=== PATIENT | female | born 1950 | race Caucasian/White ===

== ENCOUNTER 2017-03-23 01:57 | Emergency (ER) | payer MEDICARE ==
[2017-03-23] MEDS ORDERED: solu-MEDROL 125 MG IV ONE (02:04)
[2017-03-23] MEDS ORDERED: DUONEB 0.5-3 MG/3 ml Neb IH ONE ×2 (02:04→02:13)
--- NOTE | 2017-03-23 02:09 | ERPHSYRPT ---
- History of Present Illness Time Seen by Provider: 03/23/17 02:04 Source: patient Exam Limitations: no limitations Physician History: The patient is a 66-year-old female who complains of a cough since Monday or for 5 days. Tonight she had a coughing spell and developed shortness of breath and chest pain. Emotionally she is not feeling well because she recently lost her . She has a past medical history of pneumonia last year. Her past medical history is also significant for A. fib, coronary artery disease, CABG, high cholesterol, GERD, hypertension, and thyroidectomy. Timing/Duration: day(s) (5) Activities at Onset: none Severity of Dyspnea-Max: moderate Severity of Dyspnea-Current: mild Possible Cause: occasional episodes Modifying Factors: Improves With: activity, coughing Associated Symptoms: cough, wheezing Allergies/Adverse Reactions: No Known Drug Allergies Allergy (Unverified 08/20/13 13:27) Hx Tetanus, Diphtheria Vaccination/Date Given: No (PT UNSURE) Hx Influenza Vaccination/Date Given: No Hx Pneumococcal Vaccination/Date Given: No - Review of Systems Constitutional: No Fever, No Chills Eyes: No Symptoms Ears, Nose, & Throat: No Symptoms Respiratory: Cough, Dyspnea, Wheezing Cardiac: Chest Pain, No Edema, No Syncope Abdominal/Gastrointestinal: No Abdominal Pain, No Nausea, No Vomiting, No Diarrhea Genitourinary Symptoms: No Dysuria Musculoskeletal: No Back Pain, No Neck Pain Skin: No Rash Neurological: No Dizziness, No Focal Weakness, No Sensory Changes Psychological: No Symptoms Endocrine: No Symptoms Hematologic/Lymphatic: No Symptoms Immunological/Allergic: No Symptoms All Other Systems: Reviewed and Negative - Past Medical History Pertinent Past Medical History: Yes Cardiac History: Myocardial Infarction ([place]), Other Endocrine Medical History: Hyperthyroidism Musculoskeletal History: Osteoarthritis Psycho-Social History: Anxiety, Depression - Past Surgical History Past Surgical History: Yes Cardiac: CABG, Cardiac Catheterization, Cardiac Stent Gastrointestinal: Cholecystectomy Musculoskeletal: Orthopedic Surgery Female Surgical History: Hysterectomy Other Surgical History: THYROIDECTOMY, BACK SURGERY 2010 - Social History Smoking Status: Former smoker Exposure to second hand smoke: No Drug Use: none Patient Lives Alone: No - Female History Hx Now: No - Nursing Vital Signs Nursing Vital Signs: Initial Vital Signs Pulse Rate 77 03/23/17 02:17 Respiratory Rate 22 03/23/17 02:17 O2 Sat by Pulse Oximetry 94 L 03/23/17 02:17 Pain Scale Pain Intensity 3 - Physical Exam General Appearance: mild distress Eye Exam: PERRL/EOMI Ears, Nose, Throat Exam: hearing grossly normal Neck Exam: normal inspection, supple Respiratory Exam: wheezing Cardiovascular/Chest Exam: normal heart sounds, regular rate/rhythm Abdominal/Gastrointestinal Exam: soft, No tenderness, No distention, No mass Rectal Exam: not done Extremity Exam: non-tender, normal range of motion, normal inspection, no calf tenderness, no pedal edema Neurologic Exam: alert, oriented x 3, cooperative, 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 tested, sensation nml, No motor deficits Skin Exam: normal color, warm, No dry SpO2 Interpretation: normal - Course EKG Interpreted by Me: RATE, Sinus Rhythm, NORMAL AXIS, NORMAL QRS, Other (no change compared to EKG 08/20/13.) - Radiology Exams Chest X-ray Interpretation: Interpreted by me, Other (mild pulmonary congestion.) Ordered Tests: Active Orders 24 hr Category Date Time Status Neon Glass Bender STAT Care 03/23/17 02:05 Active EKG-ER Only STAT Care 03/23/17 02:04 Active IV Insertion STAT Care 03/23/17 02:04 Active CHEST 2 VIEWS (PA AND LAT) Stat Exams 03/23/17 02:04 Taken CBC W DIFF Stat Lab 03/23/17 02:15 Completed CMP Stat Lab 03/23/17 02:15 Completed MAGNESIUM Stat Lab 03/23/17 02:15 Completed NT PRO BNP Stat Lab 03/23/17 02:15 Completed TROPONIN Q3H Lab 03/23/17 02:15 Completed TROPONIN Q3H Lab 03/23/17 05:15 Ordered TROPONIN Q3H Lab 03/23/17 08:15 Ordered TROPONIN Q3H Lab 03/23/17 11:15 Ordered TROPONIN Q3H Lab 03/23/17 14:15 Ordered Respiratory Nebulizer STAT RT 03/23/17 02:05 Completed Medication Summary Discontinued Medications Generic Name Dose Route Start Last Admin Trade Name Freq PRN Reason Stop Dose Admin Albuterol/Ipratropium 3 ml 03/23/17 02:04 03/23/17 02:16 Duoneb 0.5-3 Mg/3 Ml Neb IH 03/23/17 02:05 3 ml STAT ONE Administration Albuterol/Ipratropium Confirm 03/23/17 02:13 Duoneb 0.5-3 Mg/3 Ml Neb Administered 03/23/17 02:14 Dose 3 ml IH .STK-MED ONE Methylprednisolone Sodium Succinate 125 mg 03/23/17 02:04 03/23/17 02:22 Solu-Medrol 125 Mg IV 03/23/17 02:05 125 mg STAT ONE Administration Methylprednisolone Sodium Succinate Confirm 03/23/17 02:20 Solu-Medrol 125 Mg Administered 03/23/17 02:21 Dose 125 mg .ROUTE .STK-MED ONE Lab/Rad Data: Laboratory Result Diagrams 03/23/17 02:15 03/23/17 02:15 Laboratory Results 03/23/17 03/23/17 03/23/17 Range/Units 02:15 02:15 02:15 WBC 8.9 (4.0-10.5) K/mm3 RBC 4.73 (4.1-5.4) M/mm3 Hgb 13.9 (12.0-16.0) gm/dl Hct 41.8 (35-47) % MCV 88.4 (78-100) fl MCH 29.4 (26-32) pg MCHC 33.3 (32-36) g/dl RDW 13.3 (11.5-14.0) % Plt Count 244 (150-450) K/mm3 MPV 11.0 H (6-9.5) fl Gran % 57.3 (36.0-66.0) % Lymphocytes % 31.3 (24.0-44.0) % Monocytes % 10.6 (0.0-12.0) % Eosinophils % 0.5 (0.00-5.0) % Basophils % 0.3 (0.0-0.4) % Basophils # 0.03 (0-0.4) Sodium 139 (136-145) mEq/L Potassium 3.7 (3.5-5.1) mEq/L Chloride 103 (98-107) mEq/L Carbon Dioxide 24.0 (21-32) mEq/L Anion Gap 15.4 H (5-15) MEQ/L BUN 14 (9-20) mg/dL Creatinine 1.50 H (0.55-1.30) mg/dl Estimated GFR 37 ML/MIN Glucose 101 (70-110) MG/DL Calcium 9.1 (8.5-10.1) mg/dL Magnesium 1.7 L (1.8-2.4) mg/dL Total Bilirubin 0.40 (0.2-1.0) mg/dL AST 19 (15-37) U/L ALT 28 (12-78) U/L Alkaline Phosphatase 118 H (46-116) U/L Troponin I < 0.017 (0.000-0.056) ng/ml NT-Pro-B Natriuret Pep 3985 H (0-125) pg/ml Serum Total Protein 6.8 (6.4-8.2) gm/dL Albumin 3.5 (3.4-5.0) g/dL - Progress Progress: improved Air Movement: good Blood Culture(s) Obtained: No Antibiotics given: No Counseled pt/family regarding: lab results, diagnosis, need for follow-up, rad results - Departure Time of Disposition: 03:40 Departure Disposition: Home Clinical Impression: Cough, Pulmonary congestion, Insomnia Condition: Stable Critical Care Time: No Referrals: JAMIE RODRIGUEZ [Primary Care Provider] - Additional Instructions: You have a cough with wheezing, mild pulmonary congestion, and insomnia. You were given a DuoNeb treatment and Solu-Medrol 125 mg by IV in the ER. Take your water pill when you get home to help relieve the pulmonary congestion. Take Ambien 10 mg before bedtime to help with the insomnia. Take the Z-Navid as directed for 5 days. Follow-up in 2-3 days. Prescriptions: Zolpidem Tartrate [Ambien] 10 mg PO QHS PRN #5 tablet PRN Reason: Insomnia Azithromycin 250 mg [Zithromax 250 MG TABLET] 250 mg PO ZPACK #6 tablet
[2017-03-23] MEDS ORDERED: solu-MEDROL 125 MG ONE (02:20)
[2017-03-23 02:21] LABS: BASOPHIL % 0.3 % (0.0-0.4); Eosinophil % 0.5 % (0.00-5.0); Granulocytes % 57.3 % (36.0-66.0); Lymphocytes % 31.3 % (24.0-44.0); Mean Cell Volume 88.4 fl (78-100); Mean Corpuscular Hemoglobin 29.4 pg (26-32); Monocytes % 10.6 % (0.0-12.0); Platelet Count 244 K/mm3 (150-450); Red Blood Count 4.73 M/mm3 (4.1-5.4); Red Cell Distribution Width 13.3 % (11.5-14.0); White Blood Count 8.9 K/mm3 (4.0-10.5)
[2017-03-23 02:49] VITALS: O2SAT 97
[2017-03-23 02:53] LABS: ALBUMIN 3.5 g/dL (3.4-5.0); ANION GAP 15.4 MEQ/L (5-15); BILIRUBIN,TOTAL 0.4 mg/dL (0.2-1.0); MAGNESIUM 1.7 mg/dL (1.8-2.4); Potassium 3.7 mEq/L (3.5-5.1); Total Protein 6.8 gm/dL (6.4-8.2)
[2017-03-23] MEDS ORDERED: Ambien 10 MG PO ONE (03:46)
[2017-03-23 04:29] VITALS: BP 148/78; PULSE 80
--- NOTE | 2017-03-23 08:52 | XRAY ---
Indication: Cough. Short of breath. Comparison: August 20, 2013. PA/lateral chest again hyperinflated and clear with previous CABG surgery and a few calcified granulomas. Heart is not enlarged. Vascularity normal. Bony thorax intact again with mild osteopenia and degenerative changes. Impression: Stable nonacute hyperinflated chest with chronic features.
== END 2017-03-23 04:20 | disposition home or self-care (01) ==
LOC: ED 01:57
DX: R05 Cough (principal); R09.89 Other specified symptoms and signs involving the circulatory and respiratory systems; G47.00 Insomnia, unspecified
CPT/HCPCS: 36000; 36415; 71020; 80053; 83735; 83880; 84484; 85025; 93005; 93041; 94640; 96374; 99284; J2930; A9270-GY

== ENCOUNTER 2018-03-26 08:29 | Emergency (ER) | payer MEDICARE ==
[2018-03-26] MEDS ORDERED: Zofran 4 MG/2 ML VIAL IV ONE (08:33)
[2018-03-26] MEDS ORDERED: MORPHINE SULFATE 10 MG/ML IV ONE (08:33)
--- NOTE | 2018-03-26 08:37 | ERPHSYRPT ---
- History of Present Illness Time Seen by Provider: 03/26/18 08:31 Source: patient, family Exam Limitations: no limitations Physician History: The patient is a right-handed 67-year-old female with her friend complaining that she tripped on a step and caught herself with her left hand, causing immediate pain to her left wrist. She did not hit her head nor did she lose consciousness. She denies numbness or tingling. Her past medical history is significant for CABG, CAD, A. fib, hypertension, and high cholesterol. Occurred: just prior to arrival Reason for Fall: tripped, fell from standing pos Injuries/Pain Location: upper extremity (left wrist) Loss of Consciousness: no loss of consciousness Quality: sharpness Severity of Pain-Max: severe Severity of Pain-Current: severe Modifying Factors: Improves With: nothing Associated Symptoms (Fall): extremity injury Allergies/Adverse Reactions: No Known Drug Allergies Allergy (Verified 03/26/18 08:40) Home Medications: Apixaban [Eliquis] 1 tab BID 03/23/17 [History] Atorvastatin Calcium [Lipitor] 1 tab DAILY 03/23/17 [History] Bumetanide 1 tab DAILY 03/23/17 [History] Clopidogrel Bisulfate 75 mg [PLAVIX 75 MG Tablet] 1 tab DAILY 03/23/17 [ History] Levothyroxine Sodium [Synthroid] 1 tab DAILY 03/23/17 [History] Metoprolol Succinate [Toprol Xl] 1 tab BID 03/23/17 [History] Oxycodone HCl/Acetaminophen [Percocet 5-325 mg Tablet] 1 tab QID 03/23/17 [ History] Hx Tetanus, Diphtheria Vaccination/Date Given: No (PT UNSURE) Hx Influenza Vaccination/Date Given: No Hx Pneumococcal Vaccination/Date Given: No - Review of Systems Constitutional: No Fever, No Chills Eyes: No Symptoms Ears, Nose, & Throat: No Symptoms Respiratory: No Cough, No Dyspnea Cardiac: No Chest Pain, No Edema, No Syncope Abdominal/Gastrointestinal: No Abdominal Pain, No Nausea, No Vomiting, No Diarrhea Genitourinary Symptoms: No Dysuria Musculoskeletal: Fall, Injury, Joint Pain, Joint Swelling Skin: No Rash Neurological: No Dizziness, No Focal Weakness, No Sensory Changes Psychological: No Symptoms Endocrine: No Symptoms Hematologic/Lymphatic: No Symptoms Immunological/Allergic: No Symptoms All Other Systems: Reviewed and Negative - Past Medical History Pertinent Past Medical History: Yes Cardiac History: Myocardial Infarction ([place]), Other Respiratory History: Pneumonia Endocrine Medical History: Hyperthyroidism Musculoskeletal History: Osteoarthritis Psycho-Social History: Anxiety, Depression Other Medical History: atrial fibrillation - Past Surgical History Past Surgical History: Yes Cardiac: CABG, Cardiac Catheterization, Cardiac Stent Gastrointestinal: Cholecystectomy Musculoskeletal: Orthopedic Surgery Female Surgical History: Hysterectomy Other Surgical History: THYROIDECTOMY, BACK SURGERY 2010 - Social History Smoking Status: Former smoker Exposure to second hand smoke: No Drug Use: none Patient Lives Alone: No - Nursing Vital Signs Nursing Vital Signs: Initial Vital Signs Temperature 99.1 F 03/26/18 08:30 Pulse Rate 60 03/26/18 08:30 Respiratory Rate 18 03/26/18 08:30 Blood Pressure 121/59 03/26/18 08:30 O2 Sat by Pulse Oximetry 99 03/26/18 08:30 Pain Scale Pain Intensity 8 - Outing Coma Score Best Eye Response (Lázaro): (4) open spontaneously Best Verbal Response (Lázaro): (5) oriented Best Motor Response (Outing): (6) obeys commands Outing Total: 15 - Physical Exam General Appearance: moderate distress, anxiety Head Injury: no evidence of injury Eye Exam: PERRL/EOMI ENT Exam: airway nml Respiratory/Chest Exam: normal breath sounds, No chest tenderness, No respiratory distress Cardiovascular Exam: normal heart sounds, regular rate/rhythm Gastrointestinal Exam: soft, No tenderness, No distention, No guarding, No ecchymosis Rectal Exam: not done Back Exam: normal inspection, No vertebral tenderness Extremity Exam: normal range of motion, pelvis stable, joint swelling, limited range of motion, pain with movement, swelling, tenderness, other (Left wrist: tenderness, limited ROM, deformity, pain with movement, swelling.), No deformities Neurologic Exam: alert, oriented x 3, cooperative, sensation nml, No motor deficits Skin Exam: normal color, warm, dry SpO2 Interpretation: normal Oxygen Delivery: Room Air - Radiology Exams Left Wrist X-ray Interpretation: Reviewed by me, Teleradiologist Report (per Dr Kemp), Displaced Fracture (acute transverse fracture with angulation of radius and distal ulnar shaft fracture) Ordered Tests: Active Orders 24 hr Category Date Time Status Cold Application STAT Care 03/26/18 08:33 Active WRIST (MIN 3 VIEWS) Stat Exams 03/26/18 08:34 Completed Medication Summary Discontinued Medications Generic Name Dose Route Start Last Admin Trade Name Liu PRN Reason Stop Dose Admin Morphine Sulfate 8 mg 03/26/18 08:33 03/26/18 08:42 Morphine Sulfate 10 Mg/Ml IV 03/26/18 08:34 8 mg STAT ONE Administration Morphine Sulfate Confirm 03/26/18 08:40 Morphine Sulfate 10 Mg/Ml Administered 03/26/18 08:41 Dose 10 mg .ROUTE .STK-MED ONE Ondansetron HCl 4 mg 03/26/18 08:33 03/26/18 08:41 Zofran 4 Mg/2 Ml Vial IV 03/26/18 08:34 4 mg STAT ONE Administration Ondansetron HCl Confirm 03/26/18 08:40 Zofran 4 Mg/2 Ml Vial Administered 03/26/18 08:41 Dose 4 mg .ROUTE .STK-MED ONE - Progress Progress: improved Counseled pt/family regarding: diagnosis, rad results - Departure Time of Disposition: 09:38 Departure Disposition: Home Clinical Impression: Distal radius fracture, left, Fracture of distal end of left ulna Condition: Stable Critical Care Time: No Referrals: JAMIE RODRIGUEZ [Primary Care Provider] - Additional Instructions: You have a fracture of your left wrist that involves your radius and ulna bones. You were given morphine 12 mg and Zofran 4 mg by IV in the ER. You may continue to take your normal pain medicines at home. Wear the Velcro splint for protection until you see either your orthopedic surgeon or the cast clinic. The cast clinic is located at [address] [place] [address]. Keep your wrist elevated and iced as much as possible.
[2018-03-26] MEDS ORDERED: Zofran 4 MG/2 ML VIAL ONE (08:40)
[2018-03-26] MEDS ORDERED: MORPHINE SULFATE 10 MG/ML ONE (08:40)
--- NOTE | 2018-03-26 09:18 | XRAY ---
Indication: Pain following fall. Comparison: None 3 views of the left wrist demonstrates complete acute transverse fracture involving the distal shaft of the radius with mild angulation, nondisplaced acute distal ulnar shaft fracture, soft tissue swelling, mild osteopenia, and mild degenerative changes of the 1st metacarpal multangular articulation. No other bony, articular, or soft tissue abnormalities.
[2018-03-26] MEDS ORDERED: MORPHINE SULFATE 4 MG INJ IV ONE (09:39)
[2018-03-26] MEDS ORDERED: MORPHINE SULFATE 4 MG INJ ONE (09:45)
[2018-03-26 10:19] VITALS: BP 124/62; PULSE 67; O2SAT 98
== END 2018-03-26 10:18 | disposition home or self-care (01) ==
LOC: ED 08:29
DX: S52.502A Unspecified fracture of the lower end of left radius, initial encounter for closed fracture (principal); S52.602A Unspecified fracture of lower end of left ulna, initial encounter for closed fracture; W01.0XXA Fall on same level from slipping, tripping and stumbling without subsequent striking against object, initial encounter; Z79.899 Other long term (current) drug therapy
CPT/HCPCS: 73110; 96374; 96375; 96376; 99284; J2270; J2405; L3908

== ENCOUNTER 2018-11-18 13:26 | Emergency (ER) | payer MEDICARE ==
[2018-11-18] MEDS ORDERED: DUONEB 0.5-3 MG/3 ml Neb IH ONE ×2 (13:39→14:00)
[2018-11-18] MEDS ORDERED: Sodium Chloride 0.9% 1000 ML 1,000 ML IV SCH (13:45)
--- NOTE | 2018-11-18 13:59 | ERPHSYRPT ---
- History of Present Illness Time Seen by Provider: 11/18/18 13:57 Source: patient Exam Limitations: no limitations Patient Subjective Stated Complaint: Pt states "I am not sure if I have pneumonia or what, I hurt, I cannot breath, I just feel like crap." Triage Nursing Assessment: Pt alert and oriented X 3, skin pwd. PT ambuales with an upright steady gait, able to speak in clear full sentences. PT in slightly tachypneic. Pt moaning. Physician History: Ms Lakisha Szymanski is a 67 years old female came to ER with c/o worsening shortness of breath. Pt states "I am not sure if I have pneumonia or what, I hurt, I cannot breath, I just feel like crap." Timing/Duration: day(s) Severity of Dyspnea-Max: moderate Severity of Dyspnea-Current: moderate Modifying Factors: Improves With: activity Associated Symptoms: productive cough International travel in last 2 weeks: No Allergies/Adverse Reactions: No Known Drug Allergies Allergy (Verified 03/26/18 08:40) Home Medications: Apixaban [Eliquis] 1 tab PO BID 03/23/17 [History] Atorvastatin Calcium [Lipitor] 1 tab PO DAILY 03/23/17 [History] Bumetanide 1 tab PO DAILY 03/23/17 [History] Levothyroxine Sodium [Synthroid] 1 tab DAILY 03/23/17 [History] Metoprolol Succinate [Toprol Xl] 1 tab BID 03/23/17 [History] Amiodarone HCl [Pacerone] 200 mg PO DAILY 11/18/18 [History] Amlodipine Besylate 5 mg [Norvasc 5 mg] 5 mg PO BID 11/18/18 [History] Buprenorphine HCl [Belbuca] 150 mcg BC BID 11/18/18 [History] Doxepin HCl 10 mg PO HS 11/18/18 [History] Isosorbide Mononitrate 30 mg [Imdur 30 MG] 30 mg PO DAILY 11/18/18 [History ] Lisinopril 20 mg [Zestril 20 MG] 20 mg PO BID 11/18/18 [History] Tizanidine HCl 4 mg [Zanaflex 4 MG] 4 mg PO HS 11/18/18 [History] Venlafaxine HCl ER 75 mg [Effexor XR 75 MG] 75 mg PO DAILY 11/18/18 [ History] Hx Tetanus, Diphtheria Vaccination/Date Given: No Hx Influenza Vaccination/Date Given: Yes Hx Pneumococcal Vaccination/Date Given: Yes Immunizations Up to Date: Yes - Review of Systems Constitutional: No Fever, No Chills Eyes: No Symptoms Ears, Nose, & Throat: No Symptoms Respiratory: Cough, Dyspnea, Dyspnea on Exertion (KYLE), Wheezing Cardiac: No Chest Pain, No Edema, No Syncope Abdominal/Gastrointestinal: No Abdominal Pain, No Nausea, No Vomiting, No Diarrhea Genitourinary Symptoms: No Dysuria Musculoskeletal: No Back Pain, No Neck Pain Skin: No Rash Neurological: No Dizziness, No Focal Weakness, No Sensory Changes Psychological: No Symptoms Endocrine: No Symptoms All Other Systems: Reviewed and Negative - Past Medical History Pertinent Past Medical History: Yes Cardiac History: Myocardial Infarction ([place]), Other Respiratory History: Pneumonia Endocrine Medical History: Hyperthyroidism Musculoskeletal History: Osteoarthritis Psycho-Social History: Anxiety, Depression Other Medical History: atrial fibrillation - Past Surgical History Past Surgical History: Yes Cardiac: CABG, Cardiac Catheterization, Cardiac Stent Gastrointestinal: Cholecystectomy Musculoskeletal: Orthopedic Surgery Female Surgical History: Hysterectomy Other Surgical History: THYROIDECTOMY, BACK SURGERY 2010 - Social History Smoking Status: Former smoker Exposure to second hand smoke: Yes Drug Use: none Patient Lives Alone: Yes - Nursing Vital Signs Nursing Vital Signs: Initial Vital Signs Temperature 98.6 F 11/18/18 13:27 Pulse Rate 70 11/18/18 13:27 Respiratory Rate 24 11/18/18 13:27 Blood Pressure 158/64 11/18/18 13:27 O2 Sat by Pulse Oximetry 91 L 11/18/18 13:27 Pain Scale Pain Intensity 9 - Physical Exam General Appearance: no apparent distress, alert Eye Exam: PERRL/EOMI Neck Exam: normal inspection, supple Respiratory Exam: diminished breath sounds, crackles/rales, rhonchi, wheezing Cardiovascular/Chest Exam: normal heart sounds, regular rate/rhythm Abdominal/Gastrointestinal Exam: soft, No tenderness, No distention, No mass Extremity Exam: non-tender, normal range of motion, normal inspection, no calf tenderness, no pedal edema Neurologic Exam: alert, oriented x 3, cooperative, 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-XII nml as tested, sensation nml, No motor deficits Skin Exam: normal color, warm, No dry SpO2 Interpretation: borderline oxygenation SpO2: 91 O2 Delivery: Room Air - Course Nursing assessment & vital signs reviewed: Yes EKG Interpreted by Me: Sinus Rhythm - Radiology Exams Chest X-ray Interpretation: Reviewed by me, Infiltrates (bibasilar pulmonary congestion) Ordered Tests: Active Orders 24 hr Category Date Time Status EKG-ER Only STAT Care 11/18/18 13:39 Active Oxygen-ED Only Nasal Cannula 2 lpm Care 11/18/18 13:39 Active CHEST 2 VIEWS (PA AND LAT) Stat Exams 11/18/18 13:40 Taken CBC W DIFF Stat Lab 11/18/18 14:22 Completed CMP Stat Lab 11/18/18 14:22 Completed Lactic Acid Stat Lab 11/18/18 13:39 Completed NT PRO BNP Stat Lab 11/18/18 14:22 Completed TROPONIN Q3H Lab 11/18/18 14:22 Completed TROPONIN Q3H Lab 11/18/18 16:45 Ordered TROPONIN Q3H Lab 11/18/18 19:45 Ordered TROPONIN Q3H Lab 11/18/18 22:45 Ordered TROPONIN Q3H Lab 11/19/18 01:45 Ordered Peak Expiratory Flow Rate ONCE RT 11/18/18 14:18 Active Respiratory Therapy Assessment DAILY RT 11/18/18 14:18 Active Medication Summary Generic Name Dose Route Start Last Admin Trade Name Freq PRN Reason Stop Dose Admin Sodium Chloride 1,000 mls @ 100 mls/hr 11/18/18 13:45 11/18/18 14:24 Sodium Chloride 0.9% 1000 Ml IV 12/18/18 13:44 100 mls/hr .Q10H EFE Administration Ceftriaxone Sodium/Dextrose 1 g in 50 mls @ 100 mls/hr 11/18/18 15:15 Rocephin 1 Gm-D5w 50 Ml Bag IV 11/18/18 15:44 STAT STA Discontinued Medications Generic Name Dose Route Start Last Admin Trade Name Freq PRN Reason Stop Dose Admin Albuterol/Ipratropium 3 ml 11/18/18 13:39 11/18/18 14:19 Duoneb 0.5-3 Mg/3 Ml Neb IH 11/18/18 13:40 3 ml STAT ONE Administration Albuterol/Ipratropium Confirm 11/18/18 14:00 Duoneb 0.5-3 Mg/3 Ml Neb Administered 11/18/18 14:01 Dose 3 ml IH .STK-MED ONE Ceftriaxone Sodium 1,000 mg 11/18/18 14:54 11/18/18 15:13 Rocephin 1000 Mg Inj IV 11/18/18 14:55 Not Given STAT ONE Lab/Rad Data: Laboratory Result Diagrams 11/18/18 14:22 11/18/18 14:22 Laboratory Results 11/18/18 11/18/18 11/18/18 Range/Units 14:22 14:22 14:22 WBC 12.6 H (4.0-10.5) K/mm3 RBC 4.57 (4.1-5.4) M/mm3 Hgb 13.8 (12.0-16.0) gm/dl Hct 42.3 (35-47) % MCV 92.6 (78-100) fl MCH 30.2 (26-32) pg MCHC 32.6 (32-36) g/dl RDW 14.4 H (11.5-14.0) % Plt Count 207 (150-450) K/mm3 MPV 11.4 H (6-9.5) fl Gran % 82.1 H (36.0-66.0) % Eos # (Auto) 0.04 (0-0.5) Absolute Lymphs (auto) 1.00 (1.0-4.6) Absolute Monos (auto) 1.19 (0.0-1.3) Lymphocytes % 7.9 L (24.0-44.0) % Monocytes % 9.5 (0.0-12.0) % Eosinophils % 0.3 (0.00-5.0) % Basophils % 0.2 (0.0-0.4) % Absolute Granulocytes 10.33 H (1.4-6.9) Basophils # 0.02 (0-0.4) Sodium 139 (137-145) mmol/L Potassium 4.3 (3.5-5.1) mmol/L Chloride 100 (98-107) mmol/L Carbon Dioxide 28 (22-30) mmol/L Anion Gap 15.3 H (5-15) MEQ/L BUN 26 H (7-17) mg/dL Creatinine 1.44 H (0.52-1.04) mg/dL Estimated GFR 38.6 ML/MIN Glucose 107 H (74-106) mg/dL Lactic Acid (0.4-2.0) Calcium 9.7 (8.4-10.2) mg/dL Total Bilirubin 0.90 (0.2-1.3) mg/dL AST 27 (14-36) U/L ALT 18 (0-35) U/L Alkaline Phosphatase 101 (38-126) U/L Troponin I < 0.012 (0.000-0.034) ng/mL NT-Pro-B Natriuret Pep 1810 H (0-900) pg/mL Serum Total Protein 7.9 (6.3-8.2) g/dL Albumin 4.5 (3.5-5.0) g/dL 11/18/18 Range/Units 13:39 WBC (4.0-10.5) K/mm3 RBC (4.1-5.4) M/mm3 Hgb (12.0-16.0) gm/dl Hct (35-47) % MCV (78-100) fl MCH (26-32) pg MCHC (32-36) g/dl RDW (11.5-14.0) % Plt Count (150-450) K/mm3 MPV (6-9.5) fl Gran % (36.0-66.0) % Eos # (Auto) (0-0.5) Absolute Lymphs (auto) (1.0-4.6) Absolute Monos (auto) (0.0-1.3) Lymphocytes % (24.0-44.0) % Monocytes % (0.0-12.0) % Eosinophils % (0.00-5.0) % Basophils % (0.0-0.4) % Absolute Granulocytes (1.4-6.9) Basophils # (0-0.4) Sodium (137-145) mmol/L Potassium (3.5-5.1) mmol/L Chloride (98-107) mmol/L Carbon Dioxide (22-30) mmol/L Anion Gap (5-15) MEQ/L BUN (7-17) mg/dL Creatinine (0.52-1.04) mg/dL Estimated GFR ML/MIN Glucose (74-106) mg/dL Lactic Acid 1.1 (0.4-2.0) Calcium (8.4-10.2) mg/dL Total Bilirubin (0.2-1.3) mg/dL AST (14-36) U/L ALT (0-35) U/L Alkaline Phosphatase (38-126) U/L Troponin I (0.000-0.034) ng/mL NT-Pro-B Natriuret Pep (0-900) pg/mL Serum Total Protein (6.3-8.2) g/dL Albumin (3.5-5.0) g/dL - Progress Progress: improved Air Movement: good Blood Culture(s) Obtained: No Antibiotics given: Yes Counseled pt/family regarding: lab results, diagnosis, need for follow-up, rad results - Departure Departure Disposition: Home Clinical Impression: Pulmonary congestion, Acute diastolic heart failure Right lower lobe pneumonia Qualifiers: Pneumonia type: due to unspecified organism Qualified Code(s): J18.1 - Lobar pneumonia, unspecified organism Condition: Stable Critical Care Time: Yes Critical Care Time(excluding separately billable procedures): 30-74 minutes Referrals: JAMIE RODRIGUEZ [Primary Care Provider] - Instructions: Heart Failure, Adult (DC), Pneumonia, Adult (DC), Cough, Adult ( DC) Additional Instructions: LAKISHA SZYMANSKI was seen on 11/18/18 n the Emergency Room. At that time you were treated for an emergent condition, during your visit Laboratory, Radiology and/ or other procedures may have been ordered. It is very important that you follow- up with your Primary Care Physician JAMIE RODRIGUEZ within the next 24-48 hours to review your Emergency Room visit and the final results of testing that was ordered. Some test results such as Urine Cultures, Blood Cultures, and other cultures if ordered will not be finalized for 24-48 hours. If you do not have a Primary Care Provider please call the medical records department at [phone] to obtain a copy of your results or you may sign into our patient portal to obtain these results by visiting us @ [email or web address] and completing the following steps: 1. Click on the Patient Portal link 2. Click the Patient Self Enrollment Link to complete the enrollment form and entering your 3. Once the enrollment form is completed you will receive an email with a temporary ID and password at the email address you provided. 4. Next choose a user name and password. Your user name must be at least 4 characters long and your password must be at least 4 characters long. 5. Choose a security question from the list and provide your answer to the question. If you already have signed into the Health Portal you may access your Health Care Information 06/02 by the following steps: 1. Login to our website @ [email or web address] 2. Enter your original user name and password. FAQS [facility] Health Portal is an online tool that contains your Lab Results, Radiology Reports, Visit History, Discharge Instructions and Health Summary Lab and Radiology Results will not be available for 72 hours on the portal. The Portal is a secure site, passwords are encryted and URLs are re-written so they cannot be copied and pasted. You and authorized family members are the only ones who can access your Portal. Also there is a timeout feature that protects your information if you leave the Portal page open. If you have technical difficulty please use the Contact Us link on the page this will allow you to submit any questions you have regarding the Portal or you may contact the Medical Record Department at [phone] ext [phone]. Prescriptions: Amoxicillin 500 mg Cap [Amoxil 500 mg] 500 mg PO TID #30 capsule
[2018-11-18] MEDS ORDERED: Sodium Chloride 0.9% 1000 ML 1,000 ML ONE (14:21)
[2018-11-18 14:24] LABS: BASOPHIL % 0.2 % (0.0-0.4); Basophil (Absolute #) 0.02 (0-0.4); Eosinophil % 0.3 % (0.00-5.0); Eosinophil (Absolute #) 0.04 (0-0.5); Granulocyte Absolute (ANC) 10.33 (1.4-6.9); Granulocytes % 82.1 % (36.0-66.0); Hematocrit 42.3 % (35-47); Hemoglobin 13.8 gm/dl (12.0-16.0); Lymphocytes % 7.9 % (24.0-44.0); Mean Cell Volume 92.6 fl (78-100); Mean Corpuscular Hemoglobin 30.2 pg (26-32); Mean Corpuscular Hgb Concent. 32.6 g/dl (32-36); Mean Platelet Volume 11.4 fl (6-9.5); Monocyte (Absolute #) 1.19 (0.0-1.3); Monocytes % 9.5 % (0.0-12.0); Platelet Count 207 K/mm3 (150-450); Red Blood Count 4.57 M/mm3 (4.1-5.4); Red Cell Distribution Width 14.4 % (11.5-14.0); White Blood Count 12.6 K/mm3 (4.0-10.5)
[2018-11-18 14:45] LABS: ALBUMIN 4.5 g/dL (3.5-5.0); ANION GAP 15.3 MEQ/L (5-15); BILIRUBIN,TOTAL 0.9 mg/dL (0.2-1.3); Calcium 9.7 mg/dL (8.4-10.2); Creatinine 1 1.44 mg/dL (0.52-1.04); Potassium 4.3 mmol/L (3.5-5.1); Total Protein 7.9 g/dL (6.3-8.2)
[2018-11-18] MEDS ORDERED: Rocephin 1000 MG INJ IV ONE (14:54)
[2018-11-18] MEDS ORDERED: ROCEPHIN 1 Gm-D5w 50 ml Bag** 1 G/50 ML IVPB IV STA (15:15)
[2018-11-18] MEDS ORDERED: ROCEPHIN 1 Gm-D5w 50 ml Bag** 1 G/50 ML IVPB IV ONE (15:16)
[2018-11-18 15:22] VITALS: BP 164/64; O2SAT 98
[2018-11-18] MEDS ORDERED: TORAdol 30 mg Injection IV ONE (15:22)
[2018-11-18] MEDS ORDERED: TORAdol 30 mg Injection ONE (15:44)
[2018-11-18 16:23] VITALS: PULSE 70
--- NOTE | 2018-11-18 21:05 | XRAY ---
Indication: Short of breath. Comparison: March 23, 2017. PA/lateral chest again hyperinflated with new lingula interstitial alveolar opacities. Remaining heart and lungs unremarkable again with CABG surgery. Bony thorax intact again with mild osteopenia and degenerative changes. Impression: New lingula interstitial alveolar opacities.
== END 2018-11-18 16:33 | disposition home or self-care (01) ==
LOC: ED 13:26
DX: R09.89 Other specified symptoms and signs involving the circulatory and respiratory systems (principal); J18.1 Lobar pneumonia, unspecified organism; I48.91 Unspecified atrial fibrillation; E05.90 Thyrotoxicosis, unspecified without thyrotoxic crisis or storm; M19.90 Unspecified osteoarthritis, unspecified site; F41.9 Anxiety disorder, unspecified; F32.9 Major depressive disorder, single episode, unspecified; Z79.01 Long term (current) use of anticoagulants; Z79.899 Other long term (current) drug therapy; I25.2 Old myocardial infarction
CPT/HCPCS: 36000; 36415; 71046; 80053; 83605; 83880; 84484; 85025; 93005; 94150; 94640; 96360; 96365; 96374; 96375; 99285; J0696; J1885; A9270-GY

== ENCOUNTER 2019-05-05 21:48 | Emergency (ER) | payer MEDICARE ==
--- NOTE | 2019-05-05 22:04 | ERPHSYRPT ---
- History of Present Illness Time Seen by Provider: 05/05/19 22:03 Source: patient Exam Limitations: no limitations Physician History: Has had problems regulating BP - has been high; recently changed BP meds. Monday changed med dosage and has had no lowering of BP until this afternoon - took the same dosage as on Monday thru this morning - now is in the 70s/50s ...symptomatic. Called EMS to come to ER with low BP. On arrival her 77/39; patient alert and interactive. Activities at Onset: none (daily activities) Quality: other (light headed only - no chest pain) Chest Pain Radiation: no radiation Severity of Pain-Max: none Severity of Pain-Current: none Modifying Factors: Improves With: nothing Nitro Today/Relief: no nitro taken today Aspirin Treatment Today: no aspirin today Associated Symptoms: other (light headed) Allergies/Adverse Reactions: No Known Drug Allergies Allergy (Verified 05/05/19 22:11) Home Medications: Apixaban [Eliquis] 1 tab PO BID 03/23/17 [History] Atorvastatin Calcium [Lipitor] 1 tab PO HS 03/23/17 [History] Bumetanide 1 tab PO DAILY 03/23/17 [History] Levothyroxine Sodium [Synthroid] 112 mcg DAILY 03/23/17 [History] Amiodarone HCl [Pacerone] 200 mg PO DAILY 11/18/18 [History] Amlodipine Besylate 5 mg [Norvasc 5 mg] 2.5 mg PO DAILY 11/18/18 [History] Buprenorphine HCl [Belbuca] 150 mcg BC BID PRN 11/18/18 [History] Doxepin HCl 10 mg PO HS 11/18/18 [History] Lisinopril 20 mg [Zestril 20 MG] 20 mg PO BID 11/18/18 [History] Tizanidine HCl 4 mg [Zanaflex 4 MG] 4 mg PO HS 11/18/18 [History] Venlafaxine HCl ER 75 mg [Effexor XR 75 MG] 75 mg PO DAILY 11/18/18 [ History] Isosorbide Mononitrate [Isosorbide Mononitrate ER] 60 mg PO DAILY 05/05/19 [ History] Metoprolol Tartrate 25 mg [Lopressor 25MG Tab] 25 mg PO BID 05/05/19 [ History] Hx Tetanus, Diphtheria Vaccination/Date Given: No Hx Influenza Vaccination/Date Given: Yes Hx Pneumococcal Vaccination/Date Given: Yes - Review of Systems Constitutional: Lethargy Respiratory: No Symptoms Cardiac: No Symptoms All Other Systems: Reviewed and Negative - Past Medical History Pertinent Past Medical History: Yes Cardiac History: Myocardial Infarction ([place]), Other Respiratory History: Pneumonia Endocrine Medical History: Hyperthyroidism Musculoskeletal History: Osteoarthritis Psycho-Social History: Anxiety, Depression Other Medical History: atrial fibrillation - Past Surgical History Past Surgical History: Yes Cardiac: CABG, Cardiac Catheterization, Cardiac Stent Gastrointestinal: Cholecystectomy Musculoskeletal: Orthopedic Surgery Female Surgical History: Hysterectomy Other Surgical History: THYROIDECTOMY, BACK SURGERY 2010 - Social History Smoking Status: Former smoker Exposure to second hand smoke: Yes Drug Use: none Patient Lives Alone: Yes - Nursing Vital Signs Nursing Vital Signs: Initial Vital Signs Pulse Rate 48 L 05/05/19 22:02 Respiratory Rate 18 05/05/19 22:02 Blood Pressure 77/39 05/05/19 22:02 O2 Sat by Pulse Oximetry 96 05/05/19 22:02 Pain Scale Pain Intensity 0 - Physical Exam General Appearance: no apparent distress Eye Exam: PERRL/EOMI Ears, Nose, Throat Exam: normal ENT inspection, pharynx normal, moist mucous membranes Neck Exam: normal inspection, non-tender, supple Respiratory Exam: normal breath sounds, lungs clear, airway intact Cardiovascular Exam: regular rate/rhythm, normal heart sounds, normal peripheral pulses, bradycardia Gastrointestinal/Abdomen Exam: soft, normal bowel sounds, No tenderness Extremity Exam: normal inspection Neurologic Exam: alert, oriented x 3, cooperative, normal mood/affect Skin Exam: normal color, warm, dry SpO2 Interpretation: normal O2 Delivery: Room Air - Course Nursing assessment & vital signs reviewed: Yes Ordered Tests: Active Orders 24 hr Category Date Time Status CHEST 1 VIEW (PORTABLE) Stat Exams 05/05/19 22:18 Taken CBC W DIFF Stat Lab 05/05/19 22:22 Completed CMP Stat Lab 05/05/19 22:22 Completed MAGNESIUM Stat Lab 05/05/19 22:22 Completed TROPONIN Q3H Lab 05/05/19 22:22 Completed Medication Summary Discontinued Medications Generic Name Dose Route Start Last Admin Trade Name Freq PRN Reason Stop Dose Admin Sodium Chloride 1,000 mls @ 999 mls/hr 05/05/19 22:17 05/05/19 22:27 Sodium Chloride 0.9% 1000 Ml IV 05/05/19 23:17 999 mls/hr .Q1H1M STA Administration Sodium Chloride Confirm 05/05/19 22:25 Sodium Chloride 0.9% 1000 Ml Administered 05/05/19 22:26 Dose 1,000 mls @ ud .ROUTE .STK-MED ONE Sodium Chloride Confirm 05/05/19 23:09 Sodium Chloride 0.9% 1000 Ml Administered 05/05/19 23:10 Dose 1,000 mls @ ud .ROUTE .STK-MED ONE Sodium Chloride 1,000 mls @ 999 mls/hr 05/06/19 01:02 05/05/19 23:10 Sodium Chloride 0.9% 1000 Ml IV 05/06/19 02:02 999 mls/hr .Q1H1M STA Administration Lab/Rad Data: Laboratory Result Diagrams 05/05/19 22:22 05/05/19 22:22 Laboratory Results 05/05/19 05/05/19 05/05/19 Range/Units 22:22 22:22 22:22 WBC 8.1 (4.0-10.5) K/mm3 RBC 4.14 (4.1-5.4) M/mm3 Hgb 13.0 (12.0-16.0) gm/dl Hct 39.2 (35-47) % MCV 94.7 (78-100) fl MCH 31.4 (26-32) pg MCHC 33.2 (32-36) g/dl RDW 13.9 (11.5-14.0) % Plt Count 221 (150-450) K/mm3 MPV 11.0 H (6-9.5) fl Gran % 61.7 (36.0-66.0) % Eos # (Auto) 0.26 (0-0.5) Absolute Lymphs (auto) 1.99 (1.0-4.6) Absolute Monos (auto) 0.83 (0.0-1.3) Lymphocytes % 24.5 (24.0-44.0) % Monocytes % 10.2 (0.0-12.0) % Eosinophils % 3.2 (0.00-5.0) % Basophils % 0.4 (0.0-0.4) % Absolute Granulocytes 5.02 (1.4-6.9) Basophils # 0.03 (0-0.4) Sodium 139 (137-145) mmol/L Potassium 3.8 (3.5-5.1) mmol/L Chloride 102 (98-107) mmol/L Carbon Dioxide 26 (22-30) mmol/L Anion Gap 14.5 (5-15) MEQ/L BUN 35 H (7-17) mg/dL Creatinine 1.99 H (0.52-1.04) mg/dL Estimated GFR 26.5 ML/MIN Glucose 161 H (74-106) mg/dL Calcium 9.0 (8.4-10.2) mg/dL Magnesium 2.1 (1.6-2.3) mg/dL Total Bilirubin 0.20 (0.2-1.3) mg/dL AST 23 (14-36) U/L ALT 15 (0-35) U/L Alkaline Phosphatase 87 (38-126) U/L Troponin I < 0.012 (0.000-0.034) ng/mL Serum Total Protein 6.5 (6.3-8.2) g/dL Albumin 3.8 (3.5-5.0) g/dL - Progress Progress: improved Air Movement: good Progress Note: 05/06/19 00:38 Discussed with patient and decision to transfer to [place] where her document management analyst/[facility] is available; BP has been hovering around 103/60s; khalida remains in the high 40s; pt is stble for transfer. - Departure Departure Disposition: Transfer Clinical Impression: Bradycardia Hypotension Qualifiers: Hypotension type: unspecified hypotension type Qualified Code(s): I95.9 - Hypotension, unspecified Condition: Stable Critical Care Time: Yes Critical Care Time(excluding separately billable procedures): Critical 30-74 mins (Eval of clinical picture/pt cardiac hx/recent medication addition; labs, EKG, CXR and discussion [facility] patient/accepting physician) Referrals: JAMIE RODRIGUEZ [Primary Care Provider] -
[2019-05-05] MEDS ORDERED: Sodium Chloride 0.9% 1000 ML 1,000 ML IV STA (22:17)
[2019-05-05 22:24] LABS: Absolute Neutrophil Ct (ANC) 5.02 (1.4-6.9); BASOPHIL % 0.4 % (0.0-0.4); Basophil (Absolute #) 0.03 (0-0.4); Eosinophil % 3.2 % (0.00-5.0); Eosinophil (Absolute #) 0.26 (0-0.5); Hematocrit 39.2 % (35-47); Lymphocyte (Absolute #) 1.99 (1.0-4.6); Lymphocytes % 24.5 % (24.0-44.0); Mean Cell Volume 94.7 fl (78-100); Mean Corpuscular Hemoglobin 31.4 pg (26-32); Mean Corpuscular Hgb Concent. 33.2 g/dl (32-36); Monocyte (Absolute #) 0.83 (0.0-1.3); Monocytes % 10.2 % (0.0-12.0); Neutrophil % 61.7 % (36.0-66.0); Platelet Count 221 K/mm3 (150-450); Red Blood Count 4.14 M/mm3 (4.1-5.4); Red Cell Distribution Width 13.9 % (11.5-14.0); White Blood Count 8.1 K/mm3 (4.0-10.5)
[2019-05-05] MEDS ORDERED: Sodium Chloride 0.9% 1000 ML 1,000 ML ONE ×2 (22:25→23:09)
[2019-05-05 22:34] LABS: ALBUMIN 3.8 g/dL (3.5-5.0); ANION GAP 14.5 MEQ/L (5-15); BILIRUBIN,TOTAL 0.2 mg/dL (0.2-1.3); Creatinine 1 1.99 mg/dL (0.52-1.04); MAGNESIUM 2.1 mg/dL (1.6-2.3); Potassium 3.8 mmol/L (3.5-5.1); Total Protein 6.5 g/dL (6.3-8.2)
[2019-05-06] MEDS ORDERED: Sodium Chloride 0.9% 1000 ML 1,000 ML IV STA (01:02)
[2019-05-06 01:29] VITALS: O2SAT 98
[2019-05-06 01:30] VITALS: BP 113/59; PULSE 46
--- NOTE | 2019-05-06 09:03 | XRAY ---
Indication: Hypotension. Comparison: November 18, 2018. Portable chest demonstrates minimal lingula fibrosis/scarring. No focal infiltrate, consolidation, or large effusion. Heart is not enlarged again demonstrating CABG surgery. Bony thorax intact again with mild osteopenia and degenerative changes. Impression: Nonacute chest with chronic features.
== END 2019-05-06 01:22 | disposition short-term general hospital (02) ==
LOC: ED 21:48
DX: R00.1 Bradycardia, unspecified (principal); I95.9 Hypotension, unspecified
CPT/HCPCS: 36415; 71045; 80053; 83735; 84484; 85025; 99285; 99291

== ENCOUNTER 2019-12-31 08:49 | Observation (INO) | payer MEDICARE ==
--- NOTE | 2019-12-31 09:14 | XRAY ---
Indication: Short of breath and swelling feet. Comparison: May 05, 2019. Portable chest demonstrates new cardiomegaly, diffuse pulmonary edema, and small bibasilar effusions favoring cardiac decompensation. Superimposed pneumonia not completely excluded. Again incidental lingula fibrosis/scarring, CABG, and osteopenia.
[2019-12-31] MEDS ORDERED: Lasix 40 MG/4 ML IV ONE ×3 (09:17→20:17)
[2019-12-31 09:21] LABS: BASOPHIL % 0.1 % (0.0-0.4); Basophil (Absolute #) 0.01 (0-0.4); Eosinophil (Absolute #) 0.22 (0-0.5); Hematocrit 39.9 % (35-47); Hemoglobin 12.9 gm/dl (12.0-16.0); Lymphocyte (Absolute #) 1.26 (1.0-4.6); Lymphocytes % 16.9 % (24.0-44.0); Mean Cell Volume 95.2 fl (78-100); Mean Corpuscular Hemoglobin 30.8 pg (26-32); Mean Corpuscular Hgb Concent. 32.3 g/dl (32-36); Mean Platelet Volume 11.4 fl (7.5-11.0); Monocyte (Absolute #) 0.66 (0.0-1.3); Monocytes % 8.9 % (0.0-12.0); Neutrophil % 71.1 % (36.0-66.0); Platelet Count 202 K/mm3 (150-450); Red Blood Count 4.19 M/mm3 (4.1-5.4); Red Cell Distribution Width 14.1 % (11.5-14.0); White Blood Count 7.5 K/mm3 (4.0-10.5)
--- NOTE | 2019-12-31 09:21 | ERPHSYRPT ---
- History of Present Illness Time Seen by Provider: 12/31/19 08:55 Source: patient Exam Limitations: no limitations Patient Subjective Stated Complaint: pt to ER with complaints of SOB and swelling. pt states she has been short of breath and gaining weight over the past few months. pt states she has been this short of breath since last night. pt states her kidney function is low. Triage Nursing Assessment: pt with labored breathing. pt ambulatory and A&Ox4. pt skin pwd. Physician History: Patient is a 69-year-old female presents to our ED with complaints of shortness of breath and leg swelling. Patient has been experiencing shortness of breath and leg swelling intermittently for the past several months. However symptoms progressively worsen and became acutely worse last night. Patient feels shortness of breath with short distances. She feels like she cannot catch her breath. Patient of breath is labored at this time. However she is speaking in full sentences. No active chest pain at this time. No associated nausea vomiting or diaphoresis. No trauma. No fevers. Symptoms are moderate in intensity. Exertion does worsen symptomology. Patient admits to history of congestive heart failure./CABG. She voices no other complaints at this time. Timing/Duration: day(s) (2 days) Activities at Onset: activity Severity of Dyspnea-Max: moderate Severity of Dyspnea-Current: mild Possible Cause: occasional episodes Modifying Factors: Improves With: activity Associated Symptoms: cough, edema, ankle swelling, leg swelling, No fever, No loss of appetite, No muscle spasms feet, No muscle spasms hands Allergies/Adverse Reactions: No Known Drug Allergies Allergy (Verified 12/31/19 08:59) Home Medications: Apixaban [Eliquis] 1 tab PO BID 03/23/17 [History] Atorvastatin Calcium [Lipitor] 1 tab PO HS 03/23/17 [History] Bumetanide 1 tab PO DAILY 03/23/17 [History] Levothyroxine Sodium [Synthroid] 112 mcg DAILY 03/23/17 [History] Isosorbide Mononitrate [Isosorbide Mononitrate ER] 60 mg PO DAILY 05/05/19 [ History] Aspirin 81 gm Chew [Baby Aspirin 81 mg Chew] 81 mg PO DAILY 12/31/19 [ History] Clonidine HCl 0.1 mg [Catapres 0.1 MG] 0.1 mg PO TID 12/31/19 [History] Clopidogrel Bisulfate [Clopidogrel] 75 mg PO DAILY 12/31/19 [History] Losartan Potassium 50 mg [Cozaar 50 MG] 50 mg PO DAILY 12/31/19 [History] Hx Tetanus, Diphtheria Vaccination/Date Given: No Hx Influenza Vaccination/Date Given: Yes Hx Pneumococcal Vaccination/Date Given: Yes Immunizations Up to Date: Yes Travel Risk - International Travel Have you traveled outside of the country in past 3 weeks: No - Coronavirus Screening Are you exhibiting any of the following symptoms?: Yes Symptoms: Shortness of Breath Close contact with a COVID-19 positive Pt in past 14-21 Days: No - Review of Systems Constitutional: No Symptoms, No Fever, No Chills Eyes: No Symptoms Ears, Nose, & Throat: No Symptoms Respiratory: No Symptoms, No Cough, No Dyspnea Cardiac: No Symptoms, No Chest Pain, No Edema, No Syncope Abdominal/Gastrointestinal: No Symptoms, No Abdominal Pain, No Nausea, No Vomiting, No Diarrhea Genitourinary Symptoms: No Symptoms, No Dysuria Musculoskeletal: No Symptoms, No Back Pain, No Neck Pain Skin: No Symptoms, No Rash Neurological: No Symptoms, No Dizziness, No Focal Weakness, No Sensory Changes Psychological: No Symptoms Endocrine: No Symptoms Hematologic/Lymphatic: No Symptoms Immunological/Allergic: No Symptoms All Other Systems: Reviewed and Negative - Past Medical History Pertinent Past Medical History: Yes Neurological History: No Pertinent History ENT History: No Pertinent History Cardiac History: Myocardial Infarction (CT), Other Respiratory History: Pneumonia Endocrine Medical History: Hyperthyroidism Musculoskeletal History: Osteoarthritis GI Medical History: No Pertinent History History: Other Psycho-Social History: Anxiety, Depression Female Reproductive Disorders: No Pertinent History Other Medical History: atrial fibrillation, low kidney functions - Past Surgical History Past Surgical History: Yes Cardiac: CABG, Cardiac Catheterization, Cardiac Stent Gastrointestinal: Cholecystectomy Genitourinary: No Pertinent History Musculoskeletal: Orthopedic Surgery Female Surgical History: Hysterectomy Other Surgical History: THYROIDECTOMY, BACK SURGERY 2010 - Social History Smoking Status: Former smoker Exposure to second hand smoke: Yes Drug Use: none Patient Lives Alone: Yes - Nursing Vital Signs Nursing Vital Signs: Initial Vital Signs Pulse Rate 102 H 12/31/19 08:50 Respiratory Rate 22 12/31/19 08:50 Blood Pressure 129/85 12/31/19 08:50 O2 Sat by Pulse Oximetry 95 12/31/19 08:50 - Physical Exam General Appearance: no apparent distress, alert Eye Exam: PERRL/EOMI Ears, Nose, Throat Exam: hearing grossly normal, normal ENT inspection, normal pharynx, abnormal TM (R), abnormal TM (L) Neck Exam: normal inspection, supple Respiratory Exam: normal breath sounds, crackles/rales (Crackles at bilateral bases. 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 Osteopenia superimposed pneumonia not completely excluded. Process/scarring) Ordered Tests: Active Orders 24 hr Category Date Time Status Roll Icer STAT Care 12/31/19 08:55 Active EKG-ER Only STAT Care 12/31/19 08:54 Active IV Insertion STAT Care 12/31/19 08:54 Active Pulse Oximetry (ED) STAT Care 12/31/19 08:54 Active CHEST 1 VIEW (PORTABLE) Stat Exams 12/31/19 09:07 Completed CBC W DIFF Stat Lab 12/31/19 09:14 Completed CMP Stat Lab 12/31/19 09:14 Completed MAGNESIUM Stat Lab 12/31/19 09:14 Completed NT PRO BNP Stat Lab 12/31/19 09:14 Completed TROPONIN Q3H Lab 12/31/19 09:14 Received TROPONIN Q3H Lab 12/31/19 12:00 Ordered TROPONIN Q3H Lab 12/31/19 15:00 Ordered TROPONIN Q3H Lab 12/31/19 18:00 Ordered TROPONIN Q3H Lab 12/31/19 21:00 Ordered UA W/RFX UR CULTURE Stat Lab 12/31/19 09:35 Completed Transfer Order Routine Transfer 12/31/19 Ordered Medication Summary Discontinued Medications Generic Name Dose Route Start Last Admin Trade Name Liu PRN Reason Stop Dose Admin Furosemide 40 mg 12/31/19 09:17 12/31/19 09:43 Lasix 40 Mg/4 Ml IV 12/31/19 09:18 40 mg STAT ONE Administration Furosemide Confirm 12/31/19 09:41 Lasix 40 Mg/4 Ml Administered 12/31/19 09:42 Dose 40 mg .ROUTE .STK-MED ONE Nitroglycerin 1 gm 12/31/19 09:38 12/31/19 09:42 Nitro-Bid 2% Ud Packets TOP 12/31/19 09:39 1 gm STAT ONE Administration Nitroglycerin Confirm 12/31/19 09:41 Nitro-Bid 2% Ud Packets Administered 12/31/19 09:42 Dose 1 gm .ROUTE .STK-MED ONE Lab/Rad Data: Laboratory Result Diagrams 12/31/19 09:14 12/31/19 09:14 Laboratory Results 12/31/19 12/31/19 12/31/19 Range/Units 09:35 09:14 09:14 WBC 7.5 (4.0-10.5) K/mm3 RBC 4.19 (4.1-5.4) M/mm3 Hgb 12.9 (12.0-16.0) gm/dl Hct 39.9 (35-47) % MCV 95.2 (78-100) fl MCH 30.8 (26-32) pg MCHC 32.3 (32-36) g/dl RDW 14.1 H (11.5-14.0) % Plt Count 202 (150-450) K/mm3 MPV 11.4 H (7.5-11.0) fl Gran % 71.1 H (36.0-66.0) % Eos # (Auto) 0.22 (0-0.5) Absolute Lymphs (auto) 1.26 (1.0-4.6) Absolute Monos (auto) 0.66 (0.0-1.3) Lymphocytes % 16.9 L (24.0-44.0) % Monocytes % 8.9 (0.0-12.0) % Eosinophils % 3.0 (0.00-5.0) % Basophils % 0.1 (0.0-0.4) % Absolute Granulocytes 5.30 (1.4-6.9) Basophils # 0.01 (0-0.4) Sodium 140 (137-145) mmol/L Potassium 4.4 (3.5-5.1) mmol/L Chloride 109 H (98-107) mmol/L Carbon Dioxide 25 (22-30) mmol/L Anion Gap 10.8 (5-15) MEQ/L BUN 22 H (7-17) mg/dL Creatinine 1.54 H (0.52-1.04) mg/dL Estimated GFR 35.5 ML/MIN Glucose 97 (74-106) mg/dL Calcium 9.5 (8.4-10.2) mg/dL Magnesium 2.2 (1.6-2.3) mg/dL Total Bilirubin 0.80 (0.2-1.3) mg/dL AST 29 (14-36) U/L ALT 23 (0-35) U/L Alkaline Phosphatase 63 (38-126) U/L NT-Pro-B Natriuret Pep 1220 H (0-900) pg/mL Serum Total Protein 7.2 (6.3-8.2) g/dL Albumin 4.3 (3.5-5.0) g/dL Urine Color STRAW (YELLOW) Urine Appearance CLEAR (CLEAR) Urine pH 5.0 (5-6) Ur Specific [place] 1.005 (1.005-1.025) Urine Protein NEGATIVE (Negative) Urine Ketones NEGATIVE (NEGATIVE) Urine Blood SMALL (0-5) Javier/ul Urine Nitrite NEGATIVE (NEGATIVE) Urine Bilirubin NEGATIVE (NEGATIVE) Urine Urobilinogen NEGATIVE (0-1) mg/dL Ur Leukocyte Esterase NEGATIVE (NEGATIVE) Urine WBC (Auto) NONE (0-5) /HPF Urine RBC (Auto) NONE (0-2) /HPF U Epithel Cells (Auto) NONE (FEW) /HPF Urine Bacteria (Auto) NONE (NEGATIVE) /HPF Urine Mucus (Auto) SLIGHT (NEGATIVE) /HPF Urine Culture Reflexed NO (NO) Urine Glucose NEGATIVE (NEGATIVE) mg/dL - Progress Progress: improved Air Movement: fair Progress Note: 12/31/19 09:55 Patient reassessed. Shortness of breath improved. Case discussed with Dr. Orlando who accepts admission to observation. Plan of care discussed with patient. She agrees to admission to [facility] for further evaluation and treatment. Blood Culture(s) Obtained: No Antibiotics given: No Discussed with : Ed Will see patient in: hospital (observation) Counseled pt/family regarding: lab results, diagnosis, rad results - Departure Departure Disposition: Home, In-patient Admission, Release to OR/[facility] [place] Clinical Impression: CHF (congestive heart failure), Pulmonary edema, Pleural effusion, Osteopenia, Chronic renal insufficiency, Elevated brain natriuretic peptide (BNP) level Condition: Stable Critical Care Time: Yes Critical Care Time(excluding separately billable procedures): Critical 75-104 mins Referrals: JAMIE RODRIGUEZ [Primary Care Provider] - Instructions: Heart Failure
[2019-12-31] MEDS ORDERED: NITRO-BID 2% UD PACKETS TOP ONE ×2 (09:38→10:29)
[2019-12-31 09:40] LABS: ALBUMIN 4.3 g/dL (3.5-5.0); ANION GAP 10.8 MEQ/L (5-15); BILIRUBIN,TOTAL 0.8 mg/dL (0.2-1.3); Calcium 9.5 mg/dL (8.4-10.2); Creatinine 1 1.54 mg/dL (0.52-1.04); MAGNESIUM 2.2 mg/dL (1.6-2.3); Potassium 4.4 mmol/L (3.5-5.1); Total Protein 7.2 g/dL (6.3-8.2)
[2019-12-31] MEDS ORDERED: Lasix 40 MG/4 ML ONE (09:41)
[2019-12-31] MEDS ORDERED: NITRO-BID 2% UD PACKETS ONE (09:41)
[2019-12-31 09:47] LABS: Appearance CLEAR (CLEAR); Bilirubin NEGATIVE (NEGATIVE); Blood SMALL Ery/ul (0-5); Glucose NEGATIVE (NEGATIVE); Ketones NEGATIVE (NEGATIVE); Leukocyte Esterase NEGATIVE (NEGATIVE); Mucus SLIGHT /HPF (NEGATIVE); Nitrite NEGATIVE (NEGATIVE); Protein,Urine Dip NEGATIVE (Negative); Specific Gravity 1.005 (1.005-1.025); Urobilinogen NEGATIVE mg/dL (0-1)
[2019-12-31] MEDS ORDERED: Imdur 60MG PO ONE ×2 (11:41→12:02)
[2019-12-31] MEDS ORDERED: ECOTRIN 81 MG PO ONE (11:41)
[2019-12-31] MEDS ORDERED: BUMEX 1 MG ONE (11:41)
[2019-12-31] MEDS ORDERED: Catapres 0.1 MG ONE (11:41)
[2019-12-31] MEDS ORDERED: ELIQUIS 2.5 MG TABLET ONE (11:41)
[2019-12-31] MEDS ORDERED: Cozaar 50 MG ONE (11:41)
[2019-12-31] MEDS ORDERED: PLAVIX 75 MG Tablet ONE (11:42)
[2019-12-31] MEDS ORDERED: TYLENOL 325 MG ONE (11:53)
[2019-12-31] MEDS ORDERED: TYLENOL 325 MG PO PRN (14:34)
[2019-12-31] MEDS ORDERED: Phenergan 25 MG INJ IV PRN (14:35)
--- NOTE | 2019-12-31 15:17 | XRAY ---
Indication: Pain and swelling. Two-dimensional sonogram and color Doppler imaging of the major venous vessels of the left leg was performed. Comparison: None No thrombus seen in the examined deep venous vessels of the left leg including greater saphenous vein. Veins demonstrate normal compressibility. Venous waveforms are normal with and without augmentation. Impression: Left leg negative for DVT.
[2019-12-31] MEDS: Protonix 40MG Tablet PO SCH (16:46)
[2019-12-31] MEDS: Catapres 0.1 MG PO SCH ×2 (16:46→21:30)
[2019-12-31] MEDS ORDERED: Ambien 10 MG PO PRN (20:16)
--- NOTE | 2019-12-31 20:25 | PCM.HP ---
History of Present Illness - Chief Complaint Chief Complaint: CHF History of Present Illness: is a 69 year old female pt of Dr. Santillan in [place], [place] who c/o feeling bloated x 2 mo, with 2d of increased LE edema and shortness of breath. She has a hx CAD (s/p CABG - sees Dr. Flores) and CRF (sees Dr. Carvajal). She notes that in Jun her synthroid was decreased from 112 mcg/d to 100mcg/d. By Aug she noticed she had gained weight. Recently she has noticed her weight fluctuating as much as 5 lb in 1.5 hrs. Pt has occasional cough. notes KYLE. In the ER her CXR showed pulmonarey edema and initial bp was 175/100. - Review of Systems Respiratory: Cough, Short Of Breath Cardiac: Edema Neurological: Dizziness Psychological: Depression, No Suicidal Ideations All Other Systems: Reviewed and Negative Medications & Allergies Home Medications: Home Medication List Apixaban [Eliquis] 5 mg PO BID 03/23/17 [History Confirmed 12/31/19] Bumetanide 1 mg PO DAILY 03/23/17 [History Confirmed 12/31/19] Levothyroxine Sodium [Synthroid] 112 mcg DAILY 03/23/17 [History Confirmed 12/31/19] Isosorbide Mononitrate [Isosorbide Mononitrate ER] 120 mg PO DAILY 05/05/19 [History Confirmed 12/31/19] Aspirin 81 gm Chew [Baby Aspirin 81 mg Chew] 81 mg PO DAILY 12/31/19 [History Confirmed 12/31/19] Atorvastatin Calcium [Lipitor] 80 mg PO HS 12/31/19 [History Confirmed 12/31/19] Clonidine HCl 0.1 mg [Catapres 0.1 MG] 0.1 mg PO TID 12/31/19 [History Confirmed 12/31/19] Clopidogrel Bisulfate [Clopidogrel] 75 mg PO DAILY 12/31/19 [History Confirmed 12/31/19] Losartan Potassium 50 mg [Cozaar 50 MG] 50 mg PO DAILY 12/31/19 [History Confirmed 12/31/19] Allergies/Adverse Reactions: Allergies Allergy/AdvReac Type Severity Reaction Status Date / Time No Known Drug Allergies Allergy Verified 12/31/19 08:59 - Past Medical History Past Medical History: Yes Neurological History: No Pertinent History ENT History: No Pertinent History Cardiac History: Myocardial Infarction ([place]), Other Respiratory History: Pneumonia Endocrine Medical History: Hyperthyroidism Musculoskelatal History: Osteoarthritis GI Medical History: No Pertinent History History: Other Pyscho-Social History: Anxiety, Depression Reproductive Disorders: No Pertinent History Comment: atrial fibrillation, low kidney functions - Past Surgical History Past Surgical History: Yes Cardiac History: CABG, Cardiac Catheterization, Cardiac Stent GI Surgical History: Cholecystectomy Genitourinary Surgical Hx: No Pertinent History Musculskeletal Surgical Hx: Orthopedic Surgery Female Surgical History: Hysterectomy Other Surgical History: THYROIDECTOMY, BACK SURGERY 2010 - Social History Smoking Status: Former smoker Exposure to second hand smoke: Yes Alcohol: Occasionally Drug Use: none - Physical Exam Vital Signs: Vital Signs - 24 hr Temp Pulse Resp BP Pulse Ox 12/31/19 16:00 98.2 F 66 20 118/72 96 12/31/19 12:00 97.7 F 84 20 118/60 94 L 12/31/19 10:00 98.3 F 24 L 24 141/78 93 L 12/31/19 09:57 95 12/31/19 09:54 98.0 F 74 18 175/100 96 12/31/19 09:13 95 12/31/19 08:50 102 H 22 129/85 97 General Appearance: no apparent distress, alert, obese Neurologic Exam: oriented x 3, cooperative Eye Exam: eyes nml inspection Ears, Nose, Throat Exam: moist mucous membranes Neck Exam: normal inspection, non-tender, No lymphadenopathy Respiratory Exam: normal breath sounds, lungs clear, No crackles/rales, No rhonchi, No wheezing Cardiovascular Exam: regular rate/rhythm, normal heart sounds, No murmur Gastrointestinal/Abdomen Exam: soft, normal bowel sounds, distention (mild), No tenderness, No mass, No guarding, No rebound Back Exam: normal inspection, No rash Extremity Exam: swelling (trace pretibial edema bilat) Skin Exam: normal color, warm, dry, No rash Results - Labs Lab/Micro Results: Lab Results-Last 24 Hours 12/31/19 12/31/19 12/31/19 Range/Units 09:14 09:14 09:14 WBC 7.5 (4.0-10.5) K/mm3 RBC 4.19 (4.1-5.4) M/mm3 Hgb 12.9 (12.0-16.0) gm/dl Hct 39.9 (35-47) % MCV 95.2 (78-100) fl MCH 30.8 (26-32) pg MCHC 32.3 (32-36) g/dl RDW 14.1 H (11.5-14.0) % Plt Count 202 (150-450) K/mm3 MPV 11.4 H (7.5-11.0) fl Gran % 71.1 H (36.0-66.0) % Eos # (Auto) 0.22 (0-0.5) Absolute Lymphs (auto) 1.26 (1.0-4.6) Absolute Monos (auto) 0.66 (0.0-1.3) Lymphocytes % 16.9 L (24.0-44.0) % Monocytes % 8.9 (0.0-12.0) % Eosinophils % 3.0 (0.00-5.0) % Basophils % 0.1 (0.0-0.4) % Absolute Granulocytes 5.30 (1.4-6.9) Basophils # 0.01 (0-0.4) Sodium 140 (137-145) mmol/L Potassium 4.4 (3.5-5.1) mmol/L Chloride 109 H (98-107) mmol/L Carbon Dioxide 25 (22-30) mmol/L Anion Gap 10.8 (5-15) MEQ/L BUN 22 H (7-17) mg/dL Creatinine 1.54 H (0.52-1.04) mg/dL Estimated GFR 35.5 ML/MIN Glucose 97 (74-106) mg/dL Calcium 9.5 (8.4-10.2) mg/dL Magnesium 2.2 (1.6-2.3) mg/dL Total Bilirubin 0.80 (0.2-1.3) mg/dL AST 29 (14-36) U/L ALT 23 (0-35) U/L Alkaline Phosphatase 63 (38-126) U/L Troponin I < 0.012 (0.000-0.034) ng/mL NT-Pro-B Natriuret Pep 1220 H (0-900) pg/mL Serum Total Protein 7.2 (6.3-8.2) g/dL Albumin 4.3 (3.5-5.0) g/dL Urine Color (YELLOW) Urine Appearance (CLEAR) Urine pH (5-6) Ur Specific [place] (1.005-1.025) Urine Protein (Negative) Urine Ketones (NEGATIVE) Urine Blood (0-5) Javier/ul Urine Nitrite (NEGATIVE) Urine Bilirubin (NEGATIVE) Urine Urobilinogen (0-1) mg/dL Ur Leukocyte Esterase (NEGATIVE) Urine WBC (Auto) (0-5) /HPF Urine RBC (Auto) (0-2) /HPF U Epithel Cells (Auto) (FEW) /HPF Urine Bacteria (Auto) (NEGATIVE) /HPF Urine Mucus (Auto) (NEGATIVE) /HPF Urine Culture Reflexed (NO) Urine Glucose (NEGATIVE) mg/dL 12/31/19 12/31/19 12/31/19 Range/Units 09:35 16:20 18:13 WBC (4.0-10.5) K/mm3 RBC (4.1-5.4) M/mm3 Hgb (12.0-16.0) gm/dl Hct (35-47) % MCV (78-100) fl MCH (26-32) pg MCHC (32-36) g/dl RDW (11.5-14.0) % Plt Count (150-450) K/mm3 MPV (7.5-11.0) fl Gran % (36.0-66.0) % Eos # (Auto) (0-0.5) Absolute Lymphs (auto) (1.0-4.6) Absolute Monos (auto) (0.0-1.3) Lymphocytes % (24.0-44.0) % Monocytes % (0.0-12.0) % Eosinophils % (0.00-5.0) % Basophils % (0.0-0.4) % Absolute Granulocytes (1.4-6.9) Basophils # (0-0.4) Sodium (137-145) mmol/L Potassium (3.5-5.1) mmol/L Chloride (98-107) mmol/L Carbon Dioxide (22-30) mmol/L Anion Gap (5-15) MEQ/L BUN (7-17) mg/dL Creatinine (0.52-1.04) mg/dL Estimated GFR ML/MIN Glucose (74-106) mg/dL Calcium (8.4-10.2) mg/dL Magnesium (1.6-2.3) mg/dL Total Bilirubin (0.2-1.3) mg/dL AST (14-36) U/L ALT (0-35) U/L Alkaline Phosphatase (38-126) U/L Troponin I < 0.012 < 0.012 (0.000-0.034) ng/mL NT-Pro-B Natriuret Pep (0-900) pg/mL Serum Total Protein (6.3-8.2) g/dL Albumin (3.5-5.0) g/dL Urine Color STRAW (YELLOW) Urine Appearance CLEAR (CLEAR) Urine pH 5.0 (5-6) Ur Specific [place] 1.005 (1.005-1.025) Urine Protein NEGATIVE (Negative) Urine Ketones NEGATIVE (NEGATIVE) Urine Blood SMALL (0-5) Javier/ul Urine Nitrite NEGATIVE (NEGATIVE) Urine Bilirubin NEGATIVE (NEGATIVE) Urine Urobilinogen NEGATIVE (0-1) mg/dL Ur Leukocyte Esterase NEGATIVE (NEGATIVE) Urine WBC (Auto) NONE (0-5) /HPF Urine RBC (Auto) NONE (0-2) /HPF U Epithel Cells (Auto) NONE (FEW) /HPF Urine Bacteria (Auto) NONE (NEGATIVE) /HPF Urine Mucus (Auto) SLIGHT (NEGATIVE) /HPF Urine Culture Reflexed NO (NO) Urine Glucose NEGATIVE (NEGATIVE) mg/dL 12/31/19 Range/Units Unknown WBC (4.0-10.5) K/mm3 RBC (4.1-5.4) M/mm3 Hgb (12.0-16.0) gm/dl Hct (35-47) % MCV (78-100) fl MCH (26-32) pg MCHC (32-36) g/dl RDW (11.5-14.0) % Plt Count (150-450) K/mm3 MPV (7.5-11.0) fl Gran % (36.0-66.0) % Eos # (Auto) (0-0.5) Absolute Lymphs (auto) (1.0-4.6) Absolute Monos (auto) (0.0-1.3) Lymphocytes % (24.0-44.0) % Monocytes % (0.0-12.0) % Eosinophils % (0.00-5.0) % Basophils % (0.0-0.4) % Absolute Granulocytes (1.4-6.9) Basophils # (0-0.4) Sodium (137-145) mmol/L Potassium (3.5-5.1) mmol/L Chloride (98-107) mmol/L Carbon Dioxide (22-30) mmol/L Anion Gap (5-15) MEQ/L BUN (7-17) mg/dL Creatinine (0.52-1.04) mg/dL Estimated GFR ML/MIN Glucose (74-106) mg/dL Calcium (8.4-10.2) mg/dL Magnesium (1.6-2.3) mg/dL Total Bilirubin (0.2-1.3) mg/dL AST (14-36) U/L ALT (0-35) U/L Alkaline Phosphatase (38-126) U/L Troponin I < 0.012 (0.000-0.034) ng/mL NT-Pro-B Natriuret Pep (0-900) pg/mL Serum Total Protein (6.3-8.2) g/dL Albumin (3.5-5.0) g/dL Urine Color (YELLOW) Urine Appearance (CLEAR) Urine pH (5-6) Ur Specific [place] (1.005-1.025) Urine Protein (Negative) Urine Ketones (NEGATIVE) Urine Blood (0-5) Javier/ul Urine Nitrite (NEGATIVE) Urine Bilirubin (NEGATIVE) Urine Urobilinogen (0-1) mg/dL Ur Leukocyte Esterase (NEGATIVE) Urine WBC (Auto) (0-5) /HPF Urine RBC (Auto) (0-2) /HPF U Epithel Cells (Auto) (FEW) /HPF Urine Bacteria (Auto) (NEGATIVE) /HPF Urine Mucus (Auto) (NEGATIVE) /HPF Urine Culture Reflexed (NO) Urine Glucose (NEGATIVE) mg/dL - Radiology Impressions Radiology Exams & Impressions: Radiology Procedures Category Date Time Status CHEST 1 VIEW (PORTABLE) Stat Exams 12/31/19 09:07 Completed VENOUS UNILAT/LIMITED EXTREMIT [US] Stat Exams 12/31/19 15:09 Completed - Other Procedures and Tests Respiratory Therapy 12/31/19 14:37 Oxygen NASAL CANNULA 2 lpm Assessment/Plan (1) CHF (congestive heart failure) Current Visit: Yes Status: Acute Qualifiers: Heart failure type: unspecified Heart failure chronicity: unspecified Qualified Code(s): I50.9 - Heart failure, unspecified Assessment & Plan: Will do echo tomorrow if it has been at least 6 mo since her last one. Recheck TSH, free T4, and total T3. Code(s): I50.9 - HEART FAILURE, UNSPECIFIED (2) Chronic renal insufficiency Current Visit: Yes Status: Chronic Qualifiers: Chronic kidney disease stage: stage 4 (severe) Qualified Code(s): N18.4 - Chronic kidney disease, stage 4 (severe) Assessment & Plan: Appears to be near her recent baseline (past 2 yrs or so) Code(s): N18.9 - CHRONIC KIDNEY DISEASE, UNSPECIFIED (3) Pulmonary edema Current Visit: Yes Status: Acute Qualifiers: Chronicity: acute Qualified Code(s): J81.0 - Acute pulmonary edema Assessment & Plan: increase lasix to 80mg IV daily Code(s): J81.1 - CHRONIC PULMONARY EDEMA (4) Left leg pain Current Visit: Yes Status: Acute Assessment & Plan: U/s neg for DVT Code(s): M79.605 - PAIN IN LEFT LEG
[2019-12-31] MEDS: ELIQUIS 2.5 MG TABLET PO SCH (21:30)
[2019-12-31 21:49] LABS: T4 (Thyroxine) 12.9 ug/dL (5.53-10.96); TSH, 3RD Generation 3.09 mIU/L (0.47-4.68)
[2019-12-31] MEDS ORDERED: ZOCOR 20MG PO SCH (22:00)
[2019-12-31] MEDS ORDERED: NON-FORMULARY ITEM (Apixaban*** [Eliquis 5 Mg Tablet***] 5 MG) PO SCH (22:00)
[2019-12-31] MEDS ORDERED: NON-FORMULARY ITEM (Atorvastatin Calcium [Lipitor] 80 MG) PO SCH (22:00)
[2020-01-01] MEDS ORDERED: SYNTHROID 125 MCG PO SCH (06:00)
[2020-01-01 06:02] LABS: Hematocrit 39.2 % (35-47); Hemoglobin 12.6 gm/dl (12.0-16.0); Mean Cell Volume 95.4 fl (78-100); Mean Corpuscular Hemoglobin 30.7 pg (26-32); Mean Corpuscular Hgb Concent. 32.1 g/dl (32-36); Mean Platelet Volume 11.6 fl (7.5-11.0); Platelet Count 195 K/mm3 (150-450); Red Blood Count 4.11 M/mm3 (4.1-5.4); Red Cell Distribution Width 13.9 % (11.5-14.0); White Blood Count 6.1 K/mm3 (4.0-10.5)
[2020-01-01 06:22] LABS: ALBUMIN 4.4 g/dL (3.5-5.0); ANION GAP 9.7 MEQ/L (5-15); BILIRUBIN,TOTAL 0.7 mg/dL (0.2-1.3); Calcium 9.5 mg/dL (8.4-10.2); Creatinine 1 1.4 mg/dL (0.52-1.04); Potassium 3.6 mmol/L (3.5-5.1); Total Protein 7.1 g/dL (6.3-8.2)
[2020-01-01] MEDS ORDERED: SYNTHROID 112 MCG PO SCH (06:45)
[2020-01-01] MEDS: ELIQUIS 2.5 MG TABLET PO SCH (09:34)
[2020-01-01] MEDS: Protonix 40MG Tablet PO SCH (09:34)
[2020-01-01] MEDS: Catapres 0.1 MG PO SCH (09:35)
[2020-01-01 09:56] LABS: Slide Review YES
[2020-01-01] MEDS ORDERED: ECOTRIN 81 MG PO SCH (10:00)
[2020-01-01] MEDS ORDERED: PLAVIX 75 MG Tablet PO SCH (10:00)
[2020-01-01] MEDS ORDERED: BUMEX 1 MG PO SCH (10:00)
[2020-01-01] MEDS ORDERED: Lasix 40 MG/4 ML IV SCH (10:00)
[2020-01-01] MEDS ORDERED: Cozaar 50 MG PO SCH (10:00)
[2020-01-01] MEDS ORDERED: BABY ASPIRIN 81 MG CHEW PO SCH (10:00)
[2020-01-01] MEDS ORDERED: Imdur 60MG PO SCH (10:00)
[2020-01-01 13:12] VITALS: BP 159/70; PULSE 73; O2SAT 95
--- NOTE | 2020-01-01 14:28 | PCM.NOTE ---
Date and Time: 01/01/20 1423 Subjective Assessment: Pt is 69 yo female pt of Dr. Jacque Sellers who was admitted through ER yesterday with CHF, HTN, and chronic renal insufficiency. She was given IV lasix 40mg in ER with some relief; that dose was repeated in the evening. This morning she had 80mg IV x 1. She is feeling much better and would like to be discharged to home. She is interested in follow up with Dr. Black. Her troponins were negative x 6. TSH 3.09. T4 mildly elevated at 12.9. Total T3 is pending. eGFR was 35.5 yesterday, and 39.6 today - these are apparently average numbers for her over the past 2 years or so. She has an appointment with nephrology tomorrow. Pt would like a small amount of sleeping pill at home - has used restoril in the past with success. We discussed ambien but she prefers restoril due to Ambien's side effect profile. - Review of Systems Constitutional: No Fever Abdominal/Gastrointestinal: No Vomiting Objective Exam General Appearance: no apparent distress, obese Neurologic Exam: alert, oriented x 3, cooperative Skin Exam: normal color, warm, dry, No rash Eye Exam: eyes nml inspection Ears, Nose, Throat Exam: moist mucous membranes Neck Exam: normal inspection Respiratory Exam: normal breath sounds, lungs clear, No crackles/rales, No rhonchi, No wheezing Cardiovascular Exam: regular rate/rhythm, normal heart sounds, No murmur Extremity Exam: normal inspection, swelling (trace pretibial edema bilat), No pedal edema Back Exam: normal inspection, No rash OBJECTIVE DATA Vital Signs: Vital Signs - 24 hr Temp Pulse Resp BP Pulse Ox 01/01/20 12:00 97.9 F 73 18 159/70 95 01/01/20 09:10 96 01/01/20 07:42 97.7 F 70 18 131/65 94 L 01/01/20 04:00 98.1 F 66 18 144/66 92 L 01/01/20 00:00 97.8 F 67 24 150/68 92 L 12/31/19 20:00 98.5 F 62 22 117/59 95 12/31/19 19:54 94 L 12/31/19 16:00 98.2 F 66 20 118/72 96 Pain Assessment - Last Documented Pain Intensity 0 Pain Scale Used FLACC Intake and Output: Intake & Output 12/30/19 12/31/19 01/01/20 01/02/20 11:59 11:59 11:59 11:59 Intake Total 1360 240 Output Total 8100 1500 Balance -6740 -1260 Weight 108.465 kg 103.3 kg Lab Results: Lab Results-Last 24 Hours 12/31/19 12/31/19 12/31/19 Range/Units 09:14 16:20 18:13 WBC (4.0-10.5) K/mm3 RBC (4.1-5.4) M/mm3 Hgb (12.0-16.0) gm/dl Hct (35-47) % MCV (78-100) fl MCH (26-32) pg MCHC (32-36) g/dl RDW (11.5-14.0) % Plt Count (150-450) K/mm3 MPV (7.5-11.0) fl Sodium (137-145) mmol/L Potassium (3.5-5.1) mmol/L Chloride (98-107) mmol/L Carbon Dioxide (22-30) mmol/L Anion Gap (5-15) MEQ/L BUN (7-17) mg/dL Creatinine (0.52-1.04) mg/dL Estimated GFR ML/MIN Glucose (74-106) mg/dL Calcium (8.4-10.2) mg/dL Total Bilirubin (0.2-1.3) mg/dL AST (14-36) U/L ALT (0-35) U/L Alkaline Phosphatase (38-126) U/L Troponin I < 0.012 < 0.012 < 0.012 (0.000-0.034) ng/mL NT-Pro-B Natriuret Pep (0-900) pg/mL Serum Total Protein (6.3-8.2) g/dL Albumin (3.5-5.0) g/dL Thyroxine (T4) (5.53-10.96) ug/dL TSH 3rd Generation (0.47-4.68) mIU/L Slides for Path Review 12/31/19 12/31/19 12/31/19 Range/Units 20:58 20:58 Unknown WBC (4.0-10.5) K/mm3 RBC (4.1-5.4) M/mm3 Hgb (12.0-16.0) gm/dl Hct (35-47) % MCV (78-100) fl MCH (26-32) pg MCHC (32-36) g/dl RDW (11.5-14.0) % Plt Count (150-450) K/mm3 MPV (7.5-11.0) fl Sodium (137-145) mmol/L Potassium (3.5-5.1) mmol/L Chloride (98-107) mmol/L Carbon Dioxide (22-30) mmol/L Anion Gap (5-15) MEQ/L BUN (7-17) mg/dL Creatinine (0.52-1.04) mg/dL Estimated GFR ML/MIN Glucose (74-106) mg/dL Calcium (8.4-10.2) mg/dL Total Bilirubin (0.2-1.3) mg/dL AST (14-36) U/L ALT (0-35) U/L Alkaline Phosphatase (38-126) U/L Troponin I < 0.012 < 0.012 (0.000-0.034) ng/mL NT-Pro-B Natriuret Pep (0-900) pg/mL Serum Total Protein (6.3-8.2) g/dL Albumin (3.5-5.0) g/dL Thyroxine (T4) 12.9 H (5.53-10.96) ug/dL TSH 3rd Generation 3.090 (0.47-4.68) mIU/L Slides for Path Review 01/01/20 01/01/20 01/01/20 Range/Units 04:15 04:15 04:15 WBC 6.1 (4.0-10.5) K/mm3 RBC 4.11 (4.1-5.4) M/mm3 Hgb 12.6 (12.0-16.0) gm/dl Hct 39.2 (35-47) % MCV 95.4 (78-100) fl MCH 30.7 (26-32) pg MCHC 32.1 (32-36) g/dl RDW 13.9 (11.5-14.0) % Plt Count 195 (150-450) K/mm3 MPV 11.6 H (7.5-11.0) fl Sodium 139 (137-145) mmol/L Potassium 3.6 (3.5-5.1) mmol/L Chloride 102 (98-107) mmol/L Carbon Dioxide 31 H (22-30) mmol/L Anion Gap 9.7 (5-15) MEQ/L BUN 27 H (7-17) mg/dL Creatinine 1.40 H (0.52-1.04) mg/dL Estimated GFR 39.6 ML/MIN Glucose 91 (74-106) mg/dL Calcium 9.5 (8.4-10.2) mg/dL Total Bilirubin 0.70 (0.2-1.3) mg/dL AST 27 (14-36) U/L ALT 22 (0-35) U/L Alkaline Phosphatase 65 (38-126) U/L Troponin I < 0.012 (0.000-0.034) ng/mL NT-Pro-B Natriuret Pep 1280 H (0-900) pg/mL Serum Total Protein 7.1 (6.3-8.2) g/dL Albumin 4.4 (3.5-5.0) g/dL Thyroxine (T4) (5.53-10.96) ug/dL TSH 3rd Generation (0.47-4.68) mIU/L Slides for Path Review YES Radiology Exams: Radiology Procedures Category Date Time Status CHEST 1 VIEW (PORTABLE) Stat Exams 12/31/19 09:07 Completed ECHO W/2D AND DOPPLER [US] Routine Exams 01/01/20 07:30 Taken VENOUS UNILAT/LIMITED EXTREMIT [US] Stat Exams 12/31/19 15:09 Completed Assessment/Plan (1) CHF (congestive heart failure) Current Visit: Yes Status: Acute Qualifiers: Heart failure type: unspecified Heart failure chronicity: unspecified Qualified Code(s): I50.9 - Heart failure, unspecified Assessment & Plan: exam is good. Pt was to have echo if none done in the past 6 mo. F/u with Dr. Black in 1 week. Code(s): I50.9 - HEART FAILURE, UNSPECIFIED (2) Chronic renal insufficiency Current Visit: Yes Status: Chronic Qualifiers: Chronic kidney disease stage: stage 4 (severe) Qualified Code(s): N18.4 - Chronic kidney disease, stage 4 (severe) Code(s): N18.9 - CHRONIC KIDNEY DISEASE, UNSPECIFIED (3) Pulmonary edema Current Visit: Yes Status: Resolved Qualifiers: Chronicity: acute Qualified Code(s): J81.0 - Acute pulmonary edema Code(s): J81.1 - CHRONIC PULMONARY EDEMA (4) Left leg pain Current Visit: Yes Status: Acute Assessment & Plan: no complaint currently. Code(s): M79.605 - PAIN IN LEFT LEG
--- NOTE | 2020-01-01 14:36 | PCM.DS ---
Discharge Summary Date of Admission: 12/31/19 10:28 Admitting Physician: EITAN REEVES Primary Care Provider: JAMIE SELLERS Allergies Allergies No Known Drug Allergies Allergy (Verified 12/31/19 08:59) Hospital Summary - Hospital Course Hospital Course: Pt is 69 yo female pt of Dr. Jamie Sellers who was admitted through ER yesterday with CHF, HTN, and chronic renal insufficiency. She was given IV lasix 40mg in ER with some relief; that dose was repeated in the evening. This morning she had 80mg IV x 1. She is feeling much better and would like to be discharged to home. She is interested in follow up with Dr. Black. Her troponins were negative x 6. TSH 3.09. T4 mildly elevated at 12.9. Total T3 is pending. eGFR was 35.5 yesterday, and 39.6 today - these are apparently average numbers for her over the past 2 years or so. She has an appointment with nephrology tomorrow. Pt would like a small amount of sleeping pill at home - has used restoril in the past with success. We discussed ambien but she prefers restoril due to Ambien's side effect profile. - Vitals & Intake/Output Vital Signs: Vital Signs Temperature 97.9 F 01/01/20 12:00 Pulse Rate 73 01/01/20 12:00 Respiratory Rate 18 01/01/20 12:00 Blood Pressure 159/70 01/01/20 12:00 O2 Sat by Pulse Oximetry 95 01/01/20 12:00 Intake & Output: Intake & Output 12/30/19 12/31/19 01/01/20 01/02/20 11:59 11:59 11:59 11:59 Intake Total 1360 240 Output Total 8100 1500 Balance -6740 -1260 Weight 108.465 kg 103.3 kg - Lab Result Diagrams: 01/01/20 04:15 01/01/20 04:15 Lab Results-Last 24 Hrs: Lab Results-Last 24 Hours 12/31/19 12/31/19 12/31/19 Range/Units 09:14 16:20 18:13 WBC (4.0-10.5) K/mm3 RBC (4.1-5.4) M/mm3 Hgb (12.0-16.0) gm/dl Hct (35-47) % MCV (78-100) fl MCH (26-32) pg MCHC (32-36) g/dl RDW (11.5-14.0) % Plt Count (150-450) K/mm3 MPV (7.5-11.0) fl Sodium (137-145) mmol/L Potassium (3.5-5.1) mmol/L Chloride (98-107) mmol/L Carbon Dioxide (22-30) mmol/L Anion Gap (5-15) MEQ/L BUN (7-17) mg/dL Creatinine (0.52-1.04) mg/dL Estimated GFR ML/MIN Glucose (74-106) mg/dL Calcium (8.4-10.2) mg/dL Total Bilirubin (0.2-1.3) mg/dL AST (14-36) U/L ALT (0-35) U/L Alkaline Phosphatase (38-126) U/L Troponin I < 0.012 < 0.012 < 0.012 (0.000-0.034) ng/mL NT-Pro-B Natriuret Pep (0-900) pg/mL Serum Total Protein (6.3-8.2) g/dL Albumin (3.5-5.0) g/dL Thyroxine (T4) (5.53-10.96) ug/dL TSH 3rd Generation (0.47-4.68) mIU/L Slides for Path Review 12/31/19 12/31/19 12/31/19 Range/Units 20:58 20:58 Unknown WBC (4.0-10.5) K/mm3 RBC (4.1-5.4) M/mm3 Hgb (12.0-16.0) gm/dl Hct (35-47) % MCV (78-100) fl MCH (26-32) pg MCHC (32-36) g/dl RDW (11.5-14.0) % Plt Count (150-450) K/mm3 MPV (7.5-11.0) fl Sodium (137-145) mmol/L Potassium (3.5-5.1) mmol/L Chloride (98-107) mmol/L Carbon Dioxide (22-30) mmol/L Anion Gap (5-15) MEQ/L BUN (7-17) mg/dL Creatinine (0.52-1.04) mg/dL Estimated GFR ML/MIN Glucose (74-106) mg/dL Calcium (8.4-10.2) mg/dL Total Bilirubin (0.2-1.3) mg/dL AST (14-36) U/L ALT (0-35) U/L Alkaline Phosphatase (38-126) U/L Troponin I < 0.012 < 0.012 (0.000-0.034) ng/mL NT-Pro-B Natriuret Pep (0-900) pg/mL Serum Total Protein (6.3-8.2) g/dL Albumin (3.5-5.0) g/dL Thyroxine (T4) 12.9 H (5.53-10.96) ug/dL TSH 3rd Generation 3.090 (0.47-4.68) mIU/L Slides for Path Review 01/01/20 01/01/20 01/01/20 Range/Units 04:15 04:15 04:15 WBC 6.1 (4.0-10.5) K/mm3 RBC 4.11 (4.1-5.4) M/mm3 Hgb 12.6 (12.0-16.0) gm/dl Hct 39.2 (35-47) % MCV 95.4 (78-100) fl MCH 30.7 (26-32) pg MCHC 32.1 (32-36) g/dl RDW 13.9 (11.5-14.0) % Plt Count 195 (150-450) K/mm3 MPV 11.6 H (7.5-11.0) fl Sodium 139 (137-145) mmol/L Potassium 3.6 (3.5-5.1) mmol/L Chloride 102 (98-107) mmol/L Carbon Dioxide 31 H (22-30) mmol/L Anion Gap 9.7 (5-15) MEQ/L BUN 27 H (7-17) mg/dL Creatinine 1.40 H (0.52-1.04) mg/dL Estimated GFR 39.6 ML/MIN Glucose 91 (74-106) mg/dL Calcium 9.5 (8.4-10.2) mg/dL Total Bilirubin 0.70 (0.2-1.3) mg/dL AST 27 (14-36) U/L ALT 22 (0-35) U/L Alkaline Phosphatase 65 (38-126) U/L Troponin I < 0.012 (0.000-0.034) ng/mL NT-Pro-B Natriuret Pep 1280 H (0-900) pg/mL Serum Total Protein 7.1 (6.3-8.2) g/dL Albumin 4.4 (3.5-5.0) g/dL Thyroxine (T4) (5.53-10.96) ug/dL TSH 3rd Generation (0.47-4.68) mIU/L Slides for Path Review YES - Radiology Exams Ordered Rad Exams-Entire Visit: Radiology Procedures Category Date Time Status CHEST 1 VIEW (PORTABLE) Stat Exams 12/31/19 09:07 Completed ECHO W/2D AND DOPPLER [US] Routine Exams 01/01/20 07:30 Taken VENOUS UNILAT/LIMITED EXTREMIT [US] Stat Exams 12/31/19 15:09 Completed - Procedures and Test Procedures and Tests throughout Hospitalization: Therapy Orders & Screens 12/31/19 14:37 Oxygen NASAL CANNULA 2 lpm Comment: Diagnosis: CHF Discharge Exam General Appearance: no apparent distress, obese Neurologic Exam: alert, oriented x 3, cooperative Eye Exam: eyes nml inspection Ears, Nose, Throat Exam: moist mucous membranes Neck Exam: normal inspection Respiratory Exam: normal breath sounds, lungs clear, No crackles/rales, No rhonchi, No wheezing Cardiovascular Exam: regular rate/rhythm, normal heart sounds, No murmur Gastrointestinal/Abdomen Exam: soft, normal bowel sounds, No tenderness, No distention, No mass, No guarding, No rebound Back Exam: normal inspection, No rash Extremity Exam: normal inspection, swelling (trace pretibial edema) Skin Exam: normal color, warm, dry, No rash Final Diagnosis/Problem List - Final Discharge Diagnosis/Problem (1) CHF (congestive heart failure) Current Visit: Yes Status: Acute Assessment & Plan: feeling much better. Was to have echo today if none done in the past 6 mo. Can increase bumex to 1 po BID for the next 1 week. repeat BMP in 1 week. Code(s): I50.9 - HEART FAILURE, UNSPECIFIED (2) Chronic renal insufficiency Current Visit: Yes Status: Chronic Code(s): N18.9 - CHRONIC KIDNEY DISEASE, UNSPECIFIED (3) Pulmonary edema Current Visit: Yes Status: Resolved Code(s): J81.1 - CHRONIC PULMONARY EDEMA (4) Left leg pain Current Visit: Yes Status: Acute Code(s): M79.605 - PAIN IN LEFT LEG (5) Hypothyroid Current Visit: Yes Status: Acute Assessment & Plan: TSH is nl, T4 slightly elevated. T3 pending. F/u with Dr. Black. Code(s): E03.9 - HYPOTHYROIDISM, UNSPECIFIED (6) Insomnia Current Visit: No Status: Acute Assessment & Plan: If INSPECT is appropriate, will give #4 restoril for use over the next 1 week until she sees Dr. Black. INSPECT done today; pt was on opiates previously with Dr. Belcher but stated she was done getting those, and in fact her last fill was Jun 2019. Code(s): G47.00 - INSOMNIA, UNSPECIFIED - Discharge Disposition: Home, Self-Care Condition: Good Prescriptions: New Bumetanide 1 mg [Bumex 1 mg] 1 mg PO BID #14 tablet Temazepam 15 mg [Restoril 15 MG] 15 mg PO QHS PRN #4 capsule PRN Reason: Insomnia Continue Apixaban [Eliquis 5 mg Tablet] 5 mg PO BID Bumetanide 1 mg PO DAILY Isosorbide Mononitrate [Isosorbide Mononitrate ER] 120 mg PO DAILY Aspirin 81 gm Chew [Baby Aspirin 81 mg Chew] 81 mg PO DAILY Losartan Potassium 50 mg [Cozaar 50 MG] 50 mg PO DAILY Clopidogrel Bisulfate [Clopidogrel] 75 mg PO DAILY Clonidine HCl 0.1 mg [Catapres 0.1 MG] 0.1 mg PO TID Atorvastatin Calcium [Lipitor] 80 mg PO HS Levothyroxine Sodium 112 mcg PO DAILY Follow up with: CHANDRAKANT BLACK DO [ACTIVE STAFF] - 1 Week JAMIE SELLERS [Primary Care Provider] -
== END 2020-01-01 15:49 | disposition home or self-care (01) ==
LOC: ED 08:49 → MED SURG 10:28
PROVIDERS: ADMIT Family Medicine; ATTEND Family Medicine
DX: I13.0 Hypertensive heart and chronic kidney disease with heart failure and stage 1 through stage 4 chronic kidney disease, or unspecified chronic kidney disease (principal); I50.1 Left ventricular failure, unspecified; N18.9 Chronic kidney disease, unspecified; M79.605 Pain in left leg; E03.9 Hypothyroidism, unspecified; G47.00 Insomnia, unspecified; Z79.01 Long term (current) use of anticoagulants; Z79.899 Other long term (current) drug therapy; Z86.79 Personal history of other diseases of the circulatory system; Z95.1 Presence of aortocoronary bypass graft
CPT/HCPCS: 36000; 36415; 71045; 80053; 81001; 83735; 83880; 84436; 84443; 84480; 84484; 85025; 85027; 93005; 93041; 93268; 93306; 93971; 94760; 96374; 99285; 99291; 99292; J1940; A9270-GY; G0378

== ENCOUNTER 2020-01-09 21:19 | Emergency (ER) | payer MEDICARE ==
[2020-01-09] MEDS ORDERED: NEOSYNEPHRINE 0.5% NASAL SPRAY/DROPS NS ONE (22:00)
[2020-01-09] MEDS ORDERED: APRESOLINE 20 MG/ML INJ IV ONE (22:01)
[2020-01-09] MEDS ORDERED: NEOSYNEPHRINE 0.5% NASAL SPRAY/DROPS ONE (22:06)
[2020-01-09] MEDS ORDERED: APRESOLINE 20 MG/ML INJ ONE (22:06)
--- NOTE | 2020-01-09 22:08 | ERPHSYRPT ---
- History of Present Illness Time Seen by Provider: 01/09/20 21:55 Source: patient, family Exam Limitations: no limitations Patient Subjective Stated Complaint: Patient states " I have been having nose bleeds for about a week now". Patient states " I usually can get them to stop but tonight i haven't been able to stop it". Triage Nursing Assessment: p Physician History: This is a 69-year-old white female who is on Eliquis, Plavix and a baby aspirin each day for atrial fibrillation. She presents with nosebleed that she is unable to stop. Patient states she has had intermittent nosebleeds for the last week. There has been adjustments made in her blood pressure medicine. Patient was started on hydralazine yesterday and and took her dose today as well. Patient states she has no visual changes but she does have a headache associated with a nosebleed. Is primarily coming out of the right nostril per her report. Patient denies trauma. Timing/Duration: week(s), intermittent, worse Severity: moderate (Worse today in terms of the nosebleed) Associated Symptoms: headaches Allergies/Adverse Reactions: No Known Drug Allergies Allergy (Verified 01/09/20 22:01) Home Medications: Apixaban [Eliquis 5 mg Tablet] 5 mg PO BID 03/23/17 [History] Bumetanide 1 mg PO DAILY 03/23/17 [History] Isosorbide Mononitrate [Isosorbide Mononitrate ER] 120 mg PO DAILY 05/05/19 [History] Aspirin 81 gm Chew [Baby Aspirin 81 mg Chew] 81 mg PO DAILY 12/31/19 [History] Atorvastatin Calcium [Lipitor] 80 mg PO HS 12/31/19 [History] Clonidine HCl 0.1 mg [Catapres 0.1 MG] 0.1 mg PO TID 12/31/19 [History] Clopidogrel Bisulfate [Clopidogrel] 75 mg PO DAILY 12/31/19 [History] Losartan Potassium 50 mg [Cozaar 50 MG] 50 mg PO DAILY 12/31/19 [History] Levothyroxine Sodium 112 mcg PO DAILY 01/01/20 [History] HydrALAzine HCL 25 MG TAB [Apresoline 25 MG TABLET] 25 mg PO TID 01/09/20 [History] Hx Tetanus, Diphtheria Vaccination/Date Given: Yes Hx Influenza Vaccination/Date Given: Yes Hx Pneumococcal Vaccination/Date Given: Yes Immunizations Up to Date: Yes Travel Risk - International Travel Have you traveled outside of the country in past 3 weeks: No - Coronavirus Screening Are you exhibiting any of the following symptoms?: No Close contact with a COVID-19 positive Pt in past 14-21 Days: No - Review of Systems Constitutional: No Symptoms Eyes: No Symptoms Ears, Nose, & Throat: Epistaxis Respiratory: No Symptoms Cardiac: No Symptoms Abdominal/Gastrointestinal: No Symptoms Genitourinary Symptoms: No Symptoms Musculoskeletal: No Symptoms Skin: No Symptoms Neurological: Headache Psychological: No Symptoms Endocrine: No Symptoms Hematologic/Lymphatic: No Symptoms Immunological/Allergic: No Symptoms All Other Systems: Reviewed and Negative - Past Medical History Pertinent Past Medical History: Yes Neurological History: No Pertinent History ENT History: No Pertinent History Cardiac History: Congenital Heart Disease, Myocardial Infarction ([place]), Other Respiratory History: Pneumonia Endocrine Medical History: Hyperthyroidism Musculoskeletal History: Osteoarthritis GI Medical History: No Pertinent History History: Other Psycho-Social History: Anxiety, Depression Female Reproductive Disorders: No Pertinent History Other Medical History: atrial fibrillation, low kidney functions - Past Surgical History Past Surgical History: Yes Neuro Surgical History: No Pertinent History Cardiac: CABG, Cardiac Catheterization, Cardiac Stent Respiratory: No Pertinent History Gastrointestinal: Cholecystectomy Genitourinary: No Pertinent History Musculoskeletal: Orthopedic Surgery Female Surgical History: Hysterectomy Other Surgical History: THYROIDECTOMY, BACK SURGERY 2010 - Social History Smoking Status: Current every day smoker How long have you smoked: 40 years Exposure to second hand smoke: Yes Drug Use: none Patient Lives Alone: No - Female History Hx Last Menstrual Period: POST Hx Now: No - Nursing Vital Signs Nursing Vital Signs: Initial Vital Signs Temperature 98.4 F 01/09/20 21:47 Pulse Rate 108 H 01/09/20 21:47 Respiratory Rate 20 01/09/20 21:47 Blood Pressure 194/126 01/09/20 21:47 O2 Sat by Pulse Oximetry 98 01/09/20 21:47 Pain Scale Pain Intensity 8 - Physical Exam General Appearance: mild distress, alert, anxiety Eye Exam: PERRL/EOMI, eyes nml inspection Ears, Nose, Throat Exam: moist mucous membranes, other (Patient has slow active bleeding from primarily the right nostril. There is some small clots in the back of her throat.) Neck Exam: normal inspection, non-tender, supple, full range of motion Respiratory Exam: normal breath sounds, lungs clear, airway intact, No chest tenderness, No respiratory distress Cardiovascular Exam: normal peripheral pulses, tachycardia Gastrointestinal/Abdomen Exam: No tenderness Pelvic Exam: not done Rectal Exam: not done Back Exam: normal inspection, normal range of motion, No CVA tenderness, No vertebral tenderness Extremity Exam: normal inspection, normal range of motion, pelvis stable Neurologic Exam: alert, oriented x 3, cooperative, proposition player II-XII nml as tested, normal mood/affect, nml cerebellar function, nml station & gait, sensation nml, No facial droop Skin Exam: normal color, warm, dry Lymphatic Exam: No adenopathy SpO2 Interpretation: normal SpO2: 98 O2 Delivery: Room Air - Course Nursing assessment & vital signs reviewed: Yes EKG Interpreted by Me: RATE (87), A-fib, NORMAL INTERVALS, NORMAL QRS, Other (No acute ischemic changes. The comparison EKG on 12/31/2019 shows persistent rate controlled atrial fibrillation.) Ordered Tests: Active Orders 24 hr Category Date Time Status Apply Nose Clip STAT Care 01/09/20 22:00 Active EKG-ER Only STAT Care 01/09/20 22:00 Active IV Insertion STAT Care 01/09/20 22:00 Active HEAD WITHOUT CONTRAST [CT] Stat Exams 01/09/20 22:01 Taken CBC W DIFF Stat Lab 01/09/20 22:10 Completed CMP Stat Lab 01/09/20 22:10 Completed PROTIME WITH INR Stat Lab 01/09/20 22:10 Completed Medication Summary Discontinued Medications Generic Name Dose Route Start Last Admin Trade Name Freq PRN Reason Stop Dose Admin Hydralazine HCl 10 mg 01/09/20 22:01 01/09/20 22:10 Apresoline 20 Mg/Ml Inj IV 01/09/20 22:02 10 mg STAT ONE Administration Hydralazine HCl Confirm 01/09/20 22:06 Apresoline 20 Mg/Ml Inj Administered 01/09/20 22:07 Dose 20 mg .ROUTE .STK-MED ONE Ceftriaxone Sodium/Dextrose 1 g in 50 mls @ 100 mls/hr 01/10/20 00:03 01/10/20 00:14 Rocephin 1 Gm-D5w 50 Ml Bag IV 01/10/20 00:32 100 mls/hr STAT STA 100 mls/hr Administration Ceftriaxone Sodium/Dextrose Confirm 01/10/20 00:09 Rocephin 1 Gm-D5w 50 Ml Bag Administered 01/10/20 00:10 Dose 1 g in 50 mls @ ud IV .STK-MED ONE Lorazepam 1 mg 01/10/20 00:03 01/10/20 00:14 Ativan 2 Mg/1 Ml Vial IV 01/10/20 00:04 1 mg STAT ONE Administration Lorazepam Confirm 01/10/20 00:08 Ativan 2 Mg/1 Ml Vial Administered 01/10/20 00:09 Dose 2 mg .ROUTE .STK-MED ONE Morphine Sulfate 4 mg 01/09/20 22:18 01/09/20 22:21 Morphine Sulfate 4 Mg Inj IV 01/09/20 22:19 4 mg STAT ONE Administration Morphine Sulfate Confirm 01/09/20 22:20 Morphine Sulfate 4 Mg Inj Administered 01/09/20 22:21 Dose 4 mg .ROUTE .STK-MED ONE Morphine Sulfate 4 mg 01/09/20 23:17 01/09/20 23:23 Morphine Sulfate 4 Mg Inj IV 01/09/20 23:18 4 mg STAT ONE Administration Morphine Sulfate Confirm 01/09/20 23:22 Morphine Sulfate 4 Mg Inj Administered 01/09/20 23:23 Dose 4 mg .ROUTE .STK-MED ONE Ondansetron HCl 4 mg 01/09/20 22:18 01/09/20 22:21 Zofran 4 Mg/2 Ml Vial IV 01/09/20 22:19 4 mg STAT ONE Administration Ondansetron HCl Confirm 01/09/20 22:19 Zofran 4 Mg/2 Ml Vial Administered 01/09/20 22:20 Dose 4 mg .ROUTE .STK-MED ONE Phenylephrine HCl 15 ml 01/09/20 22:00 01/09/20 22:11 Neosynephrine 0.5% Nasal [place]/Drops NS 01/09/20 22:01 15 ml STAT ONE Administration Phenylephrine HCl Confirm 01/09/20 22:06 Neosynephrine 0.5% Nasal [place]/Drops Administered 01/09/20 22:07 Dose 15 ml .ROUTE .STK-MED ONE Lab/Rad Data: Laboratory Result Diagrams 01/09/20 22:10 01/09/20 22:10 Laboratory Results 01/09/20 01/09/20 01/09/20 Range/Units 22:10 22:10 22:10 WBC 9.9 (4.0-10.5) K/mm3 RBC 4.69 (4.1-5.4) M/mm3 Hgb 14.3 (12.0-16.0) gm/dl Hct 43.9 (35-47) % MCV 93.6 (78-100) fl MCH 30.5 (26-32) pg MCHC 32.6 (32-36) g/dl RDW 13.6 (11.5-14.0) % Plt Count 245 (150-450) K/mm3 MPV 11.4 H (7.5-11.0) fl Gran % 52.8 (36.0-66.0) % Eos # (Auto) 0.44 (0-0.5) Absolute Lymphs (auto) 3.21 (1.0-4.6) Absolute Monos (auto) 1.01 (0.0-1.3) Lymphocytes % 32.3 (24.0-44.0) % Monocytes % 10.2 (0.0-12.0) % Eosinophils % 4.4 (0.00-5.0) % Basophils % 0.3 (0.0-0.4) % Absolute Granulocytes 5.25 (1.4-6.9) Basophils # 0.03 (0-0.4) PT 14.3 H (9.95-12.35) SECONDS INR 1.26 (0.8-3.0) Sodium 135 L (137-145) mmol/L Potassium 3.8 (3.5-5.1) mmol/L Chloride 101 (98-107) mmol/L Carbon Dioxide 24 (22-30) mmol/L Anion Gap 14.3 (5-15) MEQ/L BUN 36 H (7-17) mg/dL Creatinine 1.58 H (0.52-1.04) mg/dL Estimated GFR 34.5 ML/MIN Glucose 91 (74-106) mg/dL Calcium 9.5 (8.4-10.2) mg/dL Total Bilirubin 0.60 (0.2-1.3) mg/dL AST 38 H (14-36) U/L ALT 25 (0-35) U/L Alkaline Phosphatase 99 (38-126) U/L Serum Total Protein 7.9 (6.3-8.2) g/dL Albumin 4.8 (3.5-5.0) g/dL - Progress Progress: improved, re-examined Progress Note: 01/09/20 23:19 CAT scan of the head reveals no acute intracranial pathology 01/10/20 00:04 Medical decision making: This patient is on 3 different anticoagulation medications. She is been having worsening issues with nosebleeds in the last week. We attempted lowering her blood pressure, Henry-Synephrine intranasally, pressure with a nasal clip, and finally had to place a rapid Rhino rocket into both nostrils. The patient will need an evaluation by ENT. We will provide the patient with pain medicine and antibiotics. Once the bleeding has sufficiently stopped, we will discharge the patient to home and the emergency department here will attempt to obtain a ENT appointment for the patient. Patient and her realized that the patient may have these Rhino Rocket in place over the weekend. They are also aware that the patient needs to stop her Eliquis, Plavix and baby aspirin. She is also to contact her rehabilitation services manager to let them know that she is having a significant nosebleed and she was told to stop her Eliquis, Plavix and baby aspirin. 01/10/20 00:12 Procedure note: In the left nostril we placed a 7.5 anteriorposterior rapid Rhino rocket without difficulty. We inflated the balloon with approximately 5 to 7 cc of air. We then placed a right nostril 5.5 anterior rapid Rhino rocket without difficulty. We inflated the balloon to approximate 5 cc of air. The left nostril shows no further bleeding. The right nostril bleeding significantly decreased. There is a small amount of oozing present and we increase the amount of air into the balloon to 7 cc of air. 01/10/20 00:41 Blood pressure significantly improved. No further bleeding from the nostrils with the rapid Rhino Rocket is in place. Counseled pt/family regarding: lab results, diagnosis, need for follow-up, rad results - Departure Departure Disposition: Home Clinical Impression: Hypertensive urgency, Epistaxis Condition: Stable Critical Care Time: Yes Critical Care Time(excluding separately billable procedures): Critical 30-74 mins Referrals: JAMIE RODRIGUEZ [Primary Care Provider] - Additional Instructions: Stop your Plavix, Eliquis and aspirin. Call your rehabilitation services manager this morning to make them aware of your nosebleed and that you were told to stop all your blood thinning medications. If you do not hear from us in the emergency department by 9:30 in the morning regarding an ENT appointment, call us in the emergency department. Prescriptions: Hydrocodone/APAP 5-325 Tab^^^ [[place] 5-325 Tablet^^^] 1 tab PO Q8H PRN PRN #10 tablet MDD 3 PRN Reason: Pain Cephalexin Mh 500 mg [Keflex 500 mg] 500 mg PO TID #21 capsule
[2020-01-09] MEDS ORDERED: Zofran 4 MG/2 ML VIAL IV ONE (22:18)
[2020-01-09] MEDS ORDERED: MORPHINE SULFATE 4 MG INJ IV ONE ×2 (22:18→23:17)
[2020-01-09 22:19] LABS: Absolute Neutrophil Ct (ANC) 5.25 (1.4-6.9); BASOPHIL % 0.3 % (0.0-0.4); Basophil (Absolute #) 0.03 (0-0.4); Eosinophil % 4.4 % (0.00-5.0); Eosinophil (Absolute #) 0.44 (0-0.5); Hematocrit 43.9 % (35-47); Hemoglobin 14.3 gm/dl (12.0-16.0); Lymphocyte (Absolute #) 3.21 (1.0-4.6); Lymphocytes % 32.3 % (24.0-44.0); Mean Cell Volume 93.6 fl (78-100); Mean Corpuscular Hemoglobin 30.5 pg (26-32); Mean Corpuscular Hgb Concent. 32.6 g/dl (32-36); Mean Platelet Volume 11.4 fl (7.5-11.0); Monocyte (Absolute #) 1.01 (0.0-1.3); Monocytes % 10.2 % (0.0-12.0); Neutrophil % 52.8 % (36.0-66.0); Platelet Count 245 K/mm3 (150-450); Red Blood Count 4.69 M/mm3 (4.1-5.4); Red Cell Distribution Width 13.6 % (11.5-14.0); White Blood Count 9.9 K/mm3 (4.0-10.5)
[2020-01-09] MEDS ORDERED: Zofran 4 MG/2 ML VIAL ONE (22:19)
[2020-01-09] MEDS ORDERED: MORPHINE SULFATE 4 MG INJ ONE ×2 (22:20→23:22)
[2020-01-09 22:28] LABS: INR 1.26 (0.8-3.0); PROTIME 14.3 SECONDS (9.95-12.35)
[2020-01-09 22:41] LABS: ALBUMIN 4.8 g/dL (3.5-5.0); ANION GAP 14.3 MEQ/L (5-15); BILIRUBIN,TOTAL 0.6 mg/dL (0.2-1.3); Calcium 9.5 mg/dL (8.4-10.2); Creatinine 1 1.58 mg/dL (0.52-1.04); Potassium 3.8 mmol/L (3.5-5.1); Total Protein 7.9 g/dL (6.3-8.2)
[2020-01-09 23:21] VITALS: O2SAT 98
[2020-01-10] MEDS ORDERED: ROCEPHIN 1 Gm-D5w 50 ml Bag** 1 G/50 ML IVPB IV STA (00:03)
[2020-01-10] MEDS ORDERED: Ativan 2 MG/1 ML VIAL IV ONE (00:03)
[2020-01-10] MEDS ORDERED: Ativan 2 MG/1 ML VIAL ONE (00:08)
[2020-01-10] MEDS ORDERED: ROCEPHIN 1 Gm-D5w 50 ml Bag** 1 G/50 ML IVPB IV ONE (00:09)
[2020-01-10] MEDS ORDERED: NORCO 5/325 MG PO ONE (00:43)
[2020-01-10] MEDS ORDERED: NORCO 5/325 MG ONE (00:50)
[2020-01-10] MEDS ORDERED: Hydromorphone 1 mg/ml Ampule IV ONE (00:55)
[2020-01-10] MEDS ORDERED: Hydromorphone 1 mg/ml Ampule ONE (00:59)
[2020-01-10 01:56] VITALS: BP 140/80; PULSE 78
--- NOTE | 2020-01-10 08:57 | XRAY ---
Indication: Right headache and epistaxis. I retention. Multiple contiguous axial images obtained through the head without contrast. Comparison: None Age-appropriate global atrophy. Left cerebellum demonstrates 5 mm remote appearing infarct. No acute intracranial hemorrhage, abnormal extra-axial fluid collection, or mass effect. Fourth ventricle is midline without hydrocephalus. Yuan-white matter differentiation preserved. Bony calvarium intact. Visualized paranasal sinuses are clear. Partial opacification of both mastoid air cells presumed inflammatory. Impression: 1. Atrophy within normal limits for patient's age. Tiny remote appearing infarct left cerebellum. 2. No acute intracranial abnormalities. 3. Incidental partial opacification both mastoid air cells presumed inflammatory. Comment: Preliminary interpretation was made by [facility]. No critical discrepancy.
== END 2020-01-10 01:56 | disposition home or self-care (01) ==
LOC: ED 21:19
DX: I16.0 Hypertensive urgency (principal); R04.0 Epistaxis; Z79.01 Long term (current) use of anticoagulants; Z79.82 Long term (current) use of aspirin; Z79.899 Other long term (current) drug therapy; I51.9 Heart disease, unspecified; I25.2 Old myocardial infarction; E05.90 Thyrotoxicosis, unspecified without thyrotoxic crisis or storm; Z86.79 Personal history of other diseases of the circulatory system; Z72.0 Tobacco use
CPT/HCPCS: 36000; 36415; 70450; 80053; 85025; 85610; 93005; 96365; 96374; 96375; 96376; 99285; 99291; J0360; J0696; J1170; J2060; J2270; J2405; A9270-GY

== ENCOUNTER 2020-04-26 10:49 | Emergency (ER) | payer MEDICARE ==
[2020-04-26] MEDS ORDERED: BABY ASPIRIN 81 MG CHEW PO ONE (11:13)
[2020-04-26] MEDS ORDERED: Lasix 40 MG/4 ML IV ONE (11:14)
[2020-04-26] MEDS ORDERED: DUONEB 0.5-3 MG/3 ml Neb IH ONE ×2 (11:14→11:17)
--- NOTE | 2020-04-26 11:19 | ERPHSYRPT ---
- History of Present Illness Time Seen by Provider: 04/26/20 11:00 Source: patient Exam Limitations: no limitations Physician History: 69 years old female with history of coronary artery disease status post stenting, congestive heart failure, atrial fibrillation rate controlled on Eliquis/amiodarone, hypertension, hyperlipidemia, tobacco abuse/COPD presented in the ER with chief complaint of progressively increasing chest pressure/tightness and shortness of breath especially with activity. Patient reports generalized soreness in the chest with congestion and mild productive cough which is brought warning worse than usual smoker's cough. Patient report almost 10 pound weight gain in the last 1 week. She is scheduled to have electrical cardioversion tomorrow at [facility]. Denies any fever or chills. Timing/Duration: week(s) (1), gradual onset, worse Activities at Onset: activity Severity of Dyspnea-Max: moderate Severity of Dyspnea-Current: moderate Possible Cause: occasional episodes Modifying Factors: Improves With: rest. Worsens With: activity, coughing, exertion Associated Symptoms: cough, chest pain/discomfort, edema, wheezing, productive cough Allergies/Adverse Reactions: No Known Drug Allergies Allergy (Verified 01/09/20 22:01) Home Medications: Apixaban [Eliquis 5 mg Tablet] 5 mg PO BID 03/23/17 [History] Bumetanide 1 mg PO DAILY 03/23/17 [History] Isosorbide Mononitrate [Isosorbide Mononitrate ER] 120 mg PO DAILY 05/05/19 [History] Aspirin 81 gm Chew [Baby Aspirin 81 mg Chew] 81 mg PO DAILY 12/31/19 [History] Atorvastatin Calcium [Lipitor] 80 mg PO HS 12/31/19 [History] Clonidine HCl 0.1 mg [Catapres 0.1 MG] 0.1 mg PO TID 12/31/19 [History] Clopidogrel Bisulfate [Clopidogrel] 75 mg PO DAILY 12/31/19 [History] Losartan Potassium 50 mg [Cozaar 50 MG] 50 mg PO DAILY 12/31/19 [History] Levothyroxine Sodium 112 mcg PO DAILY 01/01/20 [History] HydrALAzine HCL 25 MG TAB [Apresoline 25 MG TABLET] 25 mg PO TID 01/09/20 [History] Hx Tetanus, Diphtheria Vaccination/Date Given: Yes Hx Influenza Vaccination/Date Given: Yes Hx Pneumococcal Vaccination/Date Given: Yes - Review of Systems Constitutional: No Symptoms Eyes: No Symptoms Ears, Nose, & Throat: No Symptoms Respiratory: Cough, Dyspnea, Dyspnea on Exertion (KYLE), Wheezing Cardiac: Chest Pain, Edema Abdominal/Gastrointestinal: No Symptoms Genitourinary Symptoms: No Symptoms Musculoskeletal: No Symptoms Skin: No Symptoms Neurological: No Symptoms Psychological: No Symptoms Endocrine: No Symptoms Hematologic/Lymphatic: No Symptoms Immunological/Allergic: No Symptoms - Past Medical History Pertinent Past Medical History: Yes Neurological History: No Pertinent History ENT History: No Pertinent History Cardiac History: Congenital Heart Disease, Myocardial Infarction ([place]), Other Respiratory History: Pneumonia Endocrine Medical History: Hyperthyroidism Musculoskeletal History: Osteoarthritis GI Medical History: No Pertinent History History: Other Psycho-Social History: Anxiety, Depression Female Reproductive Disorders: No Pertinent History Other Medical History: atrial fibrillation, low kidney functions - Past Surgical History Past Surgical History: Yes Neuro Surgical History: No Pertinent History Cardiac: CABG, Cardiac Catheterization, Cardiac Stent Respiratory: No Pertinent History Gastrointestinal: Cholecystectomy Genitourinary: No Pertinent History Musculoskeletal: Orthopedic Surgery Female Surgical History: Hysterectomy Other Surgical History: THYROIDECTOMY, BACK SURGERY 2010 - Social History Smoking Status: Current every day smoker How long have you smoked: 40 years Exposure to second hand smoke: Yes Drug Use: none Patient Lives Alone: No - Nursing Vital Signs Nursing Vital Signs: Initial Vital Signs Temperature 98.0 F 04/26/20 11:07 Pulse Rate 73 04/26/20 11:07 Respiratory Rate 25 H 04/26/20 11:07 Blood Pressure 136/67 04/26/20 11:07 O2 Sat by Pulse Oximetry 94 L 04/26/20 11:07 Pain Scale Pain Intensity 0 - Physical Exam General Appearance: no apparent distress, alert Eye Exam: eyes nml inspection Ears, Nose, Throat Exam: hearing grossly normal, normal ENT inspection Neck Exam: normal inspection, non-tender, supple, full range of motion Respiratory Exam: rhonchi, wheezing Cardiovascular/Chest Exam: normal heart sounds, irregular Abdominal/Gastrointestinal Exam: soft, normal bowel sounds, No tenderness Extremity Exam: non-tender, normal range of motion Neurologic Exam: alert, oriented x 3, cooperative Skin Exam: normal color SpO2 Interpretation: normal SpO2: 95 O2 Delivery: Room Air - Course EKG Interpreted by Me: RATE (66), A-fib, NORMAL AXIS, NORMAL INTERVALS, Left Bundle Branch Block Ordered Tests: Active Orders 24 hr Category Date Time Status Evaporator Supervisor STAT Care 04/26/20 11:14 Active EKG-ER Only STAT Care 04/26/20 11:13 Active IV Insertion STAT Care 04/26/20 11:13 Active Pulse Oximetry (ED) STAT Care 04/26/20 11:13 Active CHEST 1 VIEW (PORTABLE) Stat Exams 04/26/20 11:13 Taken CBC W DIFF Stat Lab 04/26/20 11:25 Completed CMP Stat Lab 04/26/20 11:25 Completed NT PRO BNP Stat Lab 04/26/20 11:25 Completed TROPONIN Q3H Lab 04/26/20 11:25 Completed TROPONIN Q3H Lab 04/26/20 13:30 Completed TROPONIN Q3H Lab 04/26/20 17:15 Ordered TROPONIN Q3H Lab 04/26/20 20:15 Ordered TROPONIN Q3H Lab 04/26/20 23:15 Ordered Peak Expiratory Flow Rate ONCE RT 04/26/20 11:32 Completed Respiratory Therapy Assessment DAILY RT 04/26/20 11:32 Completed Medication Summary Discontinued Medications Generic Name Dose Route Start Last Admin Trade Name Freq PRN Reason Stop Dose Admin Albuterol/Ipratropium 3 ml 04/26/20 11:14 04/26/20 11:20 Duoneb 0.5-3 Mg/3 Ml Neb IH 04/26/20 11:15 3 ml STAT ONE Administration Albuterol/Ipratropium Confirm 04/26/20 11:17 Duoneb 0.5-3 Mg/3 Ml Neb Administered 04/26/20 11:18 Dose 3 ml IH .STK-MED ONE Aspirin 324 mg 04/26/20 11:13 04/26/20 11:38 Baby Aspirin 81 Mg Chew PO 04/26/20 11:14 324 mg STAT ONE Administration Aspirin Confirm 04/26/20 11:36 Baby Aspirin 81 Mg Chew Administered 04/26/20 11:37 Dose 324 mg .ROUTE .STK-MED ONE Doxycycline Hyclate 100 mg 04/26/20 13:12 04/26/20 13:17 Vibramycin 100 Mg PO 04/26/20 13:13 100 mg STAT ONE Administration Doxycycline Hyclate Confirm 04/26/20 13:15 Vibramycin 100 Mg Administered 04/26/20 13:16 Dose 100 mg .ROUTE .STK-MED ONE Furosemide 40 mg 04/26/20 11:14 04/26/20 11:38 Lasix 40 Mg/4 Ml IV 04/26/20 11:15 40 mg STAT ONE Administration Furosemide Confirm 04/26/20 11:36 Lasix 40 Mg/4 Ml Administered 04/26/20 11:37 Dose 40 mg .ROUTE .STK-MED ONE Methylprednisolone Sodium Succinate 125 mg 04/26/20 13:12 04/26/20 13:17 Solu-Medrol 125 Mg IV 04/26/20 13:13 125 mg STAT ONE Administration Methylprednisolone Sodium Succinate Confirm 04/26/20 13:15 Solu-Medrol 125 Mg Administered 04/26/20 13:16 Dose 125 mg .ROUTE .STK-MED ONE Lab/Rad Data: Laboratory Result Diagrams 04/26/20 11:25 04/26/20 11:25 Laboratory Results 04/26/20 04/26/20 04/26/20 Range/Units 13:30 11:25 11:25 WBC (4.0-10.5) K/mm3 RBC (4.1-5.4) M/mm3 Hgb (12.0-16.0) gm/dl Hct (35-47) % MCV (78-100) fl MCH (26-32) pg MCHC (32-36) g/dl RDW (11.5-14.0) % Plt Count (150-450) K/mm3 MPV (7.5-11.0) fl Gran % (36.0-66.0) % Eos # (Auto) (0-0.5) Absolute Lymphs (auto) (1.0-4.6) Absolute Monos (auto) (0.0-1.3) Lymphocytes % (24.0-44.0) % Monocytes % (0.0-12.0) % Eosinophils % (0.00-5.0) % Basophils % (0.0-0.4) % Absolute Granulocytes (1.4-6.9) Basophils # (0-0.4) Sodium 136 L (137-145) mmol/L Potassium 3.8 (3.5-5.1) mmol/L Chloride 103 (98-107) mmol/L Carbon Dioxide 26 (22-30) mmol/L Anion Gap 11.3 (5-15) MEQ/L BUN 29 H (7-17) mg/dL Creatinine 1.47 H (0.52-1.04) mg/dL Estimated GFR 37.5 ML/MIN Glucose 113 H (74-106) mg/dL Calcium 8.9 (8.4-10.2) mg/dL Total Bilirubin 1.00 (0.2-1.3) mg/dL AST 29 (14-36) U/L ALT 14 (0-35) U/L Alkaline Phosphatase 69 (38-126) U/L Troponin I < 0.012 < 0.012 (0.000-0.034) ng/mL NT-Pro-B Natriuret Pep 1070 H (0-900) pg/mL Serum Total Protein 6.9 (6.3-8.2) g/dL Albumin 4.3 (3.5-5.0) g/dL 04/26/20 Range/Units 11:25 WBC 9.2 (4.0-10.5) K/mm3 RBC 4.17 (4.1-5.4) M/mm3 Hgb 12.6 (12.0-16.0) gm/dl Hct 38.6 (35-47) % MCV 92.6 (78-100) fl MCH 30.2 (26-32) pg MCHC 32.6 (32-36) g/dl RDW 15.0 H (11.5-14.0) % Plt Count 170 (150-450) K/mm3 MPV 12.1 H (7.5-11.0) fl Gran % 83.0 H (36.0-66.0) % Eos # (Auto) 0.12 (0-0.5) Absolute Lymphs (auto) 0.71 L (1.0-4.6) Absolute Monos (auto) 0.72 (0.0-1.3) Lymphocytes % 7.8 L (24.0-44.0) % Monocytes % 7.9 (0.0-12.0) % Eosinophils % 1.3 (0.00-5.0) % Basophils % 0.0 (0.0-0.4) % Absolute Granulocytes 7.61 H (1.4-6.9) Basophils # 0 (0-0.4) Sodium (137-145) mmol/L Potassium (3.5-5.1) mmol/L Chloride (98-107) mmol/L Carbon Dioxide (22-30) mmol/L Anion Gap (5-15) MEQ/L BUN (7-17) mg/dL Creatinine (0.52-1.04) mg/dL Estimated GFR ML/MIN Glucose (74-106) mg/dL Calcium (8.4-10.2) mg/dL Total Bilirubin (0.2-1.3) mg/dL AST (14-36) U/L ALT (0-35) U/L Alkaline Phosphatase (38-126) U/L Troponin I (0.000-0.034) ng/mL NT-Pro-B Natriuret Pep (0-900) pg/mL Serum Total Protein (6.3-8.2) g/dL Albumin (3.5-5.0) g/dL - Progress Progress: improved, re-examined Air Movement: good Progress Note: 04/26/20 14:24 69 years old is evaluated for chest congestion/cough/pressure and some shortness of breath. EKG showed atrial fibrillation rate controlled with no acute ST elevations. Has negative troponins x2. She is given a dose of Lasix along with breathing treatment and steroid, on reevaluation feeling much better. Her wheezing is almost gone. Chest x-ray did not show focal consolidations. Patient has been taking Eliquis regularly, do not think patient needs PE work- up. I believe her symptoms are more of a COPD bronchitis related and have given a dose of doxy as well and will continue to go home. Do not think patient needs to be admitted at this point. She has an appointment with cardiology in the morning which she is going to keep. Discussed signs symptoms of worsening needing return to ER which he seems understanding. She is also given a prescription of albuterol inhaler to take as needed. Blood Culture(s) Obtained: No Antibiotics given: Yes Counseled pt/family regarding: lab results, diagnosis, need for follow-up, rad results, smoking cessation - Departure Departure Disposition: Home Clinical Impression: COPD with acute bronchitis Condition: Stable Critical Care Time: No Referrals: JAMIE RODRIGUEZ [Primary Care Provider] - (1-2 days for reevaluation.) MALCOM OJEDA [ACTIVE STAFF] - (1-2 days for reevaluation) Instructions: Chronic Obstructive Pulmonary Disease, Angina ([place]), Exacerbation of COPD (DC) Additional Instructions: Do not smoke. Follow-up with your primary care and cardiology for reevaluation. Return to ER for worsening cough shortness of breath or chest pressure. Prescriptions: Prednisone 20 mg [Deltasone 20 mg] 60 mg PO DAILY 5 Days #15 tablet Albuterol 8 gm Mdi Hfa [Ventolin Hfa MDI] 8 gm IH Q4H #1 [email or web address] Doxycycline Hyclate 100 mg [Vibramycin 100 MG] 100 mg PO BID #14 tab
[2020-04-26 11:28] LABS: Absolute Neutrophil Ct (ANC) 7.61 (1.4-6.9); Basophil (Absolute #) 0 (0-0.4); Eosinophil % 1.3 % (0.00-5.0); Eosinophil (Absolute #) 0.12 (0-0.5); Hematocrit 38.6 % (35-47); Hemoglobin 12.6 gm/dl (12.0-16.0); Lymphocyte (Absolute #) 0.71 (1.0-4.6); Lymphocytes % 7.8 % (24.0-44.0); Mean Cell Volume 92.6 fl (78-100); Mean Corpuscular Hemoglobin 30.2 pg (26-32); Mean Corpuscular Hgb Concent. 32.6 g/dl (32-36); Mean Platelet Volume 12.1 fl (7.5-11.0); Monocyte (Absolute #) 0.72 (0.0-1.3); Monocytes % 7.9 % (0.0-12.0); Platelet Count 170 K/mm3 (150-450); Red Blood Count 4.17 M/mm3 (4.1-5.4); White Blood Count 9.2 K/mm3 (4.0-10.5)
[2020-04-26] MEDS ORDERED: BABY ASPIRIN 81 MG CHEW ONE (11:36)
[2020-04-26] MEDS ORDERED: Lasix 40 MG/4 ML ONE (11:36)
[2020-04-26 11:49] LABS: ALBUMIN 4.3 g/dL (3.5-5.0); ANION GAP 11.3 MEQ/L (5-15); Calcium 8.9 mg/dL (8.4-10.2); Creatinine 1 1.47 mg/dL (0.52-1.04); EST GLOMERULAR FILTRATION RATE 37.5 ML/MIN; Potassium 3.8 mmol/L (3.5-5.1); Total Protein 6.9 g/dL (6.3-8.2)
[2020-04-26] MEDS ORDERED: solu-MEDROL 125 MG IV ONE (13:12)
[2020-04-26] MEDS ORDERED: Vibramycin 100 MG PO ONE (13:12)
[2020-04-26] MEDS ORDERED: Vibramycin 100 MG ONE (13:15)
[2020-04-26] MEDS ORDERED: solu-MEDROL 125 MG ONE (13:15)
[2020-04-26 14:26] VITALS: O2SAT 95
[2020-04-26 15:02] VITALS: BP 164/79; PULSE 76
--- NOTE | 2020-04-26 19:39 | XRAY ---
Indication: Short of breath. Comparison: December 31, 2019. Portable chest is now clear. Heart is not enlarged for AP portable technique again with CABG surgery. Bony thorax intact again with mild osteopenia and degenerative changes. Impression: Nonacute chest with chronic findings.
== END 2020-04-26 15:00 | disposition home or self-care (01) ==
LOC: ED 10:49
DX: J20.9 Acute bronchitis, unspecified (principal); J44.0 Chronic obstructive pulmonary disease with (acute) lower respiratory infection; I25.10 Atherosclerotic heart disease of native coronary artery without angina pectoris; I50.9 Heart failure, unspecified; I48.91 Unspecified atrial fibrillation; Z79.01 Long term (current) use of anticoagulants; I10 Essential (primary) hypertension; E78.5 Hyperlipidemia, unspecified; Z79.899 Other long term (current) drug therapy; E05.90 Thyrotoxicosis, unspecified without thyrotoxic crisis or storm
CPT/HCPCS: 36000; 36415; 71045; 80053; 83880; 84484; 85025; 93005; 93041; 94150; 94640; 94760; 96374; 96375; 99284; J1940; J2930; A9270-GY

== ENCOUNTER 2020-05-20 10:51 | Emergency (ER) | payer MEDICARE ==
[2020-05-20] MEDS ORDERED: ARZOL Silver Nitrate Applicator TP ONE ×2 (10:55→11:01)
[2020-05-20 11:07] VITALS: BP 142/74
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
[2020-05-20] MEDS ORDERED: XYLOCAINE 1%/Epi 1:100000 MDV 20 ML ONE (12:18)
[2020-05-20] MEDS ORDERED: XYLOCAINE 1%/Epi 1:100000 MDV 20 ML IJ ONE (12:24)
[2020-05-20 12:43] VITALS: PULSE 74
[2020-05-20 13:41] VITALS: O2SAT 95
== END 2020-05-20 13:55 | disposition home or self-care (01) ==
LOC: ED 10:51
DX: S62.352A Nondisplaced fracture of shaft of third metacarpal bone, right hand, initial encounter for closed fracture (principal); S61.431A Puncture wound without foreign body of right hand, initial encounter; S40.011A Contusion of right shoulder, initial encounter; M54.2 Cervicalgia; M25.511 Pain in right shoulder; V47.0XXA Car driver injured in collision with fixed or stationary object in nontraffic accident, initial encounter; Z79.899 Other long term (current) drug therapy; Z79.01 Long term (current) use of anticoagulants; I10 Essential (primary) hypertension
CPT/HCPCS: 12011; 72040; 73030; 73110; 73130; 96372; 99284; A4570; A9270-GY

== ENCOUNTER 2020-07-11 09:49 | Inpatient (IN) | payer MEDICARE ==
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
[2020-07-11] MEDS ORDERED: MORPHINE SULFATE 4 MG INJ IV ONE (10:14)
[2020-07-11] MEDS ORDERED: Zofran 4 MG/2 ML VIAL IV ONE (10:14)
[2020-07-11] MEDS ORDERED: Sodium Chloride 0.9% 1000 ML 1,000 ML IV SCH (10:15)
[2020-07-11] MEDS ORDERED: ROCEPHIN 1 Gm-D5w 50 ml Bag** 1 G/50 ML IVPB IV STA (10:15)
[2020-07-11] MEDS ORDERED: MORPHINE SULFATE 4 MG INJ ONE (10:25)
[2020-07-11] MEDS ORDERED: Zofran 4 MG/2 ML VIAL ONE (10:25)
[2020-07-11] MEDS ORDERED: Sodium Chloride 0.9% 1000 ML 1,000 ML ONE (10:25)
[2020-07-11] MEDS ORDERED: ROCEPHIN 1 Gm-D5w 50 ml Bag** 1 G/50 ML IVPB IV ONE (10:25)
[2020-07-11 10:39] LABS: Absolute Neutrophil Ct (ANC) 4.14 (1.4-6.9); BASOPHIL % 0.2 % (0.0-0.4); Basophil (Absolute #) 0.01 (0-0.4); Eosinophil % 1.8 % (0.00-5.0); Eosinophil (Absolute #) 0.11 (0-0.5); Hematocrit 37.7 % (35-47); Hemoglobin 11.9 gm/dl (12.0-16.0); Lymphocyte (Absolute #) 1.32 (1.0-4.6); Lymphocytes % 21.5 % (24.0-44.0); Mean Cell Volume 95.4 fl (78-100); Mean Corpuscular Hemoglobin 30.1 pg (26-32); Mean Corpuscular Hgb Concent. 31.6 g/dl (32-36); Mean Platelet Volume 11.4 fl (7.5-11.0); Monocyte (Absolute #) 0.56 (0.0-1.3); Monocytes % 9.1 % (0.0-12.0); Neutrophil % 67.4 % (36.0-66.0); Platelet Count 214 K/mm3 (150-450); Red Blood Count 3.95 M/mm3 (4.1-5.4); Red Cell Distribution Width 13.8 % (11.5-14.0); White Blood Count 6.1 K/mm3 (4.0-10.5)
[2020-07-11 10:48] LABS: ALBUMIN 4.1 g/dL (3.5-5.0); BILIRUBIN,TOTAL 0.5 mg/dL (0.2-1.3); Creatinine 1 1.41 mg/dL (0.52-1.04); EST GLOMERULAR FILTRATION RATE 39.3 ML/MIN; Potassium 3.9 mmol/L (3.5-5.1)
[2020-07-11] MEDS ORDERED: HUMULIN R SQ PRN (12:23)
[2020-07-11] MEDS ORDERED: VANCOCIN 1 GM VIAL*** 1 GM in Sodium Chloride 0.9% 250 ML 250 ML IV SCH (12:23)
[2020-07-11] MEDS ORDERED: Zofran 4 MG/2 ML VIAL IV PRN (12:23)
[2020-07-11] MEDS ORDERED: PLAVIX 75 MG Tablet PO SCH (13:00)
[2020-07-11] MEDS ORDERED: Cozaar 50 MG PO SCH (13:00)
[2020-07-11] MEDS ORDERED: SYNTHROID 112 MCG PO SCH (13:00)
[2020-07-11] MEDS: MORPHINE SULFATE 4 MG INJ IV PRN ×4 (13:05→22:47)
[2020-07-11] MEDS ORDERED: OXYCODONE HCL PO PRN (14:34)
[2020-07-11] MEDS ORDERED: ACETAMINOPHEN PO PRN (14:34)
[2020-07-11] MEDS ORDERED: Catapres 0.1 MG PO SCH (15:00)
[2020-07-11] MEDS: DEMADEX 20 MG PO SCH (15:41)
[2020-07-11] MEDS: Apresoline 25 MG TABLET PO SCH ×2 (15:41→22:40)
[2020-07-11] MEDS: VANCOMYCIN 1.25 GM/250 ML BAG 1.25 GM/250 ML PIGGYBACK IV SCH (15:43)
[2020-07-11] MEDS: ELIQUIS 2.5 MG TABLET PO SCH ×2 (16:22→22:39)
[2020-07-11] MEDS: Imdur 60MG PO SCH (16:22)
[2020-07-11] MEDS: Cordarone 200 MG PO SCH (16:22)
[2020-07-11] MEDS: SYNTHROID 125 MCG PO SCH (16:24)
[2020-07-11] MEDS ORDERED: BUMEX 1 MG PO SCH (17:00)
[2020-07-11] MEDS: MAXIPIME 1 GM** 1 G in Dextrose 5%/Water IV Soln. 100ML PLUS BAG 100 ML IV SCH (17:33)
--- NOTE | 2020-07-11 18:47 | XRAY ---
Indication: Pain, swelling, and erythema. Status post injury one week. Multiple contiguous axial images obtained through the entire right lower leg without contrast. Sagittal and coronal reformatted images obtained. Comparison: None. Distal third lower leg demonstrates anterior cutaneous/subcutaneous induration either inflammatory or posttraumatic. A more focal 3.6 x 1.4 x 0.9 cm increased attenuation seen in the distal leg, possible soft tissue contusion or phlegmon. Minimal calcifications seen popliteal artery, anterior tibial artery, and tibial peroneal trunk. Remaining noncontrasted soft tissues unremarkable. No acute fracture, dislocation, or osseous destructive process. Incidental small posterior heel spur. Impression: 1. Distal anterior lower leg soft tissue changes as detailed either inflammatory versus posttraumatic. 2. Incidental small heel spur and minimal arteriosclerotic disease. 3. Remaining CT right lower leg without contrast exam is negative. Comment: Preliminary interpretation was made by [facility]. No critical discrepancy.
[2020-07-11] MEDS ORDERED: NON-FORMULARY ITEM (Atorvastatin Calcium [Lipitor] 80 MG) PO SCH (22:00)
[2020-07-11] MEDS: ZOCOR 20MG PO SCH (22:39)
[2020-07-11] MEDS: Cozaar 50 MG PO SCH (22:41)
[2020-07-11] MEDS: PLAVIX 75 MG Tablet PO SCH (22:41)
[2020-07-11] MEDS: Coreg 6.25 MG PO SCH (22:41)
[2020-07-11] MEDS ORDERED: BENADRYL 25 MG CAPSULE PO PRN (23:31)
[2020-07-12] MEDS: MORPHINE SULFATE 4 MG INJ IV PRN ×7 (01:54→22:50)
[2020-07-12] MEDS: MAXIPIME 1 GM** 1 G in Dextrose 5%/Water IV Soln. 100ML PLUS BAG 100 ML IV SCH ×2 (05:39→17:04)
[2020-07-12] MEDS: PERCOCET TABLET 5/325MG PO PRN ×2 (05:40→21:56)
[2020-07-12] MEDS: SYNTHROID 125 MCG PO SCH (05:58)
[2020-07-12 06:40] LABS: Absolute Neutrophil Ct (ANC) 4.26 (1.4-6.9); BASOPHIL % 0.3 % (0.0-0.4); Basophil (Absolute #) 0.02 (0-0.4); Eosinophil (Absolute #) 0.13 (0-0.5); Hematocrit 34.4 % (35-47); Hemoglobin 10.6 gm/dl (12.0-16.0); Lymphocyte (Absolute #) 1.33 (1.0-4.6); Lymphocytes % 20.8 % (24.0-44.0); Mean Cell Volume 97.7 fl (78-100); Mean Corpuscular Hemoglobin 30.1 pg (26-32); Mean Corpuscular Hgb Concent. 30.8 g/dl (32-36); Mean Platelet Volume 11.8 fl (7.5-11.0); Monocyte (Absolute #) 0.66 (0.0-1.3); Monocytes % 10.3 % (0.0-12.0); Neutrophil % 66.6 % (36.0-66.0); Platelet Count 183 K/mm3 (150-450); Red Blood Count 3.52 M/mm3 (4.1-5.4); Red Cell Distribution Width 14.1 % (11.5-14.0); White Blood Count 6.4 K/mm3 (4.0-10.5)
[2020-07-12 07:04] LABS: ALBUMIN 3.5 g/dL (3.5-5.0); ANION GAP 8.8 MEQ/L (5-15); BILIRUBIN,TOTAL 0.4 mg/dL (0.2-1.3); Calcium 8.6 mg/dL (8.4-10.2); Creatinine 1 1.58 mg/dL (0.52-1.04); EST GLOMERULAR FILTRATION RATE 34.5 ML/MIN; Potassium 3.6 mmol/L (3.5-5.1); Total Protein 6.1 g/dL (6.3-8.2)
[2020-07-12] MEDS: Cordarone 200 MG PO SCH (09:08)
[2020-07-12] MEDS: Cozaar 50 MG PO SCH ×2 (09:08→21:56)
[2020-07-12] MEDS: Coreg 6.25 MG PO SCH ×2 (09:08→21:56)
[2020-07-12] MEDS: Apresoline 25 MG TABLET PO SCH ×3 (09:08→21:56)
[2020-07-12] MEDS: PLAVIX 75 MG Tablet PO SCH ×2 (09:08→21:57)
[2020-07-12] MEDS: Imdur 60MG PO SCH (09:09)
[2020-07-12] MEDS: ELIQUIS 2.5 MG TABLET PO SCH ×2 (09:09→21:56)
[2020-07-12] MEDS: DEMADEX 20 MG PO SCH (09:09)
[2020-07-12] MEDS: VANCOMYCIN 1.25 GM/250 ML BAG 1.25 GM/250 ML PIGGYBACK IV SCH (14:38)
--- NOTE | 2020-07-12 16:43 | PCM.HP ---
History of Present Illness - Chief Complaint Chief Complaint: Cellulitis Right Leg History of Present Illness: is a 69 year old female who was admitted through ER with cellulitis RLE following trauma. PMHx includes HTN,CAD,S/P CABG and stent()new Clerical Aide is Dr Ziegler. CKD (DR Carvajal)Afib cardioversion (Dr Munoz MAY 2020), Sleep apnea, Hypothyroid (S/P Thyroidectomy benign tumors),DDD cervical and lumbar.Patient developed severe pain in right chin area where she has hit it in the bed rail a week ago. Medications & Allergies Home Medications: Home Medication List Apixaban [Eliquis 5 mg Tablet] 5 mg PO BID 03/23/17 [History Confirmed 07/11/20] Atorvastatin Calcium [Lipitor] 80 mg PO HS 12/31/19 [History Confirmed 07/11/20] Clopidogrel Bisulfate [Clopidogrel] 75 mg PO BID 12/31/19 [History Confirmed 07/11/20] Losartan Potassium 50 mg [Cozaar 50 MG] 50 mg PO BID 12/31/19 [History Confirmed 07/11/20] HydrALAzine HCL 25 MG TAB [Apresoline 25 MG TABLET] 25 mg PO TID 01/09/20 [History Confirmed 07/11/20] Amiodarone HCl 200 mg PO DAILY 07/11/20 [History Confirmed 07/11/20] Carvedilol 6.25 mg [Coreg 6.25 MG] 6.25 mg PO BID 07/11/20 [History Confirmed 07/11/20] Isosorbide Mononitrate 60 mg [Imdur 60MG] 60 mg PO DAILY 07/11/20 [History Confirmed 07/11/20] Levothyroxine Sodium 125 mcg PO DAILY 07/11/20 [History Confirmed 07/11/20] Oxycodone HCl/Acetaminophen [Oxycodon-Acetaminophen 7.5-325] 1 tab PO QIDPRN PRN 07/11/20 [History Confirmed 07/11/20] Torsemide 20 mg [Demadex 20 mg] 20 mg PO QID 07/11/20 [History Confirmed 07/11/20] Allergies/Adverse Reactions: Allergies Allergy/AdvReac Type Severity Reaction Status Date / Time No Known Drug Allergies Allergy Verified 07/11/20 12:51 - Past Medical History Past Medical History: Yes Neurological History: No Pertinent History ENT History: No Pertinent History Cardiac History: Congenital Heart Disease, Other Respiratory History: No Pertinent History Endocrine Medical History: Hypothyroidism Musculoskelatal History: Osteoarthritis GI Medical History: No Pertinent History History: Other Pyscho-Social History: No Pertinent History Reproductive Disorders: No Pertinent History Comment: atrial fibrillation, low kidney functions - Female History Are you now?: No - Past Surgical History Past Surgical History: Yes Neuro Surgical History: No Pertinent History Cardiac History: CABG, Cardiac Stent, Cardiac Catheterization Respiratory Surgery: No Pertinent History GI Surgical History: Cholecystectomy Genitourinary Surgical Hx: No Pertinent History Musculskeletal Surgical Hx: Orthopedic Surgery Female Surgical History: Hysterectomy Other Surgical History: THYROIDECTOMY, BACK SURGERY 2010, bladder, hysterectomy, foot surgery, hand surgery - Social History Smoking Status: Current every day smoker How long have you smoked: 5 cig/day Exposure to second hand smoke: No Alcohol: Rarely Drug Use: none - Physical Exam Vital Signs: Vital Signs - 24 hr Temp Pulse Resp BP Pulse Ox 07/12/20 12:00 97.9 F 88 18 145/79 99 07/12/20 08:00 98.0 F 64 20 124/56 96 07/12/20 04:00 98 F 74 19 134/58 96 07/11/20 23:49 98.8 F 62 20 122/56 94 L 07/11/20 19:51 99.0 F 60 23 164/66 94 L General Appearance: moderate distress (RLE pain states 10+/10 due for pain med) Neurologic Exam: alert, oriented x 3, cooperative, normal mood/affect Eye Exam: eyes nml inspection Ears, Nose, Throat Exam: normal ENT inspection, moist mucous membranes Neck Exam: other (scar anterior midline S/P thyroidectomy,no mass,no JVD) Respiratory Exam: normal breath sounds (no dyspnea) Cardiovascular Exam: regular rate/rhythm Gastrointestinal/Abdomen Exam: soft (nontender) Pelvic Exam: not done Rectal Exam: not done Back Exam: normal inspection Extremity Exam: other (foot purple green dorsum of foot to toea and around to ankle medially and laterally-lines marked by ER,red/hot skin over distal tibia with central fluctuant 2x3 cm raised area-abrasion/dried heme at the center of the abraision.) Skin Exam: warm, dry Wound Assessment: Skin/Wound Assessment Wound/Incision Assessment Start: 07/11/20 12:25 Text: Status: Active Freq: Q6H Protocol: Document 07/12/20 14:00 RN (Rec: 07/12/20 15:11 RN [id number]) Wound/Incision Assessment Anterior Right Lower Leg Wound Assessment Shift Assessment Wound Type Abrasion Drainage Amount None General Appearance Open to air Surrounding Tissue Dark Red,Shiny Wound Photo Photo Taken No Results - Labs Lab/Micro Results: Lab Results-Last 24 Hours 07/12/20 07/12/20 07/12/20 Range/Units 05:25 05:25 05:25 WBC 6.4 (4.0-10.5) K/mm3 RBC 3.52 L (4.1-5.4) M/mm3 Hgb 10.6 L (12.0-16.0) gm/dl Hct 34.4 L (35-47) % MCV 97.7 (78-100) fl MCH 30.1 (26-32) pg MCHC 30.8 L (32-36) g/dl RDW 14.1 H (11.5-14.0) % Plt Count 183 (150-450) K/mm3 MPV 11.8 H (7.5-11.0) fl Gran % 66.6 H (36.0-66.0) % Eos # (Auto) 0.13 (0-0.5) Absolute Lymphs (auto) 1.33 (1.0-4.6) Absolute Monos (auto) 0.66 (0.0-1.3) Lymphocytes % 20.8 L (24.0-44.0) % Monocytes % 10.3 (0.0-12.0) % Eosinophils % 2.0 (0.00-5.0) % Basophils % 0.3 (0.0-0.4) % Absolute Granulocytes 4.26 (1.4-6.9) Basophils # 0.02 (0-0.4) Sodium 135 L (137-145) mmol/L Potassium 3.6 (3.5-5.1) mmol/L Chloride 102 (98-107) mmol/L Carbon Dioxide 28 (22-30) mmol/L Anion Gap 8.8 (5-15) MEQ/L BUN 28 H (7-17) mg/dL Creatinine 1.58 H (0.52-1.04) mg/dL Estimated GFR 34.5 ML/MIN Glucose 89 (74-106) mg/dL Calcium 8.6 (8.4-10.2) mg/dL Total Bilirubin 0.40 (0.2-1.3) mg/dL AST 19 (14-36) U/L ALT 10 (0-35) U/L Alkaline Phosphatase 59 (38-126) U/L Serum Total Protein 6.1 L (6.3-8.2) g/dL Albumin 3.5 (3.5-5.0) g/dL Vitamin B12 (239-931) pg/mL TSH 3rd Generation 6.790 H (0.47-4.68) mIU/L 07/12/20 Range/Units 05:25 WBC (4.0-10.5) K/mm3 RBC (4.1-5.4) M/mm3 Hgb (12.0-16.0) gm/dl Hct (35-47) % MCV (78-100) fl MCH (26-32) pg MCHC (32-36) g/dl RDW (11.5-14.0) % Plt Count (150-450) K/mm3 MPV (7.5-11.0) fl Gran % (36.0-66.0) % Eos # (Auto) (0-0.5) Absolute Lymphs (auto) (1.0-4.6) Absolute Monos (auto) (0.0-1.3) Lymphocytes % (24.0-44.0) % Monocytes % (0.0-12.0) % Eosinophils % (0.00-5.0) % Basophils % (0.0-0.4) % Absolute Granulocytes (1.4-6.9) Basophils # (0-0.4) Sodium (137-145) mmol/L Potassium (3.5-5.1) mmol/L Chloride (98-107) mmol/L Carbon Dioxide (22-30) mmol/L Anion Gap (5-15) MEQ/L BUN (7-17) mg/dL Creatinine (0.52-1.04) mg/dL Estimated GFR ML/MIN Glucose (74-106) mg/dL Calcium (8.4-10.2) mg/dL Total Bilirubin (0.2-1.3) mg/dL AST (14-36) U/L ALT (0-35) U/L Alkaline Phosphatase (38-126) U/L Serum Total Protein (6.3-8.2) g/dL Albumin (3.5-5.0) g/dL Vitamin B12 270 (239-931) pg/mL TSH 3rd Generation (0.47-4.68) mIU/L - Radiology Impressions Radiology Exams & Impressions: Radiology Procedures Category Date Time Status LOWER EXTREMITY WO CONTRAST [CT] Stat Exams 07/11/20 10:13 Completed Assessment/Plan (1) Cellulitis and abscess of right leg Current Visit: Yes Status: Acute Assessment & Plan: Is on Vancomycin dosed by pharmacist and Cefepime-no culture pending. Consult requested Podiatry hopefully will open abscess for C & S Code(s): L03.115 - CELLULITIS OF RIGHT LOWER LIMB; L02.415 - CUTANEOUS ABSCESS OF RIGHT LOWER LIMB (2) HTN (hypertension) Current Visit: Yes Status: Chronic Qualifiers: Hypertension type: essential hypertension Qualified Code(s): I10 - Essential (primary) hypertension Assessment & Plan: monitor Code(s): I10 - ESSENTIAL (PRIMARY) HYPERTENSION (3) CKD (chronic kidney disease) stage 3, GFR 30-59 ml/min Current Visit: Yes Status: Chronic Qualifiers: Chronic kidney disease stage 3 subtype: stage 3b (GFR 30-44) Qualified Code(s): N18.32 - Chronic kidney disease, stage 3b Assessment & Plan: followed by Dr Carvajal-request consult re meds. Code(s): N18.30 - CHRONIC KIDNEY DISEASE, STAGE 3 UNSPECIFIED (4) Sleep apnea Current Visit: Yes Status: Chronic Qualifiers: Sleep apnea type: unspecified type Qualified Code(s): G47.30 - Sleep apnea, unspecified Assessment & Plan: Continue CPap at current setting [id number] setting this up Code(s): G47.30 - SLEEP APNEA, UNSPECIFIED (5) Paroxysmal A-fib Current Visit: Yes Status: Chronic Assessment & Plan: Hx cardioversion. Is on Eliquis. Code(s): I48.0 - PAROXYSMAL ATRIAL FIBRILLATION
[2020-07-12] MEDS: Neurontin 100 MG PO SCH (21:55)
[2020-07-12] MEDS: ZOCOR 20MG PO SCH (21:56)
[2020-07-13] MEDS: MORPHINE SULFATE 4 MG INJ IV PRN ×6 (02:31→22:07)
[2020-07-13 04:56] LABS: Absolute Neutrophil Ct (ANC) 2.83 (1.4-6.9); BASOPHIL % 0.2 % (0.0-0.4); Basophil (Absolute #) 0.01 (0-0.4); Eosinophil % 3.4 % (0.00-5.0); Eosinophil (Absolute #) 0.16 (0-0.5); Hematocrit 34.9 % (35-47); Hemoglobin 10.9 gm/dl (12.0-16.0); Lymphocyte (Absolute #) 1.29 (1.0-4.6); Lymphocytes % 27.2 % (24.0-44.0); Mean Cell Volume 96.9 fl (78-100); Mean Corpuscular Hemoglobin 30.3 pg (26-32); Mean Corpuscular Hgb Concent. 31.2 g/dl (32-36); Mean Platelet Volume 11.1 fl (7.5-11.0); Monocyte (Absolute #) 0.46 (0.0-1.3); Monocytes % 9.7 % (0.0-12.0); Neutrophil % 59.5 % (36.0-66.0); Platelet Count 185 K/mm3 (150-450); Red Cell Distribution Width 13.9 % (11.5-14.0); White Blood Count 4.8 K/mm3 (4.0-10.5)
[2020-07-13 05:07] LABS: ALBUMIN 3.5 g/dL (3.5-5.0); ANION GAP 7.1 MEQ/L (5-15); BILIRUBIN,TOTAL 0.3 mg/dL (0.2-1.3); Calcium 8.8 mg/dL (8.4-10.2); Creatinine 1 1.45 mg/dL (0.52-1.04); EST GLOMERULAR FILTRATION RATE 38.1 ML/MIN; Potassium 3.7 mmol/L (3.5-5.1); Total Protein 6.2 g/dL (6.3-8.2)
[2020-07-13] MEDS: MAXIPIME 1 GM** 1 G in Dextrose 5%/Water IV Soln. 100ML PLUS BAG 100 ML IV SCH ×2 (06:33→18:26)
[2020-07-13] MEDS ORDERED: SYNTHROID 25 MCG PO ONE (07:45)
[2020-07-13] MEDS: PERCOCET TABLET 5/325MG PO PRN (09:51)
[2020-07-13] MEDS: PLAVIX 75 MG Tablet PO SCH ×2 (09:51→22:06)
[2020-07-13] MEDS: Cordarone 200 MG PO SCH (09:51)
[2020-07-13] MEDS: ELIQUIS 2.5 MG TABLET PO SCH ×2 (09:51→22:06)
[2020-07-13] MEDS: Cozaar 50 MG PO SCH ×2 (09:52→22:06)
[2020-07-13] MEDS: Imdur 60MG PO SCH (09:52)
[2020-07-13] MEDS: DEMADEX 20 MG PO SCH (09:52)
[2020-07-13] MEDS: Apresoline 25 MG TABLET PO SCH ×3 (09:52→22:06)
[2020-07-13] MEDS: Coreg 6.25 MG PO SCH ×2 (09:52→22:06)
[2020-07-13] MEDS ORDERED: Cyanocobalamin B-12 1000 MCG/ML SQ ONE (12:35)
--- NOTE | 2020-07-13 12:36 | PCM.NOTE ---
Date and Time: 07/13/20 1226 Subjective Assessment: Patient still C/O intense pain right chin /cellulitis and abscess area and right lateral ankle (old injury area) is also very painful with weight bearing. States pain level 10+ when up to the bathroom and fades to a 5 when laying still and this is with Morphine and Percocet. Uric acid is elevated,not on meds for gout. Objective Exam General Appearance: mild distress Neurologic Exam: alert, oriented x 3, cooperative, normal mood/affect Skin Exam: warm, dry, other (face flushed) Wound Assessment: Skin/Wound Assessment Wound/Incision Assessment Start: 07/11/20 12:25 Text: Status: Active Freq: Q6H Protocol: Document 07/13/20 08:00 RN (Rec: 07/13/20 08:25 RN [id number]) Wound/Incision Assessment Anterior Right Lower Leg Wound Assessment Shift Assessment Wound Type Abrasion Drainage Amount None General Appearance Open to air Surrounding Tissue Purple,Shiny Wound Photo Photo Taken No Ears, Nose, Throat Exam: normal ENT inspection Respiratory Exam: normal breath sounds Cardiovascular Exam: tachycardia (regular,just got back from the bathroom) Extremity Exam: other (RLE improved red/tender area is smaller,abcess is more localized) OBJECTIVE DATA Vital Signs: Vital Signs - 24 hr Temp Pulse Resp BP Pulse Ox 07/13/20 08:00 97.8 F 61 16 150/69 97 07/13/20 04:00 96.6 F 77 20 125/58 97 07/13/20 00:00 97.4 F 70 20 114/53 95 07/12/20 20:00 98.6 F 63 16 140/65 92 L 07/12/20 16:00 98.9 F 76 20 157/69 97 Pain Assessment - Last Documented Pain Intensity 3 Pain Scale Used 0-10 Pain Scale Intake and Output: Intake & Output 07/11/20 07/12/20 07/13/20 07/14/20 11:59 11:59 11:59 11:59 Intake Total 2688 1340 Output Total 2750 3600 Balance -62 -2260 Weight 108.4 kg 113.8 kg 113 kg Lab Results: Lab Results-Last 24 Hours 07/12/20 07/12/20 07/12/20 Range/Units 05:25 05:25 05:25 WBC (4.0-10.5) K/mm3 RBC (4.1-5.4) M/mm3 Hgb (12.0-16.0) gm/dl Hct (35-47) % MCV (78-100) fl MCH (26-32) pg MCHC (32-36) g/dl RDW (11.5-14.0) % Plt Count (150-450) K/mm3 MPV (7.5-11.0) fl Gran % (36.0-66.0) % Eos # (Auto) (0-0.5) Absolute Lymphs (auto) (1.0-4.6) Absolute Monos (auto) (0.0-1.3) Lymphocytes % (24.0-44.0) % Monocytes % (0.0-12.0) % Eosinophils % (0.00-5.0) % Basophils % (0.0-0.4) % Absolute Granulocytes (1.4-6.9) Basophils # (0-0.4) Sodium (137-145) mmol/L Potassium (3.5-5.1) mmol/L Chloride (98-107) mmol/L Carbon Dioxide (22-30) mmol/L Anion Gap (5-15) MEQ/L BUN (7-17) mg/dL Creatinine (0.52-1.04) mg/dL Estimated GFR ML/MIN Glucose (74-106) mg/dL Hemoglobin A1c 5.10 (4.5-6.0) % Uric Acid 9.6 H (2.6-6.0) mg/dL Calcium (8.4-10.2) mg/dL Total Bilirubin (0.2-1.3) mg/dL AST (14-36) U/L ALT (0-35) U/L Alkaline Phosphatase (38-126) U/L NT-Pro-B Natriuret Pep 1610 H (0-900) pg/mL Serum Total Protein (6.3-8.2) g/dL Albumin (3.5-5.0) g/dL 07/13/20 07/13/20 Range/Units 04:20 04:20 WBC 4.8 (4.0-10.5) K/mm3 RBC 3.60 L (4.1-5.4) M/mm3 Hgb 10.9 L (12.0-16.0) gm/dl Hct 34.9 L (35-47) % MCV 96.9 (78-100) fl MCH 30.3 (26-32) pg MCHC 31.2 L (32-36) g/dl RDW 13.9 (11.5-14.0) % Plt Count 185 (150-450) K/mm3 MPV 11.1 H (7.5-11.0) fl Gran % 59.5 (36.0-66.0) % Eos # (Auto) 0.16 (0-0.5) Absolute Lymphs (auto) 1.29 (1.0-4.6) Absolute Monos (auto) 0.46 (0.0-1.3) Lymphocytes % 27.2 (24.0-44.0) % Monocytes % 9.7 (0.0-12.0) % Eosinophils % 3.4 (0.00-5.0) % Basophils % 0.2 (0.0-0.4) % Absolute Granulocytes 2.83 (1.4-6.9) Basophils # 0.01 (0-0.4) Sodium 135 L (137-145) mmol/L Potassium 3.7 (3.5-5.1) mmol/L Chloride 102 (98-107) mmol/L Carbon Dioxide 30 (22-30) mmol/L Anion Gap 7.1 (5-15) MEQ/L BUN 28 H (7-17) mg/dL Creatinine 1.45 H (0.52-1.04) mg/dL Estimated GFR 38.1 ML/MIN Glucose 87 (74-106) mg/dL Hemoglobin A1c (4.5-6.0) % Uric Acid (2.6-6.0) mg/dL Calcium 8.8 (8.4-10.2) mg/dL Total Bilirubin 0.30 (0.2-1.3) mg/dL AST 18 (14-36) U/L ALT 10 (0-35) U/L Alkaline Phosphatase 56 (38-126) U/L NT-Pro-B Natriuret Pep (0-900) pg/mL Serum Total Protein 6.2 L (6.3-8.2) g/dL Albumin 3.5 (3.5-5.0) g/dL Assessment/Plan (1) Cellulitis and abscess of right leg Current Visit: Yes Status: Acute Assessment & Plan: improved on current meds Code(s): L03.115 - CELLULITIS OF RIGHT LOWER LIMB; L02.415 - CUTANEOUS ABSCESS OF RIGHT LOWER LIMB (2) HTN (hypertension) Current Visit: Yes Status: Chronic Qualifiers: Hypertension type: essential hypertension Qualified Code(s): I10 - Essential (primary) hypertension Code(s): I10 - ESSENTIAL (PRIMARY) HYPERTENSION (3) CKD (chronic kidney disease) stage 3, GFR 30-59 ml/min Current Visit: Yes Status: Chronic Qualifiers: Chronic kidney disease stage 3 subtype: stage 3b (GFR 30-44) Qualified Code(s): N18.32 - Chronic kidney disease, stage 3b Assessment & Plan: Dr Hoffman is covering for Dr Jung and was agreeable to antibiotic choice re renal status/Pharmacist to follow Vanc levels and Shells Inspector. Code(s): N18.30 - CHRONIC KIDNEY DISEASE, STAGE 3 UNSPECIFIED (4) Sleep apnea Current Visit: Yes Status: Chronic Qualifiers: Sleep apnea type: unspecified type Qualified Code(s): G47.30 - Sleep apnea, unspecified Code(s): G47.30 - SLEEP APNEA, UNSPECIFIED (5) Gout attack Current Visit: Yes Status: Acute Assessment & Plan: start IV solumedrol ,cannot use Toradol since on Eliquis. Code(s): M10.9 - GOUT, UNSPECIFIED (6) B12 deficiency Current Visit: Yes Status: Acute Assessment & Plan: start B12 injections Code(s): E53.8 - DEFICIENCY OF OTHER SPECIFIED B GROUP VITAMINS
[2020-07-13] MEDS: solu-MEDROL 125 MG IV SCH ×2 (13:29→22:06)
[2020-07-13] MEDS: VANCOMYCIN 1.25 GM/250 ML BAG 1.25 GM/250 ML PIGGYBACK IV SCH (14:55)
[2020-07-13] MEDS: Neurontin 100 MG PO SCH (22:06)
[2020-07-13] MEDS: ZOCOR 20MG PO SCH (22:06)
[2020-07-14] MEDS: PERCOCET TABLET 5/325MG PO PRN ×5 (00:43→22:26)
[2020-07-14] MEDS: MORPHINE SULFATE 4 MG INJ IV PRN ×3 (03:57→11:51)
[2020-07-14 05:36] LABS: Absolute Neutrophil Ct (ANC) 5.17 (1.4-6.9); BASOPHIL % 0.2 % (0.0-0.4); Basophil (Absolute #) 0.01 (0-0.4); Eosinophil (Absolute #) 0 (0-0.5); Hematocrit 38.5 % (35-47); Hemoglobin 12.4 gm/dl (12.0-16.0); Lymphocyte (Absolute #) 0.75 (1.0-4.6); Lymphocytes % 12.6 % (24.0-44.0); Mean Cell Volume 93.4 fl (78-100); Mean Corpuscular Hemoglobin 30.1 pg (26-32); Mean Corpuscular Hgb Concent. 32.2 g/dl (32-36); Mean Platelet Volume 11.5 fl (7.5-11.0); Monocyte (Absolute #) 0.03 (0.0-1.3); Monocytes % 0.5 % (0.0-12.0); Neutrophil % 86.7 % (36.0-66.0); Platelet Count 218 K/mm3 (150-450); Red Blood Count 4.12 M/mm3 (4.1-5.4); Red Cell Distribution Width 13.1 % (11.5-14.0)
[2020-07-14 05:56] LABS: ALBUMIN 4.2 g/dL (3.5-5.0); ANION GAP 14.6 MEQ/L (5-15); BILIRUBIN,TOTAL 0.4 mg/dL (0.2-1.3); Calcium 9.8 mg/dL (8.4-10.2); Creatinine 1 1.27 mg/dL (0.52-1.04); EST GLOMERULAR FILTRATION RATE 44.3 ML/MIN; Potassium 4.1 mmol/L (3.5-5.1)
[2020-07-14] MEDS: SYNTHROID 112 MCG PO SCH (06:43)
[2020-07-14] MEDS: MAXIPIME 1 GM** 1 G in Dextrose 5%/Water IV Soln. 100ML PLUS BAG 100 ML IV SCH ×2 (06:44→20:01)
[2020-07-14] MEDS: solu-MEDROL 125 MG IV SCH ×2 (06:44→13:57)
[2020-07-14] MEDS: SYNTHROID 25 MCG PO SCH (06:44)
[2020-07-14] MEDS: DEMADEX 20 MG PO SCH (09:02)
[2020-07-14] MEDS: PLAVIX 75 MG Tablet PO SCH ×3 (09:02→22:28)
[2020-07-14] MEDS: Coreg 6.25 MG PO SCH ×2 (09:02→09:05)
[2020-07-14] MEDS: ELIQUIS 2.5 MG TABLET PO SCH ×2 (09:04→22:25)
[2020-07-14] MEDS: Cordarone 200 MG PO SCH (09:04)
[2020-07-14] MEDS: Apresoline 25 MG TABLET PO SCH ×3 (09:04→22:25)
[2020-07-14] MEDS: Imdur 60MG PO SCH (09:06)
[2020-07-14] MEDS: Cozaar 50 MG PO SCH ×2 (09:06→22:25)
--- NOTE | 2020-07-14 11:29 | XRAY ---
Indication: Right leg pain. Two-dimensional sonogram and color Doppler imaging of the major venous vessels of the right leg was performed. Comparison: None No thrombus seen in the examined deep venous vessels of the right leg including greater saphenous vein. Veins demonstrate normal compressibility. Venous waveforms are normal with and without augmentation. Impression: Right leg negative for DVT.
--- NOTE | 2020-07-14 12:15 | PCM.CONS ---
Podiatry HPI - Consult Date of Consultation Date: 07/14/20 Reason for Consult: cellulitis right lower extremity, contusion Consulting Provider: MASON STEIN DPM - [facility] History of Present Illness: Lakisha is a very pleasant 69-year-old female who presented to the emergency room on July 11 for concerns over a wound that she sustained falling from her bed post onto a wood railing a few days prior to presentation. She states that the pain became worse and worse and when he became extremely painful to touch she decided to present to the emergency room. Patient indicates that the pain at the time of the injury was aching stabbing and a throbbing type pain that was moderate in severity. Patient was find to have normal vital signs and a CT scan was ordered demonstrating some soft tissue changes secondary to the post traumatic nature of the injury she was given 2 g of ceftriaxone and morphine for the pain at that time Dr. Santos agreed to place the patient on observation for chronic renal insufficiency cellulitis and an abscess of the right leg. At this time patient is seen by myself at bedside late this morning. Patient is in good spirits and states that her pain has significantly improved since her initi al encounter. She indicates that there is still some acute pain to the right lower extremity however the cellulitis has diminished significantly. She currently denies any constitutional symptoms of infection. She denies any other pedal complaints at this time . Medications & Allergies Home Medications: Home Medication List Apixaban [Eliquis 5 mg Tablet] 5 mg PO BID 03/23/17 [History Confirmed 07/11/20] Atorvastatin Calcium [Lipitor] 80 mg PO HS 12/31/19 [History Confirmed 07/11/20] Clopidogrel Bisulfate [Clopidogrel] 75 mg PO BID 12/31/19 [History Confirmed 07/11/20] Losartan Potassium 50 mg [Cozaar 50 MG] 50 mg PO BID 12/31/19 [History Confirmed 07/11/20] HydrALAzine HCL 25 MG TAB [Apresoline 25 MG TABLET] 25 mg PO TID 01/09/20 [History Confirmed 07/11/20] Amiodarone HCl 200 mg PO DAILY 07/11/20 [History Confirmed 07/11/20] Carvedilol 6.25 mg [Coreg 6.25 MG] 6.25 mg PO BID 07/11/20 [History Confirmed 07/11/20] Isosorbide Mononitrate 60 mg [Imdur 60MG] 60 mg PO DAILY 07/11/20 [History Confirmed 07/11/20] Levothyroxine Sodium 125 mcg PO DAILY 07/11/20 [History Confirmed 07/11/20] Oxycodone HCl/Acetaminophen [Oxycodon-Acetaminophen 7.5-325] 1 tab PO QIDPRN PRN 07/11/20 [History Confirmed 07/11/20] Torsemide 20 mg [Demadex 20 mg] 20 mg PO QID 07/11/20 [History Confirmed 07/11/20] Allergies/Adverse Reactions: Allergies Allergy/AdvReac Type Severity Reaction Status Date / Time No Known Drug Allergies Allergy Verified 07/11/20 12:51 - Past Medical History Past Medical History: Yes Neurological History: No Pertinent History ENT History: No Pertinent History Cardiac History: Congenital Heart Disease, Other Respiratory History: No Pertinent History Endocrine Medical History: Hypothyroidism Musculoskelatal History: Osteoarthritis GI Medical History: No Pertinent History History: Other Pyscho-Social History: No Pertinent History Reproductive Disorders: No Pertinent History Comment: atrial fibrillation, low kidney functions - Female History Are you now?: No - Past Surgical History Past Surgical History: Yes Neuro Surgical History: No Pertinent History Cardiac History: CABG, Cardiac Stent, Cardiac Catheterization Respiratory Surgery: No Pertinent History GI Surgical History: Cholecystectomy Genitourinary Surgical Hx: No Pertinent History Musculskeletal Surgical Hx: Orthopedic Surgery Female Surgical History: Hysterectomy Other Surgical History: THYROIDECTOMY, BACK SURGERY 2010, bladder, hysterectomy, foot surgery, hand surgery - Social History Smoking Status: Current every day smoker How long have you smoked: 5 cig/day Exposure to second hand smoke: No Alcohol: Rarely Drug Use: none Physical Exam - Narrative Narrative Physical Exam: Podiatry Physical Exam: Vascular: DP and PT pulses alpable b/l. CFT <5 seconds b/l. Skin temperature warm to cool from the proximal tibial tuberosity to distal toes b/l. Absent/Diminished pedal hair growth b/l. Varicosities noted to lower legs b/l. No noted proximal streaking or lymphangitis.2+ edema noted to the right lower extremity.. No lymphadenopathy on palpation of the popliteal and inguinal lymph nodes b/l. Neurological: Protective sensation diminished /10 on the right and /10 on the left as indicated with Chappell-Gabriela 5.07 monofilament b/l. Vibratory sensation is diminished at /20. Patellar and achilles reflexes are brisk. Lower extremity temperature sensation diminished b/l. Dermatological: Trophic changes to the skin. There is decreasing cellulitis as evidenced by the limitation markings at the distal and proximal aspects of the right foot. There is significant ecchymosis more so than cellulitic changes to the dorsal aspect and the lateral and medial aspects of the right calcaneus. Anterior aspect of the right krishnamurthy with multiple lesions with stable ecchymosis a small lesion is painful and raised however there is no fluctuance to the site. No active drainage no increased warmth and no increased cellulitis as compared to the surrounding areas Webspaces are clean, dry and intact b/l. Musculoskeletal: Strength intact for all muscle groups b/l. Rectus foot archi tecture noted. Evidence of intrinsic muscle atrophy. Normal ROM noted to all pedal joints b/l. Pain on palpation Of the anterior aspect of the right krishnamurthy and to the medial and lateral aspects of the right calcaneus.. No weightbearing exam was performed. Imaging CT reviewed demonstrating no significant soft tissue or osseous pathology other than some soft tissue swelling at the anterior aspect of the distal tibia consistent with contusion to soft tissue. No other osseous or soft tissue abnormalities appreciated Results - Labs Lab/Micro Results: Lab Results-Last 24 Hours 07/14/20 07/14/20 Range/Units 04:29 04:29 WBC 6.0 (4.0-10.5) K/mm3 RBC 4.12 (4.1-5.4) M/mm3 Hgb 12.4 (12.0-16.0) gm/dl Hct 38.5 (35-47) % MCV 93.4 (78-100) fl MCH 30.1 (26-32) pg MCHC 32.2 (32-36) g/dl RDW 13.1 (11.5-14.0) % Plt Count 218 (150-450) K/mm3 MPV 11.5 H (7.5-11.0) fl Gran % 86.7 H (36.0-66.0) % Eos # (Auto) 0 (0-0.5) Absolute Lymphs (auto) 0.75 L (1.0-4.6) Absolute Monos (auto) 0.03 (0.0-1.3) Lymphocytes % 12.6 L (24.0-44.0) % Monocytes % 0.5 (0.0-12.0) % Eosinophils % 0.0 (0.00-5.0) % Basophils % 0.2 (0.0-0.4) % Absolute Granulocytes 5.17 (1.4-6.9) Basophils # 0.01 (0-0.4) Sodium 135 L (137-145) mmol/L Potassium 4.1 (3.5-5.1) mmol/L Chloride 100 (98-107) mmol/L Carbon Dioxide 25 (22-30) mmol/L Anion Gap 14.6 (5-15) MEQ/L BUN 32 H (7-17) mg/dL Creatinine 1.27 H (0.52-1.04) mg/dL Estimated GFR 44.3 ML/MIN Glucose 164 H (74-106) mg/dL Calcium 9.8 (8.4-10.2) mg/dL Total Bilirubin 0.40 (0.2-1.3) mg/dL AST 20 (14-36) U/L ALT 15 (0-35) U/L Alkaline Phosphatase 69 (38-126) U/L Serum Total Protein 7.0 (6.3-8.2) g/dL Albumin 4.2 (3.5-5.0) g/dL - Radiology Impressions Radiology Exams & Impressions: Radiology Procedures Category Date Time Status VENOUS UNILAT/LIMITED EXTREMIT [US] Urgent Exams 07/14/20 10:41 Completed Assessment/Plan (1) Right leg pain Current Visit: Yes Status: Acute Code(s): M79.604 - PAIN IN RIGHT LEG (2) Chronic renal insufficiency Current Visit: Yes Status: Chronic Qualifiers: Code(s): N18.9 - CHRONIC KIDNEY DISEASE, UNSPECIFIED (3) Cellulitis and abscess of right leg Current Visit: Yes Status: Acute Assessment & Plan: Initial patient examination and evaluation. Patient's clinical exam as well as subjective complaints are consistent cellulitis to the right lower extremity secondary to soft tissue disruption due to the contusion she sustained to the right lower extremity. Cellulitis has been improving with IV antibiotics at this time however there is still some residual swelling and pain to the right lower extremity. At this time I recommend no surgical intervention however I do recommend compression therapy. Going forward with compression therapy and due to the patient's risk factors I would like to perform an ultrasound of the right lower extremity. The results of this of which are negative. At this time we will proceed with application of a compression dressing to the right lower extremity consisting of an Unna boot cast padding and Coban. Patient may benefit from long-term compression therapy however at this time she is to have the dressing changed on a Monday basis until cellulitis has resolved. Will defer to PCP for antibiotic management outpatient We will continue to follow while in-house. Okay for discharge from my standpoint if okay with primary and ancillary team. Thank you for the consult Code(s): L03.115 - CELLULITIS OF RIGHT LOWER LIMB; L02.415 - CUTANEOUS ABSCESS OF RIGHT LOWER LIMB (4) Venous insufficiency Current Visit: Yes Status: Acute Code(s): I87.2 - VENOUS INSUFFICIENCY (C HRONIC) (PERIPHERAL) (5) Local edema Current Visit: Yes Status: Acute Code(s): R60.0 - LOCALIZED EDEMA
--- NOTE | 2020-07-14 13:56 | PCM.NOTE ---
Date and Time: 07/14/20 1354 Subjective Assessment: Patient states she has had less intense pain with ambulation since IV solumedrol. Dr Malone just consulted and ordered a venous doppler. Objective Exam General Appearance: no apparent distress Neurologic Exam: alert, oriented x 3 Skin Exam: normal color, warm, dry Wound Assessment: Skin/Wound Assessment Wound/Incision Assessment Start: 07/11/20 12:25 Text: Status: Active Freq: Q6H Protocol: Document 07/14/20 08:00 RDUHNE (Rec: 07/14/20 10:11 RDUHNE [id number]) Wound/Incision Assessment Anterior Right Lower Leg Wound Assessment Shift Assessment Wound Type Abrasion Drainage Amount None General Appearance Open to air Surrounding Tissue Purple,Shiny Comment elevated on pillows at this time Wound Photo Comment: previously taken Respiratory Exam: normal breath sounds Cardiovascular Exam: regular rate/rhythm Gastrointestinal/Abdomen Exam: soft Extremity Exam: other (RLE continues to improve-less redness and more localized) OBJECTIVE DATA Vital Signs: Vital Signs - 24 hr Temp Pulse Resp BP Pulse Ox 07/14/20 11:48 98.4 F 75 16 168/74 97 07/14/20 07:33 98.1 F 87 16 183/98 94 L 07/14/20 05:00 97.8 F 95 H 21 147/88 94 L 07/14/20 00:45 98.1 F 97 H 14 161/87 95 07/13/20 21:00 98.1 F 93 H 16 143/81 94 L 07/13/20 17:00 98.2 F 71 15 132/80 93 L Pain Assessment - Last Documented Pain Intensity 9 Pain Scale Used 0-10 Pain Scale Intake and Output: Intake & Output 07/12/20 07/13/20 07/14/20 07/15/20 11:59 11:59 11:59 11:59 Intake Total 2688 1340 1440 480 Output Total 2750 3600 2400 900 Balance -62 -2260 -960 -420 Weight 113.8 kg 113 kg 112.6 kg Lab Results: Lab Results-Last 24 Hours 07/14/20 07/14/20 Range/Units 04:29 04:29 WBC 6.0 (4.0-10.5) K/mm3 RBC 4.12 (4.1-5.4) M/mm3 Hgb 12.4 (12.0-16.0) gm/dl Hct 38.5 (35-47) % MCV 93.4 (78-100) fl MCH 30.1 (26-32) pg MCHC 32.2 (32-36) g/dl RDW 13.1 (11.5-14.0) % Plt Count 218 (150-450) K/mm3 MPV 11.5 H (7.5-11.0) fl Gran % 86.7 H (36.0-66.0) % Eos # (Auto) 0 (0-0.5) Absolute Lymphs (auto) 0.75 L (1.0-4.6) Absolute Monos (auto) 0.03 (0.0-1.3) Lymphocytes % 12.6 L (24.0-44.0) % Monocytes % 0.5 (0.0-12.0) % Eosinophils % 0.0 (0.00-5.0) % Basophils % 0.2 (0.0-0.4) % Absolute Granulocytes 5.17 (1.4-6.9) Basophils # 0.01 (0-0.4) Sodium 135 L (137-145) mmol/L Potassium 4.1 (3.5-5.1) mmol/L Chloride 100 (98-107) mmol/L Carbon Dioxide 25 (22-30) mmol/L Anion Gap 14.6 (5-15) MEQ/L BUN 32 H (7-17) mg/dL Creatinine 1.27 H (0.52-1.04) mg/dL Estimated GFR 44.3 ML/MIN Glucose 164 H (74-106) mg/dL Calcium 9.8 (8.4-10.2) mg/dL Total Bilirubin 0.40 (0.2-1.3) mg/dL AST 20 (14-36) U/L ALT 15 (0-35) U/L Alkaline Phosphatase 69 (38-126) U/L Serum Total Protein 7.0 (6.3-8.2) g/dL Albumin 4.2 (3.5-5.0) g/dL Radiology Exams: Radiology Procedures Category Date Time Status VENOUS UNILAT/LIMITED EXTREMIT [US] Urgent Exams 07/14/20 10:41 Completed Assessment/Plan (1) Cellulitis and abscess of right leg Current Visit: Yes Status: Acute Assessment & Plan: improving,continue present atb Code(s): L03.115 - CELLULITIS OF RIGHT LOWER LIMB; L02.415 - CUTANEOUS ABSCESS OF RIGHT LOWER LIMB (2) HTN (hypertension) Current Visit: Yes Status: Chronic Qualifiers: Hypertension type: essential hypertension Qualified Code(s): I10 - Essential (primary) hypertension Code(s): I10 - ESSENTIAL (PRIMARY) HYPERTENSION (3) CKD (chronic kidney disease) stage 3, GFR 30-59 ml/min Current Visit: Yes Status: Chronic Qualifiers: Chronic kidney disease stage 3 subtype: stage 3b (GFR 30-44) Qualified Code(s): N18.32 - Chronic kidney disease, stage 3b Assessment & Plan: following daily,stable Code(s): N18.30 - CHRONIC KIDNEY DISEASE, STAGE 3 UNSPECIFIED (4) Sleep apnea Current Visit: Yes Status: Chronic Qualifiers: Sleep apnea type: unspecified type Qualified Code(s): G47.30 - Sleep apnea, unspecified Code(s): G47.30 - SLEEP APNEA, UNSPECIFIED (5) Paroxysmal A-fib Current Visit: Yes Status: Chronic Code(s): I48.0 - PAROXYSMAL ATRIAL FIBRILLATION
[2020-07-14] MEDS ORDERED: TROUGH DRUG LEVELS IJ ONE (14:30)
[2020-07-14] MEDS: VANCOMYCIN 1.25 GM/250 ML BAG 1.25 GM/250 ML PIGGYBACK IV SCH (16:22)
[2020-07-14] MEDS: ZOCOR 20MG PO SCH (22:25)
[2020-07-14] MEDS: solu-MEDROL 40 MG IV SCH (22:25)
[2020-07-14] MEDS: Neurontin 100 MG PO SCH (22:26)
[2020-07-15] MEDS: PERCOCET TABLET 5/325MG PO PRN ×3 (04:02→12:45)
[2020-07-15 05:54] LABS: Absolute Neutrophil Ct (ANC) 11.39 (1.4-6.9); BASOPHIL % 0.1 % (0.0-0.4); Basophil (Absolute #) 0.01 (0-0.4); Eosinophil (Absolute #) 0 (0-0.5); Hematocrit 36.6 % (35-47); Lymphocyte (Absolute #) 0.74 (1.0-4.6); Lymphocytes % 5.9 % (24.0-44.0); Mean Cell Volume 93.8 fl (78-100); Mean Corpuscular Hemoglobin 30.8 pg (26-32); Mean Corpuscular Hgb Concent. 32.8 g/dl (32-36); Mean Platelet Volume 11.9 fl (7.5-11.0); Monocyte (Absolute #) 0.34 (0.0-1.3); Monocytes % 2.7 % (0.0-12.0); Neutrophil % 91.3 % (36.0-66.0); Platelet Count 228 K/mm3 (150-450); Red Cell Distribution Width 13.5 % (11.5-14.0); White Blood Count 12.5 K/mm3 (4.0-10.5)
[2020-07-15 06:28] LABS: ALBUMIN 4.2 g/dL (3.5-5.0); ANION GAP 12.8 MEQ/L (5-15); BILIRUBIN,TOTAL 0.4 mg/dL (0.2-1.3); Calcium 9.6 mg/dL (8.4-10.2); Creatinine 1 1.24 mg/dL (0.52-1.04); EST GLOMERULAR FILTRATION RATE 45.6 ML/MIN; Potassium 3.8 mmol/L (3.5-5.1); Total Protein 7.1 g/dL (6.3-8.2)
[2020-07-15] MEDS: SYNTHROID 25 MCG PO SCH (06:31)
[2020-07-15] MEDS: SYNTHROID 112 MCG PO SCH (06:31)
[2020-07-15] MEDS: solu-MEDROL 40 MG IV SCH (06:31)
[2020-07-15] MEDS: MAXIPIME 1 GM** 1 G in Dextrose 5%/Water IV Soln. 100ML PLUS BAG 100 ML IV SCH (06:31)
[2020-07-15] MEDS: Apresoline 25 MG TABLET PO SCH (08:19)
[2020-07-15] MEDS: ELIQUIS 2.5 MG TABLET PO SCH (08:19)
[2020-07-15] MEDS: Coreg 6.25 MG PO SCH (08:19)
[2020-07-15] MEDS: Cordarone 200 MG PO SCH (08:20)
[2020-07-15] MEDS: Imdur 60MG PO SCH (08:20)
[2020-07-15] MEDS: DEMADEX 20 MG PO SCH (08:20)
[2020-07-15] MEDS: PLAVIX 75 MG Tablet PO SCH (08:20)
[2020-07-15] MEDS: Cozaar 50 MG PO SCH (08:20)
[2020-07-15 11:45] VITALS: BP 134/70; PULSE 67; O2SAT 95
--- NOTE | 2020-07-15 13:12 | PCM.NOTE ---
Podiatry Narrative Note Podiatry Narrative Note: Subjective examination: Lakisha is a very pleasant 69-year-old female who was seen initially for a contusion to the right ankle with diffuse ecchymosis and cellulitis to the extremity. She has since improved and shown no signs of DVT so compression therapy was initiated. She presents today with new complaints of pain in the same area which she describes as "a knife being stabbed into her leg for 5 minutes" patient feels as though there is something still in the anterior aspect of the ankle at this time which cause her significant amount of pain. She currently denies any constitutional symptoms of infection. She endorses pain. She denies any other pedal complaints at this time Physical exam Vascular: DP and PT pulses alpable b/l. CFT <5 seconds b/l. Skin temperature warm to cool from the proximal tibial tuberosity to distal toes b/l. Absent/Diminished pedal hair growth b/l. Varicosities noted to lower legs b/l. No noted proximal streaking or lymphangitis.2+ edema noted to the right lower extremity.. No lymphadenopathy on palpation of the popliteal and inguinal lymph nodes b/l. Neurological: Protective sensation diminished Lower extremity temperature sensation diminished b/l. Dermatological: Trophic changes to the skin. There is decreasing cellulitis as evidenced by the limitation markings at the distal and proximal aspects of the right foot. There is significant ecchymosis more so than cellulitic changes to the dorsal aspect and the lateral and medial aspects of the right calcaneus. Anterior aspect of the right krishnamurthy with multiple lesions with stable ecchymosis a small lesion is painful and raised however there is no fluctuance to the site. No active drainage no increased warmth and no increased cellulitis as compared to the surrounding areas Webspaces are clean, dry and intact b/l. Musculoskeletal: Strength intact for all muscle groups b/l. Rectus foot a rchitecture noted. Evidence of intrinsic muscle atrophy. Normal ROM noted to all pedal joints b/l. Pain on palpation Of the anterior aspect of the right krishnamurthy and to the medial and lateral aspects of the right calcaneus.. No weightbearing exam was performed. Imaging CT reviewed demonstrating no significant soft tissue or osseous pathology other than some soft tissue swelling at the anterior aspect of the distal tibia consistent with contusion to soft tissue. No other osseous or soft tissue abnormalities appreciated Assessment: 1) cellulitis of right lower [id number] at this time. Remainder of discoloration to the right lower extremity is likely secondary to ecchymosis as when the leg is placed in a dependent position there is significant darkening of the right lower extremity 2) venous stasis [id number] with Unna boot 3) contusion to right ankle-likely soft tissue injury with some swelling and scar tissue secondary to the contusion. There may be some bone bruising and edema that may be causing some pain in the deep compartment of the anterior aspect of the leg. 4) cutaneous abscess-POA -no indications of drainage or fluctuance at this point and pain in isolated area where contusion occurred to the right anterior ankle makes this not a likely diagnosis at this time. 5) chronic kidney disease-POA - being managed by PCP Plan: Patient examination and evaluation. Physical exam shows no signs of fluctuance or drainage indicated at any time in the patient's subjective or clinical course. Likelihood of intervention at this time in a surgical setting is very low. I will continue to monitor this patient on an outpatient setting in order to evaluate if this requires intervention at a later time. Patient's venous stasis likely the cause of some of the pain that she is currently experiencing again we will apply an Unna boot to the right lower extremity in order to alleviate some of the edema that she has been experiencing. Patient has been advised that it has been 2 weeks after a traumatic injury to the soft tissue of the right ankle which has decreased over time however will likely need some time to continue to heal. At this time recommend continuous compression therapy, elevation and limited weightbearing to the right lower extremity. Antibiotics being managed by medicine team She will follow-up with us outpatient on July 20
--- NOTE | 2020-07-15 14:23 | PCM.DS ---
Discharge Summary Date of Admission: 07/12/20 16:37 Admitting Physician: CHANDRAKANT MCFARLANE DO Consults: Consults on Case 07/12/20 15:44 Consult Podiatry ROUTINE 07/12/20 16:15 Consult Nephrology ROUTINE Primary Care Provider: JAMIE RODRIGUEZ Allergies Allergies No Known Drug Allergies Allergy (Verified 07/11/20 12:51) Hospital Summary - Hospital Course Hospital Course: Patient was admitted through ER with Dg RLE cellulitis and abscess . She has responded to Vancomycin and Cefepime with Phamacist following Vanc levels / Creatinine. Right ankle pain also was an issue and felt to be due to old trauma with gouty flare up. IV solumedrol was effective. She is on Eliquis for paroxysmal Afib but Doppler of RLE was done by Podiatry and DVT was ruled out. Podiatry will continue to follow with patient and PCP appt was also scheduled. She will be discharged on current home meds and Prednisone step down for 9 days, Doxycycline 100mg and Florastor plus Align, Allopurinol 100mg - continue to follow with Computer Systems Security Analyst and Brass Pickler and Pain Management as prior to admission. Patient can reach me through the [facility] if needed over the Holiday. - Vitals & Intake/Output Vital Signs: Vital Signs Temperature 97.9 F 07/15/20 11:45 Pulse Rate 67 07/15/20 11:45 Respiratory Rate 18 07/15/20 11:45 Blood Pressure 134/70 07/15/20 11:45 O2 Sat by Pulse Oximetry 95 07/15/20 11:45 Intake & Output: Intake & Output 07/13/20 07/14/20 07/15/20 07/16/20 11:59 11:59 11:59 11:59 Intake Total 1340 1440 2971 240 Output Total 3600 2400 4650 Balance -4687 -646 -5877 240 Weight 113 kg 112.6 kg 113.7 kg - Lab Result Diagrams: 07/15/20 04:29 07/15/20 04:29 Lab Results-Last 24 Hrs: Lab Results-Last 24 Hours 07/14/20 07/15/20 07/15/20 Range/Units 14:42 04:29 04:29 WBC 12.5 H (4.0-10.5) K/mm3 RBC 3.90 L (4.1-5.4) M/mm3 Hgb 12.0 (12.0-16.0) gm/dl Hct 36.6 (35-47) % MCV 93.8 (78-100) fl MCH 30.8 (26-32) pg MCHC 32.8 (32-36) g/dl RDW 13.5 (11.5-14.0) % Plt Count 228 (150-450) K/mm3 MPV 11.9 H (7.5-11.0) fl Gran % 91.3 H (36.0-66.0) % Eos # (Auto) 0 (0-0.5) Absolute Lymphs (auto) 0.74 L (1.0-4.6) Absolute Monos (auto) 0.34 (0.0-1.3) Lymphocytes % 5.9 L (24.0-44.0) % Monocytes % 2.7 (0.0-12.0) % Eosinophils % 0.0 (0.00-5.0) % Basophils % 0.1 (0.0-0.4) % Absolute Granulocytes 11.39 H (1.4-6.9) Basophils # 0.01 (0-0.4) Sodium 135 L (137-145) mmol/L Potassium 3.8 (3.5-5.1) mmol/L Chloride 102 (98-107) mmol/L Carbon Dioxide 23 (22-30) mmol/L Anion Gap 12.8 (5-15) MEQ/L BUN 35 H (7-17) mg/dL Creatinine 1.24 H (0.52-1.04) mg/dL Estimated GFR 45.6 ML/MIN Glucose 151 H (74-106) mg/dL Calcium 9.6 (8.4-10.2) mg/dL Total Bilirubin 0.40 (0.2-1.3) mg/dL AST 20 (14-36) U/L ALT 15 (0-35) U/L Alkaline Phosphatase 73 (38-126) U/L Serum Total Protein 7.1 (6.3-8.2) g/dL Albumin 4.2 (3.5-5.0) g/dL Vancomycin Trough 11.56 (10-20) ug/mL - Radiology Exams Ordered Rad Exams-Entire Visit: Radiology Procedures Category Date Time Status VENOUS UNILAT/LIMITED EXTREMIT [US] Urgent Exams 07/14/20 10:41 Completed - Procedures and Test Procedures and Tests throughout Hospitalization: Therapy Orders & Screens 07/12/20 16:47 BiPap/CPAP ROUTINE Comment: Diagnosis: Cellulitis Right Leg Discharge Exam General Appearance: mild distress (Dr Martell just aspirated abscess but fluid obtained.) Neurologic Exam: alert, oriented x 3, cooperative Ears, Nose, Throat Exam: normal ENT inspection Respiratory Exam: normal breath sounds Cardiovascular Exam: regular rate/rhythm Gastrointestinal/Abdomen Exam: soft (nontender) Extremity Exam: other (RLE with compression dressing clean and dry toes warm,no edema) Wound Assessment: Skin/Wound Assessment Wound/Incision Assessment Start: 07/11/20 12:25 Text: Status: Active Freq: Q6H Protocol: Document 07/15/20 08:00 BSANTUS (Rec: 07/15/20 08:40 BSANTUS [id number]) Wound/Incision Assessment Anterior Right Lower Leg Wound Assessment Shift Assessment Wound Type cellulitis Wound Stage Non Pressure Wound Dressing Status Dry & Intact Drainage Amount None Surrounding Tissue Purple,Shiny Primary Dressing Gauze Roll/Wrap Secondary Dressing coban Comment dressing placed by Dr. Malone. not removed for assessment Wound Photo Photo Taken No Comment: previously taken Final Diagnosis/Problem List - Final Discharge Diagnosis/Problem (1) Cellulitis and abscess of right leg Current Visit: Yes Status: Acute Assessment & Plan: no culture but clinically improved with IV Cefepime and Vancomycin,will follow with Podiatry . Home on Doxycycline. Code(s): L03.115 - CELLULITIS OF RIGHT LOWER LIMB; L02.415 - CUTANEOUS ABSCESS OF RIGHT LOWER LIMB (2) HTN (hypertension) Current Visit: Yes Status: Chronic Assessment & Plan: stable Code(s): I10 - ESSENTIAL (PRIMARY) HYPERTENSION (3) CKD (chronic kidney disease) stage 3, GFR 30-59 ml/min Current Visit: Yes Status: Chronic Assessment & Plan: continue to follow with her Computer Systems Security Analyst Code(s): N18.30 - CHRONIC KIDNEY DISEASE, STAGE 3 UNSPECIFIED (4) Sleep apnea Current Visit: Yes Status: Chronic Assessment & Plan: continue home CPap Code(s): G47.30 - SLEEP APNEA, UNSPECIFIED (5) Paroxysmal A-fib Current Visit: Yes Status: Chronic Assessment & Plan: continue home meds Code(s): I48.0 - PAROXYSMAL ATRIAL FIBRILLATION (6) Gout attack Current Visit: Yes Status: Acute Assessment & Plan: was treated with IV Solumedrol and home on Rx Prednisone 10 mg bid x 3 days 10mg daily x 3 days then 1/2 tab daily x 3 days then off.Start Allopurinol 100 mg daily,diet discussed. Code(s): M10.9 - GOUT, UNSPECIFIED (7) Acquired hypothyroidism Current Visit: Yes Status: Acute Assessment & Plan: Levothyroxine dose increased from 125 mcg to 137 mcg daily Code(s): E03.9 - HYPOTHYROIDISM, UNSPECIFIED (8) B12 deficiency Current Visit: Yes Status: Acute Assessment & Plan: Injection Cyanocobalimin 1 cc given x 1 should continue on outpatient q 3 weeks. Code(s): E53.8 - DEFICIENCY OF OTHER SPECIFIED B GROUP VITAMINS - Discharge Disposition: Home, Self-Care Condition: Good Prescriptions: New Prednisone 10 mg [Deltasone 10 mg] 10 mg PO DAILY #10 tablet Doxycycline Hyclate 100 mg [Vibramycin 100 MG] 100 mg PO BID #14 tab Levothyroxine Sodium [Levothyroxine] 137 mcg PO DAILY 90 Days #90 capsule Saccharomyces Boulardii [Florastor] 250 mg PO BID #20 capsule Continue Apixaban [Eliquis 5 mg Tablet] 5 mg PO BID Losartan Potassium 50 mg [Cozaar 50 MG] 50 mg PO BID Clopidogrel Bisulfate [Clopidogrel] 75 mg PO BID Atorvastatin Calcium [Lipitor] 80 mg PO HS HydrALAzine HCL 25 MG TAB [Apresoline 25 MG TABLET] 25 mg PO TID Isosorbide Mononitrate 60 mg [Imdur 60MG] 60 mg PO DAILY Torsemide 20 mg [Demadex 20 mg] 20 mg PO QID Oxycodone HCl/Acetaminophen [Oxycodon-Acetaminophen 7.5-325] 1 tab PO QIDPRN PRN PRN Reason: Pain Carvedilol 6.25 mg [Coreg 6.25 MG] 6.25 mg PO BID Amiodarone HCl 200 mg PO DAILY Discontinued Levothyroxine Sodium 125 mcg PO DAILY Additional Instructions: KEEP DRESSING CLEAN, DRY AND INTACT UNTIL YOU SEE DR. MARTELL ON MONDAY Follow up with: MASON STEIN DPM [ACTIVE STAFF] - 07/20/20 1:00 pm JHONATAN RANDHAWA [CONSULTING PHYSICIAN] - JAMIE RODRIGUEZ [Primary Care Provider] - 07/27/20 10:20 am
== END 2020-07-15 16:48 | disposition home or self-care (01) | DRG 603 ==
LOC: ED 09:49 → MED SURG 12:18 → OBSVTOIN 07-12 16:37
PROVIDERS: ADMIT Family Medicine; ATTEND Family Medicine
DX: L03.115 Cellulitis of right lower limb (principal); L02.415 Cutaneous abscess of right lower limb; S80.11XA Contusion of right lower leg, initial encounter; Z79.899 Other long term (current) drug therapy; Z79.01 Long term (current) use of anticoagulants; E03.9 Hypothyroidism, unspecified; I12.9 Hypertensive chronic kidney disease with stage 1 through stage 4 chronic kidney disease, or unspecified chronic kidney disease; N18.30 Chronic kidney disease, stage 3 unspecified; G47.30 Sleep apnea, unspecified; I48.0 Paroxysmal atrial fibrillation; M10.9 Gout, unspecified; E53.8 Deficiency of other specified B group vitamins; R51.9 Headache, unspecified
CPT/HCPCS: 36415; 73700; 80053; 80202; 82607; 83036; 83880; 84443; 84550; 85025; 93268; 93971; 94660; 96365; 96374; 96375; 99285; G0378; 29580; 99234; J0692; J0696; J2270; J2405; J2920; J2930; J3420; A9270-GY; J3370

== ENCOUNTER 2020-07-28 09:52 | Emergency (ER) | payer MEDICARE ==
[2020-07-28] MEDS ORDERED: DUONEB 0.5-3 MG/3 ml Neb IH ONE ×2 (10:27→10:59)
[2020-07-28] MEDS ORDERED: solu-MEDROL 125 MG IV ONE (10:29)
[2020-07-28] MEDS ORDERED: solu-MEDROL 125 MG ONE (10:40)
[2020-07-28 10:51] LABS: VBG CARBOXYHEMOGLOBIN 5.5 % T HGB (0.0-6.9); VBG HCO3- 29.1 meq/L (22-28); VBG HEMOGLOBIN 12.8; VBG O2 SATURATION 98.7 (95-100); VBG POTASSIUM 4.5 (3.5-5.1); VBG pH 7.47 (7.32-7.42)
[2020-07-28 10:56] LABS: Absolute Neutrophil Ct (ANC) 10.56 (1.4-6.9); BASOPHIL % 0.4 % (0.0-0.4); Basophil (Absolute #) 0.05 (0-0.4); Eosinophil % 0.6 % (0.00-5.0); Eosinophil (Absolute #) 0.08 (0-0.5); Hematocrit 38.6 % (35-47); Hemoglobin 12.2 gm/dl (12.0-16.0); Lymphocyte (Absolute #) 0.99 (1.0-4.6); Lymphocytes % 7.9 % (24.0-44.0); Mean Cell Volume 96.5 fl (78-100); Mean Corpuscular Hemoglobin 30.5 pg (26-32); Mean Corpuscular Hgb Concent. 31.6 g/dl (32-36); Monocyte (Absolute #) 0.93 (0.0-1.3); Monocytes % 7.4 % (0.0-12.0); Neutrophil % 83.7 % (36.0-66.0); Platelet Count 167 K/mm3 (150-450); White Blood Count 12.6 K/mm3 (4.0-10.5)
[2020-07-28 10:57] LABS: PROTIME 22.8 SECONDS (9.95-12.35)
--- NOTE | 2020-07-28 11:09 | ERPHSYRPT ---
- History of Present Illness Time Seen by Provider: 07/28/20 10:05 Source: patient Exam Limitations: no limitations Patient Subjective Stated Complaint: SOB Triage Nursing Assessment: Patient brought back to ED via w/c and transferred self to bed. Patient A+O X3. Patient's skin pink, warm and dry. Patient complains of increasing SOB for the past two days. Patient denies fever or couch. Patient she has been having dark, loose stools for the past two days. Lungs noted to be wheezy throughout. Patient denies pain or discomfort. O2 at 2 liters placed on patient due to O2 89%. Physician History: This is a 69-year-old obese white female who has a history of hypertension, obesity, chronic renal insufficiency, and paroxysmal atrial fibrillation on both Eliquis and Plavix. She has been diagnosed with congestive heart failure. She was recently started on Farxiga after recent hospitalization (07/12 through 07/15). She was admitted for treatment of cellulitis of her right lower extremity. That has cleared up well with the antibiotic treatment that she received. Since her discharge she has noted that her weight has been up. Normal for her is approximately 202 pounds. She is at 236 pounds as of yesterday. The physicians have been changing her diuretics around.. She is taking less diuretics than earlier because of her chronic renal insufficiency. Patient arrives to the emergency department with a room air oxygen level of 89%. She was placed on 2 L of oxygen via nasal cannula which improved her symptoms and increased her pulse oximeter to 96%. Patient denies chest pain. Timing/Duration: day(s) (Last 2 days) Activities at Onset: activity Severity of Dyspnea-Max: moderate Severity of Dyspnea-Current: moderate Possible Cause: occasional episodes Modifying Factors: Improves With: activity (Worse), exertion (Worsen), oxygen (Improves), rest (Improves) Associated Symptoms: No chest pain/discomfort, No weakness Allergies/Adverse Reactions: No Known Drug Allergies Allergy (Verified 07/28/20 10:00) Home Medications: Atorvastatin Calcium [Lipitor] 80 mg PO HS 12/31/19 [History] Clopidogrel Bisulfate [Clopidogrel] 75 mg PO DAILY 12/31/19 [History] Losartan Potassium 50 mg [Cozaar 50 MG] 50 mg PO BID 12/31/19 [History] Amiodarone HCl 200 mg PO DAILY 07/11/20 [History] Carvedilol 6.25 mg [Coreg 6.25 MG] 6.25 mg PO BID 07/11/20 [History] Isosorbide Mononitrate 60 mg [Imdur 60MG] 60 mg PO DAILY 07/11/20 [History] Oxycodone HCl/Acetaminophen [Oxycodon-Acetaminophen 7.5-325] 1 tab PO QIDPRN PRN 07/11/20 [History] Torsemide 20 mg [Demadex 20 mg] 40 mg PO DAILY 07/11/20 [History] Apixaban [Eliquis] 5 mg PO BID 07/28/20 [History] Dapagliflozin Propanediol [Farxiga] 10 mg PO DAILY 07/28/20 [History] Hx Tetanus, Diphtheria Vaccination/Date Given: Yes Hx Influenza Vaccination/Date Given: Yes Hx Pneumococcal Vaccination/Date Given: Yes Immunizations Up to Date: Yes Travel Risk - International Travel Have you traveled outside of the country in past 3 weeks: No - Coronavirus Screening Are you exhibiting any of the following symptoms?: Yes Symptoms: Shortness of Breath, Vomiting/Diarrhea Close contact with a COVID-19 positive Pt in past 14-21 Days: No - Review of Systems Constitutional: Weakness Eyes: No Symptoms Ears, Nose, & Throat: No Symptoms Respiratory: Dyspnea, Wheezing Cardiac: No Symptoms Abdominal/Gastrointestinal: No Symptoms Genitourinary Symptoms: No Symptoms Musculoskeletal: Other (Bilateral feet and ankle edema) Skin: No Symptoms Neurological: No Symptoms Psychological: No Symptoms Endocrine: No Symptoms Hematologic/Lymphatic: No Symptoms Immunological/Allergic: No Symptoms All Other Systems: Reviewed and Negative - Past Medical History Pertinent Past Medical History: Yes Neurological History: No Pertinent History ENT History: No Pertinent History Cardiac History: Congenital Heart Disease, Other Respiratory History: No Pertinent History Endocrine Medical History: Hypothyroidism Musculoskeletal History: Osteoarthritis GI Medical History: No Pertinent History History: Other Psycho-Social History: No Pertinent History Female Reproductive Disorders: No Pertinent History Other Medical History: atrial fibrillation, low kidney functions - Past Surgical History Past Surgical History: Yes Neuro Surgical History: No Pertinent History Cardiac: CABG, Cardiac Stent, Cardiac Catheterization Respiratory: No Pertinent History Gastrointestinal: Cholecystectomy Genitourinary: No Pertinent History Musculoskeletal: Orthopedic Surgery Female Surgical History: Hysterectomy Other Surgical History: THYROIDECTOMY, BACK SURGERY 2010, bladder, hysterectomy, foot surgery, hand surgery - Social History Smoking Status: Former smoker How long have you smoked: 5 cig/day Exposure to second hand smoke: No Drug Use: none Patient Lives Alone: No - Female History Hx Now: No - Nursing Vital Signs Nursing Vital Signs: Initial Vital Signs Temperature 99.9 F 07/28/20 10:00 Pulse Rate 67 07/28/20 10:00 Respiratory Rate 25 H 07/28/20 10:00 Blood Pressure 191/88 07/28/20 10:00 O2 Sat by Pulse Oximetry 89 L 07/28/20 10:00 Pain Scale Pain Intensity 0 - Physical Exam General Appearance: no apparent distress, alert, anxiety, obese Eye Exam: PERRL/EOMI, eyes nml inspection Ears, Nose, Throat Exam: hearing grossly normal, normal ENT inspection, normal pharynx Neck Exam: normal inspection, non-tender, supple, full range of motion Respiratory Exam: respiratory distress (Mild), wheezing (Mild bilateral and diffuse), No chest tenderness, No stridor Cardiovascular/Chest Exam: normal heart sounds, regular rate/rhythm, normal peripheral pulses Abdominal/Gastrointestinal Exam: soft, normal bowel sounds, No tenderness Extremity Exam: pedal edema (Bilateral feet and ankles) Neurologic Exam: alert, oriented x 3, cooperative, 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 On today's EKG there is a left bundle branch block. W hen compared to EKG dated 06/18/2020, there was a new left bundle branch block. There is persistent prolonged KS interval.) Ordered Tests: Active Orders 24 hr Category Date Time Status Fish Farmer STAT Care 07/28/20 10:30 Active EKG-ER Only STAT Care 07/28/20 10:29 Active IV Insertion STAT Care 07/28/20 10:29 Active Pulse Oximetry (ED) STAT Care 07/28/20 10:29 Active CHEST 1 VIEW (PORTABLE) Stat Exams 07/28/20 10:30 Completed BLOOD CULTURE Stat Lab 07/28/20 10:45 Received CBC W DIFF Stat Lab 07/28/20 10:00 Completed CMP Stat Lab 07/28/20 10:00 Completed D-DIMER QUANTITATIVE Stat Lab 07/28/20 10:00 Completed Lactic Acid Stat Lab 07/28/20 10:49 Completed MAGNESIUM Stat Lab 07/28/20 10:00 Completed NT PRO BNP Stat Lab 07/28/20 10:00 Completed PROTIME WITH INR Stat Lab 07/28/20 10:00 Completed TROPONIN Q3H Lab 07/28/20 10:30 Completed TROPONIN Q3H Lab 07/28/20 13:30 Ordered TROPONIN Q3H Lab 07/28/20 16:30 Ordered TROPONIN Q3H Lab 07/28/20 19:30 Ordered TROPONIN Q3H Lab 07/28/20 22:30 Ordered VENOUS BLOOD GAS Stat Lab 07/28/20 10:49 Completed Respiratory Therapy Assessment DAILY RT 07/28/20 10:59 Active Transfer Order Routine Transfer 07/28/20 Ordered Medication Summary Discontinued Medications Generic Name Dose Route Start Last Admin Trade Name Freq PRN Reason Stop Dose Admin Albuterol/Ipratropium Confirm 07/28/20 10:27 Duoneb 0.5-3 Mg/3 Ml Neb Administered 07/28/20 10:28 Dose 3 ml IH .STK-MED ONE Albuterol/Ipratropium 3 ml 07/28/20 10:59 07/28/20 11:00 Duoneb 0.5-3 Mg/3 Ml Neb IH 07/28/20 11:00 3 ml STAT ONE Administration Bumetanide 2 mg 07/28/20 11:39 07/28/20 11:48 Bumex 1 Mg IV 07/28/20 11:40 2 mg STAT STA Administration Bumetanide Confirm 07/28/20 11:46 Bumex 1 Mg Administered 07/28/20 11:47 Dose 2 mg .ROUTE .STK-MED ONE Methylprednisolone Sodium Succinate 125 mg 07/28/20 10:29 07/28/20 10:41 Solu-Medrol 125 Mg IV 07/28/20 10:30 125 mg STAT ONE Administration Methylprednisolone Sodium Succinate Confirm 07/28/20 10:40 Solu-Medrol 125 Mg Administered 07/28/20 10:41 Dose 125 mg .ROUTE .STK-MED ONE Lab/Rad Data: Laboratory Result Diagrams 07/28/20 10:00 07/28/20 10:00 Laboratory Results 07/28/20 07/28/20 07/28/20 Range/Units 11:40 10:49 10:49 WBC (4.0-10.5) K/mm3 RBC (4.1-5.4) M/mm3 Hgb (12.0-16.0) gm/dl Hct (35-47) % MCV (78-100) fl MCH (26-32) pg MCHC (32-36) g/dl RDW (11.5-14.0) % Plt Count (150-450) K/mm3 MPV (7.5-11.0) fl Gran % (36.0-66.0) % Eos # (Auto) (0-0.5) Absolute Lymphs (auto) (1.0-4.6) Absolute Monos (auto) (0.0-1.3) Lymphocytes % (24.0-44.0) % Monocytes % (0.0-12.0) % Eosinophils % (0.00-5.0) % Basophils % (0.0-0.4) % Absolute Granulocytes (1.4-6.9) Basophils # (0-0.4) PT (9.95-12.35) SECONDS INR (0.8-3.0) D-Dimer (215-500) ng/mL pO2/FiO2 Ratio 21.0 % VBG pH 7.47 H (7.32-7.42) VBG pCO2 at Pat Temp 40 L (42-55) mm/Hg VBG pO2 at Pat Temp 118 H (25-40) mm/Hg VBG HCO3 29.1 H* (22-28) meq/L VBG O2 Sat (Brett) 98.7 (95-100) VBG Base Excess 5.0 H (-2.0-2.0) VBG Hemoglobin 12.8 VBG Carboxyhemoglobin 5.5 (0.0-6.9) % T HGB POC Potassium 4.5 (3.5-5.1) Sodium (137-145) mmol/L Potassium (3.5-5.1) mmol/L Chloride (98-107) mmol/L Carbon Dioxide (22-30) mmol/L Anion Gap (5-15) MEQ/L BUN (7-17) mg/dL Creatinine (0.52-1.04) mg/dL Estimated GFR ML/MIN Glucose (74-106) mg/dL Lactic Acid 1.1 (0.4-2.0) Calcium (8.4-10.2) mg/dL Magnesium (1.6-2.3) mg/dL Total Bilirubin (0.2-1.3) mg/dL AST (14-36) U/L ALT (0-35) U/L Alkaline Phosphatase (38-126) U/L Troponin I (0.000-0.034) ng/mL NT-Pro-B Natriuret Pep (0-900) pg/mL Serum Total Protein (6.3-8.2) g/dL Albumin (3.5-5.0) g/dL SARS-CoV-2 (PCR) NEGATIVE (NEGATIVE) 07/28/20 07/28/20 07/28/20 Range/Units 10:30 10:00 10:00 WBC (4.0-10.5) K/mm3 RBC (4.1-5.4) M/mm3 Hgb (12.0-16.0) gm/dl Hct (35-47) % MCV (78-100) fl MCH (26-32) pg MCHC (32-36) g/dl RDW (11.5-14.0) % Plt Count (150-450) K/mm3 MPV (7.5-11.0) fl Gran % (36.0-66.0) % Eos # (Auto) (0-0.5) Absolute Lymphs (auto) (1.0-4.6) Absolute Monos (auto) (0.0-1.3) Lymphocytes % (24.0-44.0) % Monocytes % (0.0-12.0) % Eosinophils % (0.00-5.0) % Basophils % (0.0-0.4) % Absolute Granulocytes (1.4-6.9) Basophils # (0-0.4) PT 22.8 H (9.95-12.35) SECONDS INR 2.00 (0.8-3.0) D-Dimer 689 H* (215-500) ng/mL pO2/FiO2 Ratio % VBG pH (7.32-7.42) VBG pCO2 at Pat Temp (42-55) mm/Hg VBG pO2 at Pat Temp (25-40) mm/Hg VBG HCO3 (22-28) meq/L VBG O2 Sat (Brett) (95-100) VBG Base Excess (-2.0-2.0) VBG Hemoglobin VBG Carboxyhemoglobin (0.0-6.9) % T HGB POC Potassium (3.5-5.1) Sodium 137 (137-145) mmol/L Potassium 4.4 (3.5-5.1) mmol/L Chloride 101 (98-107) mmol/L Carbon Dioxide 29 (22-30) mmol/L Anion Gap 11.5 (5-15) MEQ/L BUN 28 H (7-17) mg/dL Creatinine 1.56 H (0.52-1.04) mg/dL Estimated GFR 35.0 ML/MIN Glucose 108 H (74-106) mg/dL Lactic Acid (0.4-2.0) Calcium 9.5 (8.4-10.2) mg/dL Magnesium 2.2 (1.6-2.3) mg/dL Total Bilirubin 0.90 (0.2-1.3) mg/dL AST 26 (14-36) U/L ALT 23 (0-35) U/L Alkaline Phosphatase 72 (38-126) U/L Troponin I < 0.012 (0.000-0.034) ng/mL NT-Pro-B Natriuret Pep 1920 H (0-900) pg/mL Serum Total Protein 7.1 (6.3-8.2) g/dL Albumin 4.3 (3.5-5.0) g/dL SARS-CoV-2 (PCR) (NEGATIVE) 07/28/20 Range/Units 10:00 WBC 12.6 H (4.0-10.5) K/mm3 RBC 4.00 L (4.1-5.4) M/mm3 Hgb 12.2 (12.0-16.0) gm/dl Hct 38.6 (35-47) % MCV 96.5 (78-100) fl MCH 30.5 (26-32) pg MCHC 31.6 L (32-36) g/dl RDW 14.0 (11.5-14.0) % Plt Count 167 (150-450) K/mm3 MPV 12.0 H (7.5-11.0) fl Gran % 83.7 H (36.0-66.0) % Eos # (Auto) 0.08 (0-0.5) Absolute Lymphs (auto) 0.99 L (1.0-4.6) Absolute Monos (auto) 0.93 (0.0-1.3) Lymphocytes % 7.9 L (24.0-44.0) % Monocytes % 7.4 (0.0-12.0) % Eosinophils % 0.6 (0.00-5.0) % Basophils % 0.4 (0.0-0.4) % Absolute Granulocytes 10.56 H (1.4-6.9) Basophils # 0.05 (0-0.4) PT (9.95-12.35) SECONDS INR (0.8-3.0) D-Dimer (215-500) ng/mL pO2/FiO2 Ratio % VBG pH (7.32-7.42) VBG pCO2 at Pat Temp (42-55) mm/Hg VBG pO2 at Pat Temp (25-40) mm/Hg VBG HCO3 (22-28) meq/L VBG O2 Sat (Brett) (95-100) VBG Base Excess (-2.0-2.0) VBG Hemoglobin VBG Carboxyhemoglobin (0.0-6.9) % T HGB POC Potassium (3.5-5.1) Sodium (137-145) mmol/L Potassium (3.5-5.1) mmol/L Chloride (98-107) mmol/L Carbon Dioxide (22-30) mmol/L Anion Gap (5-15) MEQ/L BUN (7-17) mg/dL Creatinine (0.52-1.04) mg/dL Estimated GFR ML/MIN Glucose (74-106) mg/dL Lactic Acid (0.4-2.0) Calcium (8.4-10.2) mg/dL Magnesium (1.6-2.3) mg/dL Total Bilirubin (0.2-1.3) mg/dL AST (14-36) U/L ALT (0-35) U/L Alkaline Phosphatase (38-126) U/L Troponin I (0.000-0.034) ng/mL NT-Pro-B Natriuret Pep (0-900) pg/mL Serum Total Protein (6.3-8.2) g/dL Albumin (3.5-5.0) g/dL SARS-CoV-2 (PCR) (NEGATIVE) - Progress Progress: improved, re-examined Air Movement: fair Progress Note: 07/28/20 11:38 Chest x-ray shows new, mild bilateral interstitial alveolar opacities without evidence of consolidation or effusions 07/28/20 14:04 Medical screening exam: This patient is COVID-19 negative. There is suspicion that she has bilateral lower lobe pneumonias on chest x-ray. She has a low- grade fever of 99.9 F and a mild leukocytosis. Patient has been taking Plavix and Eliquis and I doubt that she has pulmonary emboli. However, her D-dimer was elevated slightly and we will bring her in the hospital with a diagnosis of CHF and provide diuresis, pneumonia and provide intravenous antibiotics and will obtain a VQ scan as her renal function is not sufficient enough to perform a CTA of the chest. I did discuss this with Dr. Palm. I also discussed with radiology department and they may be able to perform the VQ scan at 4:00 this afternoon and no later than if it is not done today. Blood Culture(s) Obtained: Yes Antibiotics given: No Counseled pt/family regarding: lab results, diagnosis, need for follow-up, rad results - Departure Departure Disposition: Observation Clinical Impression: CHF (congestive heart failure), Pneumonia, Elevated d-dimer Condition: Stable Critical Care Time: No Referrals: JAMIE RODRIGUEZ [Primary Care Provider] - Instructions: Heart Failure
--- NOTE | 2020-07-28 11:25 | XRAY ---
Indication: Short of breath. Suspect Covid 19. Comparison: April 26, 2020. Portable chest demonstrates new mild diffuse bilateral interstitial alveolar opacities without consolidation/large effusion. Heart not enlarged again with CABG surgery. Bony thorax intact again with osteopenia and degenerative changes.
[2020-07-28 11:26] LABS: ALBUMIN 4.3 g/dL (3.5-5.0); ANION GAP 11.5 MEQ/L (5-15); BILIRUBIN,TOTAL 0.9 mg/dL (0.2-1.3); Calcium 9.5 mg/dL (8.4-10.2); Creatinine 1 1.56 mg/dL (0.52-1.04); MAGNESIUM 2.2 mg/dL (1.6-2.3); Potassium 4.4 mmol/L (3.5-5.1); Total Protein 7.1 g/dL (6.3-8.2)
[2020-07-28] MEDS ORDERED: BUMEX 1 MG IV STA (11:39)
[2020-07-28] MEDS ORDERED: BUMEX 1 MG ONE (11:46)
[2020-07-28] MEDS ORDERED: TYLENOL 325 MG PO PRN (16:09)
[2020-07-28] MEDS: ROCEPHIN 1 Gm-D5w 50 ml Bag** 1 G/50 ML IVPB IV SCH (17:06)
[2020-07-28] MEDS ORDERED: ACETAMINOPHEN PO PRN (17:24)
[2020-07-28] MEDS ORDERED: OXYCODONE HCL PO PRN (17:24)
[2020-07-28] MEDS ORDERED: Zithromax 500 MG/ 250 ML NaCl Premix 500 MG/250 ML IVPB IV ONE (17:36)
[2020-07-28] MEDS: ZITHROMAX IV 500 MG*** 500 MG in Sodium Chloride 0.9% 250 ML 250 ML IV SCH ×2 (17:41→21:14)
[2020-07-28] MEDS ORDERED: MEDICATION INTERVENTION MC SCH (17:45)
[2020-07-28] MEDS: PERCOCET TABLET 5/325MG PO PRN ×2 (18:41→23:04)
[2020-07-28] MEDS: COREG 12.5 MG PO SCH (21:30)
[2020-07-28] MEDS: Cozaar 50 MG PO SCH (21:30)
[2020-07-28] MEDS: ELIQUIS 2.5 MG TABLET PO SCH (21:31)
[2020-07-28] MEDS: BUMEX 1 MG IV SCH (21:31)
[2020-07-28] MEDS ORDERED: Coreg 6.25 MG PO SCH (22:00)
[2020-07-28] MEDS ORDERED: LIPITOR 40MG PO SCH (22:00)
[2020-07-28] MEDS ORDERED: NON-FORMULARY ITEM (Apixaban [Eliquis] 5 MG) PO SCH (22:00)
[2020-07-28] MEDS ORDERED: NON-FORMULARY ITEM (Atorvastatin Calcium [Lipitor] 80 MG) PO SCH (22:00)
[2020-07-29 05:25] LABS: Absolute Neutrophil Ct (ANC) 7.18 (1.4-6.9); BASOPHIL % 0.3 % (0.0-0.4); Basophil (Absolute #) 0.02 (0-0.4); Eosinophil (Absolute #) 0 (0-0.5); Hematocrit 37.2 % (35-47); Hemoglobin 11.7 gm/dl (12.0-16.0); Lymphocytes % 6.4 % (24.0-44.0); Mean Cell Volume 96.1 fl (78-100); Mean Corpuscular Hemoglobin 30.2 pg (26-32); Mean Corpuscular Hgb Concent. 31.5 g/dl (32-36); Monocyte (Absolute #) 0.11 (0.0-1.3); Monocytes % 1.4 % (0.0-12.0); Neutrophil % 91.9 % (36.0-66.0); Platelet Count 147 K/mm3 (150-450); Red Blood Count 3.87 M/mm3 (4.1-5.4); Red Cell Distribution Width 13.5 % (11.5-14.0); White Blood Count 7.8 K/mm3 (4.0-10.5)
[2020-07-29 05:42] LABS: ALBUMIN 4.3 g/dL (3.5-5.0); ANION GAP 11.8 MEQ/L (5-15); BILIRUBIN,TOTAL 0.7 mg/dL (0.2-1.3); Calcium 9.2 mg/dL (8.4-10.2); Creatinine 1 1.6 mg/dL (0.52-1.04); Potassium 3.6 mmol/L (3.5-5.1); Total Protein 7.1 g/dL (6.3-8.2)
[2020-07-29 07:21] LABS: Slide Review 1 YES
[2020-07-29] MEDS ORDERED: Cordarone 200 MG PO SCH (10:00)
[2020-07-29] MEDS ORDERED: Imdur 60MG PO SCH (10:00)
[2020-07-29] MEDS ORDERED: SYNTHROID 25 MCG PO SCH (10:00)
[2020-07-29] MEDS ORDERED: SYNTHROID 112 MCG PO SCH (10:00)
[2020-07-29] MEDS ORDERED: DEMADEX 20 MG PO SCH (10:00)
[2020-07-29] MEDS ORDERED: LEVOTHYROXINE SODIUM 137 MCG PO SCH (10:00)
[2020-07-29] MEDS ORDERED: NON-FORMULARY ITEM (Dapagliflozin Propanediol [Farxiga] 10 MG) PO SCH (10:00)
[2020-07-29] MEDS ORDERED: PATIENT OWN MEDICATION PO SCH (10:00)
[2020-07-29] MEDS ORDERED: PLAVIX 75 MG Tablet PO SCH (10:00)
[2020-07-29] MEDS: ROCEPHIN 1 Gm-D5w 50 ml Bag** 1 G/50 ML IVPB IV SCH (10:33)
[2020-07-29] MEDS: BUMEX 1 MG IV SCH (10:38)
[2020-07-29] MEDS: Cozaar 50 MG PO SCH (10:46)
[2020-07-29] MEDS: ELIQUIS 2.5 MG TABLET PO SCH (10:47)
[2020-07-29] MEDS: COREG 12.5 MG PO SCH (10:47)
[2020-07-29] MEDS: PERCOCET TABLET 5/325MG PO PRN (10:52)
[2020-07-29 11:25] VITALS: BP 150/61; PULSE 57; O2SAT 93
--- NOTE | 2020-07-29 15:15 | SSS ---
DISCHARGE DIAGNOSES: 1) CONGESTIVE HEART FAILURE. 2) SHORTNESS OF BREATH. CHIEF COMPLAINT: Shortness of breath. HISTORY OF PRESENT ILLNESS: The patient is a 69 year old white female with history of congestive heart failure, noted that she has been having increasing weight and increasing shortness of breath and increasing abdominal girth over the past several days getting to the point where she was feeling nauseated and having dry heaves. She was seen in the emergency room and was noted to be having some wheezing and O2 saturations 89%. She was checked for COVID and was negative. She was given IV Lasix in the emergency room and felt better afterwards. She was admitted with the diagnosis of congestive heart failure. She reportedly was admitted to me because I am covering for Alaina Beck but she has actually seen most recently Dr. Black for an episode of cellulitis in her right leg and wishes to see Dr. Black. She sees a physician in [place] routinely otherwise for her usual care although she lives [place] miles south of the [facility]. She had also recently seen another freelance photographer as she had been seen by Dr. Flores who had diagnosed her with a maker and had actually given her a stent but she reported she felt all the pain during the stenting and dissatisfied with his care because she was in such pain during the episode and he did not listen to her. She is therefore seeking a new freelance photographer. She started with [facility] in [place]. PAST MEDICAL HISTORY: Otherwise significant for coronary artery bypass graft with fairly recent stent placement. Congestive heart failure. She does have left bundle branch block pattern but does not know what her most recent echo showed other than she said part of her heart is not moving right. She has also been recently placed on Farxiga in order to help her with heart failure issues as the freelance photographer felt that this may be helpful for her overall heart issues. PAST SURGICAL HISTORY: Otherwise significant for thyroidectomy. Back surgery 2010. Hysterectomy. Foot surgery. Hand surgery. HOME MEDICATIONS: Currently atorvastatin 80 mg at night. She takes Plavix 75 mg a day, losartan 50 mg b.i.d., amiodarone 200 mg a day, Coreg 6.25 mg b.i.d., isosorbide 60 mg daily. She takes [place] 7.5 four times a day PRN for pain, torsemide 40 mg a day at times more than once a day, Eliquis 5 mg b.i.d., Farxiga 10 mg a day which is new for her. ALLERGIES: NKDA. PHYSICAL EXAMINATION: Vital signs on admission showed her temperature to be slightly elevated at 99.9, pulse 67, respiratory rate 25 and blood pressure 191/88. O2 saturation 89%. HEENT: Normocephalic, atraumatic. Pupils equal round reactive to light. Extraocular movements intact. Oropharynx is pink and moist. NECK: Supple without lymphadenopathy, thyromegaly or JVD. CHEST: Clear to auscultation. HEART: Regular rate and rhythm without significant murmurs, rubs or gallops heard. EXTREMITIES: Currently without cyanosis, clubbing or edema. SOCIAL HISTORY: The patient does still smoke five cigarettes a day. LAB DATA AND TESTS: The patient's laboratory studies had shown a white count of 7,800, hemoglobin 11.7, PLT count slightly low at 147,000. Her troponins have been negative with an overnight stay all less than 0.012. Her sugar on admission was 149 fasting. BUN 34, creatinine 1.6. Electrolytes were normal. ProBNP was elevated at 2,830. The patient did also have a slight elevation in D-dimer at 689 but due to elevation of creatinine could not have VQ scan done and in fact the patient cannot have a VQ scan until 07/30/2020 at our facility. The chest x-ray showed new mild diffuse bilateral interstitial and alveolar opacities, the heart was not enlarged. Previous evidence of coronary artery bypass graft surgery was present. The patient's ABG showed a pH of 7.47, pCO2 of 40 and pO2 of 118. Lactic acid was 1.1. She had a COVID test which was negative on the rapid test. The patient's EKG showed sinus rhythm with left bundle branch block pattern and no obvious acute changes otherwise. HOSPITAL COURSE: The patient was receiving IV Bumex with some resolution of the fluid and the patient was feeling better after having diuresed. This morning she had a full breakfast and was feeling better and we felt she was ready for discharge home again. DISCHARGE PLAN: The patient has been taking torsemide. She was given IV Bumex but reports that she responds best to Lasix but had been changed previously due to her change in kidney function. We will give the patient back her Lasix per her request at 40 mg up to three times a day depending on her fluid balance. If she continues weight gain she will take second pill during the day six hours after the first. She had seen Dr. Black previously for her leg problem and wishes to see her as an outpatient. We will make arrangements for her to see Dr. Black in the next week or so for follow up. The patient is also in contact with her freelance photographer and has daily checkups from her insurance company with Bluetooth on her vital signs and weight checks. The nurse follows her daily with this and apparently calls her freelance photographer for any concern. The patient verbalized her understanding and will return to the emergency room if she has any further problems with her breathing in the interim.
[2020-07-29] MEDS ORDERED: ZITHROMAX IV 500 MG*** 500 MG in Sodium Chloride 0.9% 250 ML 250 ML IV SCH (18:00)
== END 2020-07-29 12:20 | disposition home or self-care (01) ==
LOC: ED 09:52 → MED SURG 15:26
PROVIDERS: ADMIT Family Medicine; ATTEND Family Medicine
DX: I50.9 Heart failure, unspecified (principal); J18.9 Pneumonia, unspecified organism; R79.1 Abnormal coagulation profile; I10 Essential (primary) hypertension; E66.9 Obesity, unspecified; Z79.891 Long term (current) use of opiate analgesic; Z79.899 Other long term (current) drug therapy; N18.9 Chronic kidney disease, unspecified; I48.0 Paroxysmal atrial fibrillation; R11.10 Vomiting, unspecified; R06.02 Shortness of breath
CPT/HCPCS: 36000; 36415; 71045; 80053; 82805; 83605; 83735; 83880; 84484; 85025; 85379; 85610; 87040; 93005; 93041; 94640; 94660; 94760; 96374; 99284; U0003; 93268; J0456; J0696; J2930; A9270-GY; G0378

== ENCOUNTER 2020-09-30 11:57 | Day surgery (SDC) | payer MEDICARE ==
[2012-06-07 21:30] VITALS: BP 145/76
[2020-09-30] MEDS ORDERED: Xylocaine 1% Vial 30 ML PF IJ ONE (11:58)
[2020-09-30] MEDS ORDERED: Decadron 4 MG INJ IV ONE (11:58)
--- NOTE | 2020-09-30 15:18 | XRAY ---
Indication: Left piriformis injection. Intraoperative fluoroscopy provided for 16 seconds. Single digital spot image obtained prone demonstrates needle tip projecting over the expected left piriformis muscle. Small amount of contrast injected for needle tip placement. Correlate with intraoperative findings/report.
--- NOTE | 2020-09-30 15:30 | XRAY ---
16 seconds fluoroscopy time in surgery for left piriformis muscle injection.
== END 2020-09-30 14:01 | disposition home or self-care (01) ==
LOC: SDC-PAIN 11:57
PROVIDERS: ATTEND Psychiatry & Neurology Pain Medicine
DX: M79.18 Myalgia, other site (principal); G47.30 Sleep apnea, unspecified; I48.91 Unspecified atrial fibrillation; I25.10 Atherosclerotic heart disease of native coronary artery without angina pectoris; I11.0 Hypertensive heart disease with heart failure; I50.9 Heart failure, unspecified; Z79.899 Other long term (current) drug therapy; Z79.01 Long term (current) use of anticoagulants
CPT/HCPCS: 20552; 72020; 77002; J1100; J2001; Q9966

== ENCOUNTER 2020-10-02 14:38 | Emergency (ER) | payer MEDICARE ==
[2020-10-02] MEDS ORDERED: Zofran 4 MG/2 ML VIAL IV ONE (14:52)
[2020-10-02] MEDS ORDERED: MORPHINE SULFATE 4 MG INJ IV ONE ×2 (14:52→21:01)
[2020-10-02] MEDS ORDERED: Zofran 4 MG/2 ML VIAL ONE (14:55)
[2020-10-02] MEDS ORDERED: MORPHINE SULFATE 4 MG INJ ONE ×2 (14:56→21:05)
--- NOTE | 2020-10-02 15:09 | ERPHSYRPT ---
- History of Present Illness Time Seen by Provider: 10/02/20 14:52 Historian: patient Exam Limitations: no limitations Patient Subjective Stated Complaint: Pt c/o of chest pain for the past couple of days that feels like an "air bubble", reports her blood pressure dropping many times over the past couple of days at various times Triage Nursing Assessment: Pt was brought to the ER by her significant other, vitals wnl, rates chest pain as 8/10, pain radiates under left arm pit and around her breast, states that it feels like "an air bubble", hx of afib, skin n/w/d, pulses normal Physician History: 69 years old female with history of atrial fibrillation rate controlled on Eliquis, coronary artery disease status post stenting, hypertension presented in the ER with chief complaint of left-sided chest pain intermittently for the last couple of days. Patient described this as a air bubble or pressure sensation that travels from left lateral underneath her left breast to the substernal area and to the right, moderate intensity, last for few minutes to hours and improves. Today it was lasting longer and she had took 1 nitro which seemed to help her. Denies any associated shortness of breath or palpitations. Patient also noticed that her blood pressure is dropping in lower 80s but this happened almost an hour after taking antihypertensive which she is normally on. Denies any fever chills cough or shortness of breath. Timing/Duration: day(s) (2), intermittent, sudden Activities at Onset: rest Quality: aching, dullness, fullness Location: substernal Severity of Pain-Max: moderate Severity of Pain-Current: moderate Modifying Factors: Improves With: nothing Associated Symptoms: denies symptoms Prior Chest Pain/Cardiac Workup: cardiac cath, heart attack Nitro Today/Relief: 0.4 mg x 1 Aspirin Treatment Today: no aspirin today Allergies/Adverse Reactions: No Known Drug Allergies Allergy (Verified 10/02/20 14:50) Home Medications: Atorvastatin Calcium [Lipitor] 80 mg PO HS 12/31/19 [History] Clopidogrel Bisulfate [Clopidogrel] 75 mg PO DAILY 12/31/19 [History] Losartan Potassium 50 mg [Cozaar 50 MG] 50 mg PO BID 12/31/19 [History] Amiodarone HCl 100 mg PO DAILY 07/11/20 [History] Carvedilol 6.25 mg [Coreg 6.25 MG] 12.5 mg PO BID 07/11/20 [History] Oxycodone HCl/Acetaminophen [Oxycodon-Acetaminophen 7.5-325] 1 tab PO QIDPRN PRN 07/11/20 [History] Torsemide 20 mg [Demadex 20 mg] 20 mg PO DAILY 07/11/20 [History] Apixaban [Eliquis] 5 mg PO BID 07/28/20 [History] Levothyroxine Sodium [Levothyroxine] 125 mcg PO DAILY 10/02/20 [History] Liothyronine Sodium 1 ea DAILY 10/02/20 [History] Hx Tetanus, Diphtheria Vaccination/Date Given: Yes Hx Influenza Vaccination/Date Given: Yes Hx Pneumococcal Vaccination/Date Given: Yes Travel Risk - International Travel Have you traveled outside of the country in past 3 weeks: No - Coronavirus Screening Are you exhibiting any of the following symptoms?: No - Review of Systems Constitutional: No Symptoms Eyes: No Symptoms Ears, Nose, & Throat: No Symptoms Respiratory: No Symptoms Cardiac: Chest Pain Abdominal/Gastrointestinal: No Symptoms Genitourinary Symptoms: No Symptoms Musculoskeletal: No Symptoms Skin: No Symptoms Neurological: No Symptoms Psychological: No Symptoms Endocrine: No Symptoms Hematologic/Lymphatic: No Symptoms Immunological/Allergic: No Symptoms - Past Medical History Pertinent Past Medical History: Yes Neurological History: No Pertinent History ENT History: No Pertinent History Cardiac History: Congenital Heart Disease, Other Respiratory History: No Pertinent History Endocrine Medical History: Hypothyroidism Musculoskeletal History: Osteoarthritis GI Medical History: No Pertinent History History: Other Psycho-Social History: No Pertinent History Female Reproductive Disorders: No Pertinent History Other Medical History: atrial fibrillation, low kidney functions - Past Surgical History Past Surgical History: Yes Neuro Surgical History: No Pertinent History Cardiac: CABG, Cardiac Stent, Cardiac Catheterization Respiratory: No Pertinent History Gastrointestinal: Cholecystectomy Genitourinary: No Pertinent History Musculoskeletal: Orthopedic Surgery Female Surgical History: Hysterectomy Other Surgical History: THYROIDECTOMY, BACK SURGERY 2010, bladder, hysterectomy, foot surgery, hand surgery - Social History Smoking Status: Former smoker How long have you smoked: 5 cig/day Exposure to second hand smoke: No Drug Use: none Patient Lives Alone: No - Female History Hx Now: No - Nursing Vital Signs Nursing Vital Signs: Initial Vital Signs Temperature 98.5 F 10/02/20 14:39 Pulse Rate 70 10/02/20 14:39 Respiratory Rate 12 10/02/20 14:39 Blood Pressure 122/83 10/02/20 14:39 O2 Sat by Pulse Oximetry 96 10/02/20 14:39 Pain Scale Pain Intensity 8 - Physical Exam General Appearance: no apparent distress, alert, anxiety Eye Exam: PERRL/EOMI, eyes nml inspection Ears, Nose, Throat Exam: normal ENT inspection, pharynx normal Neck Exam: normal inspection, non-tender, supple, full range of motion Respiratory Exam: normal breath sounds, lungs clear, No chest tenderness Cardiovascular Exam: normal heart sounds, irregular Gastrointestinal/Abdomen Exam: soft, normal bowel sounds, No tenderness Back Exam: normal inspection, normal range of motion Extremity Exam: normal inspection, normal range of motion Neurologic Exam: alert, oriented x 3, cooperative Skin Exam: normal color SpO2 Interpretation: normal SpO2: 96 O2 Delivery: Room Air - Course EKG Interpreted by Me: RATE (69), A-fib, NORMAL AXIS, NORMAL INTERVALS, Left Bundle Branch Block, Q-wave Ordered Tests: Active Orders 24 hr Category Date Time Status Shoe Cementer STAT Care 10/02/20 14:53 Active EKG-ER Only STAT Care 10/02/20 14:52 Active IV Insertion STAT Care 10/02/20 14:52 Active CHEST 1 VIEW (PORTABLE) Stat Exams 10/02/20 14:53 Completed CBC W DIFF Stat Lab 10/02/20 14:51 Completed CMP Stat Lab 10/02/20 14:51 Completed NT PRO BNP Stat Lab 10/02/20 14:51 Completed TROPONIN Q3H Lab 10/02/20 14:51 Completed TROPONIN Q3H Lab 10/02/20 18:03 Completed TROPONIN Q3H Lab 10/02/20 21:00 Ordered TROPONIN Q3H Lab 10/03/20 00:00 Ordered TROPONIN Q3H Lab 10/03/20 03:00 Ordered Medication Summary Discontinued Medications Generic Name Dose Route Start Last Admin Trade Name Freq PRN Reason Stop Dose Admin Morphine Sulfate 4 mg 10/02/20 14:52 10/02/20 14:57 Morphine Sulfate 4 Mg Inj IV 10/02/20 14:53 4 mg STAT ONE Administration Morphine Sulfate Confirm 10/02/20 14:56 Morphine Sulfate 4 Mg Inj Administered 10/02/20 14:57 Dose 4 mg .ROUTE .STK-MED ONE Nitroglycerin Confirm 10/02/20 17:40 Nitro-Bid 2% Ud Packets Administered 10/02/20 17:41 Dose 1 gm .ROUTE .STK-MED ONE Ondansetron HCl 4 mg 10/02/20 14:52 10/02/20 14:57 Zofran 4 Mg/2 Ml Vial IV 10/02/20 14:53 4 mg STAT ONE Administration Ondansetron HCl Confirm 10/02/20 14:55 Zofran 4 Mg/2 Ml Vial Administered 10/02/20 14:56 Dose 4 mg .ROUTE .STK-MED ONE Lab/Rad Data: Laboratory Result Diagrams 10/02/20 14:51 10/02/20 14:51 Laboratory Results 10/02/20 10/02/20 10/02/20 Range/Units 18:03 14:51 14:51 WBC (4.0-10.5) K/mm3 RBC (4.1-5.4) M/mm3 Hgb (12.0-16.0) gm/dl Hct (35-47) % MCV (78-100) fl MCH (26-32) pg MCHC (32-36) g/dl RDW (11.5-14.0) % Plt Count (150-450) K/mm3 MPV (7.5-11.0) fl Gran % (36.0-66.0) % Eos # (Auto) (0-0.5) Absolute Lymphs (auto) (1.0-4.6) Absolute Monos (auto) (0.0-1.3) Lymphocytes % (24.0-44.0) % Monocytes % (0.0-12.0) % Eosinophils % (0.00-5.0) % Basophils % (0.0-0.4) % Absolute Granulocytes (1.4-6.9) Basophils # (0-0.4) Sodium 137 (137-145) mmol/L Potassium 4.1 (3.5-5.1) mmol/L Chloride 96 L (98-107) mmol/L Carbon Dioxide 29 (22-30) mmol/L Anion Gap 16.2 H (5-15) MEQ/L BUN 46 H (7-17) mg/dL Creatinine 2.00 H (0.52-1.04) mg/dL Estimated GFR 26.3 ML/MIN Glucose 77 (74-106) mg/dL Calcium 9.6 (8.4-10.2) mg/dL Total Bilirubin 0.40 (0.2-1.3) mg/dL AST 21 (14-36) U/L ALT 18 (0-35) U/L Alkaline Phosphatase 80 (38-126) U/L Troponin I < 0.012 < 0.012 (0.000-0.034) ng/mL NT-Pro-B Natriuret Pep 1610 H (0-900) pg/mL Serum Total Protein 7.7 (6.3-8.2) g/dL Albumin 4.8 (3.5-5.0) g/dL 10/02/20 Range/Units 14:51 WBC 7.6 (4.0-10.5) K/mm3 RBC 4.73 (4.1-5.4) M/mm3 Hgb 14.0 (12.0-16.0) gm/dl Hct 43.3 (35-47) % MCV 91.5 (78-100) fl MCH 29.6 (26-32) pg MCHC 32.3 (32-36) g/dl RDW 13.4 (11.5-14.0) % Plt Count 216 (150-450) K/mm3 MPV 11.1 H (7.5-11.0) fl Gran % 64.1 (36.0-66.0) % Eos # (Auto) 0.02 (0-0.5) Absolute Lymphs (auto) 1.97 (1.0-4.6) Absolute Monos (auto) 0.72 (0.0-1.3) Lymphocytes % 26.0 (24.0-44.0) % Monocytes % 9.5 (0.0-12.0) % Eosinophils % 0.3 (0.00-5.0) % Basophils % 0.1 (0.0-0.4) % Absolute Granulocytes 4.87 (1.4-6.9) Basophils # 0.01 (0-0.4) Sodium (137-145) mmol/L Potassium (3.5-5.1) mmol/L Chloride (98-107) mmol/L Carbon Dioxide (22-30) mmol/L Anion Gap (5-15) MEQ/L BUN (7-17) mg/dL Creatinine (0.52-1.04) mg/dL Estimated GFR ML/MIN Glucose (74-106) mg/dL Calcium (8.4-10.2) mg/dL Total Bilirubin (0.2-1.3) mg/dL AST (14-36) U/L ALT (0-35) U/L Alkaline Phosphatase (38-126) U/L Troponin I (0.000-0.034) ng/mL NT-Pro-B Natriuret Pep (0-900) pg/mL Serum Total Protein (6.3-8.2) g/dL Albumin (3.5-5.0) g/dL - Progress Progress: re-examined Air Movement: good Progress Note: 10/02/20 16:22 She is given morphine for symptomatic relief but still have some discomfort on reevaluation. EKG showed A. fib with rate controlled but no ST elevations. N egative initial troponin. Patient is on Eliquis. Chest x-ray negative for any acute cardiopulmonary findings. High heart score, patient needs to be observed in the hospital, offered observation admission here but she wants to go where her director cost is at [facility]. I have called the transfer center. She is recommended aspirin which she refused. 10/02/20 16:32 Discussed with [place] cardiology Venus POWELL for director cost, reviewed patient history, work-up and agreed with transfer. 10/02/20 16:[address] Delgado hospitalist. Blood Culture(s) Obtained: No Antibiotics given: No Discussed with DrJarret: Other Counseled pt/family regarding: lab results, diagnosis, rad results - Departure Departure Disposition: Transfer Clinical Impression: Unstable angina Condition: Stable Critical Care Time: No Referrals: CHANDRAKANT MCFARLANE DO [Primary Care Provider] -
[2020-10-02 15:14] LABS: Absolute Neutrophil Ct (ANC) 4.87 (1.4-6.9); BASOPHIL % 0.1 % (0.0-0.4); Basophil (Absolute #) 0.01 (0-0.4); Eosinophil % 0.3 % (0.00-5.0); Eosinophil (Absolute #) 0.02 (0-0.5); Hematocrit 43.3 % (35-47); Lymphocyte (Absolute #) 1.97 (1.0-4.6); Mean Cell Volume 91.5 fl (78-100); Mean Corpuscular Hemoglobin 29.6 pg (26-32); Mean Corpuscular Hgb Concent. 32.3 g/dl (32-36); Mean Platelet Volume 11.1 fl (7.5-11.0); Monocyte (Absolute #) 0.72 (0.0-1.3); Monocytes % 9.5 % (0.0-12.0); Neutrophil % 64.1 % (36.0-66.0); Platelet Count 216 K/mm3 (150-450); Red Blood Count 4.73 M/mm3 (4.1-5.4); Red Cell Distribution Width 13.4 % (11.5-14.0); White Blood Count 7.6 K/mm3 (4.0-10.5)
--- NOTE | 2020-10-02 15:19 | XRAY ---
Indication: Chest pain. Comparison: July 28, 2020. Portable chest is now clear with incidental lingula discoid atelectasis/scarring less than before. Heart is not enlarged again with CABG. Bony thorax intact again with osteopenia and degenerative changes. No new/acute findings.
[2020-10-02 15:36] LABS: ALBUMIN 4.8 g/dL (3.5-5.0); ANION GAP 16.2 MEQ/L (5-15); BILIRUBIN,TOTAL 0.4 mg/dL (0.2-1.3); Calcium 9.6 mg/dL (8.4-10.2); EST GLOMERULAR FILTRATION RATE 26.3 ML/MIN; Potassium 4.1 mmol/L (3.5-5.1); Total Protein 7.7 g/dL (6.3-8.2)
[2020-10-02] MEDS ORDERED: NITRO-BID 2% UD PACKETS ONE (17:40)
[2020-10-02] MEDS ORDERED: LIPITOR 40MG PO STA (21:23)
[2020-10-02] MEDS ORDERED: ELIQUIS 2.5 MG TABLET PO ONE (21:24)
[2020-10-02] MEDS ORDERED: COREG 12.5 MG PO ONE (21:24)
[2020-10-02] MEDS ORDERED: Cozaar 50 MG ONE (21:32)
[2020-10-02] MEDS ORDERED: ZOCOR 20MG ONE (21:33)
[2020-10-02] MEDS ORDERED: ZOCOR 20MG PO SCH (22:00)
[2020-10-03 00:10] VITALS: BP 117/57; PULSE 56; O2SAT 96
[2020-10-03] MEDS ORDERED: Cozaar 50 MG PO SCH (10:00)
== END 2020-10-02 23:35 ==
LOC: ED 14:38
DX: E03.9 Hypothyroidism, unspecified (principal); I51.9 Heart disease, unspecified; I48.91 Unspecified atrial fibrillation; Z86.79 Personal history of other diseases of the circulatory system; Z72.0 Tobacco use
CPT/HCPCS: 36000; 36415; 71045; 80053; 83880; 84484; 85025; 93005; 93041; 96374; 96375; 96376; 99285; J2270; J2405; A9270-GY

== ENCOUNTER 2020-10-14 19:11 | Emergency (ER) | payer MEDICARE ==
[2012-06-07 21:30] VITALS: BP 145/76
== END 2020-10-14 19:20 | disposition home or self-care (01) ==
LOC: ED 19:11
DX: Z53.9 Procedure and treatment not carried out, unspecified reason (principal)

== ENCOUNTER 2020-12-31 17:01 | Observation (INO) | payer MEDICARE ==
[2020-12-31 17:52] LABS: Absolute Neutrophil Ct (ANC) 5.54 (1.4-6.9); BASOPHIL % 0.1 % (0.0-0.4); Basophil (Absolute #) 0.01 (0-0.4); Eosinophil % 1.1 % (0.00-5.0); Eosinophil (Absolute #) 0.09 (0-0.5); Hematocrit 40.9 % (35-47); Hemoglobin 12.6 gm/dl (12.0-16.0); Lymphocyte (Absolute #) 1.43 (1.0-4.6); Lymphocytes % 17.8 % (24.0-44.0); Mean Cell Volume 92.7 fl (78-100); Mean Corpuscular Hemoglobin 28.6 pg (26-32); Mean Corpuscular Hgb Concent. 30.8 g/dl (32-36); Mean Platelet Volume 12.1 fl (7.5-11.0); Monocyte (Absolute #) 0.97 (0.0-1.3); Monocytes % 12.1 % (0.0-12.0); Neutrophil % 68.9 % (36.0-66.0); Platelet Count 196 K/mm3 (150-450); Red Blood Count 4.41 M/mm3 (4.1-5.4); Red Cell Distribution Width 13.9 % (11.5-14.0)
[2020-12-31 18:14] LABS: ALBUMIN 4.7 g/dL (3.5-5.0); ANION GAP 15.7 MEQ/L (5-15); BILIRUBIN,TOTAL 0.9 mg/dL (0.2-1.3); Calcium 9.2 mg/dL (8.4-10.2); Creatinine 1 1.41 mg/dL (0.52-1.04); EST GLOMERULAR FILTRATION RATE 39.2 ML/MIN; Potassium 4.6 mmol/L (3.5-5.1); Total Protein 7.7 g/dL (6.3-8.2)
--- NOTE | 2020-12-31 19:15 | ERPHSYRPT ---
- History of Present Illness Time Seen by Provider: 12/31/20 17:10 Historian: patient Exam Limitations: no limitations Patient Subjective Stated Complaint: pt here for increase sob for a couple days now, she states she has been more sob since she got her pacemaker in october, no cough or fever, she was at pain clinic today and sent to er, she co chronic pain to hips and back Triage Nursing Assessment: pt arrived per wc, alert, resp labored with movement, face mask in place, skin w/d/p. no edema Physician History: Patient is a 70-year-old female with a history of CABG x3 presents to our ED with complaints of shortness of breath that has been present since October. Patient states she had a pacemaker placed in October and since then she has been short of breath. Shortness of breath has gotten worse especially over the past 2 days. No active chest pain. No nausea vomiting or diaphoresis. No cough or fevers. Symptoms appear to be progressive. Symptoms are currently moderate in intensity. Patient admits to history of chronic back and hip pain otherwise has no other complaints. Timing/Duration: day(s) (2 days) Activities at Onset: other (Symptoms present at rest and with activity.) Quality: other Location: other Chest Pain Radiation: no radiation (No active chest pain) Severity of Pain-Max: moderate Severity of Pain-Current: mild Modifying Factors: Improves With: nothing Associated Symptoms: denies symptoms, No nausea, No vomiting Prior Chest Pain/Cardiac Workup: recent hospitalization Nitro Today/Relief: no nitro taken today Aspirin Treatment Today: no aspirin today Allergies/Adverse Reactions: No Known Drug Allergies Allergy (Verified 12/31/20 17:11) Home Medications: Atorvastatin Calcium [Lipitor] 80 mg PO HS 12/31/19 [History] Clopidogrel Bisulfate [Clopidogrel] 75 mg PO DAILY 12/31/19 [History] Losartan Potassium 50 mg [Cozaar 50 MG] 50 mg PO BID 12/31/19 [History] Amiodarone HCl 100 mg PO DAILY 07/11/20 [History] Carvedilol 6.25 mg [Coreg 6.25 MG] 12.5 mg PO BID 07/11/20 [History] Torsemide 20 mg [Demadex 20 mg] 20 mg PO DAILY 12/26/20 [History] Apixaban [Eliquis] 5 mg PO BID 07/28/20 [History] Levothyroxine Sodium [Levothyroxine] 125 mcg PO DAILY 10/02/20 [History] Liothyronine Sodium 1 ea DAILY 10/02/20 [History] Hydrocodone Bit/Acetaminophen [Hydrocodon-Acetaminophn 10-325] 1 ea QID 12/31/20 [History] Hx Tetanus, Diphtheria Vaccination/Date Given: Yes Hx Influenza Vaccination/Date Given: Yes Hx Pneumococcal Vaccination/Date Given: Yes Immunizations Up to Date: No Travel Risk - International Travel Have you traveled outside of the country in past 3 weeks: No - Coronavirus Screening Are you exhibiting any of the following symptoms?: No Close contact with a COVID-19 positive Pt in past 14-21 Days: No - Vaccine Status Have you recieved a Covid-19 vaccination: Yes Side Boss: Moderna - Vaccination Dates Date of 2cond Vaccination (if applicable): ? - Review of Systems Constitutional: No Symptoms, No Fever, No Chills Eyes: No Symptoms Ears, Nose, & Throat: No Symptoms Respiratory: No Symptoms, No Cough, No Dyspnea Cardiac: No Symptoms, No Chest Pain, No Edema, No Syncope Abdominal/Gastrointestinal: No Symptoms, No Abdominal Pain, No Nausea, No Vomiting, No Diarrhea Genitourinary Symptoms: No Symptoms, No Dysuria Musculoskeletal: No Symptoms, No Back Pain, No Neck Pain Skin: No Symptoms, No Rash Neurological: No Symptoms, No Dizziness, No Focal Weakness, No Sensory Changes Psychological: No Symptoms Endocrine: No Symptoms Hematologic/Lymphatic: No Symptoms Immunological/Allergic: No Symptoms All Other Systems: Reviewed and Negative - Past Medical History Pertinent Past Medical History: Yes Neurological History: No Pertinent History ENT History: No Pertinent History Cardiac History: Congenital Heart Disease, Coronary Artery Disease, Other Respiratory History: No Pertinent History Endocrine Medical History: Hypothyroidism Musculoskeletal History: Osteoarthritis GI Medical History: No Pertinent History History: Other Psycho-Social History: No Pertinent History Female Reproductive Disorders: No Pertinent History Other Medical History: atrial fibrillation, low kidney functions - Past Surgical History Past Surgical History: Yes Neuro Surgical History: No Pertinent History Cardiac: CABG, Cardiac Catheterization, Cardiac Stent, Pacemaker Respiratory: No Pertinent History Gastrointestinal: Cholecystectomy Genitourinary: No Pertinent History Musculoskeletal: Orthopedic Surgery Female Surgical History: Hysterectomy Other Surgical History: THYROIDECTOMY, BACK SURGERY 2010, bladder, hysterectomy, foot surgery, hand surgery - Social History Smoking Status: Former smoker How long have you smoked: 5 cig/day Exposure to second hand smoke: No Drug Use: none Patient Lives Alone: No - Female History Hx Last Menstrual Period: psot Hx Now: No - Nursing Vital Signs Nursing Vital Signs: Initial Vital Signs Temperature 97.1 F 12/31/20 17:01 Pulse Rate 76 12/31/20 17:01 Respiratory Rate 24 12/31/20 17:01 Blood Pressure 180/159 12/31/20 17:01 O2 Sat by Pulse Oximetry 96 12/31/20 17:01 Pain Scale Pain Intensity 4 - Physical Exam General Appearance: no apparent distress, alert Eye Exam: PERRL/EOMI, eyes nml inspection Ears, Nose, Throat Exam: normal ENT inspection, moist mucous membranes Neck Exam: normal inspection, non-tender, supple, full range of motion Respiratory Exam: normal breath sounds, lungs clear, No respiratory distress Cardiovascular Exam: regular rate/rhythm, normal heart sounds Gastrointestinal/Abdomen Exam: soft, No tenderness, No mass Back Exam: normal inspection, No CVA tenderness, No vertebral tenderness Extremity Exam: normal inspection, normal range of motion Neurologic Exam: alert, oriented x 3, cooperative, normal mood/affect, sensation nml, No motor deficits Skin Exam: normal color, warm, dry SpO2 Interpretation: normal SpO2: 94 O2 Delivery: Room Air - Course Nursing assessment & vital signs reviewed: Yes EKG Interpreted by Me: RATE (73 rhythm.), NORMAL AXIS, NORMAL INTERVALS - Radiology Exams Chest X-ray Interpretation: Interpreted by me (Jacquie versus scarring at bases. No consolidation infiltrate or effusion. Sternotomy wires intact pacemaker observed borderline cardiomegaly. Osteopenia. Intact bony thorax. No acute cardiopulmonary process observed) Ordered Tests: Active Orders 24 hr Category Date Time Status Rotary Furnace Tender STAT Care 12/31/20 17:29 Active EKG-ER Only STAT Care 12/31/20 17:28 Active IV Insertion STAT Care 12/31/20 17:28 Active Pulse Oximetry (ED) STAT Care 12/31/20 17:28 Active CHEST 1 VIEW (PORTABLE) Stat Exams 12/31/20 17:29 Taken BLOOD CULTURE Stat Lab 12/31/20 20:59 Ordered BNP [NT PRO BNP] Stat Lab 12/31/20 20:59 Completed CBC W DIFF Stat Lab 12/31/20 17:16 Completed CMP Stat Lab 12/31/20 17:16 Completed TROPONIN Q3H Lab 12/31/20 17:16 Completed TROPONIN Q3H Lab 12/31/20 19:48 Completed TROPONIN Q3H Lab 01/01/21 02:30 Ordered TROPONIN Q3H Lab 01/01/21 05:30 Ordered Peak Expiratory Flow Rate ONCE RT 12/31/20 20:16 Completed Respiratory Therapy Assessment DAILY RT 12/31/20 20:43 Active Transfer Order Routine Transfer 01/01/21 Ordered Medication Summary Discontinued Medications Generic Name Dose Route Start Last Admin Trade Name Freq PRN Reason Stop Dose Admin Acetaminophen 975 mg 12/31/20 19:36 12/31/20 19:56 Tylenol 325 Mg PO 12/31/20 19:37 Not Given STAT ONE Acetaminophen Confirm 12/31/20 19:41 Tylenol 325 Mg Administered 12/31/20 19:42 Dose 975 mg .ROUTE .STK-MED ONE Albuterol/Ipratropium 3 ml 12/31/20 20:28 12/31/20 20:40 Duoneb 0.5-3 Mg/3 Ml Neb IH 12/31/20 20:29 3 ml STAT ONE Administration Albuterol/Ipratropium Confirm 12/31/20 20:33 Duoneb 0.5-3 Mg/3 Ml Neb Administered 12/31/20 20:34 Dose 3 ml IH .STK-MED ONE Methylprednisolone Sodium Succinate 125 mg 12/31/20 20:28 12/31/20 20:39 Solu-Medrol 125 Mg IV 12/31/20 20:29 125 mg STAT ONE Administration Methylprednisolone Sodium Succinate Confirm 12/31/20 20:38 Solu-Medrol 125 Mg Administered 12/31/20 20:39 Dose 125 mg .ROUTE .STK-MED ONE Lab/Rad Data: Laboratory Result Diagrams 12/31/20 17:16 12/31/20 17:16 Laboratory Results 01/01/21 12/31/20 12/31/20 Range/Units 01:23 20:59 19:48 WBC (4.0-10.5) K/mm3 RBC (4.1-5.4) M/mm3 Hgb (12.0-16.0) gm/dl Hct (35-47) % MCV (78-100) fl MCH (26-32) pg MCHC (32-36) g/dl RDW (11.5-14.0) % Plt Count (150-450) K/mm3 MPV (7.5-11.0) fl Gran % (36.0-66.0) % Eos # (Auto) (0-0.5) Absolute Lymphs (auto) (1.0-4.6) Absolute Monos (auto) (0.0-1.3) Lymphocytes % (24.0-44.0) % Monocytes % (0.0-12.0) % Eosinophils % (0.00-5.0) % Basophils % (0.0-0.4) % Absolute Granulocytes (1.4-6.9) Basophils # (0-0.4) Sodium (137-145) mmol/L Potassium (3.5-5.1) mmol/L Chloride (98-107) mmol/L Carbon Dioxide (22-30) mmol/L Anion Gap (5-15) MEQ/L BUN (7-17) mg/dL Creatinine (0.52-1.04) mg/dL Estimated GFR ML/MIN Glucose (74-106) mg/dL Calcium (8.4-10.2) mg/dL Total Bilirubin (0.2-1.3) mg/dL AST (14-36) U/L ALT (0-35) U/L Alkaline Phosphatase (38-126) U/L Troponin I < 0.012 (0.000-0.034) ng/mL NT-Pro-B Natriuret Pep 2650 H (0-900) pg/mL Serum Total Protein (6.3-8.2) g/dL Albumin (3.5-5.0) g/dL SARS-CoV-2 (PCR) NEGATIVE (NEGATIVE) 12/31/20 12/31/20 12/31/20 Range/Units 17:16 17:16 17:16 WBC 8.0 (4.0-10.5) K/mm3 RBC 4.41 (4.1-5.4) M/mm3 Hgb 12.6 (12.0-16.0) gm/dl Hct 40.9 (35-47) % MCV 92.7 (78-100) fl MCH 28.6 (26-32) pg MCHC 30.8 L (32-36) g/dl RDW 13.9 (11.5-14.0) % Plt Count 196 (150-450) K/mm3 MPV 12.1 H (7.5-11.0) fl Gran % 68.9 H (36.0-66.0) % Eos # (Auto) 0.09 (0-0.5) Absolute Lymphs (auto) 1.43 (1.0-4.6) Absolute Monos (auto) 0.97 (0.0-1.3) Lymphocytes % 17.8 L (24.0-44.0) % Monocytes % 12.1 H (0.0-12.0) % Eosinophils % 1.1 (0.00-5.0) % Basophils % 0.1 (0.0-0.4) % Absolute Granulocytes 5.54 (1.4-6.9) Basophils # 0.01 (0-0.4) Sodium 140 (137-145) mmol/L Potassium 4.6 (3.5-5.1) mmol/L Chloride 100 (98-107) mmol/L Carbon Dioxide 29 (22-30) mmol/L Anion Gap 15.7 H (5-15) MEQ/L BUN 27 H (7-17) mg/dL Creatinine 1.41 H (0.52-1.04) mg/dL Estimated GFR 39.2 ML/MIN Glucose 86 (74-106) mg/dL Calcium 9.2 (8.4-10.2) mg/dL Total Bilirubin 0.90 (0.2-1.3) mg/dL AST 38 H (14-36) U/L ALT 19 (0-35) U/L Alkaline Phosphatase 91 (38-126) U/L Troponin I < 0.012 (0.000-0.034) ng/mL NT-Pro-B Natriuret Pep (0-900) pg/mL Serum Total Protein 7.7 (6.3-8.2) g/dL Albumin 4.7 (3.5-5.0) g/dL SARS-CoV-2 (PCR) (NEGATIVE) 12/31/20 Range/Units 00:27 WBC (4.0-10.5) K/mm3 RBC (4.1-5.4) M/mm3 Hgb (12.0-16.0) gm/dl Hct (35-47) % MCV (78-100) fl MCH (26-32) pg MCHC (32-36) g/dl RDW (11.5-14.0) % Plt Count (150-450) K/mm3 MPV (7.5-11.0) fl Gran % (36.0-66.0) % Eos # (Auto) (0-0.5) Absolute Lymphs (auto) (1.0-4.6) Absolute Monos (auto) (0.0-1.3) Lymphocytes % (24.0-44.0) % Monocytes % (0.0-12.0) % Eosinophils % (0.00-5.0) % Basophils % (0.0-0.4) % Absolute Granulocytes (1.4-6.9) Basophils # (0-0.4) Sodium (137-145) mmol/L Potassium (3.5-5.1) mmol/L Chloride (98-107) mmol/L Carbon Dioxide (22-30) mmol/L Anion Gap (5-15) MEQ/L BUN (7-17) mg/dL Creatinine (0.52-1.04) mg/dL Estimated GFR ML/MIN Glucose (74-106) mg/dL Calcium (8.4-10.2) mg/dL Total Bilirubin (0.2-1.3) mg/dL AST (14-36) U/L ALT (0-35) U/L Alkaline Phosphatase (38-126) U/L Troponin I 0.012 (0.000-0.034) ng/mL NT-Pro-B Natriuret Pep (0-900) pg/mL Serum Total Protein (6.3-8.2) g/dL Albumin (3.5-5.0) g/dL SARS-CoV-2 (PCR) (NEGATIVE) - Progress Progress: improved Air Movement: good Progress Note: Patient reassessed. She feels well. Supplemental oxygen administered for hypoxia. Case discussed with Dr. Santos. Dr. Santos advised transferring to hospital for treatment by her bone char puller. We contacted [facility]. They accepted. However, they did not immediately have a bed available. We are waiting for to return call. Patient decided that she did not want to wait. Patient her hospital. Case discussed Dr. Santos who accepted a dmission to observation. Dr. Santos requested echocardiogram ordered morning. Plan of care discussed with patient. She agrees to admission at [facility] for further evaluation and treatment. Portions of this note were created with voice recognition technology. There may be grammatical, spelling, punctuation or sound alike errors 01/01/21 02:34 Blood Culture(s) Obtained: Yes Antibiotics given: No Discussed with DrJarret: Holli Will see patient in: hospital (observation) Counseled pt/family regarding: lab results, diagnosis, rad results - Departure Departure Disposition: Observation Clinical Impression: Hypoxia, SOB (shortness of breath), Elevated brain natriuretic peptide (BNP) level, CRI (chronic renal insufficiency) Condition: Stable Critical Care Time: No Referrals: CHANDRAKANT MCFARLANE, [Primary Care Provider] -
[2020-12-31] MEDS ORDERED: TYLENOL 325 MG ONE (19:41)
[2020-12-31] MEDS: TYLENOL 325 MG PO ONE ×2 (19:43→19:56)
[2020-12-31] MEDS ORDERED: DUONEB 0.5-3 MG/3 ml Neb IH ONE ×2 (20:28→20:33)
[2020-12-31] MEDS ORDERED: solu-MEDROL IV ONE (20:28)
[2020-12-31] MEDS ORDERED: solu-MEDROL ONE (20:38)
[2021-01-01] MEDS ORDERED: HYDROCODONE-ACETAMIN 10-325 MG PO PRN (04:04)
[2021-01-01] MEDS: HYDROCODONE-ACETAMIN 10-325 MG PO PRN ×3 (04:20→12:34)
[2021-01-01] MEDS: solu-MEDROL IV SCH ×2 (04:52→12:25)
[2021-01-01 05:28] LABS: Hematocrit 40.7 % (35-47); Hemoglobin 12.6 gm/dl (12.0-16.0); Mean Cell Volume 92.3 fl (78-100); Mean Corpuscular Hemoglobin 28.6 pg (26-32); Mean Platelet Volume 12.2 fl (7.5-11.0); Platelet Count 175 K/mm3 (150-450); Red Blood Count 4.41 M/mm3 (4.1-5.4); Red Cell Distribution Width 13.7 % (11.5-14.0); White Blood Count 6.7 K/mm3 (4.0-10.5)
[2021-01-01 05:54] LABS: ALBUMIN 4.4 g/dL (3.5-5.0); ANION GAP 14.1 MEQ/L (5-15); BILIRUBIN,TOTAL 0.8 mg/dL (0.2-1.3); Calcium 9.5 mg/dL (8.4-10.2); Creatinine 1 1.23 mg/dL (0.52-1.04); EST GLOMERULAR FILTRATION RATE 45.9 ML/MIN; Total Protein 7.1 g/dL (6.3-8.2)
[2021-01-01] MEDS ORDERED: SYNTHROID 125 MCG PO SCH (07:00)
--- NOTE | 2021-01-01 08:43 | XRAY ---
Indication: Short of breath. Comparison: October 02, 2020. Portable chest again hyperinflated with lingula subsegmental atelectasis/scarring. No focal infiltrate, consolidation, or large effusion. Heart not enlarged for AP portable technique again with CABG surgery and new left single lead pacemaker. Bony thorax intact again with osteopenia and degenerative changes. Impression: Nonacute chest with chronic features.
[2021-01-01] MEDS ORDERED: DUONEB 0.5-3 MG/3 ml Neb IH SCH ×2 (10:00→13:00)
[2021-01-01] MEDS ORDERED: Coreg 6.25 MG PO SCH (10:00)
[2021-01-01] MEDS ORDERED: ELIQUIS 2.5 MG TABLET PO SCH (10:00)
[2021-01-01] MEDS ORDERED: Cozaar 50 MG PO SCH (10:00)
[2021-01-01 12:29] VITALS: BP 128/69; PULSE 70; O2SAT 98
[2021-01-01] MEDS ORDERED: TYLENOL EXTRA STRENGTH 500 MG PO PRN (12:29)
[2021-01-01] MEDS ORDERED: LIPITOR 40MG PO SCH (22:00)
--- NOTE | 2021-03-01 13:48 | PCM.SSS ---
History of Present Illness - Chief Complaint History of Present Illness: is a 70 year old female who presented to ER with weakness, low B/P and light headedness. She was discharged from [facility] yesterday after a 4 day stay for tx of CHF, CRF. 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 ER doctor was seeking readmission to [facility] where patient's specialists are but no beds were available. Cardiology team at [facility] accepted admit. Apparently ER had released patient to the floor because she was complaining of the wait but soon after was transferred to [facility] Cardiology team. I did not see the patient as this occured during the night. - Review of Systems Constitutional: Other (See ER doctor notes) Medications & Allergies Home Medications: Home Medication List Atorvastatin Calcium [Lipitor] 80 mg PO HS 12/31/19 [History Confirmed 12/31/20] Clopidogrel Bisulfate [Clopidogrel] 75 mg PO DAILY 12/31/19 [History Confirmed 01/01/21] Losartan Potassium 50 mg [Cozaar 50 MG] mg PO BID 12/31/19 [History Confirmed 01/01/21] Amiodarone HCl 100 mg PO DAILY 07/11/20 [History Confirmed 12/31/20] Carvedilol 6.25 mg [Coreg 6.25 MG] 25 mg PO BID 07/11/20 [History Confirmed 01/01/21] Torsemide 20 mg [Demadex 20 mg] 60 mg PO DAILY 07/11/20 [History Confirmed 01/05/21] Apixaban [Eliquis] 5 mg PO BID 07/28/20 [History Confirmed 01/01/21] Levothyroxine Sodium [Levothyroxine] 125 mcg PO DAILY 10/02/20 [History Confirmed 01/01/21] Liothyronine Sodium 1 ea DAILY 10/02/20 [History Confirmed 01/01/21] Hydrocodone Bit/Acetaminophen [Hydrocodon-Acetaminophn 10-325] 1 ea QID 12/31/20 [History Confirmed 01/01/21] Potassium Chloride 10 Meq Tab* [Klor Con 10 MEQ] 10 meq PO DAILY 01/05/21 [History Confirmed 01/05/21] Spironolactone 25 mg [Aldactone 25 MG] 25 mg PO DAILY 01/05/21 [History Confirmed 01/05/21] Allergies/Adverse Reactions: Allergies Allergy/AdvReac Type Severity Reaction Status Date / Time No Known Drug Allergies Allergy Verified 01/05/21 14:20 - Past Medical History Past Medical History: Yes Neurological History: No Pertinent History ENT History: No Pertinent History Cardiac History: Congenital Heart Disease, Coronary Artery Disease, Other Respiratory History: No Pertinent History Endocrine Medical History: Hypothyroidism Musculoskelatal History: Osteoarthritis GI Medical History: No Pertinent History History: Other Pyscho-Social History: No Pertinent History Reproductive Disorders: No Pertinent History Comment: atrial fibrillation, low kidney functions - Female History Hx Last Menstrual Period: post - Past Surgical History Past Surgical History: Yes Neuro Surgical History: No Pertinent History Cardiac History: CABG, Cardiac Catheterization, Cardiac Stent, Pacemaker Respiratory Surgery: No Pertinent History GI Surgical History: Cholecystectomy Genitourinary Surgical Hx: No Pertinent History Musculskeletal Surgical Hx: Orthopedic Surgery Female Surgical History: Hysterectomy Other Surgical History: THYROIDECTOMY, BACK SURGERY 2010, bladder, hysterectomy, foot surgery, hand surgery - Social History Smoking Status: Former smoker How long have you smoked: 5 cig/day Exposure to second hand smoke: No Alcohol: None Drug Use: none - Physical Exam General Appearance: other (See ER doctor notes) Results - Labs Lab/Micro Results: Microbiology 01/05/21 14:48 Urine Culture - Final Clean Catch Midstream Escherichia Coli Assessment/Plan (1) CHF (congestive heart failure) Status: Chronic Qualifiers: Qualifiers: diastolic Code(s): I50.9 - HEART FAILURE, UNSPECIFIED (2) Acute renal injury Status: Acute Code(s): N17.9 - ACUTE KIDNEY FAILURE, UNSPECIFIED (3) CRF (chronic renal failure) Status: Chronic Qualifiers: Qualifiers: stage 3 (moderate) Assessment & Plan: Dr Randhawa Filter Bed Placer in [place] follows (4) Hypotension Status: Acute Code(s): I95.9 - HYPOTENSION, UNSPECIFIED (5) Tachy-khalida syndrome Status: Chronic Assessment & Plan: follows with Cold Press Loader Dr Stovall in [place]. Code(s): I49.5 - SICK SINUS SYNDROME (6) Hypotension Status: Acute Qualifiers: Qualifiers: hypotension due to hypovolemia Qualifiers: [id number] Qualifiers: [id number] Code(s): I95.9 - HYPOTENSION, UNSPECIFIED Hospital Summary - Hospital Course Hospital Course: See HPI and ER doctor notes - Vitals & Intake/Output Vital Signs: Vital Signs Temperature 98.8 F 01/05/21 14:37 Pulse Rate 80 01/05/21 18:30 Respiratory Rate 16 01/05/21 18:30 Blood Pressure 128/74 01/05/21 18:30 O2 Sat by Pulse Oximetry 94 L 01/05/21 19:34 - Lab Result Diagrams: 01/01/21 04:28 01/01/21 04:28 Micro Results-Entire Visit: Microbiology 01/05/21 14:48 Urine Culture - Final Clean Catch Midstream Escherichia Coli - Discharge Disposition: DC TO OTHER HOSP Condition: Stable Prescriptions: Continue Losartan Potassium 50 mg [Cozaar 50 MG] mg PO BID Clopidogrel Bisulfate [Clopidogrel] 75 mg PO DAILY Atorvastatin Calcium [Lipitor] 80 mg PO HS Torsemide 20 mg [Demadex 20 mg] 60 mg PO DAILY Carvedilol 6.25 mg [Coreg 6.25 MG] 25 mg PO BID Amiodarone HCl 100 mg PO DAILY Apixaban [Eliquis] 5 mg PO BID Levothyroxine Sodium [Levothyroxine] 125 mcg PO DAILY Liothyronine Sodium 1 ea DAILY Hydrocodone Bit/Acetaminophen [Hydrocodon-Acetaminophn 10-325] 1 ea QID No Action Spironolactone 25 mg [Aldactone 25 MG] 25 mg PO DAILY Potassium Chloride 10 Meq Tab* [Klor Con 10 MEQ] 10 meq PO DAILY Instructions: Shortness of Breath (Dyspnea) (DC) Follow up with: CHANDRAKANT MCFARLANE DO [Primary Care Provider] - Forms: Ambulance Transport Record, Transfer Record Inter-Agency
== END 2021-01-01 13:15 ==
LOC: ED 17:01 → MED SURG 01-01 02:41
PROVIDERS: ADMIT Family Medicine; ATTEND Family Medicine
DX: I50.9 Heart failure, unspecified (principal); Z95.0 Presence of cardiac pacemaker; I12.9 Hypertensive chronic kidney disease with stage 1 through stage 4 chronic kidney disease, or unspecified chronic kidney disease; N18.30 Chronic kidney disease, stage 3 unspecified; Z95.1 Presence of aortocoronary bypass graft; Z79.899 Other long term (current) drug therapy; Z79.01 Long term (current) use of anticoagulants; Z86.79 Personal history of other diseases of the circulatory system; E03.9 Hypothyroidism, unspecified; I48.91 Unspecified atrial fibrillation; R09.02 Hypoxemia; Z20.828 Contact with and (suspected) exposure to other viral communicable diseases; R42 Dizziness and giddiness; I95.9 Hypotension, unspecified; I49.5 Sick sinus syndrome
CPT/HCPCS: 36000; 36415; 71045; 80053; 83880; 84484; 85025; 85027; 87040; 93005; 93041; 93268; 94150; 94640; 94660; 94760; 94762; 96374; 99214; 99285; G0378; U0003; J2930; A9270-GY

== ENCOUNTER 2021-01-05 14:10 | Emergency (ER) | payer MEDICARE ==
[2021-01-05 15:07] LABS: ALBUMIN 4.2 g/dL (3.5-5.0); ANION GAP 12.6 MEQ/L (5-15); BILIRUBIN,TOTAL 0.4 mg/dL (0.2-1.3); Calcium 8.9 mg/dL (8.4-10.2); Creatinine 1 2.15 mg/dL (0.52-1.04); EST GLOMERULAR FILTRATION RATE 24.1 ML/MIN; MAGNESIUM 2.2 mg/dL (1.6-2.3); Potassium 4.3 mmol/L (3.5-5.1); Total Protein 6.7 g/dL (6.3-8.2)
[2021-01-05 15:17] VITALS: O2SAT 94
[2021-01-05 15:20] LABS: BASOPHIL % 0.1 % (0.0-0.4); Basophil (Absolute #) 0.01 (0-0.4); Eosinophil % 1.9 % (0.00-5.0); Eosinophil (Absolute #) 0.14 (0-0.5); Hematocrit 42.9 % (35-47); Hemoglobin 13.4 gm/dl (12.0-16.0); Lymphocyte (Absolute #) 1.56 (1.0-4.6); Lymphocytes % 21.3 % (24.0-44.0); Mean Cell Volume 92.1 fl (78-100); Mean Corpuscular Hemoglobin 28.8 pg (26-32); Mean Corpuscular Hgb Concent. 31.2 g/dl (32-36); Mean Platelet Volume 11.4 fl (7.5-11.0); Monocyte (Absolute #) 0.71 (0.0-1.3); Monocytes % 9.7 % (0.0-12.0); Platelet Count 223 K/mm3 (150-450); Red Blood Count 4.66 M/mm3 (4.1-5.4); Red Cell Distribution Width 13.6 % (11.5-14.0); White Blood Count 7.3 K/mm3 (4.0-10.5)
[2021-01-05 15:26] LABS: Appearance CLOUDY (CLEAR); Bacteria MODERATE /HPF (NEGATIVE); Bilirubin NEGATIVE (NEGATIVE); Blood SMALL Ery/ul (0-5); Epithelial Cells MODERATE /HPF (FEW); Glucose NEGATIVE (NEGATIVE); Ketones NEGATIVE (NEGATIVE); Leukocyte Esterase LARGE (NEGATIVE); Mucus SLIGHT /HPF (NEGATIVE); Nitrite NEGATIVE (NEGATIVE); Non-Squamous Epithelial Cells RARE /HPF (FEW); Protein,Urine Dip NEGATIVE (Negative); Specific Gravity 1.012 (1.005-1.025); Urobilinogen NEGATIVE mg/dL (0-1); WBC 51-100 /HPF (0-5)
--- NOTE | 2021-01-05 15:35 | ERPHSYRPT ---
- History of Present Illness Time Seen by Provider: 01/05/21 14:50 Source: patient Exam Limitations: no limitations Patient Subjective Stated Complaint: [facility]20 for shortness of breath/hypertension and transferred to [facility]. Discharged yesterday 01/04/21. This am pt woke up feeling ok, after taking morning meds pt began feeling dizzy. Describes head as feeling blurry as well as vision. Began checking blood pressure and has been running low. Systolic lowest at home was 60 per pt. Triage Nursing Assessment: Pt skin pink, warm, dry. Moves from wheelchair to bed without difficulty. 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 Pupils YONI. No arm drift. Lower extremitiy pulse, motor, sensory intact without deficits. Physician History: Patient is a 70-year-old female presents to our ED for evaluation of dizziness and blurred vision. Patient was in our ED 31 December 2020. At that time patient was seen for shortness of breath and hypertension. Patient was transferred over to [facility]. Patient was treated and discharged yesterday. Patient was doing well up until this morning. Patient awoke feeling well. Patient took her morning meds and later developed her symptoms. Patient checked her blood pressure at that time and her blood pressure was 60 systolic. This may have been the cause of her symptomology. She is currently feeling well and asymptomatic. No associated chest pain. No nausea or vomiting. No shortness of breath. No trauma. No fever. No numbness tingling or weakness at this time. Patient voices no other complaints or concerns at this time. Timing/Duration: today Severity: moderate Modifying Factors: Improves With: medication (Dizziness and blurred vision) Allergies/Adverse Reactions: No Known Drug Allergies Allergy (Verified 01/05/21 14:20) Home Medications: Atorvastatin Calcium [Lipitor] 80 mg PO HS 12/31/19 [History] Clopidogrel Bisulfate [Clopidogrel] 75 mg PO DAILY 12/31/19 [History] Losartan Potassium 50 mg [Cozaar 50 MG] mg PO BID 12/31/19 [History] Amiodarone HCl 100 mg PO DAILY 07/11/20 [History] Carvedilol 6.25 mg [Coreg 6.25 MG] 25 mg PO BID 07/11/20 [History] Torsemide 20 mg [Demadex 20 mg] 60 mg PO DAILY 07/11/20 [History] Apixaban [Eliquis] 5 mg PO BID 07/28/20 [History] Levothyroxine Sodium [Levothyroxine] 125 mcg PO DAILY 10/02/20 [History] Liothyronine Sodium 1 ea DAILY 10/02/20 [History] Hydrocodone Bit/Acetaminophen [Hydrocodon-Acetaminophn 10-325] 1 ea QID 12/31/20 [History] Potassium Chloride 10 Meq Tab* [Klor Con 10 MEQ] 10 meq PO DAILY 01/05/21 [History] Spironolactone 25 mg [Aldactone 25 MG] 25 mg PO DAILY 01/05/21 [History] Hx Tetanus, Diphtheria Vaccination/Date Given: Yes Hx Influenza Vaccination/Date Given: Yes Hx Pneumococcal Vaccination/Date Given: Yes Travel Risk - International Travel Have you traveled outside of the country in past 3 weeks: No - Coronavirus Screening Are you exhibiting any of the following symptoms?: No Close contact with a COVID-19 positive Pt in past 14-21 Days: No - Vaccine Status Have you recieved a Covid-19 vaccination: Yes 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 - Vaccination Dates Date of 2cond Vaccination (if applicable): 10/15/2020 Comment: Unsure of exact dates - Review of Systems Constitutional: No Symptoms, No Fever, No Chills Eyes: No Symptoms Ears, Nose, & Throat: No Symptoms Respiratory: No Cough, No Dyspnea Cardiac: No Symptoms, No Chest Pain, No Edema, No Syncope Abdominal/Gastrointestinal: No Symptoms, No Abdominal Pain, No Nausea, No Vomiting, No Diarrhea Genitourinary Symptoms: No Symptoms, No Dysuria Musculoskeletal: No Symptoms, No Back Pain, No Neck Pain Skin: No Symptoms, No Rash Neurological: No Symptoms, No Dizziness, No Focal Weakness, No Sensory Changes Psychological: No Symptoms Endocrine: No Symptoms Hematologic/Lymphatic: No Symptoms Immunological/Allergic: No Symptoms All Other Systems: Reviewed and Negative - Past Medical History Pertinent Past Medical History: Yes Neurological History: No Pertinent History ENT History: No Pertinent History Cardiac History: Congenital Heart Disease, Coronary Artery Disease, Other Respiratory History: No Pertinent History Endocrine Medical History: Hypothyroidism Musculoskeletal History: Osteoarthritis GI Medical History: No Pertinent History History: Other Psycho-Social History: No Pertinent History Female Reproductive Disorders: No Pertinent History Other Medical History: atrial fibrillation, low kidney functions - Past Surgical History Past Surgical History: Yes Neuro Surgical History: No Pertinent History Cardiac: CABG, Cardiac Catheterization, Cardiac Stent, Pacemaker Respiratory: No Pertinent History Gastrointestinal: Cholecystectomy Genitourinary: No Pertinent History Musculoskeletal: Orthopedic Surgery Female Surgical History: Hysterectomy Other Surgical History: THYROIDECTOMY, BACK SURGERY 2010, bladder, hysterectomy, foot surgery, hand surgery - Social History Smoking Status: Former smoker How long have you smoked: 5 cig/day Exposure to second hand smoke: No Drug Use: none Patient Lives Alone: No - Female History Hx Last Menstrual Period: post - Nursing Vital Signs Nursing Vital Signs: Initial Vital Signs Temperature 98.8 F 01/05/21 14:37 Pulse Rate 64 01/05/21 14:37 Respiratory Rate 16 01/05/21 14:37 Blood Pressure 110/53 01/05/21 14:37 O2 Sat by Pulse Oximetry 96 01/05/21 14:37 Pain Scale Pain Intensity 7 - Physical Exam General Appearance: no apparent distress, alert Eye Exam: PERRL/EOMI, eyes nml inspection Ears, Nose, Throat Exam: normal ENT inspection, TMs normal, pharynx normal, dry mucous membranes Neck Exam: normal inspection, non-tender, supple, full range of motion Respiratory Exam: normal breath sounds, lungs clear, No respiratory distress Cardiovascular Exam: regular rate/rhythm, normal heart sounds, normal peripheral pulses Gastrointestinal/Abdomen Exam: soft, normal bowel sounds, No tenderness, No mass Back Exam: normal inspection, normal range of motion, No CVA tenderness, No vertebral tenderness Extremity Exam: normal inspection, normal range of motion, pelvis stable Neurologic Exam: alert, oriented x 3, cooperative, normal mood/affect, nml cerebellar function, nml station & gait, sensation nml, No motor deficits Skin Exam: normal color, warm, dry, No rash Lymphatic Exam: No adenopathy SpO2 Interpretation: normal SpO2: 94 O2 Delivery: Room Air - Course Nursing assessment & vital signs reviewed: Yes EKG Interpreted by Me: RATE (64 ventricular paced rhythm.) - Radiology Exams Chest X-ray Interpretation: Interpreted by me (. No infiltrate or consolidation. Sternotomy wires. Pacemaker intact bony thorax.) - CT Exams Head CT Interpretation: Tele-radiologist Report (Chronic left cerebellar hemisphere lacunar type infarct ventricular sinuses are unremarkable. Mastoid air cells are aerated. Soft tissue and bones joints are unremarkable. Negative for intracranial hemorrhage or mass-effect.) Ordered Tests: Active Orders 24 hr Category Date Time Status Hr Specialist STAT Care 01/05/21 14:46 Completed EKG-ER Only STAT Care 01/05/21 14:45 Completed IV Insertion STAT Care 01/05/21 14:45 Completed Pulse Oximetry (ED) STAT Care 01/05/21 14:45 Completed CHEST 1 VIEW (PORTABLE) Stat Exams 01/05/21 17:49 Taken HEAD WITHOUT CONTRAST [CT] Stat Exams 01/05/21 17:48 Taken CBC W DIFF Stat Lab 01/05/21 14:49 Completed CMP Stat Lab 01/05/21 14:49 Completed CULTURE,URINE Stat Lab 01/05/21 14:48 Received MAGNESIUM Stat Lab 01/05/21 14:49 Completed TROPONIN Q3H Lab 01/05/21 14:49 Completed TROPONIN Q3H Lab 01/05/21 18:30 Received UA W/RFX UR CULTURE Stat Lab 01/05/21 14:48 Completed Medication Summary Discontinued Medications Generic Name Dose Route Start Last Admin Trade Name Freq PRN Reason Stop Dose Admin Ceftriaxone Sodium/Dextrose 1 g in 50 mls @ 100 mls/hr 01/06/21 10:00 01/05/21 16:48 Rocephin 1 Gm-D5w 50 Ml Bag IV 01/09/21 09:59 Infused Q24H10 EFE Infusion Ceftriaxone Sodium/Dextrose Confirm 01/05/21 16:12 Rocephin 1 Gm-D5w 50 Ml Bag Administered 01/05/21 16:13 Dose 1 g in 50 mls @ IV .STK-MED ONE Lab/Rad Data: Laboratory Result Diagrams 01/05/21 14:49 01/05/21 14:49 Laboratory Results 01/05/21 01/05/21 01/05/21 Range/Units 14:49 14:49 14:49 WBC 7.3 (4.0-10.5) K/mm3 RBC 4.66 (4.1-5.4) M/mm3 Hgb 13.4 (12.0-16.0) gm/dl Hct 42.9 (35-47) % MCV 92.1 (78-100) fl MCH 28.8 (26-32) pg MCHC 31.2 L (32-36) g/dl RDW 13.6 (11.5-14.0) % Plt Count 223 (150-450) K/mm3 MPV 11.4 H (7.5-11.0) fl Gran % 67.0 H (36.0-66.0) % Eos # (Auto) 0.14 (0-0.5) Absolute Lymphs (auto) 1.56 (1.0-4.6) Absolute Monos (auto) 0.71 (0.0-1.3) Lymphocytes % 21.3 L (24.0-44.0) % Monocytes % 9.7 (0.0-12.0) % Eosinophils % 1.9 (0.00-5.0) % Basophils % 0.1 (0.0-0.4) % Absolute Granulocytes 4.90 (1.4-6.9) Basophils # 0.01 (0-0.4) Sodium 135 L (137-145) mmol/L Potassium 4.3 (3.5-5.1) mmol/L Chloride 94 L (98-107) mmol/L Carbon Dioxide 32 H (22-30) mmol/L Anion Gap 12.6 (5-15) MEQ/L BUN 50 H (7-17) mg/dL Creatinine 2.15 H (0.52-1.04) mg/dL Estimated GFR 24.1 ML/MIN Glucose 106 (74-106) mg/dL Calcium 8.9 (8.4-10.2) mg/dL Magnesium 2.2 (1.6-2.3) mg/dL Total Bilirubin 0.40 (0.2-1.3) mg/dL AST 23 (14-36) U/L ALT 19 (0-35) U/L Alkaline Phosphatase 97 (38-126) U/L Troponin I < 0.012 (0.000-0.034) ng/mL Serum Total Protein 6.7 (6.3-8.2) g/dL Albumin 4.2 (3.5-5.0) g/dL Urine Color (YELLOW) Urine Appearance (CLEAR) Urine pH (5-6) Ur Specific Newsoms (1.005-1.025) Urine Protein (Negative) Urine Ketones (NEGATIVE) Urine Blood (0-5) Javier/ul Urine Nitrite (NEGATIVE) Urine Bilirubin (NEGATIVE) Urine Urobilinogen (0-1) mg/dL Ur Leukocyte Esterase (NEGATIVE) Urine WBC (Auto) (0-5) /HPF Urine RBC (Auto) (0-2) /HPF U Hyaline Cast (Auto) (0-2) /LPF U Epithel Cells (Auto) (FEW) /HPF Urine Bacteria (Auto) (NEGATIVE) /HPF U Non-Squamous Epi Cells (FEW) /HPF Urine Mucus (Auto) (NEGATIVE) /HPF Urine Culture Reflexed (NO) Urine Glucose (NEGATIVE) mg/dL 01/05/21 Range/Units 14:48 WBC (4.0-10.5) K/mm3 RBC (4.1-5.4) M/mm3 Hgb (12.0-16.0) gm/dl Hct (35-47) % MCV (78-100) fl MCH (26-32) pg MCHC (32-36) g/dl RDW (11.5-14.0) % Plt Count (150-450) K/mm3 MPV (7.5-11.0) fl Gran % (36.0-66.0) % Eos # (Auto) (0-0.5) Absolute Lymphs (auto) (1.0-4.6) Absolute Monos (auto) (0.0-1.3) Lymphocytes % (24.0-44.0) % Monocytes % (0.0-12.0) % Eosinophils % (0.00-5.0) % Basophils % (0.0-0.4) % Absolute Granulocytes (1.4-6.9) Basophils # (0-0.4) Sodium (137-145) mmol/L Potassium (3.5-5.1) mmol/L Chloride (98-107) mmol/L Carbon Dioxide (22-30) mmol/L Anion Gap (5-15) MEQ/L BUN (7-17) mg/dL Creatinine (0.52-1.04) mg/dL Estimated GFR ML/MIN Glucose (74-106) mg/dL Calcium (8.4-10.2) mg/dL Magnesium (1.6-2.3) mg/dL Total Bilirubin (0.2-1.3) mg/dL AST (14-36) U/L ALT (0-35) U/L Alkaline Phosphatase (38-126) U/L Troponin I (0.000-0.034) ng/mL Serum Total Protein (6.3-8.2) g/dL Albumin (3.5-5.0) g/dL Urine Color YELLOW (YELLOW) Urine Appearance CLOUDY (CLEAR) Urine pH 5.0 (5-6) Ur Specific Newsoms 1.012 (1.005-1.025) Urine Protein NEGATIVE (Negative) Urine Ketones NEGATIVE (NEGATIVE) Urine Blood SMALL (0-5) Javier/ul Urine Nitrite NEGATIVE (NEGATIVE) Urine Bilirubin NEGATIVE (NEGATIVE) Urine Urobilinogen NEGATIVE (0-1) mg/dL Ur Leukocyte Esterase LARGE (NEGATIVE) Urine WBC (Auto) 51-100 (0-5) /HPF Urine RBC (Auto) 3-5 (0-2) /HPF U Hyaline Cast (Auto) 11-25 (0-2) /LPF U Epithel Cells (Auto) MODERATE (FEW) /HPF Urine Bacteria (Auto) MODERATE (NEGATIVE) /HPF U Non-Squamous Epi Cells RARE (FEW) /HPF Urine Mucus (Auto) SLIGHT (NEGATIVE) /HPF Urine Culture Reflexed YES (NO) Urine Glucose NEGATIVE (NEGATIVE) mg/dL - Progress Progress: improved Progress Note: Case discussed Dr. Santos who advised transfer due to complicated cardiac and renal history. We attempted to transfer patient back to [facility] in [place] however there were no beds available. We tried [facility] but there was no beds available. We also tried [facility] but there are no beds available. We contacted [facility] in [place]. Case discussed with Dr. Ibarra who accepts admission. Plan of care discussed with patient. She agrees to transfer to [facility] for further evaluation and treatment. 01/05/21 18:06 Discussed with : Holli Will see patient in: office (Case discussed with Dr. Santos who advised transfer as patient is complicated due to cardiac and renal history.) Counseled pt/family regarding: lab results, diagnosis, rad results - Departure Departure Disposition: Transfer Clinical Impression: Acute renal injury, UTI (urinary tract infection), Dehydration, Dizziness Condition: Stable Critical Care Time: No Referrals: CHANDRAKANT MCFARLANE DO [Primary Care Provider] - Additional Instructions: Discharge/Care Plan MAULIK SZYMANSKI was seen on 01/05/21 in the Emergency Room. The patient was counseled regarding Diagnosis,Lab results, Imaging studies, need for follow up and when to return to the Emergency Room. Prescriptions given: Discharge Note I have spoken with the patient and/or caregivers. I have explained the patient's condition, diagnosis and treatment plan based on the information available to me at this time. I have answered the patient's and/or caregiver's questions and addressed any concerns. The patient and/or caregivers have as good understanding of the patient's diagnosis, condition and treatment plan as can be expected at this point. The vital signs have been stable. The patient's condition is stable and appropriate for discharge from the emergency department. The patient will pursue further outpatient evaluation with the primary care physician or other designated or consulting physician as outlined in the discharge instructions. The patient and/or caregivers are agreeable to this plan of care and follow-up instructions have been explained in detail. The patient and/or caregivers have received these instruction. The patient/and or caregivers are aware that any significant change in condition or worsening of symptoms should prompt an immediate return to this or the closest emergency department or call 911.
[2021-01-05] MEDS ORDERED: ROCEPHIN 1 Gm-D5w 50 ml Bag** 1 G/50 ML IVPB IV ONE (16:12)
[2021-01-05 19:00] VITALS: BP 128/74; PULSE 80
--- NOTE | 2021-01-06 08:23 | XRAY ---
Exam: CT of the head without IV contrast from 01/05/2021. CTDI: 53.92 mGy Comparison: CT of the head without IV contrast from 01/09/2020. Indication: 70-year-old female with dizziness and blurred vision; very low blood pressure earlier today, 64/42. Technique: Non-IV contrast axial images were obtained through the brain. Reconstructed coronal and sagittal images were created and reviewed. Findings: No ventriculomegaly is seen. There is no focal mass effect or midline shift. The right lateral ventricle is slightly larger than the left lateral ventricle representing no change (i.e. chronic). This does not appear to be significant. No acute intracranial bleed or abnormal extra-axial fluid collection is seen. I again see a 5 mm hypodensity within the left cerebellum on axial images #21 and #22 which could possibly represent a chronic lacunar type infarct. This is unchanged. A new low attenuation infarct within a major cerebral or cerebellar artery distribution is not seen. There is some mild prominence of the cortical sulci, not inappropriate for the patient's age. The calvarium of the skull appears intact. Some probable prominent arachnoid granulations are seen within the occipital bone representing no change. The visualized paranasal sinuses appear unremarkable without air-fluid levels. There is a suggestion of some minimal mucosal thickening within the mastoid air cells, no change. The middle ear cavities appear grossly unremarkable. Impression: 1. No acute intracranial bleed or other acute intracranial abnormality is seen, no change from 01/09/2020. 2. Query chronic lacunar infarct within left cerebellar hemisphere representing no change from 01/09/2020.
--- NOTE | 2021-01-06 08:28 | XRAY ---
Exam: AP portable chest film from 01/05/2021. Comparison: AP upright portable chest film from 12/31/2020. Indication: 70-year-old female with congestion. Findings: The patient is status post CABG with midline sternotomy. There is either coronary artery calcification versus coronary stents overlying the left aspect of the heart. I also note a single lead left-sided infraclavicular cardiac pacemaker. The lead appears intact. The film has been obtained in a lordotic projection. The heart size appears towards the upper limits of normal. Mild nonspecific prominence of the upper left lateral cardiac contour is seen, perhaps related to the lordotic projection of the image. I see no vascular congestion or pleural effusion. Inflation of the lung rodgers is adequate. There is some focal scarring or chronic linear atelectasis at the lateral left lung base representing no change. No air space infiltrates or pneumothorax is seen. The bones appear demineralized with mild degenerative changes within the visualized shoulder girdles and thoracic spine. Surgical clips consistent with prior cholecystectomy are partially seen within the right upper quadrant. Impression: 1. AP lordotic portable chest radiograph revealing no acute cardiopulmonary disease. The findings appear similar to 12/31/2020. See above.
[2021-01-06] MEDS ORDERED: ROCEPHIN 1 Gm-D5w 50 ml Bag** 1 G/50 ML IVPB IV SCH (10:00)
== END 2021-01-05 18:30 | disposition short-term general hospital (02) ==
LOC: ED 14:10
DX: N17.9 Acute kidney failure, unspecified (principal); N39.0 Urinary tract infection, site not specified; E86.0 Dehydration; R42 Dizziness and giddiness
CPT/HCPCS: 36000; 36415; 70450; 71045; 80053; 81001; 83735; 84484; 85025; 87077; 87086; 87186; 93005; 93041; 94760; 96365; 99285; J0696

== ENCOUNTER 2022-01-08 20:59 | Emergency (ER) | payer MEDICARE ==
[2022-01-08] MEDS ORDERED: XYLOCAINE 1% HCL 20 ML MDV IJ ONE (21:00)
[2022-01-08] MEDS ORDERED: TORAdol 30 mg Injection IM ONE (21:13)
[2022-01-08] MEDS ORDERED: Rocephin 1000 MG INJ IM ONE (21:13)
[2022-01-08] MEDS ORDERED: Rocephin 1000 MG INJ ONE (21:17)
[2022-01-08] MEDS ORDERED: TORAdol 30 mg Injection ONE (21:17)
--- NOTE | 2022-01-08 21:26 | ERPHSYRPT ---
- History of Present Illness Time Seen by Provider: 01/08/22 21:21 Source: patient Exam Limitations: no limitations Patient Subjective Stated Complaint: pt states "I was on the boat and my foot began to hurt." Triage Nursing Assessment: pt ambulated into the er; pt is axo x4; c/o left foot pain; pt states 10/10 pain to left foot; minimal swelling present to the top of the left foot; strong left pedal pulse; good cap refill to LLE; small scab pr esent to 2nd toe; hypertension Physician History: pt states "I was on the boat and my foot began to hurt." c/o left foot pain; pt states 10/10 pain to left foot; minimal swelling present to the top of the left foot; small scab present to 2nd toe; Occurred: this afternoon Quality: constant, burning Severity of Pain-Max: mild Severity of Pain-Current: moderate Lower Extremities Pain: foot: left Modifying Factors: Improves With: cold therapy Associated Symptoms: none Body Map: 1 - pain and tenderness Allergies/Adverse Reactions: No Known Drug Allergies Allergy (Verified 01/05/21 14:20) Home Medications: Atorvastatin Calcium [Lipitor] 80 mg PO HS 12/31/19 [History] Clopidogrel Bisulfate [Clopidogrel] 75 mg PO DAILY 12/31/19 [History] Losartan Potassium 50 mg [Cozaar 50 MG] mg PO BID 12/31/19 [History] Amiodarone HCl 100 mg PO DAILY 07/11/20 [History] Carvedilol [Coreg ] 25 mg PO BID 07/11/20 [History] Torsemide 20 mg [Demadex 20 mg] 60 mg PO DAILY 07/11/20 [History] Apixaban [Eliquis] 5 mg PO BID 07/28/20 [History] Levothyroxine Sodium [Levothyroxine] 125 mcg PO DAILY 10/02/20 [History] Liothyronine Sodium 1 ea DAILY 10/02/20 [History] Hydrocodone/Acetaminophen [Hydrocodon-Acetaminophn 10-325] 1 ea QID 12/31/20 [History] Potassium Chloride Tab* [Klor Con 10 MEQ] 10 meq PO DAILY 01/05/21 [History] Spironolactone 25 mg [Aldactone 25 MG] 25 mg PO DAILY 01/05/21 [History] Hx Tetanus, Diphtheria Vaccination/Date Given: Yes Hx Influenza Vaccination/Date Given: Yes Hx Pneumococcal Vaccination/Date Given: Yes Travel Risk - International Travel Have you traveled outside of the country in past 3 weeks: No - Coronavirus Screening Are you exhibiting any of the following symptoms?: No Close contact with a COVID-19 positive Pt in past 14-21 Days: No - Vaccine Status Have you recieved a Covid-19 vaccination: Yes Feed Weigher: Moderna - Vaccination Dates Date of 2cond Vaccination (if applicable): 10/15/2020 Comment: Unsure of exact dates - Review of Systems Constitutional: No Fever, No Chills Eyes: No Symptoms Ears, Nose, & Throat: No Symptoms Respiratory: No Cough, No Dyspnea Cardiac: No Chest Pain, No Edema, No Syncope Abdominal/Gastrointestinal: No Abdominal Pain, No Nausea, No Vomiting, No Diarrhea Genitourinary Symptoms: No Dysuria Musculoskeletal: Joint Redness (left foot), No Back Pain, No Neck Pain Skin: No Rash Neurological: No Dizziness, No Focal Weakness, No Sensory Changes Psychological: No Symptoms Endocrine: No Symptoms All Other Systems: Reviewed and Negative - Past Medical History Pertinent Past Medical History: Yes Neurological History: No Pertinent History ENT History: No Pertinent History Cardiac History: Congenital Heart Disease, Coronary Artery Disease, Other Respiratory History: No Pertinent History Endocrine Medical History: Hypothyroidism Musculoskeletal History: Osteoarthritis GI Medical History: No Pertinent History History: Other Psycho-Social History: No Pertinent History Female Reproductive Disorders: No Pertinent History Other Medical History: atrial fibrillation, low kidney functions - Past Surgical History Past Surgical History: Yes Neuro Surgical History: No Pertinent History Cardiac: CABG, Cardiac Catheterization, Cardiac Stent, Pacemaker Respiratory: No Pertinent History Gastrointestinal: Cholecystectomy Genitourinary: No Pertinent History Musculoskeletal: Orthopedic Surgery Female Surgical History: Hysterectomy Other Surgical History: THYROIDECTOMY, BACK SURGERY 2010, bladder, hysterectomy, foot surgery, hand surgery - Social History Smoking Status: Former smoker How long have you smoked: 5 cig/day Exposure to second hand smoke: No Drug Use: none Patient Lives Alone: No - Nursing Vital Signs Nursing Vital Signs: Pain Scale Pain Intensity 10 - Physical Exam General Appearance: alert Eyes, Ears, Nose, Throat Exam: moist mucous membranes Neck Exam: non-tender, supple Cardiovascular/Respiratory Exam: chest non-tender, normal breath sounds, regular rate/rhythm, no respiratory distress Gastrointestinal/Abdominal Exam: non-tender, guarding Back Exam: normal inspection, No vertebral tenderness Hips Exam: bilateral: non-tender Legs Exam: bilateral leg: non-tender Knees Exam: bilateral knee: non-tender Ankle Exam: bilateral ankle: non-tender Foot Exam: left foot: abrasions/lacerations (2nd toe), soft tissue tenderness Neuro/Tendon Exam: normal sensation, normal motor functions Mental Status Exam: alert, oriented x 3, cooperative Skin Exam: normal color, warm, dry - Course Nursing assessment & vital signs reviewed: Yes Ordered Tests: Medication Summary Discontinued Medications Generic Name Dose Route Start Last Admin Trade Name Freq PRN Reason Stop Dose Admin Ceftriaxone Sodium 1,000 mg 01/08/22 21:13 01/08/22 21:18 Ceftriaxone Sodium 1000 Mg Inj Vial IM 01/08/22 21:14 1,000 mg STAT ONE Administration Ceftriaxone Sodium Confirm 01/08/22 21:17 Ceftriaxone Sodium 1000 Mg Inj Vial Administered 01/08/22 21:18 Dose 1,000 mg .ROUTE .STK-MED ONE Ketorolac Tromethamine 60 mg 01/08/22 21:13 01/08/22 21:18 Ketorolac Tromethamine 30 Mg/Ml Inj IM 01/08/22 21:14 60 mg STAT ONE Administration Ketorolac Tromethamine Confirm 01/08/22 21:17 Ketorolac Tromethamine 30 Mg/Ml Inj Administered 01/08/22 21:18 Dose 60 mg .ROUTE .STK-MED ONE - Progress Progress: improved, pain not gone completely Counseled pt/family regarding: diagnosis, need for follow-up - Departure Departure Disposition: Home Clinical Impression: Cellulitis of left foot Condition: Stable Critical Care Time: No Referrals: CHANDRAKANT MCFARLANE DO [Primary Care Provider] - Follow Up with PCP/3 days Instructions: Cellulitis (Skin Infection), Adult ED Additional Instructions: Discharge/Care Plan MAULIK SZYMANSKI was seen on 01/08/22 in the Emergency Room. The patient was counseled regarding Diagnosis,Lab results, Imaging studies, need for follow up and when to return to the Emergency Room. Prescriptions given: Discharge Note I have spoken with the patient and/or caregivers. I have explained the patient's condition, diagnosis and treatment plan based on the information available to me at this time. I have answered the patient's and/or caregiver's questions and addressed any concerns. The patient and/or caregivers have as good understanding of the patient's diagnosis, condition and treatment plan as can be expected at this point. The vital signs have been stable. The patient's condition is stable and appropriate for discharge from the emergency department. The patient will pursue further outpatient evaluation with the primary care physician or other designated or consulting physician as outlined in the discharge instructions. The patient and/or caregivers are agreeable to this plan of care and follow-up instructions have been explained in detail. The patient and/or caregivers have received these instruction. The patient/and or caregivers are aware that any significant change in condition or worsening of symptoms should prompt an immediate return to this or the closest emergency department or call 911. MAULIK SZYMANSKI was seen on 01/08/22 n the Emergency Room. At that time you were treated for an emergent condition, during your visit Laboratory, Radiology and/or other procedures may have been ordered. It is very important that you follow-up with your Primary Care Physician CHANDRAKANT MCFARLANE DO within the next 24-48 hours to review your Emergency Room visit and the final results of testing that was ordered. Some test results such as Urine Cultures, Blood Cultures, and other cultures if ordered will not be finalized for 24-48 hours. If you do not have a Primary Care Provider please call the medical records department at [phone] ext [phone] to obtain a copy of your results or you may sign into our patient portal to obtain these results by visiting us @ [email or web address] and completing the following steps: 1. Click on the Patient Portal link 2. Click the Patient Self Enrollment Link to complete the enrollment form and entering your 3. Once the enrollment form is completed you will receive an email with a temporary ID and password at the email address you provided. 4. Next choose a user name and password. Your user name must be at least 4 characters long and your password must be at least 4 characters long. 5. Choose a security question from the list and provide your answer to the question. If you already have signed into the Health Portal you may access your Health Care Information 06/02 by the following steps: 1. Login to our website @ [email or web address] 2. Enter your original user name and password. FAQS The [facility] Health Portal is an online tool that contains your Lab Results, Radiology Reports, Visit History, Discharge Instructions and Health Summary Lab and Radiology Results will not be available for 72 hours on the portal. The Portal is a secure site, passwords are encryted and URLs are re-written so they cannot be copied and pasted. You and authorized family members are the only ones who can access your Portal. Also there is a timeout feature that protects your information if you leave the Portal page open. If you have technical difficulty please use the Contact Us link on the page this will allow you to submit any questions you have regarding the Portal or you may contact the Medical Record Department at [phone] ext [phone]. Prescriptions: Cephalexin Mh 500 mg [Keflex 500 mg] 500 mg PO Q6H #40 cap
[2022-01-08 21:35] VITALS: BP 168/61; PULSE 62; O2SAT 98
== END 2022-01-08 21:34 | disposition home or self-care (01) ==
LOC: ED 20:59
DX: L03.116 Cellulitis of left lower limb (principal); M79.672 Pain in left foot; I25.10 Atherosclerotic heart disease of native coronary artery without angina pectoris; Z79.01 Long term (current) use of anticoagulants; Z79.02 Long term (current) use of antithrombotics/antiplatelets; Z79.891 Long term (current) use of opiate analgesic; Z79.899 Other long term (current) drug therapy
CPT/HCPCS: 96372; 99284; J0696; J1885

== ENCOUNTER 2022-01-13 16:01 | Observation (INO) | payer MEDICARE ==
--- NOTE | 2022-01-13 16:45 | ERPHSYRPT ---
- History of Present Illness Source: patient Exam Limitations: no limitations Patient Subjective Stated Complaint: PT states I was here on monday and I was diagnosed with cellulitis and I have been taking the antibiotics and jarrett gave me a new one yesterday but the redness is spreading and the pain is just unbearable. " Triage Nursing Assessment: Pt prenetd alert and oriented X 3, skin pwd. pt ambulates iwth an upright steady gait, able to speak in clear full sentences pt left foot red and swollen lateral with tenderness noted to medial side. Physician History: 71 yo WF w L foot pain and erythema x 1wk. Pt seen in ER on 01/08/22 and given Keflex after IM Rocephin. She saw SLIP SEAT COVERER yesterday and started on Clindamycin. Pt complains today of increasing pain and erythema. She hit her L 2nd toe on a baby swing 1 week ago. Pt denies fever/N/V/myalgias/arthralgias. Method of Injury: direct blow (Accidently kicked baby swing) Occurred: other (1week) Quality: aching Severity of Pain-Max: severe Severity of Pain-Current: severe Lower Extremities Pain: foot: left Modifying Factors: Improves With: movement Associated Symptoms: unable to bear weight Allergies/Adverse Reactions: No Known Drug Allergies Allergy (Verified 01/13/22 20:08) Home Medications: Apixaban [Eliquis] 5 mg PO BID 07/28/20 [History] Liothyronine Sodium 5 mcg PO DAILY 10/02/20 [History] Hydrocodone/Acetaminophen [Hydrocodon-Acetaminophn 10-325] 1 tab PO QID PRN 12/31/20 [History] Potassium Chloride Tab* [Klor Con 10 MEQ] 30 meq PO UD 01/05/21 [History] Amiodarone HCl 100 mg PO DAILY 01/13/22 [History] Carvedilol [Coreg] 25 mg PO BID 01/13/22 [History] Levothyroxine Sodium 0.5 tab PO UD 01/13/22 [History] Levothyroxine Sodium 125 mcg PO UD 01/13/22 [History] Potassium Chloride 40 meq PO UD 01/13/22 [History] Torsemide 100 mg PO BID 01/13/22 [History] metOLazone [Metolazone] 2.5 mg PO UD 01/13/22 [History] Hx Tetanus, Diphtheria Vaccination/Date Given: Yes Hx Influenza Vaccination/Date Given: Yes Hx Pneumococcal Vaccination/Date Given: Yes Immunizations Up to Date: Yes Travel Risk - International Travel Have you traveled outside of the country in past 3 weeks: No - Coronavirus Screening Are you exhibiting any of the following symptoms?: No Close contact with a COVID-19 positive Pt in past 14-21 Days: No - Vaccine Status Have you recieved a Covid-19 vaccination: Yes Distribution Coordinator: Moderna - Vaccination Dates Date of 2cond Vaccination (if applicable): 10/15/2020 Comment: Unsure of exact dates - Review of Systems Constitutional: No Symptoms Eyes: No Symptoms Ears, Nose, & Throat: No Symptoms Respiratory: No Symptoms Cardiac: Orthopnea Abdominal/Gastrointestinal: No Symptoms Genitourinary Symptoms: No Symptoms Musculoskeletal: Arthralgias (L foot) Skin: Cellulitis (L dorsal foot) Neurological: No Symptoms Psychological: No Symptoms Endocrine: No Symptoms Hematologic/Lymphatic: No Symptoms Immunological/Allergic: No Symptoms - Past Medical History Pertinent Past Medical History: Yes Neurological History: No Pertinent History ENT History: No Pertinent History Cardiac History: Congenital Heart Disease, Coronary Artery Disease, Other Respiratory History: No Pertinent History Endocrine Medical History: Hypothyroidism Musculoskeletal History: Osteoarthritis GI Medical History: No Pertinent History History: Other Psycho-Social History: No Pertinent History Female Reproductive Disorders: No Pertinent History Other Medical History: atrial fibrillation, low kidney functions - Past Surgical History Past Surgical History: Yes Neuro Surgical History: No Pertinent History Cardiac: CABG, Cardiac Catheterization, Cardiac Stent, Pacemaker Respiratory: No Pertinent History Gastrointestinal: Cholecystectomy Genitourinary: No Pertinent History Musculoskeletal: Orthopedic Surgery Female Surgical History: Hysterectomy Other Surgical History: THYROIDECTOMY, BACK SURGERY 2010, bladder, hysterectomy, foot surgery, hand surgery - Social History Smoking Status: Former smoker How long have you smoked: 5 cig/day Exposure to second hand smoke: No Drug Use: none Patient Lives Alone: No Significant Family History: no pertinent family hx - Nursing Vital Signs Nursing Vital Signs: Initial Vital Signs Temperature 97.4 F 01/13/22 16:08 Pulse Rate 55 L 01/13/22 16:08 Respiratory Rate 01/13/22 16:08 Blood Pressure 164/72 01/13/22 16:08 O2 Sat by Pulse Oximetry 94 L 01/13/22 16:08 Pain Scale Pain Intensity 6 Hypertensive/Bradycardic - Physical Exam General Appearance: no apparent distress Eyes, Ears, Nose, Throat Exam: normal ENT inspection, TMs normal, pharynx normal, moist mucous membranes Neck Exam: normal inspection, non-tender, supple, full range of motion, No Brudzinski, No Kernig's, No meningismus Cardiovascular/Respiratory Exam: normal breath sounds, heart sounds normal, bradycardia (Mild) Gastrointestinal/Abdominal Exam: non-tender, soft Back Exam: normal inspection, normal range of motion, No CVA tenderness, No vertebral tenderness Hips Exam: bilateral: non-tender, normal inspection, normal range of motion, no evidence of injury Legs Exam: bilateral leg: non-tender, normal inspection, normal range of motion, no evidence of injury Knees Exam: bilateral knee: non-tender, normal inspection, normal range of motion, no evidence of injury Ankle Exam: bilateral ankle: non-tender, normal inspection, normal range of motion, no evidence of injury Foot Exam: left foot: other (Mild erythema L dorsal foot/Mod TTP/Minimal edema/Good pedal pulse, distal sensation, and capillary return) Neuro/Tendon Exam: normal sensation, normal motor functions, responds to pain, no evidence tendon injury, No motor deficit, No sensory deficit Mental Status Exam: alert, oriented x 3, cooperative Skin Exam: other (Mild erythema L dorsal foot) SpO2 Interpretation: normal SpO2: 94 O2 Delivery: Room Air - Course Nursing assessment & vital signs reviewed: Yes - Radiology Exams Foot X-ray Interpretation: Interpreted by me (L foot neg per ER read) Ordered Tests: Active Orders 24 hr Category Date Time Status Heart-Healthy Diet Diet 01/13/22 Breakfast Active FOOT (MINIMUM 3 VIEWS) Stat Exams 01/13/22 16:32 Completed BLOOD CULTURE Stat Lab 01/13/22 Ordered CBC W DIFF AM.LAB Lab 01/14/22 04:00 Ordered CBC W DIFF Stat Lab 01/13/22 16:23 Completed CMP AM.LAB Lab 01/14/22 04:00 Ordered CMP Stat Lab 01/13/22 16:50 Completed Lactic Acid Stat Lab 01/13/22 16:23 Completed Transfer Order Routine Transfer 01/13/22 Completed Medication Summary Generic Name Dose Route Start Last Admin Trade Name Freq PRN Reason Stop Dose Admin Device 1 01/16/22 17:30 Therapuetic Drug Level Monitor Each IJ 01/16/22 17:31 1XONLY ONE Hydromorphone HCl 0.5 mg 01/13/22 17:36 01/13/22 18:56 Hydromorphone 1 Mg/1ml Inj 1 Mg/Ml Syringe IV 01/18/22 17:35 0.5 mg Q4H PRN PRN Administration PAIN Sodium Chloride 1,000 mls @ 0 mls/hr 01/13/22 17:45 01/13/22 18:57 Sodium Chloride 0.9% 1000 Ml IV 02/12/22 17:44 50 mls/hr .Q0M EFE Administration KVO Vancomycin HCl 1 gm in 200 mls @ 125 mls/hr 01/13/22 18:00 01/13/22 18:58 Vancomycin 1 Gram/200 Ml Bag IV 02/12/22 17:59 125 mls/hr Q36H EFE 125 mls/hr Administration Ondansetron HCl 4 mg 01/13/22 17:36 01/13/22 18:57 Ondansetron Hcl 4 Mg/2 Ml Vial IV 02/12/22 17:35 4 mg Q6H PRN PRN Administration NAUSEA/VOMITING Discontinued Medications Generic Name Dose Route Start Last Admin Trade Name Freq PRN Reason Stop Dose Admin Vancomycin HCl 1 gm in 200 mls @ 125 mls/hr 01/13/22 18:00 Vancomycin 1 Gram/200 Ml Bag IV 02/12/22 17:59 Q24H EFE Vancomycin HCl Confirm 01/13/22 18:50 Vancomycin 1 Gram/200 Ml Bag Administered 01/13/22 18:51 Dose 1 gm in 200 mls @ ud IV .STK-MED ONE Lab/Rad Data: Laboratory Result Diagrams 01/13/22 16:23 01/13/22 16:50 Laboratory Results 01/13/22 01/13/22 01/13/22 Range/Units 18:29 16:50 16:23 WBC (4.0-10.5) x10^3/uL RBC (4.1-5.4) x10^6/uL Hgb (12.0-16.0) g/dL Hct (35-47) % MCV (78-100) fL MCH (26-32) pg MCHC (32-36) g/dL RDW (11.5-14.0) % Plt Count (150-450) x10^3/uL MPV (7.5-11.0) fL Gran % (36.0-66.0) % Immature Gran % (Auto) (0.00-0.4) % Nucleat RBC Rel Count (0.00-0.1) % Eos # (Auto) (0-0.5) x10^3/uL Immature Gran # (Auto) (0.00-0.03) x10^3u/L Absolute Lymphs (auto) (1.0-4.6) x10^3/uL Absolute Monos (auto) (0.0-1.3) x10^3/uL Absolute Nucleated RBC (0.00-0.01) x10^3u/L Lymphocytes % (24.0-44.0) % Monocytes % (0.0-12.0) % Eosinophils % (0.00-5.0) % Basophils % (0.0-0.4) % Absolute Granulocytes (1.4-6.9) x10^3/uL Basophils # (0-0.4) x10^3/uL Sodium 136 L (137-145) mmol/L Potassium 4.7 (3.5-5.1) mmol/L Chloride 93 L (98-107) mmol/L Carbon Dioxide 35 H (22-30) mmol/L Anion Gap 12.6 (5-15) MEQ/L BUN 59 H (7-17) mg/dL Creatinine 2.35 H (0.52-1.04) mg/dL Estimated GFR 21.7 ML/MIN Glucose 105 (74-106) mg/dL Lactic Acid 1.3 (0.4-2.0) Calcium 8.7 (8.4-10.2) mg/dL Total Bilirubin 0.50 (0.2-1.3) mg/dL AST 36 (14-36) U/L ALT 25 (0-35) U/L Alkaline Phosphatase 124 (38-126) U/L Serum Total Protein 6.7 (6.3-8.2) g/dL Albumin 3.8 (3.5-5.0) g/dL Influenza Type A Ag NEGATIVE (NEGATIVE) Influenza Type B Ag NEGATIVE (NEGATIVE) RSV (PCR) NEGATIVE (Negative) SARS-CoV-2 (PCR) NEGATIVE (NEGATIVE) 01/13/22 Range/Units 16:23 WBC 6.6 (4.0-10.5) x10^3/uL RBC 4.27 (4.1-5.4) x10^6/uL Hgb 12.8 (12.0-16.0) g/dL Hct 39.5 (35-47) % MCV 92.5 (78-100) fL MCH 30.0 (26-32) pg MCHC 32.4 (32-36) g/dL RDW 13.0 (11.5-14.0) % Plt Count 220 (150-450) x10^3/uL MPV 10.5 (7.5-11.0) fL Gran % 59.5 (36.0-66.0) % Immature Gran % (Auto) 0.6 H (0.00-0.4) % Nucleat RBC Rel Count 0.0 (0.00-0.1) % Eos # (Auto) 0.25 (0-0.5) x10^3/uL Immature Gran # (Auto) 0.04 H (0.00-0.03) x10^3u/L Absolute Lymphs (auto) 1.59 (1.0-4.6) x10^3/uL Absolute Monos (auto) 0.73 (0.0-1.3) x10^3/uL Absolute Nucleated RBC 0.00 (0.00-0.01) x10^3u/L Lymphocytes % 24.2 (24.0-44.0) % Monocytes % 11.1 (0.0-12.0) % Eosinophils % 3.8 (0.00-5.0) % Basophils % 0.8 (0.0-0.4) % Absolute Granulocytes 3.90 (1.4-6.9) x10^3/uL Basophils # 0.05 (0-0.4) x10^3/uL Sodium (137-145) mmol/L Potassium (3.5-5.1) mmol/L Chloride (98-107) mmol/L Carbon Dioxide (22-30) mmol/L Anion Gap (5-15) MEQ/L BUN (7-17) mg/dL Creatinine (0.52-1.04) mg/dL Estimated GFR ML/MIN Glucose (74-106) mg/dL Lactic Acid (0.4-2.0) Calcium (8.4-10.2) mg/dL Total Bilirubin (0.2-1.3) mg/dL AST (14-36) U/L ALT (0-35) U/L Alkaline Phosphatase (38-126) U/L Serum Total Protein (6.3-8.2) g/dL Albumin (3.5-5.0) g/dL Influenza Type A Ag (NEGATIVE) Influenza Type B Ag (NEGATIVE) RSV (PCR) (Negative) SARS-CoV-2 (PCR) (NEGATIVE) - Progress Progress Note: 01/13/22 17:[address] Black 01/13/22 20:49 Vancomycin 1gm Q36 hours per pharmacy Bridging orders written Counseled pt/family regarding: lab results, diagnosis, need for follow-up, rad results - Departure Departure Disposition: Observation Clinical Impression: Cellulitis of foot, left Condition: Stable Critical Care Time: No
[2022-01-13 16:49] LABS: Basophil (Absolute #) 0.05 x10^3/uL (0-0.4); Eosinophil % 3.8 % (0.00-5.0); Eosinophil (Absolute #) 0.25 x10^3/uL (0-0.5); Hematocrit 39.5 % (35-47); Hemoglobin 12.8 g/dL (12.0-16.0); Lymphocyte (Absolute #) 1.59 x10^3/uL (1.0-4.6); Lymphocytes % 24.2 % (24.0-44.0); Mean Cell Volume 92.5 fL (78-100); Mean Corpuscular Hgb Concent. 32.4 g/dL (32-36); Mean Platelet Volume 10.5 fL (7.5-11.0); Monocyte (Absolute #) 0.73 x10^3/uL (0.0-1.3); Monocytes % 11.1 % (0.0-12.0); Neutrophil % 59.5 % (36.0-66.0); Platelet Count 220 x10^3/uL (150-450); Red Blood Count 4.27 x10^6/uL (4.1-5.4); White Blood Count 6.6 x10^3/uL (4.0-10.5)
[2022-01-13 17:07] LABS: ALBUMIN 3.8 g/dL (3.5-5.0); ANION GAP 12.6 MEQ/L (5-15); BILIRUBIN,TOTAL 0.5 mg/dL (0.2-1.3); Calcium 8.7 mg/dL (8.4-10.2); Creatinine 1 2.35 mg/dL (0.52-1.04); EST GLOMERULAR FILTRATION RATE 21.7 ML/MIN; Potassium 4.7 mmol/L (3.5-5.1); Total Protein 6.7 g/dL (6.3-8.2)
--- NOTE | 2022-01-13 17:25 | XRAY ---
Exam: 3 view left foot series from 01/13/2022. Comparison: [None.] Indication: 71-year-old female with left foot pain, predominantly along the medial aspect. Findings: AP, oblique, and lateral radiographs of the left foot were obtained. The bones appear demineralized. I see no acute fracture or dislocation. The plantar arch is normal. Mild posterior calcaneal spurring is seen. There is some ossification along the dorsal aspect of the tarsal-metatarsal junction which I believe corresponds to an accessory ossicle. No radiopaque soft tissue foreign body is seen. The base of the left fifth metatarsal appears intact. Impression: 1. No acute fracture or dislocation of the left foot is seen. 2. Demineralization of the bones and mild posterior calcaneal enthesophyte.
[2022-01-13] MEDS ORDERED: Hydromorphone 1 mg/ml Injection IV PRN (17:36)
[2022-01-13] MEDS ORDERED: VANCOMYCIN 1 GRAM/200 ML BAG 1 GM/200 ML PIGGYBACK IV SCH (18:00)
[2022-01-13] MEDS ORDERED: Hydromorphone 1 mg/ml Injection ONE (18:49)
[2022-01-13] MEDS ORDERED: Zofran 4 MG/2 ML VIAL ONE (18:50)
[2022-01-13] MEDS ORDERED: VANCOMYCIN 1 GRAM/200 ML BAG 1 GM/200 ML PIGGYBACK IV ONE (18:50)
[2022-01-13] MEDS: Zofran 4 MG/2 ML VIAL IV PRN (18:57)
[2022-01-13] MEDS: Sodium Chloride 0.9% 1000 ML 1,000 ML IV SCH (18:57)
[2022-01-13] MEDS: VANCOMYCIN 1 GRAM/200 ML BAG 1 GM/200 ML PIGGYBACK IV SCH (18:58)
[2022-01-13 19:08] LABS: INFLUENZA A NEGATIVE (NEGATIVE); INFLUENZA B NEGATIVE (NEGATIVE); RESPIRATORY SYNCTIAL VIRUS NEGATIVE (Negative); SARS-CoV-2 Xpert Express NEGATIVE (NEGATIVE)
[2022-01-13] MEDS: ELIQUIS 2.5 MG TABLET PO SCH (21:44)
[2022-01-13] MEDS: COREG 12.5 MG PO SCH (21:45)
[2022-01-13] MEDS ORDERED: Hydromorphone 1 mg/ml Injection IV ONE (22:00)
[2022-01-13] MEDS ORDERED: DEMADEX 20 MG PO SCH (22:00)
[2022-01-14] MEDS: Hydromorphone 1 mg/ml Injection IV PRN ×7 (01:06→21:02)
[2022-01-14] MEDS: Zofran 4 MG/2 ML VIAL IV PRN ×2 (01:17→09:54)
[2022-01-14 05:07] LABS: Absolute Neutrophil Ct (ANC) 4.61 x10^3/uL (1.4-6.9); Basophil (Absolute #) 0.04 x10^3/uL (0-0.4); Eosinophil (Absolute #) 0.21 x10^3/uL (0-0.5); Hematocrit 36.5 % (35-47); Hemoglobin 11.6 g/dL (12.0-16.0); Lymphocyte (Absolute #) 1.33 x10^3/uL (1.0-4.6); Lymphocytes % 18.7 % (24.0-44.0); Mean Cell Volume 93.4 fL (78-100); Mean Corpuscular Hemoglobin 29.7 pg (26-32); Mean Corpuscular Hgb Concent. 31.8 g/dL (32-36); Mean Platelet Volume 10.7 fL (7.5-11.0); Monocyte (Absolute #) 0.89 x10^3/uL (0.0-1.3); Monocytes % 12.5 % (0.0-12.0); Neutrophil % 64.8 % (36.0-66.0); Platelet Count 196 x10^3/uL (150-450); Red Blood Count 3.91 x10^6/uL (4.1-5.4); Red Cell Distribution Width 12.9 % (11.5-14.0); White Blood Count 7.1 x10^3/uL (4.0-10.5)
[2022-01-14 05:46] LABS: ALBUMIN 3.6 g/dL (3.5-5.0); ANION GAP 9.8 MEQ/L (5-15); BILIRUBIN,TOTAL 0.5 mg/dL (0.2-1.3); Calcium 8.6 mg/dL (8.4-10.2); Creatinine 1 2.14 mg/dL (0.52-1.04); EST GLOMERULAR FILTRATION RATE 24.1 ML/MIN; PREALBUMIN 25.91 mg/dL (17.6-36.0); Potassium 3.2 mmol/L (3.5-5.1); Total Protein 6.6 g/dL (6.3-8.2)
[2022-01-14] MEDS ORDERED: MEDICATION INTERVENTION MC SCH (07:30)
[2022-01-14] MEDS: SYNTHROID 125 MCG PO SCH (08:30)
[2022-01-14] MEDS: COREG 12.5 MG PO SCH ×2 (09:12→20:57)
[2022-01-14] MEDS: Klor Con PO SCH (09:13)
[2022-01-14] MEDS: ELIQUIS 2.5 MG TABLET PO SCH ×2 (09:13→20:56)
[2022-01-14] MEDS: Cordarone 200 MG PO SCH (09:13)
[2022-01-14] MEDS ORDERED: PERCOCET TABLET 5/325MG PO PRN (09:42)
[2022-01-14] MEDS ORDERED: NON-FORMULARY ITEM (Amiodarone Hcl [Amiodarone Hcl] 100 MG Tablet) PO SCH (10:00)
[2022-01-14] MEDS ORDERED: Zaroxolyn 2.5 MG PO SCH (10:00)
[2022-01-14] MEDS ORDERED: NON-FORMULARY ITEM (Liothyronine Sodium [Liothyronine Sodium] 5 MCG Tablet) PO SCH (10:00)
[2022-01-14] MEDS: DEMADEX 20 MG PO SCH ×2 (10:37→16:27)
[2022-01-14] MEDS: NEURONTIN PO PRN ×2 (10:37→20:57)
[2022-01-14] MEDS: solu-MEDROL 80 MG, Sterile H2O 10 ml 2 ML IV SCH ×6 (10:38→20:57)
--- NOTE | 2022-01-14 13:23 | PCM.HP ---
History of Present Illness - Chief Complaint Chief Complaint: L foot cellulitis History of Present Illness: is a 71 year old female with CRF and extensive heart Hx who presented to ER with severe left foot pain.She hit her 2nd toe on an indoor infant swing a few days ago then the foot turned red and painful. Dr Bang at [facility] is her Curb Supervisor ([phone]) Medications & Allergies Home Medications: Home Medication List Apixaban [Eliquis] 5 mg PO BID 07/28/20 [History Confirmed 01/13/22] Liothyronine Sodium 5 mcg PO DAILY 10/02/20 [History Confirmed 01/13/22] Potassium Chloride Tab* [Klor Con 10 MEQ] 30 meq PO UD 01/05/21 [History Confirmed 01/13/22] Amiodarone HCl 100 mg PO DAILY 01/13/22 [History Confirmed 01/13/22] Carvedilol [Coreg] 25 mg PO BID 01/13/22 [History Confirmed 01/13/22] Levothyroxine Sodium 0.5 tab PO UD 01/13/22 [History Confirmed 01/13/22] Levothyroxine Sodium 125 mcg PO UD 01/13/22 [History Confirmed 01/13/22] Potassium Chloride 40 meq PO UD 01/13/22 [History Confirmed 01/13/22] Torsemide 100 mg PO BID 01/13/22 [History Confirmed 01/13/22] metOLazone [Metolazone] 2.5 mg PO UD 01/13/22 [History Confirmed 01/13/22] Ezetimibe 10 mg [Zetia 10 MG] 10 mg PO DAILY 01/14/22 [History Confirmed 01/14/22] Oxycodone HCl/Acetaminophen [Oxycodone-Acetaminophn 7.5-325] 1 tab PO QID PRN PRN 01/14/22 [History Confirmed 01/14/22] Allergies/Adverse Reactions: Allergies Allergy/AdvReac Type Severity Reaction Status Date / Time No Known Drug Allergies Allergy Verified 01/13/22 20:08 - Past Medical History Past Medical History: Yes Neurological History: No Pertinent History ENT History: No Pertinent History Cardiac History: Congenital Heart Disease, Coronary Artery Disease, Other Respiratory History: No Pertinent History Endocrine Medical History: Hypothyroidism Musculoskelatal History: Osteoarthritis GI Medical History: No Pertinent History History: Other Pyscho-Social History: No Pertinent History Reproductive Disorders: No Pertinent History Comment: atrial fibrillation, low kidney functions - Female History Are you now?: No - Past Surgical History Past Surgical History: Yes Neuro Surgical History: No Pertinent History Cardiac History: CABG, Cardiac Catheterization, Cardiac Stent, Pacemaker Respiratory Surgery: No Pertinent History GI Surgical History: Cholecystectomy Genitourinary Surgical Hx: No Pertinent History Musculskeletal Surgical Hx: Orthopedic Surgery Female Surgical History: Hysterectomy Other Surgical History: THYROIDECTOMY, BACK SURGERY 2010, bladder, hysterectomy, foot surgery, hand surgery - Social History Smoking Status: Former smoker How long have you smoked: 5 cig/day Exposure to second hand smoke: No Alcohol: None Drug Use: none Significant Family History: no pertinent family hx - Physical Exam Vital Signs: Vital Signs - 24 hr Temp Pulse Resp BP Pulse Ox 01/14/22 11:00 98.7 F 57 L 15 114/52 95 01/14/22 07:00 97.7 F 57 L 13 102/49 97 01/14/22 04:00 98.4 F 55 L 16 128/59 96 01/14/22 00:00 97.3 F 64 22 134/63 97 01/13/22 20:50 94 L 01/13/22 20:34 97.6 F 62 18 140/65 100 01/13/22 19:40 68 95 01/13/22 19:28 57 L 157/72 97 01/13/22 17:43 97.6 F 59 L 20 153/60 98 01/13/22 17:05 57 L 153/60 93 L 01/13/22 16:08 97.4 F 55 L 22 164/72 94 L Wound Assessment: Skin/Wound Assessment Wound/Incision Assessment Start: 01/13/22 19:00 Text: Status: Active Freq: Q6H Protocol: Document 01/14/22 08:00 BA (Rec: 01/14/22 08:37 BA [id number]) Wound/Incision Assessment Left Second Toe Wound Assessment Shift Assessment Wound Type scab Wound Stage Non Pressure Wound Drainage Amount None General Appearance Open to air Surrounding Tissue [place] Wound Photo Photo Taken No Results - Labs Lab/Micro Results: Lab Results-Last 24 Hours 06/30/22 06/30/22 06/30/22 Range/Units 16:23 16:23 16:50 WBC 6.6 (4.0-10.5) x10^3/uL RBC 4.27 (4.1-5.4) x10^6/uL Hgb 12.8 (12.0-16.0) g/dL Hct 39.5 (35-47) % MCV 92.5 (78-100) fL MCH 30.0 (26-32) pg MCHC 32.4 (32-36) g/dL RDW 13.0 (11.5-14.0) % Plt Count 220 (150-450) x10^3/uL MPV 10.5 (7.5-11.0) fL Gran % 59.5 (36.0-66.0) % Immature Gran % (Auto) 0.6 H (0.00-0.4) % Nucleat RBC Rel Count 0.0 (0.00-0.1) % Eos # (Auto) 0.25 (0-0.5) x10^3/uL Immature Gran # (Auto) 0.04 H (0.00-0.03) x10^3u/L Absolute Lymphs (auto) 1.59 (1.0-4.6) x10^3/uL Absolute Monos (auto) 0.73 (0.0-1.3) x10^3/uL Absolute Nucleated RBC 0.00 (0.00-0.01) x10^3u/L Lymphocytes % 24.2 (24.0-44.0) % Monocytes % 11.1 (0.0-12.0) % Eosinophils % 3.8 (0.00-5.0) % Basophils % 0.8 (0.0-0.4) % Absolute Granulocytes 3.90 (1.4-6.9) x10^3/uL Basophils # 0.05 (0-0.4) x10^3/uL Sodium 136 L (137-145) mmol/L Potassium 4.7 (3.5-5.1) mmol/L Chloride 93 L (98-107) mmol/L Carbon Dioxide 35 H (22-30) mmol/L Anion Gap 12.6 (5-15) MEQ/L BUN 59 H (7-17) mg/dL Creatinine 2.35 H (0.52-1.04) mg/dL Estimated GFR 21.7 ML/MIN Glucose 105 (74-106) mg/dL Lactic Acid 1.3 (0.4-2.0) Uric Acid (2.6-6.0) mg/dL Calcium 8.7 (8.4-10.2) mg/dL Total Bilirubin 0.50 (0.2-1.3) mg/dL AST 36 (14-36) U/L ALT 25 (0-35) U/L Alkaline Phosphatase 124 (38-126) U/L Serum Total Protein 6.7 (6.3-8.2) g/dL Albumin 3.8 (3.5-5.0) g/dL Prealbumin (17.6-36.0) mg/dL Influenza Type A Ag (NEGATIVE) Influenza Type B Ag (NEGATIVE) RSV (PCR) (Negative) SARS-CoV-2 (PCR) (NEGATIVE) 01/13/22 01/14/22 01/14/22 Range/Units 18:29 04:20 04:30 WBC 7.1 (4.0-10.5) x10^3/uL RBC 3.91 L (4.1-5.4) x10^6/uL Hgb 11.6 L (12.0-16.0) g/dL Hct 36.5 (35-47) % MCV 93.4 (78-100) fL MCH 29.7 (26-32) pg MCHC 31.8 L (32-36) g/dL RDW 12.9 (11.5-14.0) % Plt Count 196 (150-450) x10^3/uL MPV 10.7 (7.5-11.0) fL Gran % 64.8 (36.0-66.0) % Immature Gran % (Auto) 0.4 (0.00-0.4) % Nucleat RBC Rel Count 0.0 (0.00-0.1) % Eos # (Auto) 0.21 (0-0.5) x10^3/uL Immature Gran # (Auto) 0.03 (0.00-0.03) x10^3u/L Absolute Lymphs (auto) 1.33 (1.0-4.6) x10^3/uL Absolute Monos (auto) 0.89 (0.0-1.3) x10^3/uL Absolute Nucleated RBC 0.00 (0.00-0.01) x10^3u/L Lymphocytes % 18.7 L (24.0-44.0) % Monocytes % 12.5 H (0.0-12.0) % Eosinophils % 3.0 (0.00-5.0) % Basophils % 0.6 (0.0-0.4) % Absolute Granulocytes 4.61 (1.4-6.9) x10^3/uL Basophils # 0.04 (0-0.4) x10^3/uL Sodium (137-145) mmol/L Potassium (3.5-5.1) mmol/L Chloride (98-107) mmol/L Carbon Dioxide (22-30) mmol/L Anion Gap (5-15) MEQ/L BUN (7-17) mg/dL Creatinine (0.52-1.04) mg/dL Estimated GFR ML/MIN Glucose (74-106) mg/dL Lactic Acid (0.4-2.0) Uric Acid 12.7 H (2.6-6.0) mg/dL Calcium (8.4-10.2) mg/dL Total Bilirubin (0.2-1.3) mg/dL AST (14-36) U/L ALT (0-35) U/L Alkaline Phosphatase (38-126) U/L Serum Total Protein (6.3-8.2) g/dL Albumin (3.5-5.0) g/dL Prealbumin (17.6-36.0) mg/dL Influenza Type A Ag NEGATIVE (NEGATIVE) Influenza Type B Ag NEGATIVE (NEGATIVE) RSV (PCR) NEGATIVE (Negative) SARS-CoV-2 (PCR) NEGATIVE (NEGATIVE) 01/14/22 Range/Units 04:30 WBC (4.0-10.5) x10^3/uL RBC (4.1-5.4) x10^6/uL Hgb (12.0-16.0) g/dL Hct (35-47) % MCV (78-100) fL MCH (26-32) pg MCHC (32-36) g/dL RDW (11.5-14.0) % Plt Count (150-450) x10^3/uL MPV (7.5-11.0) fL Gran % (36.0-66.0) % Immature Gran % (Auto) (0.00-0.4) % Nucleat RBC Rel Count (0.00-0.1) % Eos # (Auto) (0-0.5) x10^3/uL Immature Gran # (Auto) (0.00-0.03) x10^3u/L Absolute Lymphs (auto) (1.0-4.6) x10^3/uL Absolute Monos (auto) (0.0-1.3) x10^3/uL Absolute Nucleated RBC (0.00-0.01) x10^3u/L Lymphocytes % (24.0-44.0) % Monocytes % (0.0-12.0) % Eosinophils % (0.00-5.0) % Basophils % (0.0-0.4) % Absolute Granulocytes (1.4-6.9) x10^3/uL Basophils # (0-0.4) x10^3/uL Sodium 136 L (137-145) mmol/L Potassium 3.2 L D (3.5-5.1) mmol/L Chloride 93 L (98-107) mmol/L Carbon Dioxide 37 H (22-30) mmol/L Anion Gap 9.8 (5-15) MEQ/L BUN 51 H (7-17) mg/dL Creatinine 2.14 H (0.52-1.04) mg/dL Estimated GFR 24.1 ML/MIN Glucose 87 (74-106) mg/dL Lactic Acid (0.4-2.0) Uric Acid (2.6-6.0) mg/dL Calcium 8.6 (8.4-10.2) mg/dL Total Bilirubin 0.50 (0.2-1.3) mg/dL AST 67 H (14-36) U/L ALT 49 H (0-35) U/L Alkaline Phosphatase 134 H (38-126) U/L Serum Total Protein 6.6 (6.3-8.2) g/dL Albumin 3.6 (3.5-5.0) g/dL Prealbumin 25.91 (17.6-36.0) mg/dL Influenza Type A Ag (NEGATIVE) Influenza Type B Ag (NEGATIVE) RSV (PCR) (Negative) SARS-CoV-2 (PCR) (NEGATIVE) - Radiology Impressions Radiology Exams & Impressions: Radiology Procedures Category Date Time Status FOOT (MINIMUM 3 VIEWS) Stat Exams 01/13/22 16:32 Completed - Other Procedures and Tests Respiratory Therapy 01/13/22 21:25 BiPap/CPAP ROUTINE
[2022-01-14] MEDS: PERCOCET TABLET 5/325MG PO PRN (16:29)
--- NOTE | 2022-01-14 22:26 | PCM.CONS ---
Podiatry HPI - Consult Date of Consultation Date: 01/14/22 Reason for Consult: gout, left foot pain, difficulty with ambulation Consulting Provider: MASON STEIN DPM - [facility] History of Present Illness: Lakisha is a very pleasant 71-year-old female who presents to my service for pain to the left foot patient was seen by Dr. Santos who placed a consult for myself. Patient presented to the emergency room with severe left foot pain. She indicates that this started with her toe being hit by a door a few days ago resulting in the foot turning a red and painful patient indicates that since then she has had increasing difficulty in walking and significant pain to the left lower extremity patient subsequently was diagnosed with gout secondary to her hyperuricemia which was significantly elevated patient did have a positive history of gout several years ago however due to her worsening renal function her primary care was unsure of managing her for gout from that standpoint patient since has had Solu-Medrol treatments where she had a significant improvement of her symptoms however she deals still have some symptoms of pain. She currently denies any constitutional symptoms of infection. She denies any other pedal complaints at this time Medications & Allergies Home Medications: Home Medication List Apixaban [Eliquis] 5 mg PO BID 07/28/20 [History Confirmed 01/13/22] Liothyronine Sodium 5 mcg PO DAILY 10/02/20 [History Confirmed 01/13/22] Potassium Chloride Tab* [Klor Con 10 MEQ] 30 meq PO UD 01/05/21 [History Confirmed 01/13/22] Amiodarone HCl 100 mg PO DAILY 01/13/22 [History Confirmed 01/13/22] Carvedilol [Coreg] 25 mg PO BID 01/13/22 [History Confirmed 01/13/22] Levothyroxine Sodium 0.5 tab PO UD 01/13/22 [History Confirmed 01/13/22] Levothyroxine Sodium 125 mcg PO UD 01/13/22 [History Confirmed 01/13/22] Potassium Chloride 40 meq PO UD 01/13/22 [History Confirmed 01/13/22] Torsemide 100 mg PO BID 01/13/22 [History Confirmed 01/13/22] metOLazone [Metolazone] 2.5 mg PO UD 01/13/22 [History Confirmed 01/13/22] Ezetimibe 10 mg [Zetia 10 MG] 10 mg PO DAILY 01/14/22 [History Confirmed 01/14/22] Oxycodone HCl/Acetaminophen [Oxycodone-Acetaminophn 7.5-325] 1 tab PO QID PRN PRN 01/14/22 [History Confirmed 01/14/22] Allergies/Adverse Reactions: Allergies Allergy/AdvReac Type Severity Reaction Status Date / Time No Known Drug Allergies Allergy Verified 01/13/22 20:08 - Past Medical History Past Medical History: Yes Neurological History: No Pertinent History ENT History: No Pertinent History Cardiac History: Congenital Heart Disease, Coronary Artery Disease, Other Respiratory History: No Pertinent History Endocrine Medical History: Hypothyroidism Musculoskelatal History: Osteoarthritis, Other GI Medical History: No Pertinent History History: Other Pyscho-Social History: No Pertinent History Reproductive Disorders: No Pertinent History Comment: atrial fibrillation, low kidney functions. GOUT. - Female History Are you now?: No - Past Surgical History Past Surgical History: Yes Neuro Surgical History: No Pertinent History Cardiac History: CABG, Cardiac Catheterization, Cardiac Stent, Pacemaker Respiratory Surgery: No Pertinent History GI Surgical History: Cholecystectomy Genitourinary Surgical Hx: No Pertinent History Musculskeletal Surgical Hx: Orthopedic Surgery Female Surgical History: Hysterectomy Other Surgical History: THYROIDECTOMY, BACK SURGERY 2010, bladder, hysterectomy, foot surgery, hand surgery - Social History Smoking Status: Former smoker How long have you smoked: 5 cig/day Exposure to second hand smoke: No Alcohol: None Drug Use: none Significant Family History: no pertinent family hx Physical Exam - General General Appearance: no apparent distress - Neuro Neurologic: Epicritic and protopathic - Vascular Peripheral Pulses: Posterior tibialis: 2+, Dorsalis-Pedis: 2+ Capillary Refill Time: < 3 seconds Hair Growth: Symmetrical and Bilateral Varicosities: Positive Edema: Pitting Edema Degree: 2+ Skin: Supple, not atrophic Skin Temperature: Warm to touch - Muscular Foot Type: pes planu Muscle Strength: 5/5 on all 4 quadrants Digital Deformity: hammer toe - Narrative Narrative Physical Exam: Podiatry Physical Exam Significantly tender left foot at the subtalar joint as well as first MPJ. Significantly restricted range of motion to the left first MPJ with extreme pain with plantarflexion. Light touch elicits allodynia to this area. She does have a significant amount amount of pain to the subtalar joint with range of motion. No pain with palpation to the ankle joint with Roopa's test. Negative pain with medial lateral calcaneal squeeze. Negative pain with sural nerve percussion. Posterior tibial nerve with some radiations which is symptomatic for patient likely secondary to her lower back due to L4-L5 disc herniation positive straight leg raise, positive braggart's test, positive Juancarlos sign. Results - Labs Lab/Micro Results: Lab Results-Last 24 Hours 01/14/22 01/14/22 01/14/22 Range/Units 04:20 04:30 04:30 WBC 7.1 (4.0-10.5) x10^3/uL RBC 3.91 L (4.1-5.4) x10^6/uL Hgb 11.6 L (12.0-16.0) g/dL Hct 36.5 (35-47) % MCV 93.4 (78-100) fL MCH 29.7 (26-32) pg MCHC 31.8 L (32-36) g/dL RDW 12.9 (11.5-14.0) % Plt Count 196 (150-450) x10^3/uL MPV 10.7 (7.5-11.0) fL Gran % 64.8 (36.0-66.0) % Immature Gran % (Auto) 0.4 (0.00-0.4) % Nucleat RBC Rel Count 0.0 (0.00-0.1) % Eos # (Auto) 0.21 (0-0.5) x10^3/uL Immature Gran # (Auto) 0.03 (0.00-0.03) x10^3u/L Absolute Lymphs (auto) 1.33 (1.0-4.6) x10^3/uL Absolute Monos (auto) 0.89 (0.0-1.3) x10^3/uL Absolute Nucleated RBC 0.00 (0.00-0.01) x10^3u/L Lymphocytes % 18.7 L (24.0-44.0) % Monocytes % 12.5 H (0.0-12.0) % Eosinophils % 3.0 (0.00-5.0) % Basophils % 0.6 (0.0-0.4) % Absolute Granulocytes 4.61 (1.4-6.9) x10^3/uL Basophils # 0.04 (0-0.4) x10^3/uL Sodium 136 L (137-145) mmol/L Potassium 3.2 L D (3.5-5.1) mmol/L Chloride 93 L (98-107) mmol/L Carbon Dioxide 37 H (22-30) mmol/L Anion Gap 9.8 (5-15) MEQ/L BUN 51 H (7-17) mg/dL Creatinine 2.14 H (0.52-1.04) mg/dL Estimated GFR 24.1 ML/MIN Glucose 87 (74-106) mg/dL Uric Acid 12.7 H (2.6-6.0) mg/dL Calcium 8.6 (8.4-10.2) mg/dL Total Bilirubin 0.50 (0.2-1.3) mg/dL AST 67 H (14-36) U/L ALT 49 H (0-35) U/L Alkaline Phosphatase 134 H (38-126) U/L Serum Total Protein 6.6 (6.3-8.2) g/dL Albumin 3.6 (3.5-5.0) g/dL Prealbumin 25.91 (17.6-36.0) mg/dL - Radiology Impressions Radiology Exams & Impressions: Radiology Procedures Category Date Time Status FOOT (MINIMUM 3 VIEWS) Stat Exams 01/13/22 16:32 Completed - Other Procedures and Tests Respiratory Therapy 01/13/22 21:25 BiPap/CPAP ROUTINE Assessment/Plan (1) Hyperuricemia Current Visit: Yes Status: Acute Assessment & Plan: Patient examination and evaluation. Patient's clinical examination is consistent with a gout attack secondary to the allodynia she is experiencing. Elevated uric acid and a recent history of potential dehydration. Patient claims no medication changes and no long-term management of gout with allopurinol, Uloric, colchicine, indomethacin, or prednisone. Patient has had significant improvements with Solu-Medrol however patient does feel significant amount of pain with weightbearing. At this time patient is willing to proceed with an injection into the subtalar joint as diagnostic and therapeutic as well as the first MPJ. Total of 1 mg of Kenalog was used for both injections. Patient understands all risks complications and benefits of injection and wishes to proceed consent signed and in the patient's paper chart. At this time iodine was utilized to cleanse the injection sites. Following this ethyl chloride was utilized to numb the area and a injection was performed at the subtalar and first MPJ. Patient tolerated these well and immediately after the injection was able to bear weight. Patient was advised that this may not be long-lasting as there is local anesthetic however this is diagnostic that she is able to function without significant complication with the local anesthetic. Patient will follow up on discharge to my office for reassessment at that time we will determine if further intervention is necessitated. 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
[2022-01-15] MEDS: PERCOCET TABLET 5/325MG PO PRN ×3 (00:01→12:03)
[2022-01-15] MEDS: Hydromorphone 1 mg/ml Injection IV PRN ×2 (04:35→08:02)
[2022-01-15] MEDS: Sodium Chloride 0.9% 1000 ML 1,000 ML IV SCH (04:36)
[2022-01-15] MEDS: solu-MEDROL 80 MG, Sterile H2O 10 ml 2 ML IV SCH ×2 (05:43)
[2022-01-15] MEDS: VANCOMYCIN 1 GRAM/200 ML BAG 1 GM/200 ML PIGGYBACK IV SCH (05:43)
[2022-01-15 06:57] LABS: Creatinine 1 2.16 mg/dL (0.52-1.04); EST GLOMERULAR FILTRATION RATE 23.9 ML/MIN
[2022-01-15] MEDS: ELIQUIS 2.5 MG TABLET PO SCH (08:04)
[2022-01-15] MEDS: SYNTHROID 125 MCG PO SCH (08:04)
[2022-01-15] MEDS: Cordarone 200 MG PO SCH (08:04)
[2022-01-15] MEDS: Klor Con PO SCH (08:05)
[2022-01-15] MEDS: COREG 12.5 MG PO SCH (08:05)
[2022-01-15] MEDS ORDERED: Indocin 25 MG PO PRN (09:56)
[2022-01-15] MEDS ORDERED: NON-FORMULARY ITEM PO ONE ×2 (10:00→11:00)
[2022-01-15] MEDS: DEMADEX 20 MG PO SCH (10:21)
[2022-01-15 12:39] VITALS: BP 130/66; PULSE 63; O2SAT 95
[2022-01-15] MEDS ORDERED: XYLOCAINE 1% HCL 20 ML MDV IJ ONE (14:52)
[2022-01-15] MEDS ORDERED: Kenalog-10 MG/1 ML 10 ML VIAL IM ONE (14:52)
[2022-01-15] MEDS ORDERED: BUPIVACAINE 0.75% 10 ML VIAL PF IJ ONE (14:52)
[2022-01-16] MEDS ORDERED: SYNTHROID 125 MCG PO SCH (08:00)
[2022-01-16] MEDS ORDERED: TROUGH DRUG LEVELS IJ ONE (17:30)
== END 2022-01-15 14:53 | disposition home or self-care (01) ==
LOC: ED 16:01 → MED SURG 19:32
PROVIDERS: ADMIT Family Medicine; ATTEND Family Medicine
DX: L03.116 Cellulitis of left lower limb (principal); E79.0 Hyperuricemia without signs of inflammatory arthritis and tophaceous disease; M79.672 Pain in left foot; N17.9 Acute kidney failure, unspecified; N18.9 Chronic kidney disease, unspecified; I25.10 Atherosclerotic heart disease of native coronary artery without angina pectoris; I48.91 Unspecified atrial fibrillation; Z79.899 Other long term (current) drug therapy; Z20.828 Contact with and (suspected) exposure to other viral communicable diseases
CPT/HCPCS: 0241U; 20600; 20605; 36415; 73630; 80053; 82565; 83605; 84134; 84520; 84550; 85025; 87040; 93268; 94660; 96365; 96374; 96375; 99233; 99285; G0378; J1170; J2405; J2930; J3301; A9270-GY; J3370

== ENCOUNTER 2022-03-01 06:51 | Day surgery (SDC) | payer MEDICARE ==
[2022-03-01] MEDS ORDERED: Epinephrine Preservative Free 1 MG/ML IJ ONE (06:52)
[2022-03-01] MEDS ORDERED: LIDOCAINE HCL 1% 50 MG/5 ML VL PF IJ ONE (06:52)
[2022-03-01] MEDS ORDERED: MIOSTAT IO ONE (06:52)
[2022-03-01] MEDS ORDERED: NON-FORMULARY ITEM OP ONE (07:00)
[2022-03-01] MEDS ORDERED: BETADINE 5% OPHTHALMIC 30 ML OP ONE (07:00)
[2022-03-01] MEDS ORDERED: Ak-Dilate OPHTHALMIC*** 1.065 ML, Cyclogyl 1% OPHTH SOL 1.065 ML, GATIFLOXACIN 0.5% OPH... OP ONE ×4 (07:00)
[2022-03-01] MEDS ORDERED: Lactated Ringers 1,000 ML IV SCH (07:00)
[2022-03-01] MEDS ORDERED: cefUROXime sodium 0.005 GM in Sodium Chloride Flush 30 ML*** 0.5 ML IJ ONE (07:00)
[2022-03-01] MEDS ORDERED: TETRACAINE 0.5% STERI-UNIT SOL OP ONE (07:00)
[2022-03-01] MEDS ORDERED: Lactated Ringers 1,000 ML IV ONE (07:39)
[2022-03-01] MEDS: TETRACAINE 0.5% STERI-UNIT SOL OP ONE ×2 (07:51→08:29)
[2022-03-01] MEDS ORDERED: Zofran 4 MG/2 ML VIAL IV PRN (09:00)
[2022-03-01] MEDS ORDERED: ACETAZOLAMIDE 250 MG TABLET PO ONE (09:00)
[2022-03-01 09:12] LABS: INR 1.03 (0.8-3.0); PROTIME 10.9 SECONDS (9.4-12.5)
[2022-03-01] MEDS ORDERED: DIPRIVAN 200 MG/20 ML IV ONE (09:38)
[2022-03-01] MEDS ORDERED: Versed 2 MG/2 ML Injection ONE (09:38)
[2022-03-01] MEDS ORDERED: SUBLIMAZE 100 MCG/2 ML ONE (09:38)
[2022-03-01] MEDS ORDERED: Xylocaine-Mpf 2% 5 Ml Vial ONE (09:38)
[2022-03-01 10:19] VITALS: O2SAT 96
[2022-03-01 10:24] VITALS: BP 116/87; PULSE 54
== END 2022-03-01 10:30 | disposition home or self-care (01) ==
LOC: SDC 06:51
PROVIDERS: ATTEND Ophthalmology
DX: H25.812 Combined forms of age-related cataract, left eye (principal); Z79.01 Long term (current) use of anticoagulants
CPT/HCPCS: 36415; 85610; C1780; J0171; J2001; J2250; J2704; J3010; A9270-GY

== ENCOUNTER 2022-03-15 14:10 | Emergency (ER) | payer MEDICARE ==
[2022-03-15 16:01] LABS: Absolute Neutrophil Ct (ANC) 3.73 x10^3/uL (1.4-6.9); Basophil (Absolute #) 0.03 x10^3/uL (0-0.4); Eosinophil (Absolute #) 0.12 x10^3/uL (0-0.5); Hematocrit 38.3 % (35-47); Hemoglobin 12.2 g/dL (12.0-16.0); Lymphocyte (Absolute #) 1.33 x10^3/uL (1.0-4.6); Lymphocytes % 22.5 % (24.0-44.0); Mean Cell Volume 93.6 fL (78-100); Mean Corpuscular Hemoglobin 29.8 pg (26-32); Mean Corpuscular Hgb Concent. 31.9 g/dL (32-36); Mean Platelet Volume 10.8 fL (7.5-11.0); Monocyte (Absolute #) 0.66 x10^3/uL (0.0-1.3); Monocytes % 11.1 % (0.0-12.0); Neutrophil % 63.1 % (36.0-66.0); Platelet Count 237 x10^3/uL (150-450); Red Blood Count 4.09 x10^6/uL (4.1-5.4); Red Cell Distribution Width 13.7 % (11.5-14.0); White Blood Count 5.9 x10^3/uL (4.0-10.5)
[2022-03-15 16:08] VITALS: O2SAT 96
[2022-03-15] MEDS ORDERED: SUBLIMAZE 100 MCG/2 ML IV ONE (16:09)
[2022-03-15] MEDS ORDERED: Zofran 4 MG/2 ML VIAL ONE (16:10)
[2022-03-15] MEDS ORDERED: Zofran 4 MG/2 ML VIAL IV ONE (16:10)
[2022-03-15] MEDS ORDERED: SUBLIMAZE 100 MCG/2 ML ONE (16:10)
[2022-03-15 16:12] LABS: INR 1.05 (0.8-3.0); PROTIME 11.1 SECONDS (9.4-12.5); PTT 31.4 SECONDS (25.1-36.5)
--- NOTE | 2022-03-15 16:29 | XRAY ---
Indication: Dyspnea. CHF. Comparison: October 01, 2021 Portable apical lordotic chest unchanged again hyperinflated with lingula fibrosis/scarring, CABG, coronary stent graft, and left pacemaker. Bony thorax intact again with osteopenia and degenerative changes. No new/acute abnormalities.
[2022-03-15 16:32] LABS: ALBUMIN 4.2 g/dL (3.5-5.0); ANION GAP 11.5 MEQ/L (5-15); BILIRUBIN,TOTAL 0.3 mg/dL (0.2-1.3); Creatinine 1 2.46 mg/dL (0.52-1.04); EST GLOMERULAR FILTRATION RATE 20.6 ML/MIN; Potassium 3.9 mmol/L (3.5-5.1); Total Protein 7.1 g/dL (6.3-8.2)
--- NOTE | 2022-03-15 17:01 | ERPHSYRPT ---
- History of Present Illness Source: patient Exam Limitations: no limitations Patient Subjective Stated Complaint: SOB Triage Nursing Assessment: Patient ambulated back to ED and transferred self to bed. Patient A+O X3. Patient states she was sent to ER from [facility] to get fluid off. Patient has been having increased weight gain over the past month. Patient complains of right shoulder 5/10. Patient has a cardiomem and told patient to come to ED. Physician History: 71 yo wf w h/o CHF/cardiomyopathy/CABG/Stents/Pacer/HTN presents w weight gain x 3wks and increased dyspnea x 3 days. Pt has a device which monitors pressures in her heart, and her process engineering intern called her and told her to come to the ER. Dyspnea is mainly upon exertion. Pt denies chest pain/N/V/melena/hematochezia/fever/cough/coryza. She sleeps w CPAP and denies PND/orthopnea. Timing/Duration: other (Dyspnea x3 days) Activities at Onset: rest Possible Cause: frequent episodes Modifying Factors: Improves With: activity Associated Symptoms: edema, ankle swelling, leg swelling, No cough, No chest pain/discomfort, No fever, No insomnia, No loss of appetite, No lightheadedness, No wheezing, No weakness, No chills, No hemoptysis, No calf pain, No dizziness, No heaviness, No heart racing, No lightheadedness, No muscle spasms feet, No m uscle spasms hands, No painful breathing, No productive cough, No tightness, No tingling face Allergies/Adverse Reactions: No Known Drug Allergies Allergy (Verified 03/15/22 14:18) Home Medications: Liothyronine Sodium 5 mcg PO DAILY 10/02/20 [History] Potassium Chloride Tab* [Klor Con] 30 meq PO UD 01/05/21 [History] Amiodarone HCl 100 mg PO DAILY 01/13/22 [History] Carvedilol [Coreg] 12.5 mg PO BID 01/13/22 [History] Levothyroxine Sodium 0.5 tab PO UD 01/13/22 [History] Levothyroxine Sodium 125 mcg PO UD 01/13/22 [History] Potassium Chloride 40 meq PO UD 01/13/22 [History] Apixaban [Eliquis 5 mg Tablet] 5 mg PO BID 02/15/22 [History] Aspirin EC 81 mg [Ecotrin 81 mg] 81 mg PO DAILY 02/15/22 [History] Cholecalciferol (Vitamin D3) [Vitamin D] 2,000 unit PO DAILY 02/15/22 [History] Dapagliflozin Propanediol [Farxiga] 10 mg DAILY 02/15/22 [History] Ezetimibe 10 mg [Zetia 10 MG] 10 mg PO DAILY 02/15/22 [History] Loratadine 10 mg [Claritin 10 mg] 10 mg PO DAILY 02/15/22 [History] Melatonin 2.5 mg PO HS 02/15/22 [History] Multivit-Min/Folic AC/Collagen [Women Multivit Collagen Gummy] 6 tab.chew PO DAILY 02/15/22 [History] Mv-Min/Iron/Folic/Calcium/Vitk [Women's Daily Formula Tablet] 2 each PO DAILY [History] Torsemide 100 mg BID 02/15/22 [History] Vitamin C/Biotin [Hair, Skin and Nails Gummies] 2 each PO DAILY 02/15/22 [History] Hx Tetanus, Diphtheria Vaccination/Date Given: Yes Hx Influenza Vaccination/Date Given: Yes Hx Pneumococcal Vaccination/Date Given: Yes Immunizations Up to Date: Yes Travel Risk - International Travel Have you traveled outside of the country in past 3 weeks: No - Coronavirus Screening Are you exhibiting any of the following symptoms?: No Close contact with a COVID-19 positive Pt in past 14-21 Days: No - Vaccine Status Have you recieved a Covid-19 vaccination: Yes Compliance Review Specialist: Moderna - Vaccination Dates Date of 2cond Vaccination (if applicable): 10/15/2020 Comment: Unsure of exact dates - Review of Systems Constitutional: No Symptoms Eyes: No Symptoms Ears, Nose, & Throat: No Symptoms Respiratory: No Symptoms, Dyspnea, Dyspnea on Exertion (KYLE) Cardiac: No Symptoms, Edema, No Orthopnea, No PND Abdominal/Gastrointestinal: No Symptoms Genitourinary Symptoms: No Symptoms Musculoskeletal: No Symptoms Skin: No Symptoms Neurological: No Symptoms Psychological: No Symptoms Endocrine: No Symptoms Hematologic/Lymphatic: No Symptoms Immunological/Allergic: No Symptoms - Past Medical History Pertinent Past Medical History: Yes Neurological History: No Pertinent History ENT History: Cataracts Cardiac History: Arrhythmia, Congenital Heart Disease, Congestive Heart Failure, Coronary Artery Disease, Hypertension, Other Respiratory History: No Pertinent History, Sleep Apnea Endocrine Medical History: Hypothyroidism Musculoskeletal History: Osteoarthritis, Other GI Medical History: No Pertinent History History: Other Psycho-Social History: No Pertinent History Female Reproductive Disorders: No Pertinent History Other Medical History: atrial fibrillation, low kidney functions. GOUT. Cardio Mckay - Past Surgical History Past Surgical History: Yes Neuro Surgical History: No Pertinent History Cardiac: CABG, Cardiac Catheterization, Cardiac Stent, Pacemaker Respiratory: No Pertinent History Gastrointestinal: Cholecystectomy Genitourinary: No Pertinent History Musculoskeletal: Orthopedic Surgery Female Surgical History: Hysterectomy Other Surgical History: THYROIDECTOMY, BACK SURGERY 2010, bladder, hysterectomy, foot surgery, hand surgery cardio mckay. - Social History Smoking Status: Former smoker How long have you smoked: 5 cig/day Exposure to second hand smoke: No Drug Use: none Patient Lives Alone: No Significant Family History: no pertinent family hx - Nursing Vital Signs Nursing Vital Signs: Initial Vital Signs Temperature 97.9 F 03/15/22 14:19 Pulse Rate 65 03/15/22 14:19 Respiratory Rate 19 03/15/22 14:19 Blood Pressure 140/57 03/15/22 14:19 O2 Sat by Pulse Oximetry 94 L 03/15/22 14:19 Pain Scale Pain Intensity 3 Hypertensive/Borderline sats - Physical Exam General Appearance: no apparent distress Eye Exam: PERRL/EOMI, eyes nml inspection Ears, Nose, Throat Exam: hearing grossly normal, normal ENT inspection, normal pharynx, No abnormal TM (R), No abnormal TM (L) Neck Exam: normal inspection, non-tender, supple, full range of motion, No Brudzinski, No Kernig's, No meningismus, No carotid bruit Respiratory Exam: airway intact, diminished breath sounds (B bases), No respiratory distress Cardiovascular/Chest Exam: normal heart sounds, regular rate/rhythm, normal peripheral pulses, No murmur Abdominal/Gastrointestinal Exam: soft, normal bowel sounds, No tenderness, No distention Extremity Exam: non-tender, normal range of motion, normal inspection, normal capillary refill Peripheral Pulses Exam: carotid (R): 2+, carotid (L): 2+ Neurologic Exam: alert, oriented x 3, cooperative, diversity manager II-XII nml as tested, normal mood/affect, nml cerebellar function, nml station & gait, sensation nml, No motor deficits, No sensory deficit Skin Exam: normal color, warm, dry Lymphatic Exam: No adenopathy SpO2 Interpretation: normal SpO2: 96 O2 Delivery: Room Air - Course Nursing assessment & vital signs reviewed: Yes EKG Interpreted by Me: RATE (Probable sinus khalida w 1st degree AV block/Prolo nged QT-QTc/LBBB) - Radiology Exams Chest X-ray Interpretation: Discussed w/ radiologist (Nothing acute) Ordered Tests: Active Orders 24 hr Category Date Time Status EKG-ER Only STAT Care 03/15/22 15:48 Completed IV Insertion STAT Care 03/15/22 15:48 Completed CHEST 1 VIEW (PORTABLE) Stat Exams 03/15/22 15:48 Completed CBC W DIFF Stat Lab 03/15/22 14:10 Completed CMP Stat Lab 03/15/22 14:10 Completed NT PRO BNP Stat Lab 03/15/22 14:10 Completed PROTIME WITH INR Stat Lab 03/15/22 14:10 Completed PTT Stat Lab 03/15/22 14:10 Completed TROPONIN Q4H Lab 03/15/22 14:10 Completed Medication Summary Discontinued Medications Generic Name Dose Route Start Last Admin Trade Name Freq PRN Reason Stop Dose Admin Fentanyl Citrate 50 mcg 03/15/22 16:09 03/15/22 16:12 Fentanyl Citrate 100 Mcg/2 Ml* Vial IV 03/15/22 16:10 50 mcg STAT ONE Administration Fentanyl Citrate Confirm 03/15/22 16:10 Fentanyl Citrate 100 Mcg/2 Ml* Vial Administered 03/15/22 16:11 Dose 100 mcg .ROUTE .STK-MED ONE Furosemide 40 mg 03/15/22 17:06 03/15/22 17:08 Furosemide 40 Mg/4 Ml Vial IV 03/15/22 17:07 40 mg STAT ONE Administration Furosemide Confirm 03/15/22 17:08 Furosemide 40 Mg/4 Ml Vial Administered 03/15/22 17:09 Dose 40 mg .ROUTE .STK-MED ONE Ondansetron HCl 4 mg 03/15/22 16:10 03/15/22 16:12 Ondansetron Hcl 4 Mg/2 Ml Vial IV 03/15/22 16:11 4 mg STAT ONE Administration Ondansetron HCl Confirm 03/15/22 16:10 Ondansetron Hcl 4 Mg/2 Ml Vial Administered 03/15/22 16:11 Dose 4 mg .ROUTE .STK-MED ONE Lab/Rad Data: Laboratory Result Diagrams 03/15/22 14:10 03/15/22 14:10 Laboratory Results 03/15/22 03/15/22 03/15/22 Range/Units 14:10 14:10 14:10 WBC (4.0-10.5) x10^3/uL RBC (4.1-5.4) x10^6/uL Hgb (12.0-16.0) g/dL Hct (35-47) % MCV (78-100) fL MCH (26-32) pg MCHC (32-36) g/dL RDW (11.5-14.0) % Plt Count (150-450) x10^3/uL MPV (7.5-11.0) fL Gran % (36.0-66.0) % Immature Gran % (Auto) (0.00-0.4) % Nucleat RBC Rel Count (0.00-0.1) % Eos # (Auto) (0-0.5) x10^3/uL Immature Gran # (Auto) (0.00-0.03) x10^3u/L Absolute Lymphs (auto) (1.0-4.6) x10^3/uL Absolute Monos (auto) (0.0-1.3) x10^3/uL Absolute Nucleated RBC (0.00-0.01) x10^3u/L Lymphocytes % (24.0-44.0) % Monocytes % (0.0-12.0) % Eosinophils % (0.00-5.0) % Basophils % (0.0-0.4) % Absolute Granulocytes (1.4-6.9) x10^3/uL Basophils # (0-0.4) x10^3/uL PT 11.1 (9.4-12.5) SECONDS INR 1.05 (0.8-3.0) APTT 31.4 (25.1-36.5) SECONDS Sodium 137 (137-145) mmol/L Potassium 3.9 (3.5-5.1) mmol/L Chloride 95 L (98-107) mmol/L Carbon Dioxide 34 H (22-30) mmol/L Anion Gap 11.5 (5-15) MEQ/L BUN 37 H (7-17) mg/dL Creatinine 2.46 H (0.52-1.04) mg/dL Estimated GFR 20.6 ML/MIN Glucose 139 H (74-106) mg/dL Calcium 9.0 (8.4-10.2) mg/dL Total Bilirubin 0.30 (0.2-1.3) mg/dL AST 27 (14-36) U/L ALT 19 (0-35) U/L Alkaline Phosphatase 84 (38-126) U/L Troponin I < 0.012 (0.000-0.034) ng/mL NT-Pro-B Natriuret Pep 459 (0-900) pg/mL Serum Total Protein 7.1 (6.3-8.2) g/dL Albumin 4.2 (3.5-5.0) g/dL 03/15/22 Range/Units 14:10 WBC 5.9 (4.0-10.5) x10^3/uL RBC 4.09 L (4.1-5.4) x10^6/uL Hgb 12.2 (12.0-16.0) g/dL Hct 38.3 (35-47) % MCV 93.6 (78-100) fL MCH 29.8 (26-32) pg MCHC 31.9 L (32-36) g/dL RDW 13.7 (11.5-14.0) % Plt Count 237 (150-450) x10^3/uL MPV 10.8 (7.5-11.0) fL Gran % 63.1 (36.0-66.0) % Immature Gran % (Auto) 0.8 H (0.00-0.4) % Nucleat RBC Rel Count 0.0 (0.00-0.1) % Eos # (Auto) 0.12 (0-0.5) x10^3/uL Immature Gran # (Auto) 0.05 H (0.00-0.03) x10^3u/L Absolute Lymphs (auto) 1.33 (1.0-4.6) x10^3/uL Absolute Monos (auto) 0.66 (0.0-1.3) x10^3/uL Absolute Nucleated RBC 0.00 (0.00-0.01) x10^3u/L Lymphocytes % 22.5 L (24.0-44.0) % Monocytes % 11.1 (0.0-12.0) % Eosinophils % 2.0 (0.00-5.0) % Basophils % 0.5 (0.0-0.4) % Absolute Granulocytes 3.73 (1.4-6.9) x10^3/uL Basophils # 0.03 (0-0.4) x10^3/uL PT (9.4-12.5) SECONDS INR (0.8-3.0) APTT (25.1-36.5) SECONDS Sodium (137-145) mmol/L Potassium (3.5-5.1) mmol/L Chloride (98-107) mmol/L Carbon Dioxide (22-30) mmol/L Anion Gap (5-15) MEQ/L BUN (7-17) mg/dL Creatinine (0.52-1.04) mg/dL Estimated GFR ML/MIN Glucose (74-106) mg/dL Calcium (8.4-10.2) mg/dL Total Bilirubin (0.2-1.3) mg/dL AST (14-36) U/L ALT (0-35) U/L Alkaline Phosphatase (38-126) U/L Troponin I (0.000-0.034) ng/mL NT-Pro-B Natriuret Pep (0-900) pg/mL Serum Total Protein (6.3-8.2) g/dL Albumin (3.5-5.0) g/dL - Progress Progress: improved Progress Note: 03/15/22 17:07 40mg IV Lasix Pt w chronic stable CHF Counseled pt/family regarding: lab results, diagnosis, need for follow-up, rad results - Departure Departure Disposition: Home Clinical Impression: Congestive heart failure Condition: Stable Critical Care Time: No Referrals: CHANDRAKANT MCFARLANE DO [Primary Care Provider] - Follow up/PCP as directed Instructions: Heart Failure, Heart Failure, Adult (DC), Shortness of Breath (Dyspnea) (DC) Additional Instructions: Continue current meds Follow up with your process engineering intern Return to ER for increasing shortness of breath, chest pain, increased swelling
[2022-03-15] MEDS ORDERED: Lasix 40 MG/4 ML IV ONE (17:06)
[2022-03-15 17:08] VITALS: BP 109/43; PULSE 55
[2022-03-15] MEDS ORDERED: Lasix 40 MG/4 ML ONE (17:08)
== END 2022-03-15 17:23 | disposition home or self-care (01) ==
LOC: ED 14:10
DX: I11.0 Hypertensive heart disease with heart failure (principal); I50.9 Heart failure, unspecified; R06.00 Dyspnea, unspecified; R63.5 Abnormal weight gain; Z79.01 Long term (current) use of anticoagulants; Z79.899 Other long term (current) drug therapy
CPT/HCPCS: 36000; 36415; 71045; 80053; 83880; 84484; 85025; 85610; 85730; 93005; 96374; 96375; 99284; J1940; J2405; J3010

== ENCOUNTER 2022-04-05 10:06 | Day surgery (SDC) | payer MEDICARE ==
[2022-04-05] MEDS ORDERED: Lactated Ringers 1,000 ML IV ONE (10:32)
[2022-04-05] MEDS ORDERED: Ak-Dilate OPHTHALMIC*** 1.065 ML, Cyclogyl 1% OPHTH SOL 1.065 ML, GATIFLOXACIN 0.5% OPH... OP ONE ×4 (11:00)
[2022-04-05] MEDS ORDERED: cefUROXime sodium 0.005 GM in Sodium Chloride Flush 30 ML*** 0.5 ML IJ ONE (11:00)
[2022-04-05] MEDS ORDERED: TETRACAINE 0.5% STERI-UNIT SOL OP ONE ×2 (11:00)
[2022-04-05] MEDS ORDERED: Lactated Ringers 1,000 ML IV SCH (11:00)
[2022-04-05] MEDS ORDERED: NON-FORMULARY ITEM OP ONE (11:00)
[2022-04-05] MEDS ORDERED: BETADINE 5% OPHTHALMIC 30 ML OP ONE (11:00)
[2022-04-05 12:25] LABS: INR 1.01 (0.8-3.0); PROTIME 10.7 SECONDS (9.4-12.5)
[2022-04-05 12:26] LABS: Risk Ratio 3.3
[2022-04-05] MEDS ORDERED: DIPRIVAN 200 MG/20 ML IV ONE (13:57)
[2022-04-05] MEDS ORDERED: Versed 2 MG/2 ML Injection ONE (13:57)
[2022-04-05] MEDS ORDERED: Xylocaine-Mpf 2% 5 Ml Vial ONE (13:57)
[2022-04-05] MEDS ORDERED: Zofran 4 MG/2 ML VIAL IV PRN (14:30)
[2022-04-05] MEDS ORDERED: ACETAZOLAMIDE 250 MG TABLET PO ONE (14:30)
[2022-04-05 14:43] VITALS: BP 152/72; PULSE 52; O2SAT 96
[2022-04-05] MEDS ORDERED: Epinephrine Preservative Free 1 MG/ML IJ ONE (15:03)
[2022-04-05] MEDS ORDERED: LIDOCAINE HCL 1% 50 MG/5 ML VL PF IJ ONE (15:03)
== END 2022-04-05 14:54 | disposition home or self-care (01) ==
LOC: SDC 10:06
PROVIDERS: ATTEND Ophthalmology
DX: H25.811 Combined forms of age-related cataract, right eye (principal); I10 Essential (primary) hypertension; E78.5 Hyperlipidemia, unspecified; Z79.01 Long term (current) use of anticoagulants
CPT/HCPCS: 36415; 80061; 82550; 83721; 84460; 85610; 93005; 99100; C1780; J0171; J2001; J2250; J2704; A9270-GY

== ENCOUNTER 2022-07-27 15:44 | Emergency (ER) | payer MEDICARE ==
--- NOTE | 2022-07-27 15:58 | ERPHSYRPT ---
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 In the last week patient has had generalized weakness. She does not have any complaints of chest pain or s hortness of breath. She just is feeling more weak. Patient has a history of hypothyroidism, hypertension, CHF and coronary artery disease. She has had a CABG as well. Patient is on amiodarone and Eliquis for an arrhythmia. Patient has not had any vomiting. She has not had any significant abdominal pain and no diarrhea. Timing/Duration: week(s) (Symptoms worsening over 1 week), worse Severity: moderate Associated Symptoms: weakness, No vomiting, No abdominal pain, No shortness of breath, No chest pain, No fever Allergies/Adverse Reactions: No Known Drug Allergies Allergy (Verified 04/05/22 10:52) Home Medications: Liothyronine Sodium 5 mcg PO DAILY 10/02/20 [History] Potassium Chloride Tab* [Klor Con] 30 meq PO UD 01/05/21 [History] Amiodarone HCl 100 mg PO DAILY 01/13/22 [History] Carvedilol [Coreg] 12.5 mg PO BID 01/13/22 [History] Levothyroxine Sodium 0.5 tab PO UD 01/13/22 [History] Levothyroxine Sodium 125 mcg PO UD 01/13/22 [History] Potassium Chloride 40 meq PO UD 01/13/22 [History] Apixaban [Eliquis 5 mg Tablet] 5 mg PO BID 02/15/22 [History] Aspirin EC 81 mg [Ecotrin 81 mg] 81 mg PO DAILY 02/15/22 [History] Cholecalciferol (Vitamin D3) [Vitamin D] 2,000 unit PO DAILY 02/15/22 [History] Dapagliflozin Propanediol [Farxiga] 10 mg DAILY 02/15/22 [History] Ezetimibe 10 mg [Zetia 10 MG] 10 mg PO DAILY 02/15/22 [History] Loratadine 10 mg [Claritin 10 mg] 10 mg PO DAILY 02/15/22 [History] Melatonin 2.5 mg PO HS 02/15/22 [History] Multivit-Min/Folic AC/Collagen [Women Multivit Collagen Gummy] 6 tab.chew PO DA DOYLE 02/15/22 [History] Torsemide 100 mg BID 02/15/22 [History] Vitamin C/Biotin [Hair, Skin and Nails Gummies] 2 each PO DAILY 02/15/22 [History] Hx Tetanus, Diphtheria Vaccination/Date Given: Yes Hx Influenza Vaccination/Date Given: Yes Hx Pneumococcal Vaccination/Date Given: Yes Travel Risk - International Travel Have you traveled outside of the country in past 3 weeks: No - Coronavirus Screening Are you exhibiting any of the following symptoms?: No Close contact with a COVID-19 positive Pt in past 14-21 Days: No - Vaccine Status Have you recieved a Covid-19 vaccination: Yes Child Nutrition Manager: Moderna - Vaccination Dates Date of 2cond Vaccination (if applicable): 10/15/2020 Comment: Unsure of exact dates - Review of Systems Constitutional: Weakness Eyes: No Symptoms Ears, Nose, & Throat: No Symptoms Respiratory: No Symptoms Cardiac: No Symptoms Abdominal/Gastrointestinal: No Symptoms Genitourinary Symptoms: No Symptoms Musculoskeletal: No Symptoms Skin: No Symptoms Neurological: No Symptoms Psychological: No Symptoms Endocrine: Excessive Sweating Hematologic/Lymphatic: No Symptoms Immunological/Allergic: No Symptoms All Other Systems: Reviewed and Negative - Past Medical History Pertinent Past Medical History: Yes Neurological History: No Pertinent History ENT History: Cataracts Cardiac History: Arrhythmia, Congenital Heart Disease, Congestive Heart Failure, Coronary Artery Disease, Hypertension, Other Respiratory History: No Pertinent History, Sleep Apnea Endocrine Medical History: Hypothyroidism Musculoskeletal History: Osteoarthritis, Other GI Medical History: No Pertinent History History: Other Psycho-Social History: No Pertinent History Female Reproductive Disorders: No Pertinent History Other Medical History: atrial fibrillation, low kidney functions. GOUT. Cardio Christiane - Past Surgical History Past Surgical History: Yes Neuro Surgical History: No Pertinent History Cardiac: CABG, Cardiac Catheterization, Cardiac Stent, Pacemaker Respiratory: No Pertinent History Gastrointestinal: Cholecystectomy Genitourinary: No Pertinent History Musculoskeletal: Orthopedic Surgery Female Surgical History: Hysterectomy Other Surgical History: THYROIDECTOMY, BACK SURGERY 2010, bladder, hysterectomy, foot surgery, hand surgery cardio christiane. - Social History Smoking Status: Former smoker How long have you smoked: 5 cig/day Exposure to second hand smoke: No Drug Use: none Patient Lives Alone: No Significant Family History: no pertinent family hx - Nursing Vital Signs Nursing Vital Signs: Initial Vital Signs Temperature 96.7 F 07/27/22 16:13 Respiratory Rate 17 07/27/22 16:13 Blood Pressure 120/46 07/27/22 16:13 O2 Sat by Pulse Oximetry 91 L 07/27/22 16:13 Pain Scale Pain Intensity 0 - Physical Exam General Appearance: no apparent distress, lethargy (Mild but easily arousable), obese Eye Exam: PERRL/EOMI, eyes nml inspection Ears, Nose, Throat Exam: normal ENT inspection, moist mucous membranes Neck Exam: normal inspection, non-tender, supple, full range of motion Respiratory Exam: normal breath sounds, lungs clear, airway intact, No chest tenderness, No respiratory distress Cardiovascular Exam: normal heart sounds, normal peripheral pulses, bradycardia Gastrointestinal/Abdomen Exam: soft, normal bowel sounds, No tenderness Pelvic Exam: not done Rectal Exam: not done Back Exam: normal inspection, normal range of motion, No CVA tenderness, No vertebral tenderness Extremity Exam: normal inspection, normal range of motion, pelvis stable Neurologic Exam: alert, oriented x 3, cooperative, 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 prolonged CA interval) Ordered Tests: Active Orders 24 hr Category Date Time Status Lumber Loader STAT Care 07/27/22 17:04 Active EKG-ER Only STAT Care 07/27/22 17:03 Active IV Insertion STAT Care 07/27/22 17:03 Active Pulse Oximetry (ED) STAT Care 07/27/22 17:03 Active CBC W DIFF Stat Lab 07/27/22 17:25 Completed CMP Stat Lab 07/27/22 17:25 Completed CULTURE,URINE Stat Lab 07/27/22 17:19 Received MAGNESIUM Stat Lab 07/27/22 17:25 Completed [place] Screen Stat Lab 07/27/22 17:25 Received NT PRO BNP Stat Lab 07/27/22 17:25 Completed T4 (Thyroxine) Stat Lab 07/27/22 17:25 Received TROPONIN Q4H Lab 07/27/22 17:25 Completed TROPONIN Q4H Lab 07/27/22 21:15 Ordered TROPONIN Q4H Lab 07/28/22 01:15 Ordered TSH [TSH, 3RD Generation] Stat Lab 07/27/22 17:25 Completed UA W/RFX UR CULTURE Stat Lab 07/27/22 17:19 Completed Urine Triage Profile Stat Lab 07/27/22 17:19 Completed Medication Summary Discontinued Medications Generic Name Dose Route Start Last Admin Trade Name Freq PRN Reason Stop Dose Admin Potassium Chloride 20 meq 07/27/22 18:52 Potassium Chloride Tab 10 Meq Tab PO 07/27/22 18:53 STAT ONE Lab/Rad Data: Laboratory Result Diagrams 07/27/22 17:25 07/27/22 17:25 Laboratory Results 07/27/22 07/27/22 07/27/22 Range/Units 17:25 17:25 17:25 WBC (4.0-10.5) x10^3/uL RBC (4.1-5.4) x10^6/uL Hgb (12.0-16.0) g/dL Hct (35-47) % MCV (78-100) fL MCH (26-32) pg MCHC (32-36) g/dL RDW (11.5-14.0) % Plt Count (150-450) x10^3/uL MPV (7.5-11.0) fL Gran % (36.0-66.0) % Immature Gran % (Auto) (0.00-0.4) % Nucleat RBC Rel Count (0.00-0.1) % Eos # (Auto) (0-0.5) x10^3/uL Immature Gran # (Auto) (0.00-0.03) x10^3u/L Absolute Lymphs (auto) (1.0-4.6) x10^3/uL Absolute Monos (auto) (0.0-1.3) x10^3/uL Absolute Nucleated RBC (0.00-0.01) x10^3u/L Lymphocytes % (24.0-44.0) % Monocytes % (0.0-12.0) % Eosinophils % (0.00-5.0) % Basophils % (0.0-0.4) % Absolute Granulocytes (1.4-6.9) x10^3/uL Basophils # (0-0.4) x10^3/uL Sodium (137-145) mmol/L Potassium (3.5-5.1) mmol/L Chloride (98-107) mmol/L Carbon Dioxide (22-30) mmol/L Anion Gap (5-15) MEQ/L BUN (7-17) mg/dL Creatinine (0.52-1.04) mg/dL Estimated GFR ML/MIN Glucose (74-106) mg/dL Calcium (8.4-10.2) mg/dL Magnesium (1.6-2.3) mg/dL Total Bilirubin (0.2-1.3) mg/dL AST (14-36) U/L ALT (0-35) U/L Alkaline Phosphatase (38-126) U/L Ammonia 22 (9-30) umol/L Troponin I (0.000-0.034) ng/mL NT-Pro-B Natriuret Pep (0-900) pg/mL Serum Total Protein (6.3-8.2) g/dL Albumin (3.5-5.0) g/dL TSH 3rd Generation 1.330 (0.47-4.68) mIU/L Urine Color (Yellow) Urine Appearance (Clear) Urine pH (4.6-8.0) Ur Specific [place] (1.005-1.030) Urine Protein (Negative) Urine Glucose (UA) (Negative) mg/dL Urine Ketones (Negative) Urine Blood (Negative) Urine Nitrite (Negative) Urine Bilirubin (Negative) Urine Urobilinogen (0.2) mg/dL Ur Leukocyte Esterase (Negative) U Hyaline Cast (Auto) (0-2) /LPF Urine Microscopic RBC (0-5) /HPF Urine Microscopic WBC (0-5) /HPF Ur Epithelial Cells (None Seen) /HPF Urine Bacteria (None Seen) /HPF Urine Culture Reflexed (NO) Urine Opiates Level (NEGATIVE) Ur Methadone (NEGATIVE) Urine Barbiturates (NEGATIVE) Ur Phencyclidine (PCP) (NEGATIVE) Urine Amphetamine (NEGATIVE) U Benzodiazepine Level (NEGATIVE) Urine Cocaine (NEGATIVE) Urine Marijuana (THC) (NEGATIVE) Influenza Type A Ag NEGATIVE (NEGATIVE) Influenza Type B Ag NEGATIVE (NEGATIVE) RSV (PCR) NEGATIVE (Negative) SARS-CoV-2 (PCR) NEGATIVE (NEGATIVE) 07/27/22 07/27/22 07/27/22 Range/Units 17:25 17:25 17:25 WBC 6.3 (4.0-10.5) x10^3/uL RBC 3.89 L (4.1-5.4) x10^6/uL Hgb 11.2 L (12.0-16.0) g/dL Hct 36.2 (35-47) % MCV 93.1 (78-100) fL MCH 28.8 (26-32) pg MCHC 30.9 L (32-36) g/dL RDW 15.3 H (11.5-14.0) % Plt Count 197 (150-450) x10^3/uL MPV 11.4 H (7.5-11.0) fL Gran % 58.0 (36.0-66.0) % Immature Gran % (Auto) 0.5 H (0.00-0.4) % Nucleat RBC Rel Count 0.0 (0.00-0.1) % Eos # (Auto) 0.39 (0-0.5) x10^3/uL Immature Gran # (Auto) 0.03 (0.00-0.03) x10^3u/L Absolute Lymphs (auto) 1.42 (1.0-4.6) x10^3/uL Absolute Monos (auto) 0.76 (0.0-1.3) x10^3/uL Absolute Nucleated RBC 0.00 (0.00-0.01) x10^3u/L Lymphocytes % 22.6 L (24.0-44.0) % Monocytes % 12.1 H (0.0-12.0) % Eosinophils % 6.2 H (0.00-5.0) % Basophils % 0.6 (0.0-0.4) % Absolute Granulocytes 3.63 (1.4-6.9) x10^3/uL Basophils # 0.04 (0-0.4) x10^3/uL Sodium 137 (137-145) mmol/L Potassium 3.2 L (3.5-5.1) mmol/L Chloride 91 L (98-107) mmol/L Carbon Dioxide 39 H (22-30) mmol/L Anion Gap 10.2 (5-15) MEQ/L BUN 76 H (7-17) mg/dL Creatinine 2.35 H (0.52-1.04) mg/dL Estimated GFR 21.7 ML/MIN Glucose 86 (74-106) mg/dL Calcium 8.9 (8.4-10.2) mg/dL Magnesium 2.6 H (1.6-2.3) mg/dL Total Bilirubin 0.40 (0.2-1.3) mg/dL AST 35 (14-36) U/L ALT 29 (0-35) U/L Alkaline Phosphatase 93 (38-126) U/L Ammonia (9-30) umol/L Troponin I < 0.012 (0.000-0.034) ng/mL NT-Pro-B Natriuret Pep 945 H (0-900) pg/mL Serum Total Protein 7.0 (6.3-8.2) g/dL Albumin 4.0 (3.5-5.0) g/dL TSH 3rd Generation (0.47-4.68) mIU/L Urine Color (Yellow) Urine Appearance (Clear) Urine pH (4.6-8.0) Ur Specific [place] (1.005-1.030) Urine Protein (Negative) Urine Glucose (UA) (Negative) mg/dL Urine Ketones (Negative) Urine Blood (Negative) Urine Nitrite (Negative) Urine Bilirubin (Negative) Urine Urobilinogen (0.2) mg/dL Ur Leukocyte Esterase (Negative) U Hyaline Cast (Auto) (0-2) /LPF Urine Microscopic RBC (0-5) /HPF Urine Microscopic WBC (0-5) /HPF Ur Epithelial Cells (None Seen) /HPF Urine Bacteria (None Seen) /HPF Urine Culture Reflexed (NO) Urine Opiates Level (NEGATIVE) Ur Methadone (NEGATIVE) Urine Barbiturates (NEGATIVE) Ur Phencyclidine (PCP) (NEGATIVE) Urine Amphetamine (NEGATIVE) U Benzodiazepine Level (NEGATIVE) Urine Cocaine (NEGATIVE) Urine Marijuana (THC) (NEGATIVE) Influenza Type A Ag (NEGATIVE) Influenza Type B Ag (NEGATIVE) RSV (PCR) (Negative) SARS-CoV-2 (PCR) (NEGATIVE) 07/27/22 07/27/22 Range/Units 17:19 17:19 WBC (4.0-10.5) x10^3/uL RBC (4.1-5.4) x10^6/uL Hgb (12.0-16.0) g/dL Hct (35-47) % MCV (78-100) fL MCH (26-32) pg MCHC (32-36) g/dL RDW (11.5-14.0) % Plt Count (150-450) x10^3/uL MPV (7.5-11.0) fL Gran % (36.0-66.0) % Immature Gran % (Auto) (0.00-0.4) % Nucleat RBC Rel Count (0.00-0.1) % Eos # (Auto) (0-0.5) x10^3/uL Immature Gran # (Auto) (0.00-0.03) x10^3u/L Absolute Lymphs (auto) (1.0-4.6) x10^3/uL Absolute Monos (auto) (0.0-1.3) x10^3/uL Absolute Nucleated RBC (0.00-0.01) x10^3u/L Lymphocytes % (24.0-44.0) % Monocytes % (0.0-12.0) % Eosinophils % (0.00-5.0) % Basophils % (0.0-0.4) % Absolute Granulocytes (1.4-6.9) x10^3/uL Basophils # (0-0.4) x10^3/uL Sodium (137-145) mmol/L Potassium (3.5-5.1) mmol/L Chloride (98-107) mmol/L Carbon Dioxide (22-30) mmol/L Anion Gap (5-15) MEQ/L BUN (7-17) mg/dL Creatinine (0.52-1.04) mg/dL Estimated GFR ML/MIN Glucose (74-106) mg/dL Calcium (8.4-10.2) mg/dL Magnesium (1.6-2.3) mg/dL Total Bilirubin (0.2-1.3) mg/dL AST (14-36) U/L ALT (0-35) U/L Alkaline Phosphatase (38-126) U/L Ammonia (9-30) umol/L Troponin I (0.000-0.034) ng/mL NT-Pro-B Natriuret Pep (0-900) pg/mL Serum Total Protein (6.3-8.2) g/dL Albumin (3.5-5.0) g/dL TSH 3rd Generation (0.47-4.68) mIU/L Urine Color Yellow (Yellow) Urine Appearance Clear (Clear) Urine pH 7.0 (4.6-8.0) Ur Specific [place] 1.010 (1.005-1.030) Urine Protein Negative (Negative) Urine Glucose (UA) 250 A (Negative) mg/dL Urine Ketones Negative (Negative) Urine Blood Negative (Negative) Urine Nitrite Negative (Negative) Urine Bilirubin Negative (Negative) Urine Urobilinogen 0.2 (0.2) mg/dL Ur Leukocyte Esterase Large A (Negative) U Hyaline Cast (Auto) 6-10 A (0-2) /LPF Urine Microscopic RBC 0-2 (0-5) /HPF Urine Microscopic WBC >100 A (0-5) /HPF Ur Epithelial Cells None Seen (None Seen) /HPF Urine Bacteria None Seen (None Seen) /HPF Urine Culture Reflexed YES (NO) Urine Opiates Level NEGATIVE (NEGATIVE) Ur Methadone NEGATIVE (NEGATIVE) Urine Barbiturates NEGATIVE (NEGATIVE) Ur Phencyclidine (PCP) NEGATIVE (NEGATIVE) Urine Amphetamine NEGATIVE (NEGATIVE) U Benzodiazepine Level NEGATIVE (NEGATIVE) Urine Cocaine NEGATIVE (NEGATIVE) Urine Marijuana (THC) NEGATIVE (NEGATIVE) Influenza Type A Ag (NEGATIVE) Influenza Type B Ag (NEGATIVE) RSV (PCR) (Negative) SARS-CoV-2 (PCR) (NEGATIVE) - Progress Progress: improved Progress Note: 07/27/22 18:59 We interrogated the patient's [employer] pacemaker and then contacted the pacemaker financial services sales representative from the company. The pacemaker is functioning properly. Patient's low rate is set at 40 bpm. Patient's heart rate is persistently above this level. Counseled pt/family regarding: lab results, diagnosis, need for follow-up - Departure Departure Disposition: Home Clinical Impression: Weakness, UTI (urinary tract infection), Hypokalemia Condition: Stable Critical Care Time: No Referrals: DENYS,CHANDRAKANT, DO [Primary Care Provider] - Follow up/PCP as directed Additional Instructions: Drink plenty of fluids. Take your antibiotics as prescribed. Follow-up with your primary care provider for further evaluation management. Take all your other medications as prescribed. Prescriptions: Ciprofloxacin [Cipro 500 MG] 500 mg PO BID #14 tablet
[2022-07-27 17:52] LABS: Absolute Neutrophil Ct (ANC) 3.63 x10^3/uL (1.4-6.9); Basophil (Absolute #) 0.04 x10^3/uL (0-0.4); Eosinophil % 6.2 % (0.00-5.0); Eosinophil (Absolute #) 0.39 x10^3/uL (0-0.5); Hematocrit 36.2 % (35-47); Hemoglobin 11.2 g/dL (12.0-16.0); Lymphocyte (Absolute #) 1.42 x10^3/uL (1.0-4.6); Lymphocytes % 22.6 % (24.0-44.0); Mean Cell Volume 93.1 fL (78-100); Mean Corpuscular Hemoglobin 28.8 pg (26-32); Mean Corpuscular Hgb Concent. 30.9 g/dL (32-36); Mean Platelet Volume 11.4 fL (7.5-11.0); Monocyte (Absolute #) 0.76 x10^3/uL (0.0-1.3); Monocytes % 12.1 % (0.0-12.0); Platelet Count 197 x10^3/uL (150-450); Red Blood Count 3.89 x10^6/uL (4.1-5.4); Red Cell Distribution Width 15.3 % (11.5-14.0); White Blood Count 6.3 x10^3/uL (4.0-10.5)
[2022-07-27 18:16] LABS: Amphetamine,Urine NEGATIVE (NEGATIVE); Barbiturate,Urine NEGATIVE (NEGATIVE); Benzodiazepine,Urine NEGATIVE (NEGATIVE); Cocaine,Urine NEGATIVE (NEGATIVE); Methadone,Urine NEGATIVE (NEGATIVE); Opiate,Urine NEGATIVE (NEGATIVE); PCP,Urine NEGATIVE (NEGATIVE); THC,Urine NEGATIVE (NEGATIVE)
[2022-07-27 18:28] LABS: ANION GAP 10.2 MEQ/L (5-15); BILIRUBIN,TOTAL 0.4 mg/dL (0.2-1.3); Calcium 8.9 mg/dL (8.4-10.2); Creatinine 1 2.35 mg/dL (0.52-1.04); EST GLOMERULAR FILTRATION RATE 21.7 ML/MIN; MAGNESIUM 2.6 mg/dL (1.6-2.3); Potassium 3.2 mmol/L (3.5-5.1)
[2022-07-27 18:29] LABS: INFLUENZA A NEGATIVE (NEGATIVE); INFLUENZA B NEGATIVE (NEGATIVE); RESPIRATORY SYNCTIAL VIRUS NEGATIVE (Negative); SARS-CoV-2 Xpert Express NEGATIVE (NEGATIVE)
[2022-07-27 18:43] VITALS: PULSE 43
[2022-07-27] MEDS ORDERED: Klor Con PO ONE ×2 (18:52→19:46)
[2022-07-27 19:12] LABS: ADD URINE CULTURE? YES (NO); Appearance Clear (Clear); Bacteria None Seen /HPF (None Seen); Bilirubin Negative (Negative); Blood Negative (Negative); Epithelial Cells None Seen /HPF (None Seen); Glucose, Urine 250 mg/dL (Negative); Ketones Negative (Negative); Leukocyte Esterase Large (Negative); Nitrite Negative (Negative); Protein,Urine Dip Negative (Negative); RBC 0-2 /HPF (0-5); Urobilinogen 0.2 mg/dL (0.2); WBC >100 /HPF (0-5)
[2022-07-27] MEDS ORDERED: ROCEPHIN 1 Gm-D5w 50 ml Bag** 1 G/50 ML IVPB IV STA (19:13)
[2022-07-27 19:46] VITALS: BP 128/50; O2SAT 97
[2022-07-27] MEDS ORDERED: ROCEPHIN 1 Gm-D5w 50 ml Bag** 1 G/50 ML IVPB IV ONE (19:46)
== END 2022-07-27 20:13 | disposition home or self-care (01) ==
LOC: ED 15:44
DX: N39.0 Urinary tract infection, site not specified (principal); R53.1 Weakness; E87.6 Hypokalemia; I11.0 Hypertensive heart disease with heart failure; Z79.01 Long term (current) use of anticoagulants; Z79.899 Other long term (current) drug therapy; Z20.828 Contact with and (suspected) exposure to other viral communicable diseases
CPT/HCPCS: 0241U; 36000; 36415; 80053; 80307; 81001; 82140; 83735; 83880; 84436; 84443; 84484; 85025; 86308; 87086; 93005; 93041; 94760; 99284; 87077; 87186; 96365; J0696; A9270-GY

== ENCOUNTER 2022-08-28 18:12 | Emergency (ER) | payer MEDICARE ==
[2022-08-28 18:26] VITALS: BP 166/90; PULSE 66; O2SAT 95
--- NOTE | 2022-08-28 18:34 | ERPHSYRPT ---
- History of Present Illness Source: patient, family Exam Limitations: no limitations Patient Subjective Stated Complaint: Laceration Triage Nursing Assessment: Patient ambulated back to ED and transferred self to bed. Patient A Timing/Duration: today Associated Symptoms: denies symptoms Hx Tetanus, Diphtheria Vaccination/Date Given: Yes Hx Influenza Vaccination/Date Given: Yes Hx Pneumococcal Vaccination/Date Given: Yes Immunizations Up to Date: Yes <MOOSE COLBY - Last Filed: 08/28/22 18:44> <DAVON LEZAMA - Last Filed: 08/28/22 20:03> - History of Present Illness Time Seen by Provider: 08/28/22 18:29 Physician History: Patient is 71-year-old female fell face forward after and tangling her feet and had a small laceration on her right upper cheekbone approximately 1 cm below right lower eyelid. Patient denies any dizziness palpitation chest pain or passing out episode. (MOOSE COLBY) Allergies/Adverse Reactions: No Known Drug Allergies Allergy (Verified 08/28/22 18:17) Home Medications: Liothyronine Sodium 5 mcg PO DAILY 10/02/20 [History] Potassium Chloride Tab* [Klor Con] 30 meq PO UD 01/05/21 [History] Amiodarone HCl 100 mg PO DAILY 01/13/22 [History] Carvedilol [Coreg] 12.5 mg PO BID 01/13/22 [History] Levothyroxine Sodium 0.5 tab PO UD 01/13/22 [History] Levothyroxine Sodium 125 mcg PO UD 01/13/22 [History] Potassium Chloride 40 meq PO UD 01/13/22 [History] Apixaban [Eliquis 5 mg Tablet] 5 mg PO BID 02/15/22 [History] Aspirin EC 81 mg [Ecotrin 81 mg] 81 mg PO DAILY 02/15/22 [History] Cholecalciferol (Vitamin D3) [Vitamin D] 2,000 unit PO DAILY 02/15/22 [History] Dapagliflozin Propanediol [Farxiga] 10 mg DAILY 02/15/22 [History] Ezetimibe 10 mg [Zetia 10 MG] 10 mg PO DAILY 02/15/22 [History] Loratadine 10 mg [Claritin 10 mg] 10 mg PO DAILY 02/15/22 [History] Melatonin 2.5 mg PO HS 02/15/22 [History] Multivit-Min/Folic AC/Collagen [Women Multivit Collagen Gummy] 6 tab.chew PO DAILY 02/15/22 [History] Torsemide 100 mg BID 02/15/22 [History] Vitamin C/Biotin [Hair, Skin and Nails Gummies] 2 each PO DAILY 02/15/22 [History] Travel Risk - International Travel Have you traveled outside of the country in past 3 weeks: No - Coronavirus Screening Are you exhibiting any of the following symptoms?: No Close contact with a COVID-19 positive Pt in past 14-21 Days: No - Vaccine Status Have you recieved a Covid-19 vaccination: Yes Supervisor Shipping Room: Moderna - Vaccination Dates Date of 2cond Vaccination (if applicable): 10/15/2020 Comment: Unsure of exact dates <MOOSE COLBY - Last Filed: 08/28/22 18:44> - Review of Systems Constitutional: No Fever, No Chills Eyes: No Symptoms, Other (1.5 cm superficial laceration on right side face on cheek bone) Ears, Nose, & Throat: No Symptoms Respiratory: No Cough, No Dyspnea Cardiac: No Chest Pain, No Edema, No Syncope Abdominal/Gastrointestinal: No Abdominal Pain, No Nausea, No Vomiting, No Diarrhea Genitourinary Symptoms: No Dysuria Musculoskeletal: No Back Pain, No Neck Pain Skin: No Rash Neurological: No Dizziness, No Focal Weakness, No Sensory Changes Psychological: No Symptoms Endocrine: No Symptoms All Other Systems: Reviewed and Negative <RONNY COLBYYESH - Last Filed: 08/28/22 18:44> - Past Medical History Pertinent Past Medical History: Yes Neurological History: No Pertinent History ENT History: Cataracts Cardiac History: Arrhythmia, Congenital Heart Disease, Congestive Heart Failure, Coronary Artery Disease, Hypertension, Other Respiratory History: No Pertinent History, Sleep Apnea Endocrine Medical History: Hypothyroidism Musculoskeletal History: Osteoarthritis, Other GI Medical History: No Pertinent History History: Other Psycho-Social History: No Pertinent History Female Reproductive Disorders: No Pertinent History Other Medical History: atrial fibrillation, low kidney functions. GOUT. Cardio Christiane - Past Surgical History Past Surgical History: Yes Neuro Surgical History: No Pertinent History Cardiac: CABG, Cardiac Catheterization, Cardiac Stent, Pacemaker Respiratory: No Pertinent History Gastrointestinal: Cholecystectomy Genitourinary: No Pertinent History Musculoskeletal: Orthopedic Surgery Female Surgical History: Hysterectomy Other Surgical History: THYROIDECTOMY, BACK SURGERY 2010, bladder, hysterectomy, foot surgery, hand surgery cardio christiane. - Social History Smoking Status: Former smoker How long have you smoked: 5 cig/day Exposure to second hand smoke: No Drug Use: none Patient Lives Alone: No Significant Family History: no pertinent family hx < - Last Filed: 08/28/22 18:44> - Physical Exam General Appearance: no apparent distress, alert Eye Exam: PERRL/EOMI, eyes nml inspection Ears, Nose, Throat Exam: normal ENT inspection, TMs normal, pharynx normal, moist mucous membranes Neck Exam: normal inspection, non-tender, supple, full range of motion Respiratory Exam: normal breath sounds, lungs clear, No respiratory distress Cardiovascular Exam: regular rate/rhythm, normal heart sounds, normal peripheral pulses Gastrointestinal/Abdomen Exam: soft, normal bowel sounds, No tenderness, No mass Back Exam: normal inspection, normal range of motion, No CVA tenderness, No vertebral tenderness Extremity Exam: normal inspection, normal range of motion, pelvis stable Neurologic Exam: alert, oriented x 3, cooperative, normal mood/affect, nml cerebellar function, nml station & gait, sensation nml, No motor deficits Skin Exam: normal color, warm, dry, other (1.5 cms superficial laceration on ri ght cheek bone), No rash Lymphatic Exam: No adenopathy SpO2 Interpretation: normal SpO2: 95 O2 Delivery: Room Air < - Last Filed: 08/28/22 18:44> - Nursing Vital Signs Nursing Vital Signs: Initial Vital Signs Temperature 96.6 F 08/28/22 18:19 Pulse Rate 66 08/28/22 18:19 Respiratory Rate 18 08/28/22 18:19 Blood Pressure 166/90 08/28/22 18:19 O2 Sat by Pulse Oximetry 95 08/28/22 18:19 Pain Scale Pain Intensity 5 Procedures - Laceration/Wound Repair Right Cheek Time of Procedure: 18:33 Wound Location: Right, face Wound Length (cm): 1.5 Wound's Depth, Shape: superficial Wound Explored: clean Irrigated: Yes Hibiclens Prep: Yes Wound Repaired With: Steri-strips, Dermabond < - Last Filed: 08/28/22 18:44> - Course Nursing assessment & vital signs reviewed: Yes - CT Exams Maxillofacial Bones CT Interpretation: Tele-radiologist Report Head CT Interpretation: Tele-radiologist Report <EARNESTINE - Last Filed: 08/28/22 18:44> Ordered Tests: Active Orders 24 hr Category Date Time Status Wound Care STAT Care 08/28/22 18:28 Active FACIAL BONES WO CONTRAST [CT] Stat Exams 08/28/22 18:27 Taken HEAD WITHOUT CONTRAST [CT] Stat Exams 08/28/22 18:26 Taken LOWER LEG Stat Exams 08/28/22 19:18 Ordered - Progress Progress: improved, pain not gone completely Counseled pt/family regarding: diagnosis, need for follow-up, rad results <EARNESTINE - Last Filed: 08/28/22 18:44> - Progress Progress: pain not gone completely <DAVON LEZAMA - Last Filed: 08/28/22 20:03> - Progress Progress Note: 08/28/22 20:00 Patient did complain of pain in the left leg which was subsequently x-rayed and found to be negative for fracture or dislocation. (DAVON LEZAMA) Medical Desision Making - Discussion of managment Agreed on:: Treatment plan - Risk of complications The pt has a mod risk of morbidity or mortality based on: Need for minor surgical intervention in patient with know risk factors <EARNESTINE - Last Filed: 08/28/22 18:44> - Discussion of managment Reviewed:: Test results - Risk of complications Low Risk: Low risk of morbidity from additional dx testing or treatment <DAVON LEZAMA - Last Filed: 08/28/22 20:03> - Diagnostic Testing Diagnostic Testing: Diagnostic tests were ordered,analyzed, and reviewed by me and used in my medical decision making for this patient. Radiologic studies (if ordered) were read by me initially then discussed with the radiologist . - Departure Departure Disposition: Home Critical Care Time: Yes Critical Care Time(excluding separately billable procedures): Critical 30-74 mins <EARNESTINE - Last Filed: 08/28/22 18:44> - Departure Departure Disposition: Home Critical Care Time: No <DAVON LEZAMA - Last Filed: 08/28/22 20:03> - Departure Clinical Impression: Facial laceration, Facial contusion Condition: Stable Referrals: CHANDRAKANT MCFARLANE DO [Primary Care Provider] - Follow up/PCP as directed Instructions: Laceration Repair With Glue (DC), Wound Care (DC)
--- NOTE | 2022-08-29 08:42 | XRAY ---
Indication: Pain following fall. Multiple contiguous axial images obtained through the head without contrast. Comparison: January 05, 2021. Again age-appropriate global atrophy and remote lacunar infarct left cerebellum. No acute intracranial hemorrhage, abnormal extra-axial fluid collection, or mass effect. Fourth ventricle is midline without hydrocephalus. Bony calvarium intact with stable prominent arachnoid granulations occipital bone. Visualized paranasal sinuses and mastoid air cells are clear. Impression: Continued nonacute senile brain with remote lacunar infarct left cerebellum. Comment: Preliminary interpretation made by [facility]. No critical discrepancy.
--- NOTE | 2022-08-29 08:46 | XRAY ---
Indication: Pain following fall. Multiple contiguous axial images obtained through the facial bones. Sagittal and coronal reformatted images obtained. Comparison: None Osseous structures demineralized consistent with patient's age. A few dental amalgams produces beam artifact. No acute fracture, suspicious bony lesions, or radiopaque foreign body. Orbits including roof, perez, and floors intact. Minimal mucosal thickening floor of both maxillary, both ethmoid, and both sphenoid sinuses. Minimal nasal septal deviation to the left. Visualized cervical spine demonstrates atlantoaxial degenerative changes and C5-C6 remote fusion surgery. Remaining visualized noncontrasted soft tissues demonstrate moderate bilateral carotid calcifications. Impression: 1. Osteopenia, cervical degenerative spondylosis, bilateral carotid calcifications, and paranasal sinus disease. 2. Remaining CT facial bones negative. Comment: Preliminary interpretation made by C. No critical discrepancy.
--- NOTE | 2022-08-29 08:58 | XRAY ---
Indication: Pain following fall. Comparison: None 2 view left lower leg demonstrates osteopenia, medial leg/knee vascular clips, tiny well-circumscribed benign calcification medial knee, small posterior fabella, and mild scattered vascular calcifications. No other bony, articular, or soft tissue abnormalities.
== END 2022-08-28 20:22 | disposition home or self-care (01) ==
LOC: ED 18:12
DX: S01.411A Laceration without foreign body of right cheek and temporomandibular area, initial encounter (principal); S00.83XA Contusion of other part of head, initial encounter; W19.XXXA Unspecified fall, initial encounter; I11.0 Hypertensive heart disease with heart failure; Z79.01 Long term (current) use of anticoagulants; Z79.899 Other long term (current) drug therapy; M79.605 Pain in left leg
CPT/HCPCS: 12011; 70450; 70486; 73590; 99283; 99291

== ENCOUNTER 2022-09-21 12:35 | Day surgery (SDC) | payer MEDICARE ==
[2012-06-07 21:30] VITALS: BP 145/76
[2022-09-21] MEDS ORDERED: Depo-Medrol 40 MG/ML IM ONE (12:36)
[2022-09-21] MEDS ORDERED: BUPIVACAINE 0.5% VIAL IJ ONE (12:36)
[2022-09-21 14:15] LABS: Calcium 9.2 mg/dL (8.4-10.2); Creatinine 1 2.59 mg/dL (0.52-1.04); EST GLOMERULAR FILTRATION RATE 19.4 ML/MIN; Potassium 3.4 mmol/L (3.5-5.1)
[2022-09-21 14:24] LABS: ANION GAP 17.4 MEQ/L (5-15)
[2022-09-21] MEDS ORDERED: DIPRIVAN 200 MG/20 ML IV ONE (15:07)
[2022-09-21] MEDS ORDERED: Lactated Ringers 1,000 ML IV ONE (15:27)
--- NOTE | 2022-09-21 16:47 | XRAY ---
Indication: Right shoulder and subacromial bursa injection. Intraoperative fluoroscopy provided for 30 seconds. 2 digital spot image submitted for interpretation demonstrates needle tip projecting over the right glenohumeral joint superiorly. Second needle tip subacromial. Small amount of contrast injected for both needle tip placement. Correlate with intraoperative findings/report.
--- NOTE | 2022-09-21 16:49 | XRAY ---
30 seconds of fluoroscopy was used in surgery for a right shoulder intra-articular and subacromial bursa injections.
== END 2022-09-21 15:40 | disposition home or self-care (01) ==
LOC: SDC-PAIN 12:35
PROVIDERS: ATTEND Psychiatry & Neurology Pain Medicine
DX: M19.011 Primary osteoarthritis, right shoulder (principal); M75.51 Bursitis of right shoulder; Z79.899 Other long term (current) drug therapy
CPT/HCPCS: 20610; 36415; 73030; 77002; 80048; J1030; J2704; Q9966

== ENCOUNTER 2023-01-18 14:05 | Emergency (ER) | payer MEDICARE ==
[2023-01-18] MEDS ORDERED: Hydromorphone 1 mg/ml Injection IM ONE (14:37)
[2023-01-18 14:39] VITALS: BP 150/55
[2023-01-18] MEDS ORDERED: Hydromorphone 1 mg/ml Injection ONE (14:49)
[2023-01-18 15:39] VITALS: O2SAT 95
--- NOTE | 2023-01-18 16:40 | XRAY ---
Indication: Left shoulder pain radiating to neck. No known injury. Multiple contiguous axial images obtained through the cervical spine. Sagittal and coronal reformatted images obtained. Comparison: None Osseous structures demineralized consistent with patient's age. Axial images negative for acute fracture, suspicious bony lesions, or spinal canal stenosis. Minimal broad-based C4-C5 and lesser degree C3-C4 disc osteophyte complex. Remote C5-C6 fusion. Mild left C2-C3 degenerative facet arthropathy. Sagittal and coronal reformatted images demonstrate normal alignment with vertebral body heights and disc spaces maintained. No acute compression fracture, subluxation, or jumped facet. Normal appearing craniocervical junction. Visualized noncontrasted soft tissues demonstrates moderate bilateral carotid calcifications and thyroidectomy. Base of brain unremarkable. Lung apices demonstrates minimal right apical fibrosis/scarring as sternotomy wires. Impression: 1. Chronic findings including osteopenia, multilevel degenerative changes, C5-C6 fusion, bilateral carotid calcifications, and right apical fibrosis/scarring. 2. Remaining CT neck without contrast exam is negative.
--- NOTE | 2023-01-18 16:44 | XRAY ---
Indication: Left shoulder pain radiating to neck. No known injury. Multiple contiguous axial images obtained through the left shoulder. Sagittal and coronal reformatted images obtained. Comparison: None Osseous structures demineralized consistent with patient's age. Moderate acromioclavicular degenerative arthropathy. No acute fracture, dislocation, or suspicious bony lesions. Visualized noncontrasted soft tissues demonstrates mild scattered arteriosclerotic disease, small mediastinal calcified nodes, mitral valve replacement, minimal lingula fibrosis/scarring, and incompletely visualized left AICD. Impression: Chronic findings including osteopenia, acromioclavicular degenerative arthropathy, arteriosclerotic disease, postsurgical changes, and old granulomatous disease. Remaining CT left shoulder is negative.
--- NOTE | 2023-01-18 17:15 | ERPHSYRPT ---
- History of Present Illness Time Seen by Provider: 01/18/23 14:40 Source: patient Exam Limitations: no limitations Patient Subjective Stated Complaint: C/O left upper arm and left shoulder pain for a few weeks now. Denies fall or injury. Triage Nursing Assessment: Patient ambulated back to ER. SHe is alert and oriented. No SOB. 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 Patient able to removed shirt per self to put on gown, this nurse assisted with removing bra due to patient states she couldn't reach back to unhook it herself. Physician History: Patient is a 72-year-old white female presents with a complaint of left arm pain for several weeks. She complains of weakness in her left hand she says she has not slept for 2 weeks secondary to the pain. She is in pain management and was recently on Percocets which did not work and she was switched to [place] tens which she says also do not work she has pain in the neck and down the arm. Occurred: other (Pain for several weeks.) Method of Injury: unknown Quality: aching, throbbing Severity of Pain-Max: severe Severity of Pain-Current: moderate Extremities Pain Location: shoulder: left, arm: left, elbow: left, forearm: left, wrist: left, hand: left Modifying Factors: Improves With: movement Associated Symptoms: none Allergies/Adverse Reactions: No Known Drug Allergies Allergy (Verified 01/18/23 14:27) Home Medications: Liothyronine Sodium 5 mcg PO DAILY 10/02/20 [History] Potassium Chloride Tab* [Klor Con] 30 meq PO UD 01/05/21 [History] Amiodarone HCl 100 mg PO DAILY 01/13/22 [History] Carvedilol [Coreg] 12.5 mg PO BID 01/13/22 [History] Levothyroxine Sodium 0.5 tab PO UD 01/13/22 [History] Levothyroxine Sodium 125 mcg PO UD 01/13/22 [History] Potassium Chloride 40 meq PO UD 01/13/22 [History] Aspirin EC 81 mg [Ecotrin 81 mg] 81 mg PO DAILY 02/15/22 [History] Cholecalciferol (Vitamin D3) [Vitamin D] 2,000 unit PO DAILY 02/15/22 [History] Dapagliflozin Propanediol [Farxiga] 10 mg DAILY 02/15/22 [History] Ezetimibe 10 mg [Zetia 10 MG] 10 mg PO DAILY 02/15/22 [History] Loratadine 10 mg [Claritin 10 mg] 10 mg PO DAILY 02/15/22 [History] Melatonin 2.5 mg PO HS 02/15/22 [History] Multivit-Min/Folic AC/Collagen [Women Multivit Collagen Gummy] 6 tab.chew PO DAILY 02/15/22 [History] Torsemide 100 mg BID 02/15/22 [History] Vitamin C/Biotin [Hair, Skin and Nails Gummies] 2 each PO DAILY 02/15/22 [History] Hx Tetanus, Diphtheria Vaccination/Date Given: Yes Hx Influenza Vaccination/Date Given: Yes Hx Pneumococcal Vaccination/Date Given: Yes Immunizations Up to Date: Yes Travel Risk - International Travel Have you traveled outside of the country in past 3 weeks: No - Coronavirus Screening Are you exhibiting any of the following symptoms?: No Close contact with a COVID-19 positive Pt in past 14-21 Days: No - Vaccine Status Have you recieved a Covid-19 vaccination: Yes 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 - Vaccination Dates Date of 2cond Vaccination (if applicable): 10/15/2020 - Review of Systems Constitutional: No Fever, No Chills Eyes: No Symptoms Ears, Nose, & Throat: No Symptoms Respiratory: No Cough, No Dyspnea Cardiac: No Chest Pain, No Edema, No Syncope Abdominal/Gastrointestinal: No Abdominal Pain, No Nausea, No Vomiting, No Diarrhea Genitourinary Symptoms: No Dysuria Musculoskeletal: Neck Pain, Other (Any movement of the left upper extremity causes apparent pain.), No Back Pain Skin: No Rash Neurological: No Dizziness, No Focal Weakness, No Sensory Changes Psychological: No Symptoms Endocrine: No Symptoms All Other Systems: Reviewed and Negative - Past Medical History Pertinent Past Medical History: Yes Neurological History: No Pertinent History ENT History: Cataracts Cardiac History: Arrhythmia, Congenital Heart Disease, Congestive Heart Failure, Coronary Artery Disease, Hypertension, Other Respiratory History: Sleep Apnea Endocrine Medical History: Hypothyroidism Musculoskeletal History: Osteoarthritis, Other GI Medical History: No Pertinent History History: Other Psycho-Social History: No Pertinent History Female Reproductive Disorders: No Pertinent History Other Medical History: atrial fibrillation, low kidney functions. GOUT. Cardio Mckay - Past Surgical History Past Surgical History: Yes Neuro Surgical History: No Pertinent History Cardiac: CABG, Cardiac Catheterization, Cardiac Stent, Pacemaker Respiratory: No Pertinent History Gastrointestinal: Cholecystectomy Genitourinary: No Pertinent History Musculoskeletal: Orthopedic Surgery Female Surgical History: Hysterectomy Other Surgical History: THYROIDECTOMY, BACK SURGERY, bladder, foot surgery, cardio mckay, the watchman - Social History Smoking Status: Former smoker How long have you smoked: 5 cig/day Exposure to second hand smoke: No Drug Use: none Patient Lives Alone: No Significant Family History: no pertinent family hx - Nursing Vital Signs Nursing Vital Signs: Initial Vital Signs Temperature 98 F 01/18/23 14:29 Pulse Rate 67 01/18/23 14:29 Respiratory Rate 16 01/18/23 14:29 Blood Pressure 150/55 01/18/23 14:29 O2 Sat by Pulse Oximetry 96 01/18/23 14:29 Pain Scale Pain Intensity 10 - Physical Exam General Appearance: moderate distress Eyes, Ears, Nose, Throat Exam: moist mucous membranes Neck Exam: non-tender, supple Cardiovascular/Respiratory Exam: chest non-tender, normal breath sounds, regular rate/rhythm, no respiratory distress Abdominal Exam: non-tender, No guarding Back Exam: normal inspection, No vertebral tenderness Shoulder Exam: limited ROM (Limited range of motion of the entire left upper extremity from the shoulder to the hand.) Elbow/Forearm Exam: bone tenderness, soft tissue tenderness Wrist Exam: bone tenderness, soft tissue tenderness Hand Exam: bone tenderness, soft tissue tenderness Neuro/Tendon Exam: normal sensation, normal motor functions Mental Status Exam: alert, oriented x 3, cooperative Skin Exam: normal color, warm, dry SpO2 Interpretation: normal SpO2: 95 O2 Delivery: Room Air - Course Nursing assessment & vital signs reviewed: Yes - CT Exams Upper Extremity CT Interpretation: Other (Essentially positive for severe degenerative changes.) Cervical Spine CT Interpretation: Other (Primarily positive for severe degenerative changes she also is status post fusion of C5-6.) Ordered Tests: Active Orders 24 hr Category Date Time Status CERVICAL SPINE WO CONTRAST [CT] Stat Exams 01/18/23 14:35 Completed UPPER EXTREMITY W/O CONTRAST [CT] Stat Exams 01/18/23 14:35 Completed Medication Summary Discontinued Medications Generic Name Dose Route Start Last Admin Trade Name Freq PRN Reason Stop Dose Admin Droperidol 1.25 mg 01/18/23 14:38 01/18/23 14:54 Droperidol 5 Mg/2 Ml Vial IM 01/18/23 14:39 1.25 mg STAT ONE Administration Droperidol Confirm 01/18/23 14:49 Droperidol 5 Mg/2 Ml Vial Administered 01/18/23 14:50 Dose 5 mg .ROUTE .STK-MED ONE Hydromorphone HCl 1 mg 01/18/23 14:37 01/18/23 14:51 Hydromorphone 1 Mg/1ml Inj IM 01/18/23 14:38 1 mg STAT ONE Administration Hydromorphone HCl Confirm 01/18/23 14:49 Hydromorphone 1 Mg/1ml Inj Administered 01/18/23 14:50 Dose 1 mg .ROUTE .STK-MED ONE - Progress Progress: improved Medical Desision Making - Diagnostic Testing Radiological Interpretation: Reviewed by me - Risk of complications Low Risk: Low risk of morbidity from additional dx testing or treatment - Departure Departure Disposition: Home Clinical Impression: Cervical radiculopathy Condition: Stable Critical Care Time: No Referrals: CHANDRAKANT MCFARLANE DO [Primary Care Provider] - Follow up/PCP as directed
[2023-01-18 17:28] VITALS: PULSE 64
== END 2023-01-18 17:28 | disposition home or self-care (01) ==
LOC: ED 14:05
DX: M54.12 Radiculopathy, cervical region (principal); M79.602 Pain in left arm; I11.0 Hypertensive heart disease with heart failure; I50.9 Heart failure, unspecified; Z79.84 Long term (current) use of oral hypoglycemic drugs; Z79.899 Other long term (current) drug therapy
CPT/HCPCS: 72125; 73200; 96372; 99283; J1170

== ENCOUNTER 2023-02-08 10:02 | Day surgery (SDC) | payer MEDICARE ==
[2012-06-07 21:30] VITALS: BP 145/76
[2023-02-08] MEDS ORDERED: BUPIVACAINE 0.5% VIAL IJ ONE (10:03)
[2023-02-08] MEDS ORDERED: Depo-Medrol 40 MG/ML IM ONE (10:03)
[2023-02-08 10:52] LABS: Hematocrit 41.2 % (35-47); Hemoglobin 13.2 g/dL (12.0-16.0); Mean Cell Volume 91.4 fL (78-100); Mean Corpuscular Hemoglobin 29.3 pg (26-32); Mean Platelet Volume 10.7 fL (7.5-11.0); Platelet Count 279 x10^3/uL (150-450); Red Blood Count 4.51 x10^6/uL (4.1-5.4); Red Cell Distribution Width 15.6 % (11.5-14.0); White Blood Count 7.8 x10^3/uL (4.0-10.5)
[2023-02-08 11:30] LABS: ALBUMIN 4.6 g/dL (3.5-5.0); ANION GAP 15.6 MEQ/L (5-15); Calcium 9.5 mg/dL (8.4-10.2); Creatinine 1 2.74 mg/dL (0.52-1.04); EST GLOMERULAR FILTRATION RATE 18.1 ML/MIN; PHOSPHOROUS 4.9 mg/dL (2.5-4.5); Potassium 4.1 mmol/L (3.5-5.1)
[2023-02-08 11:36] LABS: Creatinine, Urine Random 90.6 mg/dl
[2023-02-08] MEDS ORDERED: Lactated Ringers 1,000 ML IV ONE (12:47)
--- NOTE | 2023-02-08 13:06 | XRAY ---
Indication: Left shoulder and subacromial bursa injection. Intraoperative fluoroscopy was provided for 22 seconds. 2 digital spot images submitted for interpretation demonstrates needle tip projecting over the left glenohumeral joint superiorly. Second needle tip subacromial. Small amount of contrast injected for both needle tip placement. Correlate with intraoperative findings/report.
--- NOTE | 2023-02-08 13:06 | XRAY ---
Indication: Right shoulder and subacromial bursa injection. Intraoperative fluoroscopy was provided for 25 seconds. 2 digital spot images submitted for interpretation demonstrates needle tip projecting over the right glenohumeral joint superiorly. Second needle tip subacromial. Small amount of contrast injected for both needle tip placement. Correlate with intraoperative findings/report.
--- NOTE | 2023-02-08 14:06 | XRAY ---
25 seconds of fluoroscopy was used in surgery for a right shoulder intra-articular injection and a subacromial bursa injection.
--- NOTE | 2023-02-08 14:06 | XRAY ---
22 seconds of fluoroscopy was used in surgery for a left shoulder intra-articular injection and subacromial bursa injection.
== END 2023-02-08 12:35 | disposition home or self-care (01) ==
LOC: SDC-PAIN 10:02
PROVIDERS: ATTEND Psychiatry & Neurology Pain Medicine
DX: M19.012 Primary osteoarthritis, left shoulder (principal); M19.011 Primary osteoarthritis, right shoulder; I10 Essential (primary) hypertension; I48.91 Unspecified atrial fibrillation; Z79.899 Other long term (current) drug therapy
CPT/HCPCS: 20610; 36415; 73030; 77002; 80048; 82040; 82043; 82570; 83970; 84100; 84550; 85027; J1030; Q9966

== ENCOUNTER 2023-03-29 13:31 | Day surgery (SDC) | payer MEDICARE ==
[2012-06-07 21:30] VITALS: BP 145/76
[2023-03-29] MEDS ORDERED: Sodium Chloride 0.9(Preservative Free) 10 ML IJ ONE (13:32)
[2023-03-29] MEDS ORDERED: Depo-Medrol 40 MG/ML IM ONE (13:32)
[2023-03-29] MEDS ORDERED: DIPRIVAN 200 MG/20 ML IV ONE (15:06)
[2023-03-29] MEDS ORDERED: Lactated Ringers 1,000 ML IV ONE (15:24)
--- NOTE | 2023-03-29 16:55 | XRAY ---
Indication: Left L4-S1 transforaminal CONNER. Intraoperative fluoroscopy provided for 32 seconds. 4 digital spot image submitted for interpretation demonstrates posterior needle tips projecting over the expected left L4 and L5 nerve roots. Small amount of contrast injected for needle tip placement. Correlate with intraoperative findings/report. Incidental bilateral L4-L5 posterior fusion hardware.
--- NOTE | 2023-03-29 16:57 | XRAY ---
32 seconds of fluoroscopy was used in surgery for a left L4-S1 transforaminal CONNER.
== END 2023-03-29 15:40 | disposition home or self-care (01) ==
LOC: SDC-PAIN 13:31
PROVIDERS: ATTEND Psychiatry & Neurology Pain Medicine
DX: M54.16 Radiculopathy, lumbar region (principal); Z79.899 Other long term (current) drug therapy
CPT/HCPCS: 64483; 64484; 72100; 77003; J1030; J2704; Q9966

== ENCOUNTER 2023-08-09 16:20 | Day surgery (SDC) | payer MEDICARE ==
[2012-06-07 21:30] VITALS: BP 145/76
[2023-08-09] MEDS ORDERED: XYLOCAINE-MPF 1% 5ML SDV IJ ONE (16:21)
[2023-08-09] MEDS ORDERED: Decadron 4 MG INJ IV ONE (16:21)
[2023-08-09] MEDS ORDERED: Sodium Chloride 0.9(Preservative Free) 10 ML IJ ONE (16:21)
[2023-08-09] MEDS ORDERED: Lactated Ringers 1,000 ML IV ONE (18:48)
[2023-08-09] MEDS ORDERED: MORPHINE SULFATE 2 MG INJ ONE (19:11)
--- NOTE | 2023-08-09 20:22 | XRAY ---
Indication: Cervical CONNER Intraoperative fluoroscopy provided for 17 seconds. 2 digital spot image submitted for interpretation demonstrates posterior needle tip projecting posterior to cervical thoracic junction. Small amount of contrast injected for needle tip placement. Correlate with intraoperative findings/report.
--- NOTE | 2023-08-10 10:25 | XRAY ---
17 seconds of fluoroscopy was used in surgery for a cervical CONNER.
== END 2023-08-09 19:30 | disposition home or self-care (01) ==
LOC: SDC-PAIN 16:20
PROVIDERS: ATTEND Psychiatry & Neurology Pain Medicine
DX: M54.12 Radiculopathy, cervical region (principal)
CPT/HCPCS: 62321; 72040; 77003; J1100; J2270; Q9966

== ENCOUNTER 2024-02-26 12:02 | Emergency (ER) | payer MEDICARE ==
[2024-02-26 12:40] VITALS: RESP 18; TEMP 98.1
--- NOTE | 2024-02-26 13:27 | ERPHSYRPT ---
- History of Present Illness Source: patient Exam Limitations: no limitations Patient Subjective Stated Complaint: pt states that she has history of staph infection. pt states that she scraped her leg on the [place]. pt states she is on antibotics. Triage Nursing Assessment: pt ambulated into the er; pt is axo x4; states 6/10 pain to LLE; pt states pain radiates to left foot; scab present to left krishnamurthy; scab measures 1 cm in diameter; redness present around scab; no streaking present to LLE; no swelling or warmth present to LLE; no respiratory distress present; hypertensive Physician History: Patient has a area from a wound that has been there for about 3 weeks. She went and got seen and was put on doxycycline for it. She has a history of MRSA. She is worried MRSA might be occurring. It does not look like there is overwhelming cellulitis. She is having some pain and tenderness in the soft tissue below the wound. It is about midway up her anterior left leg. There is a healing scabbed wound with some slight erythema at the bases. I am not seeing much edema. There is some tenderness in the soft tissue above and below the wound. She is having no systemic symptoms like fever chills nausea vomiting. Nothing really makes his symptoms better. Quality: burning, painful Allergies/Adverse Reactions: No Known Drug Allergies Allergy (Verified 02/26/24 12:16) Home Medications: Liothyronine Sodium 5 mcg PO DAILY 10/02/20 [History] Potassium Chloride Tab* [Klor Con] 20 meq PO DAILY 01/05/21 [History] Levothyroxine Sodium 100 mcg PO UD 01/13/22 [History] carvediloL [Coreg] 12.5 mg PO BID 01/13/22 [History] Aspirin EC 81 mg [Ecotrin 81 mg] 81 mg PO DAILY 02/15/22 [History] Cholecalciferol (Vitamin D3) [Vitamin D] 2,000 unit PO DAILY 02/15/22 [History] Dapagliflozin Propanediol [Farxiga] 10 mg DAILY 02/15/22 [History] Ezetimibe 10 mg [Zetia 10 MG] 10 mg PO DAILY 02/15/22 [History] Loratadine 10 mg [Claritin 10 mg] 10 mg PO DAILY 02/15/22 [History] Torsemide 50 mg PO DAILY 02/15/22 [History] Allopurinol 100 mg [Zyloprim 100 mg] 200 mg PO DAILY 02/26/24 [History] Doxycycline Hyclate 100 mg [Vibramycin 100 MG] 100 mg PO BID 02/26/24 [History] Gabapentin [Neurontin ] 200 mg PO TID 02/26/24 [History] Omeprazole 40 mg PO DAILY 02/26/24 [History] Oxycodone HCl/Acetaminophen [Oxycodone-Acetaminophn 7.5-325] 1 tab PO TID PRN 02/26/24 [History] Spironolactone 25 mg [Aldactone 25 MG] 25 mg PO DAILY 02/26/24 [History] Trazodone HCl 50 mg [Desyrel 50 mg] 50 mg PO HS 02/26/24 [History] Hx Tetanus, Diphtheria Vaccination/Date Given: Yes Hx Influenza Vaccination/Date Given: Yes Hx Pneumococcal Vaccination/Date Given: Yes Immunizations Up to Date: No Travel Risk - International Travel Have you traveled outside of the country in past 3 weeks: No - Emerging Infectious Disease Are you exhibiting symptoms associated with any current EIDs: No - Review of Systems Constitutional: No Symptoms Eyes: No Symptoms Ears, Nose, & Throat: No Symptoms Respiratory: No Symptoms Skin: Skin Lesions Neurological: No Symptoms All Other Systems: Reviewed and Negative - Past Medical History Pertinent Past Medical History: Yes Neurological History: No Pertinent History ENT History: Cataracts Cardiac History: Arrhythmia, Congenital Heart Disease, Congestive Heart Failure, Coronary Artery Disease, Hypertension, Other Respiratory History: Sleep Apnea Endocrine Medical History: Hypothyroidism Musculoskeletal History: Osteoarthritis, Other GI Medical History: No Pertinent History History: Other Psycho-Social History: No Pertinent History Female Reproductive Disorders: No Pertinent History Other Medical History: atrial fibrillation, low kidney functions. GOUT. Cardio Mckay - Past Surgical History Past Surgical History: Yes Neuro Surgical History: No Pertinent History Cardiac: CABG, Cardiac Catheterization, Cardiac Stent, Pacemaker Respiratory: No Pertinent History Gastrointestinal: Cholecystectomy Genitourinary: No Pertinent History Musculoskeletal: Orthopedic Surgery Female Surgical History: Hysterectomy Other Surgical History: THYROIDECTOMY, BACK SURGERY, bladder, foot surgery, cardio mckay, the [employer] Significant Family History: no pertinent family hx - Social History Smoking Status: Former smoker How long have you smoked: 5 cig/day Exposure to second hand smoke: No Drug Use: none Patient Lives Alone: No - Social Determinants of Health Will the patient participate in the screening: Yes Do you worry about a steady place to live?: No Do you have any problems with any of the following?: No known problems In the past 12 months,have you had to go without utilities?: No Transportation Issues: No Has anyone in your support network made you feel unsafe?: No Have you or anyone in your house had to go without enough: No - Nursing Vital Signs Nursing Vital Signs: Initial Vital Signs Pulse Rate 77 02/26/24 12:14 Blood Pressure 158/72 02/26/24 12:14 O2 Sat by Pulse Oximetry 97 02/26/24 12:14 Pain Scale Pain Intensity 7 - Physical Exam General Appearance: no apparent distress Eye Exam: PERRL/EOMI Respiratory Exam: normal breath sounds, No chest tenderness Cardiovascular Exam: regular rate/rhythm Extremity Exam: other (The left leg has a area that is basically an eschar. Its only about a centimeter by a centimeter. There are some surrounding erythema. There are some surrounding soft tissue tenderness. No obvious signs of infection in the skin.) Lymphatic Exam: No adenopathy SpO2: 96 - Course Nursing assessment & vital signs reviewed: Yes Ordered Tests: Active Orders 24 hr Category Date Time Status BLOOD CULTURE Stat Lab 02/26/24 13:35 Received CBC W DIFF Stat Lab 02/26/24 13:28 Completed CMP Stat Lab 02/26/24 13:28 Completed CULTURE,WOUND Stat Lab 02/26/24 Ordered Erythrocyte Sedimentation Rate Stat Lab 02/26/24 13:35 Completed Medication Summary Generic Name Dose Route Start Last Admin Trade Name Freq PRN Reason Stop Dose Admin Trimethoprim/Sulfamethoxazole 260 mls @ 167 mls/hr 02/26/24 18:00 02/26/24 14:22 10 ml/ Dextrose IV 03/27/24 17:59 167 mls/hr Q6HT EFE Administration Discontinued Medications Generic Name Dose Route Start Last Admin Trade Name Freq PRN Reason Stop Dose Admin Hydrocodone Bitart/Acetaminophen 1 tab 02/26/24 13:38 02/26/24 14:21 Hydrocodone/Apap 5/325 1 Tab Tablet PO 02/26/24 13:39 1 tab STAT ONE Administration Hydrocodone Bitart/Acetaminophen Confirm 02/26/24 13:46 Hydrocodone/Apap 5/325 1 Tab Tablet Administered 02/26/24 13:47 Dose 1 tab .ROUTE .STK-MED ONE Laboratory Results - last 24 hr 02/26/24 02/26/24 02/26/24 13:28 13:28 13:35 WBC 7.9 RBC 4.82 Hgb 14.5 Hct 46.2 H MCV 95.9 H MCH 30.1 MCHC 31.4 L RDW 14.9 H Plt Count 227 MPV 11.1 Gran % 56.9 Immature Gran % (Auto) 0.3 Nucleat RBC Rel Count 0.0 Eos # (Auto) 0.41 H Immature Gran # (Auto) 0.02 Absolute Lymphs (auto) 2.38 Absolute Monos (auto) 0.53 Absolute Nucleated RBC 0.00 Lymphocytes % 30.3 Monocytes % 6.7 Eosinophils % 5.2 Basophils % 0.6 Absolute Granulocytes 4.47 Basophils # 0.05 ESR 29 H Sodium 138 Potassium 4.6 Chloride 97 L Carbon Dioxide 30 Anion Gap 15.1 H BUN 40 H Creatinine 1.99 H Estimated GFR 26.1 Glucose 91 Calcium 10.5 H Total Bilirubin 0.40 AST 37 H ALT 27 Alkaline Phosphatase 128 H Serum Total Protein 8.2 Albumin 5.0 Lab/Rad Data: Laboratory Result Diagrams 02/26/24 13:28 02/26/24 13:28 Laboratory Results 02/26/24 02/26/24 02/26/24 Range/Units 13:35 13:28 13:28 WBC 7.9 (3.98-10.04) x10^3/uL RBC 4.82 (3.93-5.22) x10^6/uL Hgb 14.5 (11.2-15.7) g/dL Hct 46.2 H (34.1-44.9) % MCV 95.9 H (79.4-94.8) fL MCH 30.1 (25.6-32.2) pg MCHC 31.4 L (32.2-35.5) g/dL RDW 14.9 H (11.7-14.4) % Plt Count 227 (182-369) x10^3/uL MPV 11.1 (9.4-12.3) fL Gran % 56.9 (34.0-71.1) % Immature Gran % (Auto) 0.3 (0.001-0.429) % Nucleat RBC Rel Count 0.0 (0.00-0.2) % Eos # (Auto) 0.41 H (0.04-0.36) x10^3/uL Immature Gran # (Auto) 0.02 (0.001-0.031) x10^3u/L Absolute Lymphs (auto) 2.38 (1.18-3.74) x10^3/uL Absolute Monos (auto) 0.53 (0.24-0.86) x10^3/uL Absolute Nucleated RBC 0.00 (0.00-0.012) x10^3u/L Lymphocytes % 30.3 (19.3-51.7) % Monocytes % 6.7 (4.7-12.5) % Eosinophils % 5.2 (0.7-5.8) % Basophils % 0.6 (0.1-1.2) % Absolute Granulocytes 4.47 (1.56-6.13) x10^3/uL Basophils # 0.05 (0.01-0.08) x10^3/uL ESR 29 H (0-20) mm/hr Sodium 138 (135-145) mmol/L Potassium 4.6 (3.5-5.1) mmol/L Chloride 97 L (98-107) mmol/L Carbon Dioxide 30 (22-30) mmol/L Anion Gap 15.1 H (5-15) MEQ/L BUN 40 H (7-17) mg/dL Creatinine 1.99 H (0.52-1.04) mg/dL Estimated GFR 26.1 ML/MIN Glucose 91 (74-106) mg/dL Calcium 10.5 H (8.4-10.2) mg/dL Total Bilirubin 0.40 (0.2-1.3) mg/dL AST 37 H (14-36) U/L ALT 27 (0-35) U/L Alkaline Phosphatase 128 H (38-126) U/L Serum Total Protein 8.2 (6.3-8.2) g/dL Albumin 5.0 (3.5-5.0) g/dL - Progress Progress: unchanged Progress Note: Patient was stable throughout stay. Her labs all look good. Her inflammatory markers were barely elevated. I do not think she meets inpatient requirements. I do not know if doxycycline is the best medicine for her if she is MRSA. I think when to switch her to Bactrim. I gave her a IV Bactrim injection here. She tolerated it well. I would have her use warm compresses and follow-up with her primary doctor. 02/26/24 14:34 Counseled pt/family regarding: diagnosis, need for follow-up Medical Desision Making - Diagnostic Testing Diagnostic test were ordered, analyzed, and reviewed by me: Yes - Risk of complications Minimal Risk: Minimal risk of morbidity - Departure Departure Disposition: Home Clinical Impression: Cellulitis of left lower extremity Condition: Stable Critical Care Time: No Referrals: JAMIE RODRIGUEZ [Primary Care Provider] - Follow up/PCP as directed Additional Instructions: Antibiotics as directed, warm compresses frequently and follow-up with your primary doctor. Prescriptions: Sulfamethoxazole/Trimethoprim [Bactrim Ds Tablet] 1 each PO BID #20 tablet
[2024-02-26 13:41] LABS: Absolute Neutrophil Ct (ANC) 4.47 x10^3/uL (1.56-6.13); BASOPHIL % 0.6 % (0.1-1.2); Basophil (Absolute #) 0.05 x10^3/uL (0.01-0.08); Eosinophil % 5.2 % (0.7-5.8); Eosinophil (Absolute #) 0.41 x10^3/uL (0.04-0.36); Hematocrit 46.2 % (34.1-44.9); Hemoglobin 14.5 g/dL (11.2-15.7); IMMATURE GRAN # 0.02 x10^3u/L (0.001-0.031); IMMATURE GRAN % 0.3 % (0.001-0.429); Lymphocyte (Absolute #) 2.38 x10^3/uL (1.18-3.74); Lymphocytes % 30.3 % (19.3-51.7); Mean Cell Volume 95.9 fL (79.4-94.8); Mean Corpuscular Hemoglobin 30.1 pg (25.6-32.2); Mean Corpuscular Hgb Concent. 31.4 g/dL (32.2-35.5); Mean Platelet Volume 11.1 fL (9.4-12.3); Monocyte (Absolute #) 0.53 x10^3/uL (0.24-0.86); Monocytes % 6.7 % (4.7-12.5); Neutrophil % 56.9 % (34.0-71.1); Platelet Count 227 x10^3/uL (182-369); Red Blood Count 4.82 x10^6/uL (3.93-5.22); Red Cell Distribution Width 14.9 % (11.7-14.4); White Blood Count 7.9 x10^3/uL (3.98-10.04)
[2024-02-26] MEDS ORDERED: NORCO 5/325 MG ONE (13:46)
[2024-02-26 14:07] LABS: ANION GAP 15.1 MEQ/L (5-15); BILIRUBIN,TOTAL 0.4 mg/dL (0.2-1.3); Calcium 10.5 mg/dL (8.4-10.2); Creatinine 1 1.99 mg/dL (0.52-1.04); EST GLOMERULAR FILTRATION RATE 26.1 ML/MIN; Potassium 4.6 mmol/L (3.5-5.1); Total Protein 8.2 g/dL (6.3-8.2)
[2024-02-26] MEDS: NORCO 5/325 MG PO ONE (14:21)
[2024-02-26] MEDS: DEXTROSE IV SCH (14:22)
[2024-02-26] MEDS: [UNRECOGNIZED DRUG - OTHER] IV SCH (14:22)
[2024-02-26] MEDS: WATER IV SCH (14:22)
[2024-02-26 16:01] VITALS: PULSE 71; O2SAT 96
[2024-02-26 16:03] VITALS: BP 115/66
== END 2024-02-26 16:14 | disposition home or self-care (01) ==
LOC: ED 12:02
DX: L03.116 Cellulitis of left lower limb (principal); I11.0 Hypertensive heart disease with heart failure; I50.9 Heart failure, unspecified; Z79.84 Long term (current) use of oral hypoglycemic drugs; Z79.899 Other long term (current) drug therapy
CPT/HCPCS: 36000; 36415; 80053; 85025; 85652; 86140; 87040; 99284; A9270-GY; S0039

== ENCOUNTER 2024-07-25 10:10 | Day surgery (SDC) | payer MEDICARE ==
[2012-06-07 21:30] VITALS: BP 145/76
[2024-07-25] MEDS ORDERED: methylPREDNISolone acetate IM ONE (10:11)
[2024-07-25] MEDS ORDERED: BUPIVACAINE 0.5% VIAL IJ ONE (10:11)
[2024-07-25] MEDS ORDERED: propofoL IV ONE (12:01)
--- NOTE | 2024-07-25 13:23 | XRAY ---
Indication: Left shoulder and subacromial bursa injection Intraoperative fluoroscopy provided for 17 seconds. 3 digital spot image submitted for interpretation demonstrates needle tip projecting over left glenohumeral joint superiorly. Second needle tip subacromial. Small amount of contrast injected for both needle tip placement. Correlate with intraoperative findings/report.
--- NOTE | 2024-07-25 13:45 | XRAY ---
17 seconds of fluoroscopy was used in surgery for a left intra-articular shoulder and subacromial bursa injection.
== END 2024-07-25 12:36 | disposition home or self-care (01) ==
LOC: SDC-PAIN 10:10
PROVIDERS: ATTEND Psychiatry & Neurology Pain Medicine
DX: M19.012 Primary osteoarthritis, left shoulder (principal); R73.03 Prediabetes; M75.52 Bursitis of left shoulder
CPT/HCPCS: 20610; 73030; 77002; 82947; J1010; J2704; Q9966